=== PATIENT | male | born 1940 | race Caucasian/White ===

== ENCOUNTER 2020-03-09 16:29 | Outpatient (REF) | payer MEDICARE, SELFPAY ==
[2020-03-09 18:05] LABS: MANUAL DIFF FLAG NO
[2020-03-09 18:10] LABS: Glucose Urine UA NEG (NEG); Leukocyte Esterase Urine NEG (NEG); Nitrite Urine NEG (NEG); Specific Gravity - Urine >= 1.030 (1.005-1.025); Urine Blood NEG (NEG); Urine Ketones NEG (NEG); Urine Protein NEG (NEG-TRACE)
[2020-03-09 18:17] LABS: Appearance Urine CLEAR; Color Urine YELLOW
[2020-03-09 18:25] LABS: RBC Urine 0 /HPF (0); WBC Urine 0 /HPF (0-4)
[2020-03-09 18:26] LABS: Eosinophils Absolute Auto 0.2 X10*3/uL (0.0-0.4); Eosinophils Percent Auto 2.4 % (0-4); Hematocrit 43.6 % (42-52); Hemoglobin 14.5 g/dl (14.0-18.0); Imm Gran Abs Auto 0.08 X10*3/uL (0.00-0.03); Imm Gran Pct Auto 1.1 % (0.0-0.4); Lymphocytes Absolute Auto 1.2 X10*3/uL (1.2-4.9); Lymphocytes Percent Auto 16.2 % (20-40); Mean Corpuscular HGB Conc 33.3 g/dl (31.0-36.0); Mean Corpuscular Hemoglobin 30.3 pg (27.0-33.0); Mean Platelet Volume 11.3 fL (9.4-12.4); Monocytes Absolute Auto 0.7 X10*3/uL (0.1-1.2); Monocytes Percent Auto 9.1 % (2-11); Neutrophils Absolute Auto 5.2 X10*3/uL (2.0-8.3); Neutrophils Percent Auto 71.2 % (45-73); Platelet Count 244 X10*3/uL (160-400); Red Blood Count 4.79 X10*6/uL (4.60-5.80); Red Cell Distribution Width 12.7 % (11.0-16.0); White Blood Count 7.2 X10*3/uL (4.8-10.8)
[2020-03-09 18:39] LABS: Alanine Aminotransferase 13 U/L (0-40); Albumin Level 3.9 g/dL (3.5-5.0); Alkaline Phosphatase 90 U/L (39-117); Anion Gap 13 (12-20); Aspartate Amino Transferase 25 U/L (5-37); Bilirubin Total 0.8 mg/dL (0.0-1.0); Blood Urea Nitrogen 28 mg/dL (9-16); Calcium 8.3 mg/dL (8.4-10.2); Carbon Dioxide 27 mmol/L (22-29); Chloride 107 mmol/L (96-108); Estimated Glomerular Filt Rate 55; Glucose Random 88 mg/dL (60-115); Potassium 4.4 mmol/l (3.3-5.1); Sodium 143 mmol/L (135-145); Total Protein 6.3 g/dL (6.5-8.0)
[2020-03-09 19:00] LABS: Thyroid Stimulating Hormone 2.33 uIU/mL (0.32-4.0)
== END 2020-03-09 16:30 | disposition home or self-care (01) ==
LOC: HO.LAB 16:29
PROVIDERS: Visit Provider Internal Medicine
DX: T14.8XXA Other injury of unspecified body region, initial encounter (principal); I10 Essential (primary) hypertension
CPT/HCPCS: 36415; 80053; 81001; 84443; 85025

== ENCOUNTER 2020-05-31 | Outpatient (REF) | payer MEDICARE, SELFPAY | END 2020-05-31 00:01 | disposition home or self-care (01) | LOC: HO.VC | PROVIDERS: Visit Provider Internal Medicine | DX: Z23 Encounter for immunization (principal) | CPT/HCPCS: 0011A ==

== ENCOUNTER 2020-06-28 | Outpatient (REF) | payer MEDICARE, SELFPAY | END 2020-06-28 00:01 | disposition home or self-care (01) | LOC: HO.VC | PROVIDERS: Visit Provider Internal Medicine | DX: Z23 Encounter for immunization (principal) | CPT/HCPCS: 0012A ==

== ENCOUNTER 2020-08-21 08:58 | Outpatient (REF) | payer MEDICARE, SELFPAY ==
--- NOTE | ~2020-08-21 | XR_ITS ---
EXAMINATION: XR CHEST CLINICAL INFORMATION: Shortness of breath COMPARISON: Previous chest x-ray most recent December 2008 TECHNIQUE: 2 views of the chest were obtained. FINDINGS: The cardiac silhouette does not appear enlarged. The thoracic aorta may be tortuous and ectatic. Hilar and mediastinal contours are otherwise unremarkable. The lungs are clear. There is no pleural effusion or pneumothorax. There are degenerative changes of the spine. There are postsurgical changes to the right scapula. XR/XR chest 2V IMPRESSION: Question tortuosity and mild ectasia of the thoracic aorta otherwise unremarkable exam.
[2020-08-21 09:47] LABS: MANUAL DIFF FLAG NO
[2020-08-21 09:49] LABS: Basophils Percent Auto 0.2 % (0-2); Eosinophils Absolute Auto 0.2 X10*3/uL (0.0-0.4); Eosinophils Percent Auto 4.2 % (0-4); Hemoglobin 13.6 g/dl (14.0-18.0); Imm Gran Abs Auto 0.02 X10*3/uL (0.00-0.03); Imm Gran Pct Auto 0.4 % (0.0-0.4); Lymphocytes Absolute Auto 0.9 X10*3/uL (1.2-4.9); Lymphocytes Percent Auto 16.9 % (20-40); Mean Corpuscular HGB Conc 32.4 g/dl (31.0-36.0); Mean Corpuscular Hemoglobin 29.6 pg (27.0-33.0); Mean Corpuscular Volume 91.3 fL (80-98); Mean Platelet Volume 10.3 fL (9.4-12.4); Monocytes Absolute Auto 0.6 X10*3/uL (0.1-1.2); Monocytes Percent Auto 11.7 % (2-11); Neutrophils Absolute Auto 3.6 X10*3/uL (2.0-8.3); Neutrophils Percent Auto 66.6 % (45-73); Platelet Count 195 X10*3/uL (160-400); Red Cell Distribution Width 13.2 % (11.0-16.0); White Blood Count 5.5 X10*3/uL (4.8-10.8)
[2020-08-21 10:15] LABS: Alanine Aminotransferase 12 U/L (0-40); Albumin Level 3.6 g/dL (3.5-5.0); Alkaline Phosphatase 87 U/L (39-117); Aspartate Amino Transferase 20 U/L (5-37); Bilirubin Total 0.7 mg/dL (0.0-1.0); Blood Urea Nitrogen 25 mg/dL (9-16); Calcium 8.4 mg/dL (8.4-10.2); Cholesterol 145 mg/dL; Estimated Glomerular Filt Rate > 60; Glucose Random 97 mg/dL (60-115); HDL Cholesterol 34 mg/dL; LDL Cholesterol Calculated 94 mg/dl; Total Protein 5.7 g/dL (6.5-8.0); Triglycerides 86 mg/dL
[2020-08-21 10:29] LABS: Sodium 144 mmol/L (135-145)
[2020-08-21 10:32] LABS: Free T4 (Free Thyroxine) 1.01 ng/dL (0.71-1.85)
[2020-08-21 10:35] LABS: Anion Gap 12 (12-20); Carbon Dioxide 25 mmol/L (22-29); Chloride 111 mmol/L (96-108); Potassium 4.1 mmol/L (3.3-5.1)
[2020-08-21 12:03] LABS: Folate 15.7 ng/mL (> or = 4.0); Vitamin B12 390 pg/mL (200-900)
== END 2020-08-21 08:59 | disposition home or self-care (01) ==
LOC: HO.LAB 08:58
PROVIDERS: PCP Internal Medicine; Visit Provider Internal Medicine
DX: R06.02 Shortness of breath (principal); E78.00 Pure hypercholesterolemia, unspecified; I10 Essential (primary) hypertension; E03.9 Hypothyroidism, unspecified
CPT/HCPCS: 36415; 71046; 80053; 80061; 82607; 82746; 84439; 84443; 85025

== ENCOUNTER → 2020-09-01 14:35 | Outpatient (REF) | payer MEDICARE, SELFPAY ==
--- NOTE | 2020-09-01 14:52 | CA_ITS ---
Transthoracic Echocardiogram Amended Patient (Last, First, Middle): Edgar Roberts, Gender: Male Date of : 1940 Age: 80 Procedure Date: 09/01/2020 Procedure Type: Transthoracic Echocardiogram Location: OP Height: 172.72 cm Weight: 95.26 kg BSA: 2.09 m2 Heart Rate: bpm BP: 128 / 80 mmHg Cloth Shearing Supervisor: Referring MD: Ami Mazariegos MD Symptoms: R06.02 - Shortness of breath Study Quality: Fair ECG Rhythm: Sinus Conclusions: - The left ventricular systolic function is normal. The visually estimated ejection fraction is between 55-60%. - The basal inferior segment is hypokinetic. - There is moderate calcification of the aortic valve. No significant aortic stenosis. 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 Findings Left Ventricle Normal left ventricular cavity size. There is moderately increased left ventricular wall thickness. The left ventricular systolic function is normal. The visually estimated ejection fraction is between 55-60%. There is no evidence of regional wall motion abnormalities. E/E prime ratio is between 8 and 15 consistent with indeterminate filling pressures. Evidence suggests grade I (mild) diastolic dysfunction. Wall Motion Rest Echo Findings The basal inferior segment is hypokinetic. Atria The left atrium is normal in size. The right atrium is normal in size. Aortic Valve The aortic valve was not well visualized. There is moderate calcification of the aortic valve. The peak aortic velocity is 1.58 m/s with a calculated peak gradient of 10 mmHg. The mean gradient is 5 mmHg. The aortic valve area is 1.87 cm2. No significant aortic stenosis. Trace to mild aortic regurgitation. Mitral Valve The mitral valve appears normal. There is no mitral valve stenosis. Pulmonic Valve The pulmonic valve was not well visualized. Tricuspid Valve Normal tricuspid valve structure. There is mild tricuspid valve regurgitation. The pulmonary artery systolic pressure is normal. 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 Venous The inferior vena cava is normal in size and collapses greater than 50% with inspiration. Pericardium/Pleural There is no evidence of pericardial effusion. Prior Study Comparison Changes noted compared to prior study dated: 01/30/2009. Aortic aneurysm not previously described. Measurements 2D Linear Measurements IVSd: 1.35 0.6-0.9/0.6-1.0 cm LVIDd: 3.66 3.9-5.3/4.2-5.9 cm LVIDd Index: 1.75 2.4-3.2/2.2-3.1 cm/m2 LVIDs: 2.53 2.0-3.6 cm LVPWd: 1.36 0.7-1.1 cm Ao Root: 4.70 2.1-3.5 cm LA Diam: 3.70 2.7-3.8/3.0-4.0 cm LAIDs Index: 1.77 1.5-2.3 cm/m2 LV Mass: 217.82 67-162/88-224 g LV Mass Index: 104.22 43-95/49-115 g/m2 LVOT Diam: 2.00 3.0+(-)1.3 cm 2D Volumes LA Vol: 31.30 2D Systolic Function EF 4C: 58.10 >55% EF 2C: 57.00 >55% EF BiP: 59.20 >55% Mitral Valve MV Pk E: 0.75 MV PK A: 0.78 MV Decel Time: 194.00 E/A: 1.00 E'Lateral: 6.00 E'Medial: 6.09 E/E' Med: 12.30 E/E' Lat: 12.50 PHT: 57.00 MVA PHT: 3.86 Decel [place]: 3.86 Aortic Valve AoV Pk Chip: 1.58 AoV Mn Chip: 1.01 AoV VTI: 0.41 AoV Pk Grad: 10.00 Aov Mn Grad: 5.00 HANK Cont.VTI: 1.87 LVOT LVOT Pk Chip: 0.90 LVOT Mn Chip: 0.63 LVOT VTI: 0.25 LVOT Pk Grad: 3.00 LVOT Mn Grad: 2.00 LVOT Diam: 2.00 LVOT Area: 3.14 Diastolic Function MV Pk E: 0.75 MV Pk A: 0.78 E/A: 1.00 E'Medial: 6.09 E/E' Med: 12.30 E' Laterial: 6.00 E/E' Lat: 12.50 Tricuspid Valve TR Pk Chip: 2.46 TR Pk Grad: 24.00 RA Press: 3.00 RVSP: 27.00 Great Vessels Aorta Ao Root-2D: 4.70 2.0-3.7 cm Ao Annulus: 3.40 1.4-2.6 cm Ao Asc: 5.40 2.1-3.4 cm Pulmonary Valve PV Pk Chip: 0.68 Peak PV Grad: 2.00 Updated in Other Vendor System with Status of Final Osvaldo Gutiérrez MD electronically signed on 09/03/2020 1:53:07 PM with status of Final
== END ==
LOC: HO.CARD 14:35
PROVIDERS: Visit Provider Internal Medicine
DX: R06.02 Shortness of breath (principal)
CPT/HCPCS: 93306

== ENCOUNTER 2021-01-17 11:26 | Outpatient (REF) | payer MEDICARE, SELFPAY ==
[2021-01-17 13:03] LABS: Thyroid Stimulating Hormone 4.32 uIU/mL (0.32-4.0)
[2021-01-17 13:49] LABS: Estimated Average Glucose 108 mg/dL; Hemoglobin A1c % 5.4 %
[2021-01-19 05:02] LABS: Lyme Abs Screen <0.90 index
== END 2021-01-17 11:27 | disposition home or self-care (01) ==
LOC: HO.LAB 11:26
PROVIDERS: PCP Internal Medicine; Visit Provider Nurse Practitioner Family
DX: L03.116 Cellulitis of left lower limb (principal); E03.9 Hypothyroidism, unspecified; E11.65 Type 2 diabetes mellitus with hyperglycemia
CPT/HCPCS: 36415; 83036; 84443; 86617; 86618

== ENCOUNTER 2021-07-10 12:50 | Outpatient (REF) | payer MEDICARE, SELFPAY ==
--- NOTE | ~2021-07-10 | XR_ITS ---
EXAMINATION: XR FOOT, RIGHT CLINICAL INFORMATION: Right toe pain. COMPARISON: None. TECHNIQUE: AP, lateral, and oblique views of the right foot. FINDINGS: There is mild soft tissue swelling seen about the 1st interphalangeal joint. If this was a traumatic injury, there may be a faint nondisplaced fracture lateral base of the 1st distal phalanx. This is a questionable finding. No definite acute fracture or dislocation is appreciated. No destructive bony lesions. XR/XR foot RT 2V IMPRESSION: Soft tissue swelling with question of subtle nondisplaced fracture base of the 1st distal phalanx.
[2021-07-10 13:09] LABS: MANUAL DIFF FLAG NO
[2021-07-10 13:31] LABS: Basophils Percent Auto 0.1 % (0-2); Eosinophils Absolute Auto 0.2 X10*3/uL (0.0-0.4); Eosinophils Percent Auto 3.2 % (0-4); Hematocrit 44.6 % (42.0-52.0); Hemoglobin 14.7 g/dl (14.0-18.0); Imm Gran Abs Auto 0.03 X10*3/uL (0.00-0.03); Imm Gran Pct Auto 0.4 % (0.0-0.4); Lymphocytes Percent Auto 14.5 % (20-40); Mean Corpuscular Hemoglobin 30.1 pg (27.0-33.0); Mean Corpuscular Volume 91.2 fL (80.0-98.0); Mean Platelet Volume 10.4 fL (9.4-12.4); Monocytes Absolute Auto 0.9 X10*3/uL (0.1-1.2); Monocytes Percent Auto 12.3 % (2-11); Neutrophils Absolute Auto 4.9 x10*3/uL (2.0-8.3); Neutrophils Percent Auto 69.5 % (45-73); Platelet Count 227 X10*3/uL (160-400); Red Blood Count 4.89 X10*6/uL (4.60-5.80); Red Cell Distribution Width 13.2 % (11.0-16.0); White Blood Count 7.1 X10*3/uL (4.8-10.8)
[2021-07-10 13:50] LABS: Alanine Aminotransferase 10 U/L (0-40); Albumin Level 3.8 g/dL (3.5-5.0); Alkaline Phosphatase 92 U/L (39-117); Anion Gap 12 (12-20); Aspartate Amino Transferase 23 U/L (5-37); Bilirubin Total 0.8 mg/dL (0.0-1.0); Blood Urea Nitrogen 34 mg/dL (9-16); Calcium 8.8 mg/dL (8.4-10.2); Carbon Dioxide 30 mmol/L (22-29); Chloride 104 mmol/L (96-108); Cholesterol 174 mg/dL; Estimated Glomerular Filt Rate 48; Glucose Random 72 mg/dL (60-115); HDL Cholesterol 36 mg/dL; LDL Cholesterol Calculated 116 mg/dl; Potassium 4.4 mmol/L (3.3-5.1); Sodium 142 mmol/L (135-145); Total Protein 6.3 g/dL (6.5-8.0); Triglycerides 111 mg/dL; Uric Acid 7.7 mg/dL (3.4-7.0)
[2021-07-10 14:02] LABS: Estimated Average Glucose 114 mg/dL; Hemoglobin A1c % 5.6 %
[2021-07-10 14:13] LABS: Free T4 (Free Thyroxine) 1.27 ng/dL (0.71-1.85); Thyroid Stimulating Hormone 1.55 uIU/mL (0.32-4.0)
[2021-07-10 14:25] LABS: Creatinine Urine 72.35 mg/dL; Microalbum/Creatinine Ratio Ur 8.2 ug/mg cr
[2021-07-10 14:29] LABS: Folate 14.6 ng/mL (> or = 4.0); Vitamin B12 460 pg/mL (200-900)
== END 2021-07-10 12:51 | disposition home or self-care (01) ==
LOC: HO.LAB 12:50
PROVIDERS: PCP Internal Medicine; Visit Provider Internal Medicine
DX: M79.674 Pain in right toe(s) (principal); E11.65 Type 2 diabetes mellitus with hyperglycemia; E78.00 Pure hypercholesterolemia, unspecified; E03.9 Hypothyroidism, unspecified
CPT/HCPCS: 36415; 73620; 80053; 80061; 82043; 82607; 82746; 83036; 84439; 84443; 84550; 85025

== ENCOUNTER 2021-08-15 12:05 | Outpatient (REF) | payer MEDICARE, SELFPAY ==
[2021-08-15 13:45] LABS: Alanine Aminotransferase 17 U/L (0-40); Albumin Level 3.6 g/dL (3.5-5.0); Alkaline Phosphatase 82 U/L (39-117); Anion Gap 10 (12-20); Aspartate Amino Transferase 27 U/L (5-37); Bilirubin Total 0.6 mg/dL (0.0-1.0); Blood Urea Nitrogen 29 mg/dL (9-16); Calcium 8.8 mg/dL (8.4-10.2); Carbon Dioxide 28 mmol/L (22-29); Chloride 107 mmol/L (96-108); Estimated Glomerular Filt Rate 54; Glucose Random 63 mg/dL (60-115); Potassium 5.1 mmol/L (3.3-5.1); Sodium 140 mmol/L (135-145); Total Protein 5.8 g/dL (6.5-8.0)
[2021-08-15 13:53] LABS: Free T4 (Free Thyroxine) 1.22 ng/dL (0.71-1.85); Thyroid Stimulating Hormone 2.75 uIU/mL (0.32-4.0)
[2021-08-15 13:54] LABS: Uric Acid 6.5 mg/dL (3.4-7.0)
== END 2021-08-15 12:06 | disposition home or self-care (01) ==
LOC: HO.LAB 12:05
PROVIDERS: PCP Internal Medicine; Visit Provider Internal Medicine
DX: I10 Essential (primary) hypertension (principal)
CPT/HCPCS: 36415; 80053; 84439; 84443; 84550

== ENCOUNTER 2021-10-24 10:42 | Outpatient (REF) | payer MEDICARE, SELFPAY ==
[2021-10-24 14:01] LABS: MANUAL DIFF FLAG NO
[2021-10-24 14:05] LABS: Basophils Percent Auto 0.1 % (0-2); Eosinophils Absolute Auto 0.3 X10*3/uL (0.0-0.4); Eosinophils Percent Auto 3.7 % (0-4); Hematocrit 43.3 % (42.0-52.0); Hemoglobin 14.1 g/dl (14.0-18.0); Imm Gran Abs Auto 0.02 X10*3/uL (0.00-0.03); Imm Gran Pct Auto 0.3 % (0.0-0.4); Lymphocytes Absolute Auto 0.8 X10*3/uL (1.2-4.9); Lymphocytes Percent Auto 11.3 % (20-40); Mean Corpuscular HGB Conc 32.6 g/dl (31.0-36.0); Mean Corpuscular Hemoglobin 29.9 pg (27.0-33.0); Mean Corpuscular Volume 91.7 fL (80.0-98.0); Mean Platelet Volume 10.8 fL (9.4-12.4); Monocytes Absolute Auto 0.7 X10*3/uL (0.1-1.2); Monocytes Percent Auto 9.1 % (2-11); Neutrophils Absolute Auto 5.6 x10*3/uL (2.0-8.3); Neutrophils Percent Auto 75.5 % (45-73); Platelet Count 207 X10*3/uL (160-400); Red Blood Count 4.72 X10*6/uL (4.60-5.80); Red Cell Distribution Width 12.6 % (11.0-16.0); White Blood Count 7.4 X10*3/uL (4.8-10.8)
[2021-10-24 14:16] LABS: Estimated Average Glucose 111 mg/dL; Hemoglobin A1c % 5.5 %
[2021-10-24 14:21] LABS: Alanine Aminotransferase 11 U/L (0-40); Albumin Level 3.6 g/dL (3.5-5.0); Alkaline Phosphatase 92 U/L (39-117); Anion Gap 11 (12-20); Aspartate Amino Transferase 20 U/L (5-37); Bilirubin Total 0.7 mg/dL (0.0-1.0); Blood Urea Nitrogen 32 mg/dL (9-16); Calcium 8.5 mg/dL (8.4-10.2); Carbon Dioxide 29 mmol/L (22-29); Chloride 106 mmol/L (96-108); Cholesterol 162 mg/dL; Estimated Glomerular Filt Rate 51; Glucose Random 96 mg/dL (60-115); HDL Cholesterol 33 mg/dL; LDL Cholesterol Calculated 102 mg/dl; Potassium 4.2 mmol/L (3.3-5.1); Sodium 142 mmol/L (135-145); Total Protein 5.8 g/dL (6.5-8.0); Triglycerides 135 mg/dL
[2021-10-24 14:42] LABS: Free T4 (Free Thyroxine) 1.25 ng/dL (0.71-1.85); Thyroid Stimulating Hormone 1.84 uIU/mL (0.32-4.0); Vitamin D 25-OH Total 28.6 ng/mL (>30)
[2021-10-24 14:54] LABS: Folate 19.6 ng/mL (> or = 4.0); Vitamin B12 427 pg/mL (200-900)
== END 2021-10-24 10:43 | disposition home or self-care (01) ==
LOC: HO.HMGCLDS 10:42
PROVIDERS: PCP Internal Medicine; Visit Provider Internal Medicine
DX: N18.2 Chronic kidney disease, stage 2 (mild) (principal); E78.00 Pure hypercholesterolemia, unspecified; E11.65 Type 2 diabetes mellitus with hyperglycemia
CPT/HCPCS: 36415; 80053; 80061; 82306; 82607; 82746; 83036; 84439; 84443; 85025

== ENCOUNTER 2022-01-08 10:56 | Outpatient (REF) | payer MEDICARE, SELFPAY ==
--- NOTE | ~2022-01-08 | XR_ITS ---
EXAMINATION: XR HAND, RIGHT XR HAND, LEFT CLINICAL INFORMATION: Pain. COMPARISON: None TECHNIQUE: Three views of each hand. FINDINGS: RIGHT HAND: Interphalangeal Joints: IP Joint of Thumb: There is moderate osteoarthritis manifested by nonuniform joint space narrowing, marginal osteophytes and subchondral cystic change. The remaining joints are unremarkable. Metacarpophalangeal Joints: 1st Metacarpophalangeal Joint: There is nonuniform joint space narrowing with small marginal osteophytes indicative of mild osteoarthritis. The remaining bones, joints and soft tissues are unremarkable. LEFT HAND: Interphalangeal Joints: Normal. Metacarpophalangeal Joints: Normal. Remaining bones, joints and soft tissues are unremarkable. 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 Left Hand: Normal.
--- NOTE | ~2022-01-08 | XR_ITS ---
EXAMINATION: XR HAND, RIGHT XR HAND, LEFT CLINICAL INFORMATION: Pain. COMPARISON: None TECHNIQUE: Three views of each hand. FINDINGS: RIGHT HAND: Interphalangeal Joints: IP Joint of Thumb: There is moderate osteoarthritis manifested by nonuniform joint space narrowing, marginal osteophytes and subchondral cystic change. The remaining joints are unremarkable. Metacarpophalangeal Joints: 1st Metacarpophalangeal Joint: There is nonuniform joint space narrowing with small marginal osteophytes indicative of mild osteoarthritis. The remaining bones, joints and soft tissues are unremarkable. LEFT HAND: Interphalangeal Joints: Normal. Metacarpophalangeal Joints: Normal. Remaining bones, joints and soft tissues are unremarkable. 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 Left Hand: Normal.
== END 2022-01-08 10:57 | disposition home or self-care (01) ==
LOC: HO.XRAY 10:56
PROVIDERS: PCP Internal Medicine; Visit Provider Internal Medicine
DX: M25.531 Pain in right wrist (principal); M25.532 Pain in left wrist; M79.641 Pain in right hand; M79.642 Pain in left hand
CPT/HCPCS: 73110; 73130

== ENCOUNTER 2022-02-12 09:18 | Outpatient (REF) | payer MEDICARE, SELFPAY ==
[2022-02-12 11:56] LABS: Alanine Aminotransferase 6 U/L (0-40); Albumin Level 3.7 g/dL (3.5-5.0); Alkaline Phosphatase 90 U/L (39-117); Anion Gap 15 (12-20); Aspartate Amino Transferase 20 U/L (5-37); Bilirubin Total 0.8 mg/dL (0.0-1.0); Blood Urea Nitrogen 27 mg/dL (9-16); Calcium 8.7 mg/dL (8.4-10.2); Carbon Dioxide 27 mmol/L (22-29); Chloride 105 mmol/L (96-108); Cholesterol 152 mg/dL; Estimated Glomerular Filt Rate 60; Glucose Random 96 mg/dL (60-115); HDL Cholesterol 35 mg/dL; LDL Cholesterol Calculated 98 mg/dl; Potassium 4.3 mmol/L (3.3-5.1); Sodium 143 mmol/L (135-145); Total Protein 6.1 g/dL (6.5-8.0); Triglycerides 96 mg/dL
[2022-02-12 12:06] LABS: Estimated Average Glucose 108 mg/dL; Hemoglobin A1c % 5.4 %
== END 2022-02-12 09:19 | disposition home or self-care (01) ==
LOC: HO.HMGCLDS 09:18
PROVIDERS: PCP Internal Medicine; Visit Provider Internal Medicine
DX: E78.00 Pure hypercholesterolemia, unspecified (principal)
CPT/HCPCS: 36415; 80053; 80061; 83036

== ENCOUNTER → 2022-03-05 10:57 | Outpatient (BNVA) | payer MEDICARE, SELFPAY | PROVIDERS: PCP Internal Medicine; Visit Provider Orthopaedic Surgery | DX: G56.01 Carpal tunnel syndrome, right upper limb (principal); M25.531 Pain in right wrist | CPT/HCPCS: 99202 ==

== ENCOUNTER 2022-03-14 14:02 | Day surgery (SDC) | payer MEDICARE, SELFPAY ==
[2022-03-14 14:26] VITALS: BMI 29.9
--- NOTE | 2022-03-14 15:36 | MHC.SHP ---
Pre-Procedural Eval Section A Date of Service: 03/14/22 The patient is an INPATIENT: No Changes since office visit: No Cold of Flu in the past 2 weeks, No New Medical Problems, No Changes in Medication and No Patient answered all questions The History & Physical has been completed within 30 days and I have reviewed it.: Yes Section B Chief Complaint: Carpal tunnel syndrome, right upper limb Allergies: Allergies Allergy/AdvReac Type Severity Reaction Status Date / Time lisinopril Allergy Intermediate cough Verified 03/05/22 11:07 Plan I have reviewed the history and physical and performed a pertinent physical examination on my patient. No changes have occurred unless specified.
--- NOTE | 2022-03-14 15:36 | W.PM.OPN ---
Operative Note Operative Note Date of Service: 03/14/22 Narrative: Preop diagnosis: 1. right Carpal tunnel syndrome Postop diagnosis: same Procedure: 1. right Carpal tunnel release Surgeon: Sujey Calle MD Anesthesia: local block using 1% lidocaine with epinephrine Findings: Thickened transverse carpal ligament. EBL: Less than 5 mL Specimens: None Complications: None Disposition: Brought to recovery room in stable condition Plan: Follow-up for 10-14 days for wound check and suture removal Indications: The patient is 81 years old, with right carpal tunnel syndrome that has been unresponsive to nonoperative management. The risks and benefits of operative treatment including but not limited to risk of damage to blood vessels, nerves, tendons, infection, persistent pain, persistent symptoms, or possible need for additional surgery were discussed with the patient and the patient wishes to proceed with surgery. Procedure: Once consent was obtained a local block was performed using a combination of 1% lidocaine with epinephrine. The patient was then brought back to the operating suite and placed on the operative table in supine position. A tourniquet was applied to the proximal aspect of the right upper extremity and the limb was prepped and draped in a standard surgical fashion. Once assured that we had a good block, a 2.0 cm longitudinal incision was made centered over the carpal tunnel. The incision was made through the skin to the subcutaneous tissues using a #15 blade. Dissection was made down to the level of the transverse carpal ligament with care being taken to protect the palmar cutaneous nerve. Once the transverse carpal ligament was clearly visualized, a longitudinal incision was made in the transverse carpal ligament 1st using a #15 blade, then using tenotomy scissors under direct visualization. Care was taken to look for and protect the motor branch of the median nerve when seen in this area. Once satisfied with our carpal tunnel release the wound was copiously irrigated with normal saline and hemostasis was obtained with a brief period of local pressure. The skin edges were reapproximated with some 5.0 nylon suture material and a sterile dressing was applied. The patient appears to have tolerated the procedure well and with no complications. All digits were well vascularized at the conclusion of the case.
[2022-03-14 16:18] VITALS: BP 145/64; PULSE 58; RESP 20; TEMP 36.3; O2SAT 96
== END 2022-03-14 16:20 | disposition home or self-care (01) ==
PROVIDERS: PCP Internal Medicine; Visit Provider Orthopaedic Surgery
PROC: (CPT 64721; principal; 2022-03-14 14:40)
DX: G56.01 Carpal tunnel syndrome, right upper limb (principal); G56.23 Lesion of ulnar nerve, bilateral upper limbs; M25.431 Effusion, right wrist; I25.10 Atherosclerotic heart disease of native coronary artery without angina pectoris; Z95.1 Presence of aortocoronary bypass graft; I12.9 Hypertensive chronic kidney disease with stage 1 through stage 4 chronic kidney disease, or unspecified chronic kidney disease; N18.9 Chronic kidney disease, unspecified; I73.00 Raynaud's syndrome without gangrene; M10.9 Gout, unspecified; Z86.73 Personal history of transient ischemic attack (TIA), and cerebral infarction without residual deficits; Z88.8 Allergy status to other drugs, medicaments and biological substances
CPT/HCPCS: 64721; J0171

== ENCOUNTER 2022-06-06 09:28 | Outpatient (REF) | payer MEDICARE, SELFPAY ==
[2022-06-06 11:19] LABS: MANUAL DIFF FLAG NO
[2022-06-06 11:30] LABS: Basophils Percent Auto 0.3 % (0-2); Eosinophils Absolute Auto 0.4 X10*3/uL (0.0-0.4); Eosinophils Percent Auto 4.6 % (0-4); Hematocrit 42.6 % (42.0-52.0); Hemoglobin 13.9 g/dl (14.0-18.0); Imm Gran Abs Auto 0.03 X10*3/uL (0.00-0.03); Imm Gran Pct Auto 0.4 % (0.0-0.4); Lymphocytes Absolute Auto 1.1 X10*3/uL (1.2-4.9); Lymphocytes Percent Auto 13.7 % (20-40); Mean Corpuscular HGB Conc 32.6 g/dl (31.0-36.0); Mean Corpuscular Hemoglobin 29.1 pg (27.0-33.0); Mean Corpuscular Volume 89.3 fL (80.0-98.0); Mean Platelet Volume 10.7 fL (9.4-12.4); Monocytes Absolute Auto 0.9 X10*3/uL (0.1-1.2); Monocytes Percent Auto 10.8 % (2-11); Neutrophils Absolute Auto 5.5 x10*3/uL (2.0-8.3); Neutrophils Percent Auto 70.2 % (45-73); Platelet Count 232 X10*3/uL (160-400); Red Blood Count 4.77 X10*6/uL (4.60-5.80); Red Cell Distribution Width 13.4 % (11.0-16.0); White Blood Count 7.9 X10*3/uL (4.8-10.8)
[2022-06-06 11:48] LABS: Estimated Average Glucose 114 mg/dL; Hemoglobin A1c % 5.6 %
[2022-06-06 12:24] LABS: Alanine Aminotransferase 10 U/L (0-40); Albumin Level 3.7 g/dL (3.5-5.0); Alkaline Phosphatase 100 U/L (39-117); Anion Gap 14 (12-20); Aspartate Amino Transferase 21 U/L (5-37); Bilirubin Total 0.8 mg/dL (0.0-1.0); Blood Urea Nitrogen 27 mg/dL (9-16); Calcium 8.8 mg/dL (8.4-10.2); Carbon Dioxide 28 mmol/L (22-29); Chloride 107 mmol/L (96-108); Estimated Glomerular Filt Rate > 60; Glucose Random 93 mg/dL (60-115); Potassium 4.5 mmol/L (3.3-5.1); Sodium 144 mmol/L (135-145); Total Protein 6.1 g/dL (6.5-8.0)
[2022-06-06 12:28] LABS: Free T4 (Free Thyroxine) 1.18 ng/dL (0.71-1.85); Thyroid Stimulating Hormone 2.73 uIU/mL (0.32-4.0)
== END 2022-06-06 09:29 | disposition home or self-care (01) ==
LOC: HO.HMGCLDS 09:28
PROVIDERS: Absent Provider Thoracic Surgery (Cardiothoracic Vascular Surgery); PCP Internal Medicine; Visit Provider Internal Medicine
DX: E03.9 Hypothyroidism, unspecified (principal)
CPT/HCPCS: 36415; 80053; 83036; 84439; 84443; 84550; 85025

== ENCOUNTER 2022-10-24 09:09 | Outpatient (REF) | payer MEDICARE, SELFPAY ==
[2022-10-24 11:10] LABS: MANUAL DIFF FLAG NO
[2022-10-24 11:14] LABS: Basophils Percent Auto 0.3 % (0-2); Eosinophils Absolute Auto 0.4 X10*3/uL (0.0-0.4); Eosinophils Percent Auto 5.5 % (0-4); Hemoglobin 14.8 g/dl (14.0-18.0); Imm Gran Abs Auto 0.04 X10*3/uL (0.00-0.03); Imm Gran Pct Auto 0.6 % (0.0-0.4); Lymphocytes Absolute Auto 1.1 X10*3/uL (1.2-4.9); Lymphocytes Percent Auto 15.5 % (20-40); Mean Corpuscular HGB Conc 32.9 g/dl (31.0-36.0); Mean Corpuscular Hemoglobin 30.1 pg (27.0-33.0); Mean Corpuscular Volume 91.5 fL (80.0-98.0); Mean Platelet Volume 10.9 fL (9.4-12.4); Monocytes Absolute Auto 0.7 X10*3/uL (0.1-1.2); Monocytes Percent Auto 10.1 % (2-11); Neutrophils Absolute Auto 4.9 x10*3/uL (2.0-8.3); Platelet Count 228 X10*3/uL (160-400); Red Blood Count 4.92 X10*6/uL (4.60-5.80); Red Cell Distribution Width 12.8 % (11.0-16.0); White Blood Count 7.2 X10*3/uL (4.8-10.8)
[2022-10-24 11:32] LABS: Alanine Aminotransferase 11 U/L (0-40); Albumin Level 3.6 g/dL (3.5-5.0); Alkaline Phosphatase 102 U/L (39-117); Anion Gap 11 (12-20); Aspartate Amino Transferase 23 U/L (5-37); Bilirubin Total 0.5 mg/dL (0.0-1.0); Blood Urea Nitrogen 24 mg/dL (9-16); Calcium 9.1 mg/dL (8.4-10.2); Carbon Dioxide 28 mmol/L (22-29); Chloride 108 mmol/L (96-108); Cholesterol 176 mg/dL; Estimated Glomerular Filt Rate > 60; Glucose Random 98 mg/dL (60-115); HDL Cholesterol 36 mg/dL; LDL Cholesterol Calculated 126 mg/dl; Potassium 4.4 mmol/L (3.3-5.1); Sodium 143 mmol/L (135-145); Total Protein 6.4 g/dL (6.5-8.0); Triglycerides 71 mg/dL; Uric Acid 7.4 mg/dL (3.4-7.0)
[2022-10-24 11:46] LABS: Thyroid Stimulating Hormone 2.88 uIU/mL (0.32-4.0)
[2022-10-24 12:00] LABS: Folate 14.2 ng/mL (> or = 4.0); Vitamin B12 576 pg/mL (200-900)
== END 2022-10-24 09:10 | disposition home or self-care (01) ==
LOC: HO.HMGCLDS 09:09
PROVIDERS: PCP Internal Medicine; Visit Provider Internal Medicine
DX: E03.9 Hypothyroidism, unspecified (principal); E78.00 Pure hypercholesterolemia, unspecified
CPT/HCPCS: 36415; 80053; 80061; 82607; 82746; 84439; 84443; 84550; 85025

== ENCOUNTER 2022-11-15 10:44 | Outpatient (AMB) | payer MEDICARE, SELFPAY ==
[2022-11-15 10:45] VITALS: BP 116/70; PULSE 59; O2SAT 99; BMI 29.5
--- NOTE | 2022-11-15 10:45 | MHC.PC.OV ---
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: No Accompanied by: Self / Same As Patient Allergies lisinopril Allergy (Intermediate, Verified 11/15/22 10:45) cough rosuvastatin Adverse Reaction (Intermediate, Verified 11/15/22 10:45) myalgia simvastatin Adverse Reaction (Intermediate, Verified 11/15/22 10:45) myalgia Medication List - Last Reconciled 11/15/22 by He Blair MD aspirin (Adult Aspirin Regimen) 81 mg PO DAILY docusate sodium (Colace) 100 mg PO DAILY ezetimibe (Zetia) 10 mg PO DAILY fexofenadine (Joselin Allergy) 180 mg PO DAILY hydrochlorothiazide 12.5 mg PO DAILY 90 days levothyroxine 100 mcg PO DAILY 90 days losartan 50 mg PO BID metoprolol tartrate 50 mg PO BID 90 days sildenafil 100 mg PO DAILY PRN tamsulosin (Flomax) 0.4 mg PO DAILY 90 days Tobacco use date assessed: 11/15/22 Fall risk assessment: 1 Fall in past year Last assessed Fall Risk: 11/15/22 Dental Screening Dental Screen Date: 11/15/22 Did you have a dental visit in the last 12 months?: Yes Did you have a dental problem in the last 6 months where you did not have access to dental care?: No Was dental information given to patient?: Patient has dentist HPI cataract surgery HPI Details having bilat cataract repairs; HTN hypothyroid and hyperlipidemia; stable [facility] Medical History (Updated 11/15/22 @ 11:36 by He Blair MD) BPH (benign prostatic hyperplasia) History of CVA (cerebrovascular accident) Hypercholesterolemia Hypertension Hypothyroid Left acetabular fracture Lumbar spinal stenosis Peripheral arterial disease Surgical History History of prostate surgery History of thyroidectomy Hx of cholecystectomy S/P CABG x 1 Family History Father Medical history unknown Mother Medical history unknown Social History (Updated 08/16/22 @ 11:19 by Ami Mazariegos MD) Housing: House Alcohol intake: current Alcohol intake frequency: holidays/special occasions only Patient Tobacco Use Status: Never used Tobacco e-Cigarette/Vaping Use: Never Used Second Hand Smoke Exposure: No service: No Current occupational status: retired Current occupation: left hand Cognitive needs: No Hearing needs: No Vision needs: Yes Questionnaire PHQ-9 Over the last 2 weeks, how often have you been bothered by any of the following problems? 1. Little interest or pleasure in doing things: not at all 2. Feeling down, depressed, or hopeless: not at all 3. Trouble falling or staying asleep, or sleeping too much: several days 4. Feeling tired or having little energy: several days 5. Poor appetite or overeating: not at all 6. Feeling bad about yourself - or that you are a failure or have let yourself or your family down: not at all 7. Trouble concentrating on things, such as reading the newspaper or watching television: not at all 8. Moving or speaking so slowly that other people could have noticed. Or the opposite - being so fidgety or restless that you have been moving around a lot more than usual: not at all 9. Thoughts that you would be better off or of hurting yourself in some way: not at all Total score: 2 Depression Screening Interpretation: Negative Source: Developed by Drs. Bharathi Yi, Evelin Burns, Juan Hood and colleagues, with an educational colby from [employer]. Thrive Questionnaire Date Thrive assessed: 11/15/22 I am a: Patient What is your living situation today?: I have a steady place to live Within the past 12 months, did the food you bought not last and you didn't have the money to get more?: Never true Within the past 12 months, did you worry whether your food would run out before you got money to buy more?: Never true Do you have trouble paying for medicines?: No Do you have trouble getting transportation to medical appointments?: No Do you have trouble paying your heating and electricity bill?: No Do you have trouble taking care of your child, family member or friend?: No Do you have trouble with day-to-day activities such as bathing, preparing meals, shopping, managing finances, etc.?: No Are you currently unemployed and looking for a job?: No Are you interested in more education?: No Please select the resources that you would like help with: None Currently or been in a relationship where the following occur: no concerns reported AUDIT C Alcohol Use Questionnaire (AUDIT-C) 1. How often do you have a drink containing alcohol?: 2-3 times a week 2. How many drinks containing alcohol do you have on a typical day when you are drinking?: 1 or 2 3. How often do you have six or more drinks on one occasion?: Never Total Score: 3 Score Reviewed/Action Taken: No MIKE-7 AMB Questionnaire MIKE-7 Date MIKE - 7 assessed: 11/15/22 Feeling nervous, anxious, or on edge: 0 = Not at all Not being able to stop or control worryin = Not at all Worrying too much about different things: 0 = Not at all Trouble relaxin = Not at all Being so restless that it is hard to sit still: 0 = Not at all Becoming easily annoyed or irritable: 0 = Not at all Feeling afraid as if something awful might happen: 0 = Not at all Total MIKE-7 score (0-4 normal; 5-9 mild; 10-14 moderate; 15-21 severe): 0 Source: Developed by Drs. Bharathi Yi, Evelin Burns, Juan Hood and colleagues, with an educational colby from [employer]. Review of Systems Const Denies chills, Denies fatigue, Denies headache(s) and Denies weight loss Eyes Denies change in vision, Denies diplopia and Denies eye pain ENT Denies vertigo, Denies dizziness, Denies headache(s) and Denies nasal discharge Card Denies chest pain, Denies rapid heart rate and Denies dyspnea on exertion Resp Denies chest congestion, Denies cough, Denies pain with cough and Denies dyspnea on exertion GI Denies abdominal pain, Denies hematochezia and Denies change in bowel habits Musc Denies myalgias, Denies arthralgias and Denies joint swelling Skin/Breast Denies lesions and Denies unusual bruising Neuro Denies vertigo, Denies dizziness, Denies headache(s) and Denies focal weakness Endo Denies fatigue Physical exam (Primary Care) Vital Signs: Last Vital Signs Pulse 59 07/21/23 10:45 BP 116/70 11/15/22 10:45 Pulse Ox 99 11/15/22 10:45 Oxygen Delivery Method Room Air 11/15/22 10:45 BMI result Body Mass Index 29.5 Tobacco/Smoking Status: Tobacco use Status Tobacco use date assessed 11/15/22 11/15/22 10:51 Patient Tobacco Use Status Never used Tobacco 11/15/22 10:51 e-Cigarette/Vaping Use Never Used 11/15/22 10:51 PHQ-9: PHQ-9 Score PHQ-9: Total score 2 11/15/22 10:51 Depression Screening Interpretation: Negative Thrive Assessment: Date of Thrive Assessment Date Thrive assessed 11/15/22 11/15/22 10:51 Currently or been in a relationship where the following occur: no concerns reported Const General: cooperative, healthy appearing and no acute distress Orientation/consciousness: oriented to person, oriented to place and oriented to time HENMT Head: Yes normal to inspection, Yes normocephalic and Yes atraumatic Mouth: Normal oral and palatal mucosa present and tongue normal Throat: Yes posterior oropharynx normal and Yes uvula midline Eyes General: appearance normal, both eyes and all related structures Neck Neck: Yes normal visual inspection, Yes full ROM and Yes no lymphadenopathy Thyroid: Thyroid normal Carotids: normal carotid upstroke Chest Chest palpation & inspection: normal inspection of the chest Resp Effort & Inspection: normal respiratory effort and able to speak in complete sentences Auscultation: clear to auscultation bilaterally Cardio Jugular venous distension: no JVD Palpation: normal PMI Rate: regular rate Rhythm: regular rhythm Heart sounds: S1 normal heart sound present and S2 normal heart sound present GI Inspection: Yes normal to inspection Palpation (GI): Soft to palpation and No hepatosplenomegaly present Auscultation: normal bowel sounds General: Yes no CVA tenderness Back/Spine/Pelvis Back: no CVA tenderness Skin General skin exam: no rashes or lesions noted Neuro General: oriented to person, oriented to place and oriented to time Extrem General: Yes normal to inspection and Yes full ROM Assessment and Plan Assessment & Plan (1) Preop exam for internal medicine: Code(s): Z01.818 - Encounter for other preprocedural examination Plan: low risk for cardiovascular complications; cleared for surgery (2) Hypertension: Code(s): I10 - Essential (primary) hypertension Qualifiers: Hypertension type: essential hypertension Qualified Code(s): I10 - Essential (primary) hypertension Plan: stable; same rx Coding Level of Care Code Est Pt Level 4 (11321) Diagnoses Preop exam for internal medicine Z01.818 Hypertension I10 Hypertension type: essential hypertension
== END 2022-11-15 11:23 | disposition home or self-care (01) ==
PROVIDERS: PCP Internal Medicine; Visit Provider Internal Medicine
DX: Z01.818 Encounter for other preprocedural examination (principal); I10 Essential (primary) hypertension
CPT/HCPCS: 99214

== ENCOUNTER 2022-11-26 10:17 | Outpatient (AMB) | payer MEDICARE, SELFPAY ==
[2022-11-26 10:32] VITALS: BP 130/68; PULSE 70; O2SAT 100; BMI 29.3
--- NOTE | 2022-11-26 10:32 | A.OFFPC_ITS ---
Vital Signs 11/26/22 10:32 Height 5 ft 11 in Weight 210 lb BMI 29.3 BP 130/68 Blood Pressure Location Lt brachial Position Sitting Pulse 70 Pulse Source Pulse Oximeter Pulse Oximetry (%) 100 Oxygen Delivery Method Room Air Intake Visit Reasons: 3 month f/u Allergies lisinopril Allergy (Intermediate, Verified 11/26/22 10:33) cough rosuvastatin Adverse Reaction (Intermediate, Verified 11/26/22 10:33) myalgia simvastatin Adverse Reaction (Intermediate, Verified 11/26/22 10:33) myalgia Tobacco use date assessed: 11/15/22 Fall risk assessment: No Falls in past year Last assessed Fall Risk: 11/26/22 Dental Screening Dental Screen Date: 11/26/22 Did you have a dental visit in the last 12 months?: Yes Did you have a dental problem in the last 6 months where you did not have access to dental care?: No Was dental information given to patient?: Patient has dentist HPI 3 month f/u HPI Details 82-year-old overweight male with a history of hypertension h ypercholesterolemia hypothyroidism BPH coronary artery disease with chronic kidney disease peripheral vascular disease and a history of ascending aorta dilatation which was last tested in April 2022. Patient is here for follow-up patient was seen in July 2022 for annual well visit. Patient was seen last month for preoperative evaluation for cataract surgery- this is scheduled 12/10/2022. leg weakness stopped statins better- bilateral. R [facility] [place] Medical History (Updated 11/26/22 @ 11:17 by Ami Mazariegos MD) BPH (benign prostatic hyperplasia) Carpal tunnel syndrome of right wrist History of CVA (cerebrovascular accident) Hypercholesterolemia Hypertension Hypothyroid Left acetabular fracture Leg weakness Lumbar spinal stenosis Peripheral arterial disease Preop exam for internal medicine Right wrist pain Surgical History History of prostate surgery History of thyroidectomy Hx of cholecystectomy S/P CABG x 1 Family History Father Medical history unknown Mother Medical history unknown Social History (Updated 08/16/22 @ 11:19 by Ami Mazariegos MD) Housing: House Alcohol intake: current Alcohol intake frequency: holidays/special occasions only Patient Tobacco Use Status: Never used Tobacco e-Cigarette/Vaping Use: Never Used Second Hand Smoke Exposure: No service: No Current occupational status: retired Current occupation: left hand Cognitive needs: No Hearing needs: No Vision needs: Yes Questionnaire PHQ-9 Over the last 2 weeks, how often have you been bothered by any of the following problems? 1. Little interest or pleasure in doing things: not at all 2. Feeling down, depressed, or hopeless: not at all 3. Trouble falling or staying asleep, or sleeping too much: several days 4. Feeling tired or having little energy: several days 5. Poor appetite or overeating: not at all 6. Feeling bad about yourself - or that you are a failure or have let yourself or your family down: not at all 7. Trouble concentrating on things, such as reading the newspaper or watching television: not at all 8. Moving or speaking so slowly that other people could have noticed. Or the opposite - being so fidgety or restless that you have been moving around a lot m ore than usual: not at all 9. Thoughts that you would be better off or of hurting yourself in some way: not at all Total score: 2 Depression Screening Interpretation: Negative Source: Developed by Drs. Bharathi Yi, Juan Maria and colleagues, with an educational colby from [employer]. Thrive Questionnaire Date Thrive assessed: 11/15/22 AUDIT C Alcohol Use Questionnaire (AUDIT-C) 1. How often do you have a drink containing alcohol?: 2-3 times a week 2. How many drinks containing alcohol do you have on a typical day when you are drinking?: 1 or 2 3. How often do you have six or more drinks on one occasion?: Never Total Score: 3 Score Reviewed/Action Taken: No MIKE-7 AMB Questionnaire MIKE-7 Date MIKE - 7 assessed: 11/15/22 Source: Developed by Drs. Bharathi Yi, Juan Maria and colleagues, with an educational colby from [employer]. Physical exam (Primary Care) Vital Signs: Last Vital Signs Pulse 70 11/26/22 10:32 BP 130/68 11/26/22 10:32 Pulse Ox 100 11/26/22 10:32 Oxygen Delivery Method Room Air 11/26/22 10:32 BMI result Body Mass Index 29.3 Tobacco/Smoking Status: Tobacco use Status Tobacco use date assessed 11/15/22 11/26/22 10:34 Patient Tobacco Use Status Never used Tobacco 11/26/22 10:34 e-Cigarette/Vaping Use Never Used 11/26/22 10:34 PHQ-9: PHQ-9 Score PHQ-9: Total score 2 11/26/22 10:34 Depression Screening Interpretation: Negative Thrive Assessment: Date of Thrive Assessment Date Thrive assessed 11/15/22 11/26/22 10:34 Const General: alert; No acute distress [facility] Head images: 1. 1 cm keratotic rash noted with no bleeding no discharge Eyes Conjunctivae: conjunctivae normal Resp Auscultation: clear to auscultation bilaterally Cardio Rate: regular rate Rhythm: regular rhythm GI Inspection: Yes normal to inspection Extrem General: Yes normal to inspection and No edema Assessment and Plan Assessment & Plan (1) Hypertension: Code(s): I10 - Essential (primary) hypertension Qualifiers: Hypertension type: essential hypertension Qualified Code(s): I10 - Essential (primary) hypertension Plan: Continue with blood pressure medication. Decrease salt intake and exercise patient takes losartan 50 mg twice a day metoprolol 50 mg twice a day and hydrochlorothiazide 12.5 mg once a day (2) BPH (benign prostatic hyperplasia): Code(s): N40.0 - Benign prostatic hyperplasia without lower urinary tract symptoms Qualifiers: Lower urinary tract symptom presence: symptoms present Lower urinary tract symptom detail: urinary frequency Qualified Code(s): N40.1 - Benign prostatic hyperplasia with lower urinary tract symptoms; R35.0 - Frequency of micturition Plan: Continue with tamsulosin (3) Hypothyroid: Comment: Continue with present medication Code(s): E03.9 - Hypothyroidism, unspecified Qualifiers: Hypothyroidism type: acquired Qualified Code(s): E03.9 - Hypothyroidism, unspecified Plan: Continue with thyroid medication 100 mcg once a day (4) History of CVA (cerebrovascular accident): Comment: August 2005 Code(s): Z86.73 - Personal history of transient ischemic attack (TIA), and cerebral infarction without residual deficits Plan: Control the cholesterol, weight, blood pressure (5) Hypercholesterolemia: Comment: Avoid fried foods, chicken skin, eggs, butter margarine, pastries and meat. Be it pork or beef they have a lot of cholesterol LDL goal of less than 70 Code(s): E78.00 - Pure hypercholesterolemia, unspecified Plan: Avoid fried foods, chicken skin, eggs, butter margarine, pastries and meat. Be it pork or beef they have a lot of cholesterol LDL goal of less than 70 and triglyceride of less than 150 patient is taking Zetia and statin intolerant (6) Ascending aorta dilatation: Comment: August 2020 5.4 cm, September 2020 ascending aortic aneurysm replacement Dr. Koehler Code(s): I77.810 - Thoracic aortic ectasia Plan: Continuing to be monitored by cardiovascular (7) Coronary artery disease: Comment: 10/10/2020 coronary artery bypass graft x1 Code(s): I25.10 - Atherosclerotic heart disease of [place] coronary artery without angina pectoris Qualifiers: Coronary Disease-Associated Artery/Lesion type: [place] artery [place] vs. transplanted heart: [place] heart Associated angina: without angina Qualified Code(s): I25.10 - Atherosclerotic heart disease of [place] coronary artery without angina pectoris Plan: Control the cholesterol, weight, blood pressure (8) CKD (chronic kidney disease) stage 2, GFR 60-89 ml/min: Comment: Dr. Ferrari November 2020 Code(s): N18.2 - Chronic kidney disease, stage 2 (mild) Plan: Keep well hydrated avoid NSAIDs Coding Level of Care Code Est Pt Level 4 (70455) Diagnoses Hypertension I10 Hypertension type: essential hypertension BPH (benign prostatic hyperplasia) N40.1; R35.0 Lower urinary tract symptom presence: symptoms present Lower urinary tract symptom detail: urinary frequency Hypothyroid E03.9 Hypothyroidism type: acquired History of CVA (cerebrovascular accident) Z86.73 Hypercholesterolemia E78.00 Ascending aorta dilatation I77.810 Coronary artery disease I25.10 Coronary Disease-Associated Artery/Lesion type: [place] artery [place] vs. transplanted heart: [place] heart Associated angina: without angina CKD (chronic kidney disease) stage 2, GFR 60-89 ml/min N18.2
== END 2022-11-26 11:45 | disposition home or self-care (01) ==
PROVIDERS: Visit Provider Internal Medicine
DX: I12.9 Hypertensive chronic kidney disease with stage 1 through stage 4 chronic kidney disease, or unspecified chronic kidney disease (principal); N18.2 Chronic kidney disease, stage 2 (mild); E03.9 Hypothyroidism, unspecified; Z86.73 Personal history of transient ischemic attack (TIA), and cerebral infarction without residual deficits; I77.810 Thoracic aortic ectasia; N40.1 Benign prostatic hyperplasia with lower urinary tract symptoms; R35.0 Frequency of micturition; E78.00 Pure hypercholesterolemia, unspecified; I25.10 Atherosclerotic heart disease of native coronary artery without angina pectoris
CPT/HCPCS: 99214

== ENCOUNTER 2023-01-19 18:24 | Emergency (ER) | payer MEDICARE, SELFPAY ==
--- NOTE | ~2023-01-19 | XR_ITS ---
EXAMINATION: XR HIP, LEFT , AP pelvis CLINICAL INFORMATION: Fall COMPARISON: 2019 TECHNIQUE: Frontal and lateral views of the hip acquired. , AP pelvis FINDINGS: There is no evidence of acute fracture or dislocation. There are mild degenerative arthritic changes of the hip evident by sclerotic changes of the acetabular roof and narrowing of the joint space. Mild degenerative changes of the symphysis pubis. Mild degenerative changes of the SI joints. Adjacent pubic rami are intact. Surrounding soft tissues are unremarkable. XR/XR hip LT w PEL1V IMPRESSION: Mild degenerative arthritis. No evidence of acute fracture. Normal radiograph does not entirely exclude the possibility of hip fracture or bone contusions. If there is high clinical suspicion or if patient symptoms persist for longer period, then MRI might be utilized for further investigation.
--- NOTE | ~2023-01-19 | CT_ITS ---
EXAMINATION: CT PELVIS WITHOUT CONTRAST CLINICAL INFORMATION: Question left hip fracture. COMPARISON: None currently available. TECHNIQUE: Helical scanning was performed with submillimeter collimation through the pelvis. Sagittal and coronal multiplanar 2-D reconstructions were obtained. This CT examination was performed using dose optimization techniques as appropriate, variously including the following: *Automated exposure control *Adjustment of mA and/or kV according to patient size (this includes techniques or standardized protocols for targeted exams where dose is matched to indication/reason for exam; i.e. extremities or head) *Use of iterative reconstruction technique DLP: 604 mGy-cm FINDINGS: PELVIS: Diverticulosis involving the sigmoid and descending colon, without evidence of diverticulitis. Normal-appearing distal ileum and vermiform appendix. Unremarkable appearance of the prostate and urinary bladder. No evidence of adenopathy or free intraperitoneal fluid. OSSEOUS STRUCTURES: Minimally displaced avulsion fracture of the left greater trochanter. Old, healed fracture of the left inferior pubic ramus. Disc degenerative changes at L3-L5. CT/CT pelvis wo IV con IMPRESSION: Minimally displaced avulsion fracture of the left greater trochanter.
[2023-01-19 18:40] VITALS: BP 124/57; PULSE 69; RESP 18; TEMP 36.3; O2SAT 94; BMI 29.3
[2023-01-19] MEDS: Acetaminophen 325 MG TABLET 975 MG PO (20:30)
--- NOTE | 2023-01-19 21:04 | ED_ITS ---
HPI - General Adult General Chief complaint: Extremity Injury, Lower Stated complaint: L hip injury/fall (today) Time Seen by Provider: 01/19/23 20:15 Source: patient, family (), RN notes reviewed and old records reviewed Mode of arrival: wheelchair Limitations: no limitations History of Present Illness HPI narrative: 82-year-old male presents for evaluation of left hip pain. Which that he was bending down to hand picker some garbage when he accidentally ?went too far and fell over. ? He fell onto his left side injuring his left hip He reports that he is unable to stand independently but is able to do so with assistance He has significant pain while attempting to lift up his left leg. Patient reports that he tablet fracture in 2019 that was treated nonsurgically He is concern for hip fracture today He denies hitting his head or losing consciousness Denies any other injuries This pain is a 11/04 Related Data Home Medications Medication Instructions Recorded Confirmed aspirin 81 mg tablet,delayed 81 mg PO DAILY 08/06/21 01/19/23 release (Adult Aspirin Regimen) docusate sodium 100 mg capsule 100 mg PO DAILY 08/15/21 01/19/23 (Colace) losartan 50 mg tablet 50 mg PO BID 08/16/22 01/19/23 metoprolol succinate 50 mg 50 mg PO 1XD 01/19/23 01/19/23 tablet,extended release 24 hr (Toprol XL) Previous Rx's Medication Instructions Recorded levothyroxine 100 mcg tablet 100 mcg PO DAILY 90 days #90 tabs 06/21/22 ezetimibe 10 mg tablet (Zetia) 10 mg PO DAILY #90 tabs 08/26/22 tamsulosin 0.4 mg capsule (Flomax) 0.4 mg PO DAILY 90 days #90 caps 09/02/22 hydrochlorothiazide 12.5 mg tablet 12.5 mg PO DAILY 90 days #90 tabs 10/26/22 Allergies Allergy/AdvReac Type Severity Reaction Status Date / Time lisinopril Allergy Intermediate cough Verified 01/19/23 18:40 rosuvastatin AdvReac Intermediate myalgia Verified 01/19/23 18:40 simvastatin AdvReac Intermediate myalgia Verified 01/19/23 18:40 Review of Systems Constitutional: Constitutional: Denies frequent falls and Denies headache(s) ENT: Denies headache(s) Cardiovascular: Cardiovascular: Denies chest pain, Denies syncope and Denies dyspnea Respiratory: Respiratory: Denies cough and Denies dyspnea Gastrointestinal: Gastrointestinal: Denies abdominal pain, Denies nausea and Denies vomiting Musculoskeletal: Musculoskeletal: Reports arthralgias, Denies joint swelling and Reports limited range of motion Integumentary/Breasts: Skin/Breast: Denies rash Neurologic: Denies syncope, Denies frequent falls and Denies headache(s) PMFSH Past Medical History Medical History (Updated 01/19/23 @ 23:10 by Manjit Whittington) Preop exam for internal medicine Leg weakness Right wrist pain Carpal tunnel syndrome of right wrist Lumbar spinal stenosis Left acetabular fracture Peripheral arterial disease Hypercholesterolemia History of CVA (cerebrovascular accident) BPH (benign prostatic hyperplasia) Hypothyroid Hypertension Surgical History S/P CABG x 1 History of prostate surgery History of thyroidectomy Hx of cholecystectomy Family History Family History Father Medical history unknown Mother Medical history unknown Social History Social History (Updated 08/16/22 @ 11:19 by Ami Mazariegos MD) Housing: House Alcohol intake: current Alcohol intake frequency: a few times a month Alcohol type: wine Patient Tobacco Use Status: Never used Tobacco e-Cigarette/Vaping Use: Never Used Second Hand Smoke Exposure: No Advance Directives Date on File: 01/20/23 service: No Current occupational status: retired Current occupation: left hand Cognitive needs: No Hearing needs: No Vision needs: Yes Physical Exam ED Vital Signs: Vital Signs - 24 hr 01/19/23 18:40 01/19/23 21:28 01/19/23 23:51 Temperature 97.3 F 97.5 F 97.8 F Pulse Rate 69 63 60 Respiratory Rate 18 16 16 Blood Pressure 124/57 L 137/71 125/78 Pulse Oximetry 94 97 99 Oxygen Delivery Method Room Air Room Air Room Air 01/20/23 05:26 Temperature 97.5 F Pulse Rate 64 Respiratory Rate 16 Blood Pressure 129/71 Pulse Oximetry 97 Oxygen Delivery Method Room Air BMI result Body Mass Index 29.3 Const General: healthy appearing, comfortable, no acute distress, alert and awake Nutritional Appearance: well nourished Orientation/consciousness: patient oriented x3 HENMT Head: Yes normocephalic and Yes atraumatic Eyes Eyelids: Yes eyelids normal Conjunctivae: conjunctivae normal Sclerae: sclerae normal Corneas: corneas normal Pupils: Equal, round and reactive pupils present EOM: EOMs intact bilaterally Neck Neck: Yes full ROM Resp Effort & Inspection: normal respiratory effort, able to speak in complete sentences and not labored GI Inspection: No distended Palpation (GI): Soft to palpation, not firm, nontender, no guarding and not rigid Skin General skin exam: elasticity normal Neuro General: patient oriented x3 Cranial nerves: Yes Equal, round and reactive pupils present and Yes Bilaterally intact EOM present Cognition (Neuro): normal cognition Extrem Other: There is no shortening or external rotation of the left lower extremity Patient has minimal pain with palpation of the left hip. He has no pain with passive range of motion. He has significant pain in the left hip with active range of motion of the left lower extremity No left knee tenderness. Course Course Course Narrative: 01/20/23--739-- physician observation continued. Vital signs stable. Labs reviewed. Patient with avulsion fracture of left greater trochanter, nonsurgical management recommended by Orthopedics. Pending physical therapy and Case Management evaluation as patient unable to ambulate independently/not safe discharge at this time. -[id number]-- patient will be discharged home with [facility] for physical therapy. will be transporting from the ED Reevaluation(s) Reevaluation #1: Discussed patient's workup with him. He has a nondisplaced avulsion fracture of the left greater trochanter. I discussed with orthopedics who recommended nonsurgical management and follow up in the office. Given the patient is unable to ambulate independently, we will keep him in the ER overnight for a physical therapy and child welfare social worker consult in the morning. His goal is to be discharged home with home physical therapy. Time: 23:07 Medications Administered Generic Name Dose Route Start Last Admin Trade Name Freq PRN Reason Stop Dose Admin Levothyroxine Sodium 100 mcg 01/20/23 06:30 01/20/23 06:10 Levothyroxine Sodium 100 Mcg Tablet PO 100 mcg DAILY@0630 SAMANTHA Administration Losartan Potassium 50 mg 01/19/23 23:30 01/19/23 23:43 Losartan Potassium 50 Mg Tablet PO 50 mg BID SAMANTHA Administration Protocol Discontinued Medications Generic Name Dose Route Start Last Admin Trade Name Freq PRN Reason Stop Dose Admin Acetaminophen 975 mg 01/19/23 20:25 01/19/23 20:30 Acetaminophen 325 Mg Tablet PO 01/19/23 20:26 975 mg ONCE ONE Administration Medical Decision Making Medical Decision Making [facility] Narrative: 82-year-old male presents for evaluation of a nonsyncopal fall injuring his left hip. X-ray shows degenerative changes with no obvious fracture. Given the patient is nonambulatory get a CT scan of the pelvis to evaluate for Occult fracture. Patient was offered analgesia any requests Tylenol only. He denies any prodrome of chest pain, shortness of breath, dizziness leading to his fall and reports it was strictly mechanical. Differential Diagnosis Differential Diagnoses: The differential diagnosis associated with the presentation includes Contusion Hip fracture Pelvic fracture Hip dislocation Consult Healthcare Provider Management of the patient was discussed with: Equipment Monitor Phototypesetting (Orthopedic Alda CERDA recommends nonsurgical management. Avoiding abduction and adduction.) Radiology Impression Discussion of test interpretation with radiology: I have reviewed the radiologist's reading. (Minimally displaced avulsion fracture of the left greater trochanter) Discharge Plan Discharge Clinical Impression: Fracture of greater trochanter of left femur Patient Disposition: Still a Patient Instructions: Hip Fracture (ED) Additional Instructions: You have an avulsion fracture of the greater trochanter left femur. Orthopedics recommends outpatient follow-up Prescriptions: No Action levothyroxine 100 mcg tablet 100 mcg PO DAILY 90 Days Qty: 90 3RF ezetimibe [Zetia] 10 mg tablet 10 mg PO DAILY Qty: 90 2RF tamsulosin [Flomax] 0.4 mg capsule 0.4 mg PO DAILY 90 Days Qty: 90 3RF hydrochlorothiazide 12.5 mg tablet 12.5 mg PO DAILY 90 Days Qty: 90 3RF metoprolol succinate [Toprol XL] 50 mg tablet extended release 24 hr 50 mg PO 1XD docusate sodium [Colace] 100 mg capsule 100 mg PO DAILY aspirin [Adult Aspirin Regimen] 81 mg tablet,delayed release (DR/EC) 81 mg PO DAILY losartan 50 mg tablet 50 mg PO BID Referrals: [facility] [Outside] Lico Lo MD [Physician] - (left greater trochanter fracture)
[2023-01-19 21:28] VITALS: BP 137/71; PULSE 63; RESP 16; TEMP 36.4; O2SAT 97
[2023-01-19] MEDS: Losartan Potassium 50 MG TABLET PO (23:43)
[2023-01-19 23:51] VITALS: BP 125/78; PULSE 60; RESP 16; TEMP 36.6; O2SAT 99
[2023-01-20 05:26] VITALS: BP 129/71; PULSE 64; RESP 16; TEMP 36.4; O2SAT 97
[2023-01-20] MEDS: Levothyroxine Sodium 100 MCG TABLET PO (06:10)
--- NOTE | 2023-01-20 07:27 | PC.NURSE ---
pt resting with eyes closed, breathing even and unlabored. breakfast at bedside.
--- NOTE | 2023-01-20 08:42 | PC.NURSE ---
pt sitting up on the side of the bed eating breakfast. pt reports 1/10 L hip pain when sitting, 7/10 pain when moving.
--- NOTE | 2023-01-20 09:13 | PC.NURSE ---
PT at bedside
[2023-01-20] MEDS: Aspirin Enteric Coated 81 MG TABLET.DR PO (10:42)
[2023-01-20] MEDS: Ezetimibe 10 MG TABLET PO (10:43)
--- NOTE | 2023-01-20 10:43 | MHC.CM.ED ---
Received case management consult overnight. Patient came to the ER after a fall. Found to have a greater trochanter avulsion fracture. Per ortho, medically managed. Physical therapy eval completed. Home therapy is recommended. Met with patient in regards to discharge planning. Patient lives with his , ambulates with a cane for long distances and had no services prior to coming to the ER. PCP verified as Dr Mazariegos. HCP verified to be on file. Patient received 3 Moderna vaccines. Referral made to [facility] for home physical therapy at patient's request. Patient's will transport patient home. Patient, Ciara DIAS and Janice CERDA aware. Continue to monitor for d/c needs.
[2023-01-20] MEDS: Docusate Sodium 100 MG CAPSULE PO (10:44)
[2023-01-20 10:51] VITALS: BP 98/46; PULSE 68; RESP 18; O2SAT 95
--- NOTE | 2023-01-20 10:52 | PC.NURSE ---
BP is soft. taken 3 times. Bp medications (3) held. PRASHANT Camacho aware
[2023-01-20 11:15] VITALS: BP 116/57
--- NOTE | 2023-01-20 11:32 | PC.NURSE ---
BP has improved 116/57, pt waiting on for p/u
== END 2023-01-20 14:29 | disposition home or self-care (01) ==
PROVIDERS: Emergency Provider Emergency Medicine Emergency Medical Services; PCP Internal Medicine
DX: S72.112A Displaced fracture of greater trochanter of left femur, initial encounter for closed fracture (principal); R26.2 Difficulty in walking, not elsewhere classified; R10.2 Pelvic and perineal pain; W01.0XXA Fall on same level from slipping, tripping and stumbling without subsequent striking against object, initial encounter; Y93.9 Activity, unspecified; Y92.9 Unspecified place or not applicable; Y99.9 Unspecified external cause status; Z79.899 Other long term (current) drug therapy
CPT/HCPCS: 72192; 73502; 97162; 99284

== ENCOUNTER 2023-01-31 07:56 | Outpatient (REF) | payer MEDICARE, SELFPAY ==
--- NOTE | ~2023-01-31 | XR_ITS ---
EXAMINATION: XR HIP, LEFT CLINICAL INFORMATION: Pain COMPARISON: Hip radiographs 01/19/2023 TECHNIQUE: Two views of the left hip. One view of the pelvis. FINDINGS: No acute fracture or dislocation. Mild osteoarthritis of the hips with subchondral cystic change similar to prior. Soft tissues are unremarkable. Calcified phleboliths in the pelvis. Degenerative disc disease in the visualized lower lumbosacral spine. XR/XR hip LT w PEL1V IMPRESSION: 1. Mild osteoarthritis of the hips similar to prior. 2. Degenerative disc disease in the visualized lower lumbosacral spine.
== END 2023-01-31 07:57 | disposition home or self-care (01) ==
LOC: HO.HOSX 07:56
PROVIDERS: Visit Provider Physician Assistant
DX: S72.115A Nondisplaced fracture of greater trochanter of left femur, initial encounter for closed fracture (principal)
CPT/HCPCS: 73502

== ENCOUNTER 2023-01-31 10:35 | Outpatient (AMB) | payer MEDICARE, SELFPAY ==
--- NOTE | 2023-01-31 10:44 | MHC.OFFVIS ---
Intake Intake Visit Reasons: fc- Ed Follow up - L hip injury/fall Intake Note: Edgar is a 82 year old male who presents today for a evaluation for his left hip fx, DOI 01/19/23. 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 He states falling onto his left side injuring his left hip. He states that his pain is a little better today than before but still having mild pain. Allergies lisinopril Allergy (Intermediate, Verified 01/31/23 10:44) cough rosuvastatin Adverse Reaction (Intermediate, Verified 01/31/23 10:44) myalgia simvastatin Adverse Reaction (Intermediate, Verified 01/31/23 10:44) myalgia HPI fc- Ed Follow up - L hip injury/fall HPI Details 82-year-old male who presents in the office today for an evaluation of left hip pain. The patient presented to the ED on 01/19/2023 status post bending down to cone picker garbage when he fell over. X-rays of the left hip were obtained. While in the office today the patient states his pain is a little better today then before, but still describes it as mild. He reports having a history of left hip fracture about 5 years ago, in 2018. He uses a walker to ambulate. He confirms physical therapy is coming to his house to work on exercises with him. He reports lateral knee pain that began after the fall. 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 He is accompanied in the office today by his . [facility] Medical History (Updated 01/31/23 @ 10:54 by Shae Acosta) Preop exam for internal medicine Leg weakness Right wrist pain Carpal tunnel syndrome of right wrist Lumbar spinal stenosis Left acetabular fracture Peripheral arterial disease Hypercholesterolemia History of CVA (cerebrovascular accident) BPH (benign prostatic hyperplasia) Hypothyroid Hypertension Surgical History S/P CABG x 1 History of prostate surgery History of thyroidectomy Hx of cholecystectomy Family History Father Medical history unknown Mother Medical history unknown Social History Housing: House Alcohol intake: current Alcohol intake frequency: a few times a month Alcohol type: wine Patient Tobacco Use Status: Never used Tobacco e-Cigarette/Vaping Use: Never Used Second Hand Smoke Exposure: No Advance Directives Date on File: 01/20/23 service: No Current occupational status: retired Current occupation: left hand Cognitive needs: No Hearing needs: No Vision needs: Yes Review of Systems Const All systems reviewed & are unremarkable except as noted in HPI and below Physical Exam Const General: cooperative, healthy appearing and no acute distress Resp Effort & Inspection: normal respiratory effort and able to speak in complete sentences Cardio Rate: regular rate Peripheral pulses: Peripheral pulses 2+ throughout GI Palpation (GI): Soft to palpation Skin Lesions: no lesions Rashes: no rashes Extrem Other: Left hip: Normal to inspection. No ecchymosis, erythema, or edema. Full hip ROM in all planes. Tenderness to palpation over the greater trochanteric bursa. 5/5 strength with resisted hip flexion, knee extension, abduction, and abduction. Able to perform straight leg raise. NVI. Assessment & Plan Assessment & Plan (1) Fracture of greater trochanter of left femur: Code(s): S72.112A - Displaced fracture of greater trochanter of left femur, initial encounter for closed fracture Qualifiers: Encounter type: initial encounter Fracture alignment: nondisplaced Fracture type: closed Qualified Code(s): S72.115A - Nondisplaced fracture of greater trochanter of left femur, initial encounter for closed fracture Plan Mr. Roberts is an 82-year-old male who presents in the office today for an evaluation of left hip pain. The patient presented to the ED on 01/19/2023 status post bending down to cone picker garbage when he fell over. X-rays of the left hip were obtained. While in the office today the patient states his pain is a little better today then before, but still describes it as mild. He reports having a history of left hip fracture about 5 years ago, in 2018. He uses a walker to ambulate. He confirms physical therapy is coming to his house to work on exercises with him. He reports lateral knee pain that began after the fall. 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 He is accompanied in the office today by his . The patient will continue to work with physical therapy. He may weight bear as tolerated. Follow up will be 6 weeks, or sooner if needed. X-rays of the left hip obtained while in the office today and reviewed by me, Alda Rivas PA-C, revealed left greater trochanter fracture. CT of the pelvis, obtained on 01/19/2023, revealed: Minimally displaced avulsion fracture of the left greater trochanter. Orders: Orders XR hip LT w PEL1V Today M25.559 - Pain in unspecified hip Patient Instructions: Scribed for Alda Rivas PA-C by Shae Acosta medical office administrator, on 01/31/2023 at 10:37 am, EST. Coding Level of Care Code New Pt Level 3 (02442) Diagnoses Closed nondisplaced fracture of greater trochanter of left femur, initial encounter S72.115A Encounter type: initial encounter Fracture alignment: nondisplaced Fracture type: closed
== END 2023-01-31 11:12 | disposition home or self-care (01) ==
PROVIDERS: PCP Internal Medicine; Visit Provider Physician Assistant
DX: S72.115A Nondisplaced fracture of greater trochanter of left femur, initial encounter for closed fracture (principal)
CPT/HCPCS: 99203

== ENCOUNTER 2023-02-28 12:49 | Outpatient (REF) | payer MEDICARE, SELFPAY | END 2023-02-28 12:50 | disposition home or self-care (01) | LOC: HO.HOSX 12:49 | PROVIDERS: Visit Provider Physician Assistant | DX: Z13.89 Encounter for screening for other disorder (principal) ==

== ENCOUNTER 2023-03-14 10:46 | Outpatient (AMB) | payer MEDICARE, SELFPAY ==
--- NOTE | 2023-03-14 10:47 | MHC.OFFVIS ---
Intake Intake Visit Reasons: OV-Left hip, DOI 01/19/23 Intake Note: Edgar is a 82 year old male who presents today for a evaluation for his left hip fx, DOI 01/19/23. Patient reports he is doing well. He states weaning off the can, however only uses it for balance. PT went well and he finished his sessions per patient. 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 The patient reports he is doing well. He states he is weaning off the cane, but does still use it for balance. He states physical therapy went well and he has finished all his sessions. [facility] Medical History (Updated 01/31/23 @ 10:54 by Shae Acosta) Preop exam for internal medicine Leg weakness Right wrist pain Carpal tunnel syndrome of right wrist Lumbar spinal stenosis Left acetabular fracture Peripheral arterial disease Hypercholesterolemia History of CVA (cerebrovascular accident) BPH (benign prostatic hyperplasia) Hypothyroid Hypertension Surgical History S/P CABG x 1 History of prostate surgery History of thyroidectomy Hx of cholecystectomy Family History Father Medical history unknown Mother Medical history unknown Social History Housing: House Alcohol intake: current Alcohol intake frequency: a few times a month Alcohol type: wine Patient Tobacco Use Status: Never used Tobacco e-Cigarette/Vaping Use: Never Used Second Hand Smoke Exposure: No Advance Directives Date on File: 01/20/23 service: No Current occupational status: retired Current occupation: left hand Cognitive needs: No Hearing needs: No Vision needs: Yes Review of Systems Const All systems reviewed & are unremarkable except as noted in HPI and below Physical Exam Const General: cooperative, healthy appearing and no acute distress Resp Effort & Inspection: normal respiratory effort and able to speak in complete sentences Cardio Rate: regular rate Peripheral pulses: Peripheral pulses 2+ throughout GI Palpation (GI): Soft to palpation Skin Lesions: no lesions Rashes: no rashes Extrem Other: Left hip: Full ROM in all planes. NVI. Assessment & Plan Assessment & Plan (1) Fracture of greater trochanter of left femur: Code(s): S72.112A - Displaced fracture of greater trochanter of left femur, initial encounter for closed fracture Qualifiers: Encounter type: initial encounter Fracture alignment: nondisplaced Fracture type: closed Qualified Code(s): S72.115A - Nondisplaced fracture of greater trochanter of left femur, initial encounter for closed fracture Plan Mr. 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 The patient reports he is doing well. He states he is weaning off the cane, but does still use it for balance. He states physical therapy went well and he has finished all his sessions. The patient may return to normal activities as tolerated. Follow up will be PRN, or sooner if needed. X-rays of the left hip which were obtained while in the office today and were reviewed by me, Alda Rivas PA-C, revealed routine healing. Patient Instructions: Scribed for Alda Rivas PA-C by Shae Acosta biomedical engineering aide, on 03/14/2023 at 10:50 am, EST. Coding Level of Care Code Est Pt Level 3 (43764) Diagnoses Closed nondisplaced fracture of greater trochanter of left femur, initial encounter S72.115A Encounter type: initial encounter Fracture alignment: nondisplaced Fracture type: closed
== END 2023-03-14 11:28 | disposition home or self-care (01) ==
PROVIDERS: PCP Internal Medicine; Visit Provider Physician Assistant
DX: S72.115D Nondisplaced fracture of greater trochanter of left femur, subsequent encounter for closed fracture with routine healing (principal)
CPT/HCPCS: 99213

== ENCOUNTER → 2023-03-14 10:46 | Outpatient (BNVA) | payer MEDICARE, SELFPAY | PROVIDERS: PCP Internal Medicine; Visit Provider Physician Assistant | DX: S72.115D Nondisplaced fracture of greater trochanter of left femur, subsequent encounter for closed fracture with routine healing (principal) | CPT/HCPCS: 99212 ==

== ENCOUNTER 2023-05-01 10:46 | Outpatient (AMB) | payer MEDICARE, SELFPAY ==
[2023-05-01 11:09] VITALS: BP 110/62; PULSE 62; O2SAT 97; BMI 29.7
--- NOTE | 2023-05-01 11:09 | MHC.PC.OV ---
Vital Signs 05/01/23 11:09 Height 5 ft 11 in Weight 213 lb 0.2 oz BMI 29.7 BP 110/62 Blood Pressure Location Lt brachial Position Sitting Pulse 62 Pulse Source Pulse Oximeter Temp Source Skin Pulse Oximetry (%) 97 Oxygen Delivery Method Room Air Intake Visit Reasons: HTN, CAD, Hx of CVA Sample Clerk Required: No Allergies lisinopril Allergy (Intermediate, Verified 05/01/23 11:09) cough rosuvastatin Adverse Reaction (Intermediate, Verified 05/01/23 11:09) myalgia simvastatin Adverse Reaction (Intermediate, Verified 05/01/23 11:09) myalgia Medication List - Last Reconciled 05/01/23 by Ami Mazariegos MD aspirin (Adult Aspirin Regimen) 81 mg PO DAILY docusate sodium (Colace) 100 mg PO DAILY ezetimibe (Zetia) 10 mg PO DAILY hydrochlorothiazide 12.5 mg PO DAILY 90 days levothyroxine 100 mcg PO DAILY 90 days losartan 50 mg PO BID metoprolol succinate ER (Toprol XL) 50 mg PO 1XD tamsulosin (Flomax) 0.4 mg PO DAILY 90 days Tobacco use date assessed: 05/01/23 Fall risk assessment: No Falls in past year Last assessed Fall Risk: 05/01/23 HPI HTN, CAD, Hx of CVA HPI Details 82-year-old overweight male with a history of hypertension hypothyroidism hypercholesterolemia coronary artery disease chronic kidney disease history of CVA BPH coming in for follow-up. Last seen in November 2022. Review of the notes has followed up with urology for the BPH [facility] with nocturia placed on tamsulosin. Patient has also seen Orthopedics for the left hip fracture December 2022 routine healing. patient has been sob on exertion but not concerning. laser surgery B/L thismonth due to clouding on the posterior lens area after the cataract surgery. [facility] Medical History (Updated 05/01/23 @ 12:05 by Ami Mazariegos MD) Preop exam for internal medicine Leg weakness Right wrist pain Carpal tunnel syndrome of right wrist Lumbar spinal stenosis Left acetabular fracture Peripheral arterial disease Hypercholesterolemia History of CVA (cerebrovascular accident) BPH (benign prostatic hyperplasia) Hypothyroid Hypertension Surgical History (Updated 05/01/23 @ 11:58 by Ami Mazariegos MD) History of cataract surgery S/P CABG x 1 History of prostate surgery History of thyroidectomy Hx of cholecystectomy Family History Father Medical history unknown Mother Medical history unknown Social History Housing: House Alcohol intake: current Alcohol intake frequency: a few times a month Alcohol type: wine Patient Tobacco Use Status: Never used Tobacco e-Cigarette/Vaping Use: Never Used Second Hand Smoke Exposure: No Advance Directives Date on File: 01/20/23 service: No Current occupational status: retired Current occupation: left hand Cognitive needs: No Hearing needs: No Vision needs: Yes Questionnaire PHQ-9 Over the last 2 weeks, how often have you been bothered by any of the following problems? 1. Little interest or pleasure in doing things: not at all 2. Feeling down, depressed, or hopeless: not at all 3. Trouble falling or staying asleep, or sleeping too much: not at all 4. Feeling tired or having little energy: not at all 5. Poor appetite or overeating: not at all 6. Feeling bad about yourself - or that you are a failure or have let yourself or your family down: not at all 7. Trouble concentrating on things, such as reading the newspaper or watching television: not at all 8. Moving or speaking so slowly that other people could have noticed. Or the opposite - being so fidgety or restless that you have been moving around a lot more than usual: not at all 9. Thoughts that you would be better off or of hurting yourself in some way: not at all Total score: 0 Depression Screening Interpretation: Negative Depression Screening Done: Yes Source: Developed by Drs. Bharathi Yi, Evelin Burns, Juan Hood and colleagues, with an educational colby from [employer]. Thrive Questionnaire Date Thrive assessed: 11/15/22 AUDIT C Alcohol Use Questionnaire (AUDIT-C) 1. How often do you have a drink containing alcohol?: 2-3 times a week 2. How many drinks containing alcohol do you have on a typical day when you are drinking?: 1 or 2 3. How often do you have six or more drinks on one occasion?: Never Total Score: 3 Score Reviewed/Action Taken: No MIKE-7 AMB Questionnaire MIKE-7 Date MIKE - 7 assessed: 05/01/23 Feeling nervous, anxious, or on edge: 0 = Not at all Not being able to stop or control worryin = Not at all Worrying too much about different things: 0 = Not at all Trouble relaxin = Not at all Being so restless that it is hard to sit still: 0 = Not at all Becoming easily annoyed or irritable: 0 = Not at all Feeling afraid as if something awful might happen: 0 = Not at all Total MIKE-7 score (0-4 normal; 5-9 mild; 10-14 moderate; 15-21 severe): 0 Source: Developed by Drs. Bharathi Yi, Evelin Burns, Juan Hood and colleagues, with an educational colby from [employer]. Physical exam (Primary Care) Vital Signs: Last Vital Signs Pulse 62 05/01/23 11:09 BP 110/62 05/01/23 11:09 Pulse Ox 97 05/01/23 11:09 Oxygen Delivery Method Room Air 05/01/23 11:09 BMI result Body Mass Index 29.7 Tobacco/Smoking Status: Tobacco use Status Tobacco use date assessed 05/01/23 05/01/23 11:10 Patient Tobacco Use Status Never used Tobacco 05/01/23 11:10 e-Cigarette/Vaping Use Never Used 05/01/23 11:10 PHQ-9: PHQ-9 Score PHQ-9: Total score 0 05/01/23 11:23 Depression Screening Interpretation: Negative Thrive Assessment: Date of Thrive Assessment Date Thrive assessed 11/15/22 05/01/23 11:10 Const General: alert; No acute distress Eyes Conjunctivae: conjunctivae normal Resp Auscultation: clear to auscultation bilaterally Cardio Rate: regular rate Rhythm: regular rhythm GI Inspection: Yes normal to inspection Extrem General: Yes normal to inspection and No edema Office Procedures Cerumen Removal From which ear canal was the cerumen removed: right Removal: otoscope w/curette and cerumen loop/spoon Notes: patient tolerated procedure well, no complications and ear canal clear [id number] Wax Removal by Spoon/Curette Assessment and Plan Assessment & Plan (1) Hypertension: Code(s): I10 - Essential (primary) hypertension Qualifiers: Hypertension type: essential hypertension Qualified Code(s): I10 - Essential (primary) hypertension Plan: Continue with blood pressure medication. Decrease salt intake and exercise patient takes hydrochlorothiazide 12.5 mg once a day losartan 50 mg twice a day metoprolol 50 mg once a day (2) Hypothyroid: Comment: Continue with present medication Code(s): E03.9 - Hypothyroidism, unspecified Qualifiers: Hypothyroidism type: acquired Qualified Code(s): E03.9 - Hypothyroidism, unspecified Plan: Continue with thyroid medication 100 mcg once a day (3) BPH (benign prostatic hyperplasia): Code(s): N40.0 - Benign prostatic hyperplasia without lower urinary tract symptoms Qualifiers: Lower urinary tract symptom presence: symptoms present Lower urinary tract symptom detail: urinary frequency Qualified Code(s): N40.1 - Benign prostatic hyperplasia with lower urinary tract symptoms; R35.0 - Frequency of micturition Plan: Patient follows up with urology on tamsulosin (4) Hypercholesterolemia: Comment: Avoid fried foods, chicken skin, eggs, butter margarine, pastries and meat. Be it pork or beef they have a lot of cholesterol LDL goal of less than 70 Code(s): E78.00 - Pure hypercholesterolemia, unspecified Plan: Avoid fried foods, chicken skin, eggs, butter margarine, pastries and meat. Be it pork or beef they have a lot of cholesterol LDL goal of less than 70 patient on Zetia and declined any other medication. reminded about the blood work (5) History of CVA (cerebrovascular accident): Comment: August 2005 Code(s): Z86.73 - Personal history of transient ischemic attack (TIA), and cerebral infarction without residual deficits Plan: Control the cholesterol, weight, blood pressure, on aspirin (6) Coronary artery disease: Comment: 10/10/2020 coronary artery bypass graft x1 Code(s): I25.10 - Atherosclerotic heart disease of [place] coronary artery without angina pectoris Qualifiers: Coronary Disease-Associated Artery/Lesion type: [place] artery [place] vs. transplanted heart: [place] heart Associated angina: without angina Qualified Code(s): I25.10 - Atherosclerotic heart disease of [place] coronary artery without angina pectoris Plan: Control the cholesterol, weight, blood pressure (7) CKD (chronic kidney disease) stage 2, GFR 60-89 ml/min: Comment: Dr. Ferrari November 2020 Code(s): N18.2 - Chronic kidney disease, stage 2 (mild) Plan: Keep well hydrated avoid NSAIDs (8) Closed left hip fracture: Comment: December 2022 Code(s): S72.002A - Fracture of unspecified part of neck of left femur, initial encounter for closed fracture Plan: Patient follows up with orthopedics (9) Impacted cerumen of right ear: Code(s): H61.21 - Impacted cerumen, right ear Plan: scoop used no irrigation TM intact Coding Level of Care Code Est Pt Level 4 (84936) Diagnoses Essential hypertension I10 Hypertension type: essential hypertension Acquired hypothyroidism E03.9 Hypothyroidism type: acquired Benign prostatic hyperplasia with urinary frequency N40.1; R35.0 Lower urinary tract symptom presence: symptoms present Lower urinary tract symptom detail: urinary frequency Hypercholesterolemia E78.00 History of CVA (cerebrovascular accident) Z86.73 Coronary artery disease involving [place] coronary artery of [place] heart without angina pectoris I25.10 Coronary Disease-Associated Artery/Lesion type: [place] artery [place] vs. transplanted heart: [place] heart Associated angina: without angina CKD (chronic kidney disease) stage 2, GFR 60-89 ml/min N18.2 Closed left hip fracture S72.002A Impacted cerumen of right ear H61.21 CPT Codes Office Procedure - CPT: 42615-[id number] Wax Removal by Spoon/Curette ([id number])
== END 2023-05-01 12:11 | disposition home or self-care (01) ==
PROVIDERS: PCP Internal Medicine; Visit Provider Internal Medicine
DX: I12.9 Hypertensive chronic kidney disease with stage 1 through stage 4 chronic kidney disease, or unspecified chronic kidney disease (principal); N18.2 Chronic kidney disease, stage 2 (mild); E03.9 Hypothyroidism, unspecified; H61.21 Impacted cerumen, right ear; N40.1 Benign prostatic hyperplasia with lower urinary tract symptoms; R35.0 Frequency of micturition; E78.00 Pure hypercholesterolemia, unspecified; Z86.73 Personal history of transient ischemic attack (TIA), and cerebral infarction without residual deficits; I25.10 Atherosclerotic heart disease of native coronary artery without angina pectoris
CPT/HCPCS: 69210; 99214

== ENCOUNTER 2023-07-18 05:43 | Inpatient (IN) | payer MEDICARE, SELFPAY ==
--- NOTE | ~2023-07-18 | CT_ITS ---
EXAMINATION: CT ABDOMEN AND PELVIS WITHOUT CONTRAST CLINICAL INFORMATION: Left upper quadrant pain COMPARISON: None available. CT pelvis 01/19/2023. TECHNIQUE: Multidetector volumetric imaging was performed from the superior aspect of the liver through the pubic symphysis. Sagittal and coronal reformatted images were obtained on the technologist's workstation. This CT examination was performed using dose optimization techniques as appropriate, variously including the following: *Automated exposure control *Adjustment of mA and/or kV according to patient size (this includes techniques or standardized protocols for targeted exams where dose is matched to indication/reason for exam; i.e. extremities or head) *Use of iterative reconstruction technique DLP: 820 mGy-cm FINDINGS: LUNG BASES: There is bibasilar dependent atelectasis. Heart size is normal. There are median sternotomy sutures from previous intervention. LIVER, GALLBLADDER, AND BILIARY TREE: The liver is normal in size, shape, and attenuation. There is a small hypodense 1.8 cm cyst left hepatic lobe image The gallbladder is unremarkable with no evidence of radiopaque gallstones, gallbladder wall thickening, or obvious pericholecystic inflammatory changes. PANCREAS: Unremarkable. SPLEEN: Unremarkable. ADRENAL GLANDS: Unremarkable. KIDNEYS AND URETERS: The kidneys are normal in size, shape, and attenuation. There is a 5 mm radiopaque calculi lower pole calyx left kidney. There is no caliectasis. There is a small radiopaque gravel or small tiny stone in the right distal ureter on axial CT slice 35/3 with minimal prominence of left distal ureter and mild prominence of left kidney pelvis. There is bilateral perinephric stranding. BLADDER: Unremarkable. GASTROINTESTINAL TRACT: There is scattered diverticuli, stool and gas seen throughout the colon without distention. The small bowel loops are normal caliber. Appendix is normal caliber. No inflammatory process, free air or free fluid seen. ABDOMINAL WALL: No significant hernia is appreciated. LYMPH NODES: Normal. VASCULAR: There is atherosclerotic calcification abdominal aorta without aneurysmal dilatation. PELVIC VISCERA: Unremarkable. OSSEOUS STRUCTURES: No aggressive lytic or sclerotic process seen. There is degenerative disc changes L3-L4 and L4-L5 disc levels. There is old fracture left greater trochanter and old healed left inferior pubic rami fracture. CT/CT abdomen pelvis wo IV con IMPRESSION: Nonobstructive 5 mm radiopaque calculi lower pole left kidney. There is radiopaque gravel or tiny stone in left distal ureter with mild hydroureter and mild dilatation of the pelvis. Moderate constipation with normal appendix. No obstruction seen. There is old fracture left greater trochanter and healed left inferior pubic ramus fracture trochanter Fleischner guidelines were followed.
--- NOTE | ~2023-07-18 | XR_ITS ---
EXAMINATION: XR ABDOMEN KUB CLINICAL INDICATION: Question small bowel obstruction, abdominal pain COMPARISON: None available. TECHNIQUE: AP view of the abdomen. FINDINGS: There is a nonspecific bowel gas pattern. Multiple air-filled loops of small bowel are evident in the midabdomen and fecal material is present throughout nondilated colon. No grossly dilated loops are detected. There are no radiopaque calculi. Degenerative changes are present in the lumbar spine. Right upper quadrant surgical clips are presumably post cholecystectomy. XR/XR KUB IMPRESSION: Nonspecific bowel gas pattern with prominent small bowel loops. If symptoms persist, suggest abdominal and pelvic CT with contrast.
[2023-07-18 05:55] VITALS: BP 159/66; PULSE 64; RESP 19; TEMP 36.6; O2SAT 93; BMI 29.7
--- NOTE | 2023-07-18 06:11 | MHC.EDTECH ---
Patient came in from triage,changed into hospital attire,placed on the desk monitor,call cramer in reach
--- NOTE | 2023-07-18 06:24 | ED.ABDPAIN ---
HPI - Abdominal Pain General Chief Complaint: Abdominal Pain Stated Complaint: ? Bowel Obstruction Time Seen by Provider: 07/18/23 05:53 Source: patient and family Mode of arrival: ambulatory History of Present Illness HPI narrative: 83-year-old male who presents with abdominal pain, specifically left upper quadrants since approximately 11:00 yesterday morning with some nausea and vomiting no longer having bowel movements but intermittently passing flatus. His only significant surgical history is cholecystectomy and last colonoscopy was approximately 10 years ago. Patient denies any fevers or chills and states that he is chronically short of breath Related Data Home Medications Medication Instructions Recorded Confirmed aspirin 81 mg tablet,delayed 81 mg PO DAILY 08/06/21 05/01/23 release (Adult Aspirin Regimen) docusate sodium 100 mg capsule 100 mg PO DAILY 08/15/21 05/01/23 (Colace) metoprolol succinate 50 mg 50 mg PO 1XD 01/19/23 05/01/23 tablet,extended release 24 hr (Toprol XL) Previous Rx's Medication Instructions Recorded tamsulosin 0.4 mg capsule (Flomax) 0.4 mg PO DAILY 90 days #90 caps 09/02/22 hydrochlorothiazide 12.5 mg tablet 12.5 mg PO DAILY 90 days #90 tabs 10/26/22 ezetimibe 10 mg tablet (Zetia) 10 mg PO DAILY #90 tabs 06/04/23 levothyroxine 100 mcg tablet 100 mcg PO DAILY 90 days #90 tabs 06/21/23 losartan 50 mg tablet 50 mg PO BID #180 tabs 07/08/23 Allergies Allergy/AdvReac Type Severity Reaction Status Date / Time lisinopril Allergy Intermediate cough Verified 07/18/23 05:54 rosuvastatin AdvReac Intermediate myalgia Verified 07/18/23 05:54 simvastatin AdvReac Intermediate myalgia Verified 07/18/23 05:54 Review of Systems Review of Systems Pertinent positives and negatives as stated in HPI PMFSH Past Medical History Source: nursing notes reviewed Medical History Preop exam for internal medicine Leg weakness Right wrist pain Carpal tunnel syndrome of right wrist Lumbar spinal stenosis Left acetabular fracture Peripheral arterial disease Hypercholesterolemia History of CVA (cerebrovascular accident) BPH (benign prostatic hyperplasia) Hypothyroid Hypertension Surgical History History of cataract surgery S/P CABG x 1 History of prostate surgery History of thyroidectomy Hx of cholecystectomy Family History Family History Father Medical history unknown Mother Medical history unknown Social History Social History Housing: House Alcohol intake: current Alcohol intake frequency: a few times a month Alcohol type: wine Patient Tobacco Use Status: Never used Tobacco e-Cigarette/Vaping Use: Never Used Second Hand Smoke Exposure: No Advance Directives: Yes Advance Directives on File: Yes Advance Directives Date on File: 01/20/23 service: No Current occupational status: retired Current occupation: left hand Cognitive needs: No Hearing needs: No Vision needs: Yes Physical Exam ED Vital Signs: Vital Signs - 24 hr 07/18/23 05:55 Temperature 97.8 F Pulse Rate 64 Respiratory Rate 19 Blood Pressure 159/66 H Pulse Oximetry 93 Oxygen Delivery Method Room Air BMI result Body Mass Index 29.7 VITAL SIGNS: Reviewed. GENERAL: Well developed, well nourished, in no acute distress. HEAD: Normocephalic/atraumatic EYES: PERRLA, EOMI EARS: Ext canals without abnormality NOSE: Nares patent bilateral OROPHARYNX: no oral lesions noted, posterior pharynx clear NECK: Supple, no adenopathy LUNGS: Normal breath sounds. No adventitious sounds or accessory muscle use. SpO2<93> CARDIOVASCULAR: Regular rate and rhythm without noted murmurs ABDOMEN: Soft, left upper quadrant pain but no review, non-distended with bowel sounds. MUSCULOSKELETAL: No tenderness, deformities, or effusions noted on gross inspection. EXTREMITIES: No cyanosis, clubbing or edema. SKIN: Inspection of the skin reveals no rashes NEUROLOGIC: Alert and oriented x 4. Strength and sensation to light touch were grossly intact x 4. Medical Decision Making Medical Decision Making MDM Narrative: 83-year-old male with history and clinical presentation, DDX: Viral illness, diverticulitis, mass/constipation/obstruction Reviewed all investigations and hematologic indices are negative leukocytosis/anemia/thrombocytopenia. Coagulation studies demonstrated an INR within normal limits. Signed out to Dr Black - f/u chemistries, UA - KUB - Viral testing Differential Diagnosis Differential Diagnoses: The differential diagnosis associated with the presentation includes Please see the discussion above Admission/Observation Consideration of admission/observation: Escalation of care including admission/observation considered Please see the discussion above Lab Data 07/18/23 06:18 07/18/23 06:18 Labs: Lab Results 07/18/23 07/18/23 Range/Units 06:18 06:23 WBC 8.2 (4.8-10.8) X10*3/uL RBC 4.81 (4.60-5.80) X10*6/uL Hgb 14.3 (14.0-18.0) g/dl Hct 43.1 (42.0-52.0) % MCV 89.6 (80.0-98.0) fL MCH 29.7 (27.0-33.0) pg MCHC 33.2 (31.0-36.0) g/dl RDW 12.9 (11.0-16.0) % Plt Count 183 (160-400) X10*3/uL MPV 10.3 (9.4-12.4) fL Immature Gran % (Auto) 0.5 H (0.0-0.4) % Neut % (Auto) 80.8 H (45-73) % Lymph % (Auto) 5.7 L (20-40) % [place] % (Auto) 11.9 H (2-11) % Eos % (Auto) 1.0 (0-4) % Baso % (Auto) 0.1 (0-2) % Lymph # (Auto) 0.5 L (1.2-4.9) X10*3/uL [place] # (Auto) 1.0 (0.1-1.2) X10*3/uL Eos # (Auto) 0.1 (0.0-0.4) X10*3/uL Baso # (Auto) 0.0 (0.0-0.2) X10*3/uL Abs Immat Gran (auto) 0.04 H (0.00-0.03) X10*3/uL Absolute Neuts (auto) 6.6 (2.0-8.3) x10*3/uL Absolute Nucleated RBC 0.000 (0.0-0.012) X10*3/uL Nucleated RBC % (auto) 0.0 (0.0-0.2) /100WBC PT 13.4 H (11.1-13.3) SEC INR 1.1 (0.9-1.1) Lactic Acid 0.9 (0.5-2.0) mmol/L Discharge Plan Discharge Clinical Impression: Left upper quadrant pain Patient Disposition: Still a Patient Prescriptions: No Action tamsulosin [Flomax] 0.4 mg capsule 0.4 mg PO DAILY 90 Days Qty: 90 3RF hydrochlorothiazide 12.5 mg tablet 12.5 mg PO DAILY 90 Days Qty: 90 3RF ezetimibe [Zetia] 10 mg tablet 10 mg PO DAILY Qty: 90 2RF levothyroxine 100 mcg tablet 100 mcg PO DAILY 90 Days Qty: 90 3RF losartan 50 mg tablet 50 mg PO BID Qty: 180 0RF metoprolol succinate [Toprol XL] 50 mg tablet extended release 24 hr 50 mg PO 1XD docusate sodium [Colace] 100 mg capsule 100 mg PO DAILY aspirin [Adult Aspirin Regimen] 81 mg tablet,delayed release (DR/EC) 81 mg PO DAILY
[2023-07-18 06:28] LABS: Basophils Percent Auto 0.1 % (0-2); Eosinophils Absolute Auto 0.1 X10*3/uL (0.0-0.4); Hematocrit 43.1 % (42.0-52.0); Hemoglobin 14.3 g/dl (14.0-18.0); Imm Gran Abs Auto 0.04 X10*3/uL (0.00-0.03); Imm Gran Pct Auto 0.5 % (0.0-0.4); Lymphocytes Absolute Auto 0.5 X10*3/uL (1.2-4.9); Lymphocytes Percent Auto 5.7 % (20-40); MANUAL DIFF FLAG NO; Mean Corpuscular HGB Conc 33.2 g/dl (31.0-36.0); Mean Corpuscular Hemoglobin 29.7 pg (27.0-33.0); Mean Corpuscular Volume 89.6 fL (80.0-98.0); Mean Platelet Volume 10.3 fL (9.4-12.4); Monocytes Percent Auto 11.9 % (2-11); Neutrophils Absolute Auto 6.6 x10*3/uL (2.0-8.3); Neutrophils Percent Auto 80.8 % (45-73); Platelet Count 183 X10*3/uL (160-400); Red Blood Count 4.81 X10*6/uL (4.60-5.80); Red Cell Distribution Width 12.9 % (11.0-16.0); White Blood Count 8.2 X10*3/uL (4.8-10.8)
[2023-07-18 06:35] LABS: INTERNATIONAL NORM RATIO 1.1 (0.9-1.1); Prothrombin Time 13.4 SEC (11.1-13.3)
[2023-07-18 06:39] LABS: Lactic Acid 0.9 mmol/L (0.5-2.0)
[2023-07-18 07:07] LABS: Influenza A PCR POSITIVE (Negative); Influenza B PCR NEGATIVE (Negative); Resp Syncy Virus RNA Qual PCR NEGATIVE (Negative); SARS COV2 PCR INHOUSE NEGATIVE (Negative)
[2023-07-18 07:08] LABS: Alanine Aminotransferase 9 U/L (0-40); Albumin Level 3.6 g/dL (3.5-5.0); Alkaline Phosphatase 98 U/L (39-117); Anion Gap 13 (12-20); Aspartate Amino Transferase 20 U/L (5-37); Blood Urea Nitrogen 41 mg/dL (9-16); Calcium 9.1 mg/dL (8.4-10.2); Carbon Dioxide 25 mmol/L (22-29); Chloride 106 mmol/L (96-108); Creatinine Clr Calc Pharmacy 29.9; Estimated Glomerular Filt Rate 30; Glucose Random 145 mg/dL (60-115); Potassium 4.5 mmol/L (3.3-5.1); Sodium 139 mmol/L (135-145); Total Protein 6.5 g/dL (6.5-8.0)
[2023-07-18 07:11] LABS: Bilirubin Total 0.5 mg/dL (0.0-1.0)
[2023-07-18] MEDS: 0.9 % Sodium Chloride 500 ML 999 ML IV (07:45)
[2023-07-18] MEDS: ondansetron HCL 4 MG/2 ML VIAL IVPUSH (07:47)
[2023-07-18] MEDS: 0.9 % Sodium Chloride 1,000 ML 999 ML IV (07:48)
[2023-07-18 08:02] LABS: Appearance Urine Clear; Color Urine Yellow; Glucose Urine UA Negative (Negative); Leukocyte Esterase Urine Negative (Negative); Nitrite Urine Negative (Negative); Urine Blood Negative (Negative); Urine Ketones Negative (Negative); Urine Protein Negative (Neg-Trace)
[2023-07-18 08:18] VITALS: BP 154/57; PULSE 66; RESP 26; TEMP 36.9; O2SAT 95
[2023-07-18 08:45] VITALS: BP 140/55; PULSE 67; RESP 24; TEMP 36.9; O2SAT 96
--- NOTE | 2023-07-18 09:34 | PC.NURSE ---
ASSUMED CARE OF THIS PT AT 0700. ENDORSES NAUSEA LUQ PAIN 5/10, VERBALIZED TOLERATING THIS PAIN. MEDICATED FOR NAUSEA, NO RELIEF THUS FAR. PT STATED UNABLE TO DRINK PO TAMIFLU ORAL CONTRAST, NOTIFIED, CT SWITCHED TO DRY IMAGE. PT STATES HE DOES NOT WANT ANY ADDITIONAL ANTIEMETIC OR PAIN RX AT THIS TIME. HYPOACTIVE BS IN LOWER ABD, HYPERACTIVE IN UPPER QUADS. STATES PASSING OCCASIONAL FLATUS. AWAITING CT RESULTS AT THIS TIME, IVF INFUSED. PT AWARE OF PLAN FOR CARE.
--- NOTE | 2023-07-18 10:35 | PHA.MEDREC ---
Pharmacy Consult ? Medication Reconciliation Pharmacy has completed the medication reconciliation. Patient was good historian, knew his medications without guidance. He did state that he attempted to take his medications this morning but vomited shortly after.
[2023-07-18] MEDS: 0.9 % Sodium Chloride 1,000 ML 100 ML IVCONT ×2 (11:41→20:07)
[2023-07-18] MEDS: Heparin Sodium,Porcine 5,000 UNIT/ML VIAL 5000 UNIT SUBCUT ×2 (12:43→23:05)
[2023-07-18 13:51] VITALS: BP 107/53; PULSE 62; RESP 17; TEMP 36.7; O2SAT 95
[2023-07-18 16:00] VITALS: BP 145/62; PULSE 66; RESP 22; TEMP 36.2; O2SAT 97
--- NOTE | 2023-07-18 17:06 | P.HPHOSP_ITS ---
History of Present Illness Date of Service: 07/18/23 Attending physician on admission: Da Martinez Chief Complaint: MOIZ,influenza 83 y/o M with hx of htn, hlp ,hx ascending aortic aneurysm surgery, history of cholecystectomy who presents with abdominal pain, specifically left upper quadrants , nausea and vomiting , had last bowel movement yesterday, still passing flatus. Patient says that he has flu-like symptoms, appetite decreased from 2-3 days. Also having nausea vomiting. Patient says pain in the left upper quadrant to flank area, intermittent, sharp. His only significant surgical history is cholecystectomy and last colonoscopy was approximately 10 years ago. Denies any new complaint of chest pain or shortness of breath or fever or chills or cough or weakness or numbness ,denies any urinary complaints. Lab imaging reviewed: CBC seems fine, BMP seems fine except BUN is 41 and creatinine is 2.14. Lactic acid normal Blood cultures sent CT abdomen:Nonobstructive 5 mm radiopaque calculi lower pole left kidney. There is radiopaque gravel or tiny stone in left distal ureter with mild hydroureter and mild dilatation of the pelvis UA negative Review of Systems 2 Review of Systems: Yes all other systems are reviewed and are negative [facility] Medical History Preop exam for internal medicine Leg weakness Right wrist pain Carpal tunnel syndrome of right wrist Lumbar spinal stenosis Left acetabular fracture Peripheral arterial disease Hypercholesterolemia History of CVA (cerebrovascular accident) BPH (benign prostatic hyperplasia) Hypothyroid Hypertension Family History Father Medical history unknown Mother Medical history unknown Surgical History History of cataract surgery S/P CABG x 1 History of prostate surgery History of thyroidectomy Hx of cholecystectomy Social History Housing: House Alcohol intake: current Alcohol intake frequency: a few times a month Alcohol type: wine Patient Tobacco Use Status: Never used Tobacco Smoked in Last 30 Days: No e-Cigarette/Vaping Use: Never Used Second Hand Smoke Exposure: No Use of substances other than those prescribed or required for medical reasons: No Advance Directives: Yes Advance Directives on File: Yes Advance Directives Date on File: 01/20/23 Nutrition Risks: No Nutritional Risk service: No Current occupational status: retired Current occupation: left hand Cognitive needs: No Hearing needs: No Vision needs: Yes Meds Allergies Allergy/AdvReac Type Severity Reaction Status Date / Time lisinopril Allergy Intermediate cough Verified 07/18/23 05:54 rosuvastatin AdvReac Intermediate myalgia Verified 07/18/23 05:54 simvastatin AdvReac Intermediate myalgia Verified 07/18/23 05:54 Active Medications: Current Medications Acetaminophen (Acetaminophen 325 Mg Tablet) 650 mg PO Q6H PRN PRN Reason: Pain, Mild (Pain Scale 1-3) Aspirin (Aspirin Enteric Coated 81 Mg Tablet.Dr) 81 mg PO DAILY [facility] Heparin Sodium (Porcine) (Heparin Sodium,Porcine 5,000 Unit/Ml Vial) 5,000 unit SUBCUT Q12H [facility] Last Admin: 07/18/23 12:43 Dose: 5,000 unit Sodium Chloride (Ns) 1,000 mls @ 100 mls/hr IVCONT .Q10H [facility] Last Admin: 07/18/23 11:41 Dose: 100 mls/hr Levothyroxine Sodium (Levothyroxine Sodium 100 Mcg Tablet) 100 mcg PO DAILY@0600 [facility] Metoprolol Succinate (Metoprolol Succinate Er 50 Mg Tab.Er.24h) 50 mg PO DAILY [facility]; Protocol Ondansetron HCl (Ondansetron Hcl 4 Mg/2 Ml Vial) 4 mg IVPUSH Q8H [facility] Last Admin: 07/18/23 16:14 Dose: Not Given Sodium Chloride (0.9 % Sodium Chloride Flush 3 Ml Syringe) 3 ml IVFLUSH QSHIFT [facility] Last Admin: 07/18/23 16:13 Dose: Not Given Tamsulosin HCl (Tamsulosin Hcl 0.4 Mg Capsule) 0.4 mg PO DAILY [facility] Vitamin D (Cholecalciferol (Vitamin D3) 25 Mcg Tablet) 50 mcg PO DAILY [facility] Home Medications Medication Instructions Recorded Confirmed Last Taken Type aspirin 81 mg tablet,delayed 81 mg PO DAILY 08/06/21 07/18/23 01/18/23 History release (Adult Aspirin Regimen) docusate sodium 100 mg capsule 100 mg PO DAILY 08/15/21 07/18/23 01/18/23 History (Colace) metoprolol succinate 50 mg 50 mg PO DAILY 01/19/23 07/18/23 01/18/23 History tablet,extended release 24 hr (Toprol XL) cholecalciferol (vitamin D3) 50 50 mcg PO DAILY 07/18/23 07/18/23 Unknown History mcg (2,000 unit) tablet omega-3 fatty acids-fish oil 360 1 cap PO BID 07/18/23 07/18/23 Unknown History mg-1,200 mg capsule (Fish Oil) Physical Exam 2 Vital Signs and Narrative: Vital Signs: Last Vital Signs Temp 98.1 F 07/18/23 13:51 Pulse 62 07/18/23 13:51 Resp 17 07/18/23 13:51 BP 107/53 L 07/18/23 13:51 Pulse Ox 95 07/18/23 13:51 O2 Del Method Room Air 07/18/23 13:51 BMI result Body Mass Index 29.7 Appearance: Alert.? Oriented X3.? cvs: rrr, [id number] , no murmur res: clear to auscultation ,no rhonchii or wheezing abd: no rebound or guarding ,left upper quadrent/flank pain, bs present. ext pulses present , no cyanosis . neuro: axo3 , nonfocal. Results Labs 07/18/23 06:18 07/18/23 06:18 Labs: Laboratory Results - last 24 hr 07/18/23 07/18/23 07/18/23 06:18 06:23 06:25 MCV 89.6 MCH 29.7 MCHC 33.2 RDW 12.9 Plt Count 183 MPV 10.3 Immature Gran % (Auto) 0.5 H Neut % (Auto) 80.8 H Lymph % (Auto) 5.7 L [place] % (Auto) 11.9 H Eos % (Auto) 1.0 Baso % (Auto) 0.1 Lymph # (Auto) 0.5 L [place] # (Auto) 1.0 Eos # (Auto) 0.1 Baso # (Auto) 0.0 Abs Immat Gran (auto) 0.04 H Absolute Neuts (auto) 6.6 Absolute Nucleated RBC 0.000 Nucleated RBC % (auto) 0.0 PT 13.4 H INR 1.1 Anion Gap 13 Estim Creat Clear Calc 29.9 Estimated GFR 30 Random Glucose 145 H Lactic Acid 0.9 Calcium 9.1 Total Bilirubin 0.5 AST 20 ALT 9 Alkaline Phosphatase 98 Total Protein 6.5 Albumin 3.6 Urine Color Urine Appearance Urine pH Ur Specific [place] Urine Protein Urine Glucose (UA) Urine Ketones Urine Blood Urine Nitrite Ur Leukocyte Esterase Influenza Type A (PCR) POSITIVE A Influenza Type B (PCR) NEGATIVE RSV RNA Qual (PCR) NEGATIVE SARS-CoV-2 RNA (RT-PCR) NEGATIVE 07/18/23 07:53 MCV MCH MCHC RDW Plt Count MPV Immature Gran % (Auto) Neut % (Auto) Lymph % (Auto) [place] % (Auto) Eos % (Auto) Baso % (Auto) Lymph # (Auto) [place] # (Auto) Eos # (Auto) Baso # (Auto) Abs Immat Gran (auto) Absolute Neuts (auto) Absolute Nucleated RBC Nucleated RBC % (auto) PT INR Anion Gap Estim Creat Clear Calc Estimated GFR Random Glucose Lactic Acid Calcium Total Bilirubin AST ALT Alkaline Phosphatase Total Protein Albumin Urine Color Yellow Urine Appearance Clear Urine pH 5.0 Ur Specific [place] 1.020 Urine Protein Negative Urine Glucose (UA) Negative Urine Ketones Negative Urine Blood Negative Urine Nitrite Negative Ur Leukocyte Esterase Negative Influenza Type A (PCR) Influenza Type B (PCR) RSV RNA Qual (PCR) SARS-CoV-2 RNA (RT-PCR) Imaging Radiologist's Impressions: Impressions KUB X-Ray 07/18/23 06:52 IMPRESSION: Nonspecific bowel gas pattern with prominent small bowel loops. If symptoms persist, suggest abdominal and pelvic CT with contrast. Abdomen/Pelvis CT 07/18/23 09:29 IMPRESSION: Nonobstructive 5 mm radiopaque calculi lower pole left kidney. There is radiopaque gravel or tiny stone in left distal ureter with mild hydroureter and mild dilatation of the pelvis. Moderate constipation with normal appendix. No obstruction seen. There is old fracture left greater trochanter and healed left inferior pubic ramus fracture trochanter Fleischner guidelines were followed. Assessment and Plan (1) MOIZ (acute kidney injury): Status: Acute (2) Influenza A: Status: Acute (3) Left upper quadrant pain: Status: Acute Plan 83 y/o M with hx of htn, hlp ,hx ascending aortic aneurysm surgery, history of cholecystectomy who presents with abdominal pain, specifically left upper quadrants , has flu-like symptoms Influenza a with GI symptoms: IV hydration, Tamiflu, Zofran p.r.n. MOIZ: Possibly related to dehydration in setting influenza, also had ureteral stone small Hydration, Flomax, monitor renal function electrolytes. Urology evaluation. htn : Blood pressure acceptable Hold blood pressure medication HLP: Patient is having nausea vomiting hold statin. Hypothyroid continue levothyroxine DVT prophylaxis : SubQ heparin Patient will benefit from inpatient hospitalization for 48-72 hours: Due to dehydration, MOIZ in the setting of influenza infection and unable to take p.o.- need IV hydration, monitor renal function electrolytes, urology evaluation. Above management discussed with the patient detail length he understand in agreement with the above plan, patient full code, time spent 70 minute. Quality Stroke Does the patient have a stroke diagnosis?: No VTE Prior VTE?: No VTE Risk Level:: Medical - moderate - high VTE Device Contraindication: N/A - Device Ordered VTE Drug Contraindication: N/A - Med Ordered
[2023-07-18 19:38] VITALS: BP 133/63; PULSE 61; RESP 20; TEMP 36.7; O2SAT 96
[2023-07-18] MEDS: 0.9 % Sodium Chloride Flush 3 ML SYRINGE IVFLUSH (20:08)
[2023-07-19 04:00] VITALS: BP 124/68; PULSE 69; RESP 18; TEMP 37.2; O2SAT 95
[2023-07-19] MEDS: 0.9 % Sodium Chloride 1,000 ML 100 ML IVCONT (06:25)
[2023-07-19] MEDS: Levothyroxine Sodium 100 MCG TABLET PO (06:26)
[2023-07-19 07:47] VITALS: BP 143/63; PULSE 61; RESP 16; TEMP 36.4; O2SAT 94
[2023-07-19 08:22] LABS: Anion Gap 12 (12-20); Blood Urea Nitrogen 36 mg/dL (9-16); Calcium 8.2 mg/dL (8.4-10.2); Carbon Dioxide 24 mmol/L (22-29); Chloride 112 mmol/L (96-108); Creatinine Clr Calc Pharmacy 33.3; Estimated Glomerular Filt Rate 33; Glucose Random 96 mg/dL (60-115); Potassium 4.5 mmol/L (3.3-5.1); Sodium 143 mmol/L (135-145)
[2023-07-19] MEDS: Aspirin Enteric Coated 81 MG TABLET.DR PO (08:25)
[2023-07-19] MEDS: Cholecalciferol (Vitamin D3) 25 MCG TABLET 50 MCG PO (08:25)
[2023-07-19] MEDS: 0.9 % Sodium Chloride Flush 3 ML SYRINGE IVFLUSH (08:28)
--- NOTE | 2023-07-19 10:31 | PM.DS ---
DS: Providers Provider Date of Service: 07/19/23 Date of admission: 07/18/23 10:40 Date of discharge: 07/19/23 Primary care physician: Ami Mazariegos MD Consults: 07/18/23 10:54 Consult to Urology Routine Consulting Provider: [facility] Reason for consultation: Uretral stone ,bph,moiz Has provider been notified: No Attending physician on discharge: Da Martinez Discharging clinician: Da Martinez DS: Diagnosis Discharge Diagnosis (1) MOIZ (acute kidney injury): Status: Acute (2) Influenza A: Status: Acute (3) Left upper quadrant pain: Status: Acute DS: Summary Hospital Course Hospital Course: 83 y/o M with hx of htn, hlp ,hx ascending aortic aneurysm surgery, history of cholecystectomy who presents with abdominal pain, specifically left upper quadrants , nausea and vomiting , had last bowel movement yesterday, still passing flatus. Patient says that he has flu-like symptoms, appetite decreased from 2-3 days. Also having nausea vomiting. Patient says pain in the left upper quadrant to flank area, intermittent, sharp. His only significant surgical history is cholecystectomy and last colonoscopy was approximately 10 years ago. Denies any new complaint of chest pain or shortness of breath or fever or chills or cough or weakness or numbness ,denies any urinary complaints. Lab imaging reviewed: CBC seems fine, BMP seems fine except BUN is 41 and creatinine is 2.14. Lactic acid normal Blood cultures sent CT abdomen:Nonobstructive 5 mm radiopaque calculi lower pole left kidney. There is radiopaque gravel or tiny stone in left distal ureter with mild hydroureter and mild dilatation of the pelvis UA negative Hospital course: Patient admitted with nausea,vomiting abd pain ,decresed po intake,flulike symptoms : workup showed influeza A,moiz , Nonobstructive 5 mm radiopaque calculi lower pole left kidney: patient was started on hydration ,flomax ,tylenol, tamiflu ,losaratan/hctz placed on hold due to moiz,and urology consulted -with above supportive care patient nausea/vomiting,abd pain seems to be imporved ,but moiz creatinine seems only little improvement-patient decided to leave against medical advise ( risks of levaing against medical advise d/w him in detail ,he understood ,he is axo3,able to repeat back to me). strongly advised for po hydration. hold hctz and lisnipril and check bmp not interested in adding another blood pressure medication until sees his pcp. consider going to nearest Ed for further management of moiz. Time Attestation Total time managing care of this patient today: 40 mintues. Discharge Coordination Time (in mins): 40 min Quality: Safe Use of Opioids Does Pt have an Active Cancer Diagnosis on the Problem List?: No Quality: Stroke Does the patient have a stroke diagnosis?: No Physical Exam Vital Signs: Vital Signs: Last Vital Signs Temp 97.5 F 07/19/23 07:47 Pulse 61 07/19/23 07:47 Resp 16 07/19/23 07:47 BP 143/63 H 07/19/23 07:47 Pulse Ox 94 07/19/23 07:47 O2 Del Method Room Air 07/19/23 07:47 BMI result Body Mass Index 30.0 Appearance: Alert.? Oriented X3.? cvs: rrr, [id number] , no murmur res: clear to auscultation ,no rhonchii or wheezing abd: no rebound or guarding ,nt, bs present. ext pulses present , no cyanosis . neuro: axo3 , nonfocal. DS: Data Data Completed and Pending Labs on day of discharge: Laboratory Results - last 24 hr 07/19/23 07:42 Hold Purple Top SEE NOTE Sodium 143 Potassium 4.5 Chloride 112 H Carbon Dioxide 24 Anion Gap 12 BUN 36 H Creatinine 1.93 H Estim Creat Clear Calc 33.3 Estimated GFR 33 Random Glucose 96 Calcium 8.2 L D Preliminary micro results at discharge 07/18/23 06:25 Blood Culture - Preliminary Blood - Venous No growth after 24 hours. 07/18/23 06:25 Blood Culture - Preliminary Blood - Venous No growth after 24 hours. Imaging Chest x-ray: Radiologist's impression: ITS Impressions KUB X-Ray 07/18/23 06:52 IMPRESSION: Nonspecific bowel gas pattern with prominent small bowel loops. If symptoms persist, suggest abdominal and pelvic CT with contrast. Abdomen/Pelvis CT 07/18/23 09:29 IMPRESSION: Nonobstructive 5 mm radiopaque calculi lower pole left kidney. There is radiopaque gravel or tiny stone in left distal ureter with mild hydroureter and mild dilatation of the pelvis. Moderate constipation with normal appendix. No obstruction seen. There is old fracture left greater trochanter and healed left inferior pubic ramus fracture trochanter Fleischner guidelines were followed. Discharge Plan Discharge Anticipated Discharge Date/Time: 07/19/23 10:21 Patient Disposition: Left Against Medical Advice Discharge Diagnosis: moiz,influenza ,uretral stone Referrals: Po,Ami Alcantara MD [Primary Care Provider] - 1 Week Discharge Medications: New oseltamivir 30 mg Capsule 30 mg PO Q12H Qty: 8 0RF Continued tamsulosin [Flomax] 0.4 mg capsule 0.4 mg PO DAILY 90 Days Qty: 90 3RF ezetimibe [Zetia] 10 mg tablet 10 mg PO DAILY Qty: 90 2RF levothyroxine 100 mcg tablet 100 mcg PO DAILY 90 Days Qty: 90 3RF metoprolol succinate [Toprol XL] 50 mg tablet extended release 24 hr 50 mg PO DAILY omega-3 fatty acids-fish oil [Fish Oil] 360-1,200 mg Capsule 1 cap PO BID cholecalciferol (vitamin D3) 50 mcg (2,000 unit) Tablet 50 mcg PO DAILY docusate sodium [Colace] 100 mg capsule 100 mg PO DAILY aspirin [Adult Aspirin Regimen] 81 mg tablet,delayed release (DR/EC) 81 mg PO DAILY Held hydrochlorothiazide 12.5 mg tablet 12.5 mg PO DAILY 90 Days Qty: 90 3RF Hold Instructions: Resume on 08/06/23. losartan 50 mg tablet 50 mg PO BID Qty: 180 0RF Hold Instructions: Resume on 08/05/23. Discharge Orders: Discharge Order (Routine); Ordered 07/19/23 Ordered By: Da Martinez Diet: Advance to usual diet Activity on Discharge: As tolerated Stand Alone Forms: Patient Portal Discharge page Care Plan Goals: Patient admitted with nausea,vomiting abd pain ,decresed po intake,flulike symptoms : workup showed influeza A,moiz , Nonobstructive 5 mm radiopaque calculi lower pole left kidney: patient was started on hydration ,flomax ,tylenol, tamiflu ,losaratan/hctz placed on hold due to moiz,and urology consulted -with above supportive care patient nausea/vomiting,abd pain seems to be imporved ,but moiz creatinine seems only little improvement-patient decided to leave against medical advise ( risks of levaing against medical advise d/w him in detail ,he understood ,he is axo3). strongly advised for po hydration. hold hctz and lisnipril and check bmp not interested in adding another blood pressure medication until sees his pcp. consider going to nearest Ed for further management of moiz. Health Concerns: as above. Plan of Treatment: as above. Assessment: as above.
--- NOTE | 2023-07-19 11:35 | MHC.CM.PN ---
Patient left AMA prior to being seen by Case management for assessment.
== END 2023-07-19 11:41 | disposition left against medical advice (07) | DRG 866 ==
LOC: HO.ED 10:09 → HO.EDOVER 10:46 → HO.S3 15:38
PROVIDERS: Student in an Organized Health Care Education/Training Program; Admitting Provider Internal Medicine; Emergency Provider Emergency Medicine; PCP Internal Medicine; Visit Provider Internal Medicine
DX: J10.2 Influenza due to other identified influenza virus with gastrointestinal manifestations (principal); N17.9 Acute kidney failure, unspecified; N20.1 Calculus of ureter; E78.5 Hyperlipidemia, unspecified; E86.0 Dehydration; I25.10 Atherosclerotic heart disease of native coronary artery without angina pectoris; Z95.1 Presence of aortocoronary bypass graft; E89.0 Postprocedural hypothyroidism; Z20.822 Contact with and (suspected) exposure to COVID-19; Z79.82 Long term (current) use of aspirin; Z79.890 Hormone replacement therapy; Z79.899 Other long term (current) drug therapy
CPT/HCPCS: 0241U; 36415; 74018; 74176; 80048; 80053; 81003; 83605; 85025; 85610; 87040; 99285; J1644; J2405

== ENCOUNTER → 2023-07-18 10:40 | Outpatient (BNV) | payer MEDICARE, SELFPAY | PROVIDERS: Admitting Provider Internal Medicine; Emergency Provider Emergency Medicine; PCP Internal Medicine; Visit Provider Internal Medicine | DX: N17.9 Acute kidney failure, unspecified (principal); J10.1 Influenza due to other identified influenza virus with other respiratory manifestations; R10.12 Left upper quadrant pain | CPT/HCPCS: 99222; 99239 ==

== ENCOUNTER 2023-07-22 09:15 | Outpatient (REF) | payer MEDICARE, SELFPAY ==
[2023-07-22 11:39] LABS: MANUAL DIFF FLAG NO
[2023-07-22 11:48] LABS: Basophils Percent Auto 0.2 % (0-2); Eosinophils Absolute Auto 0.3 X10*3/uL (0.0-0.4); Eosinophils Percent Auto 5.7 % (0-4); Hematocrit 41.1 % (42.0-52.0); Hemoglobin 13.6 g/dl (14.0-18.0); Imm Gran Abs Auto 0.02 X10*3/uL (0.00-0.03); Imm Gran Pct Auto 0.4 % (0.0-0.4); Lymphocytes Absolute Auto 1.1 X10*3/uL (1.2-4.9); Lymphocytes Percent Auto 21.9 % (20-40); Mean Corpuscular HGB Conc 33.1 g/dl (31.0-36.0); Mean Corpuscular Volume 90.7 fL (80.0-98.0); Mean Platelet Volume 9.9 fL (9.4-12.4); Monocytes Percent Auto 19.1 % (2-11); Neutrophils Absolute Auto 2.7 x10*3/uL (2.0-8.3); Neutrophils Percent Auto 52.7 % (45-73); Platelet Count 232 X10*3/uL (160-400); Red Blood Count 4.53 X10*6/uL (4.60-5.80); Red Cell Distribution Width 12.8 % (11.0-16.0); White Blood Count 5.1 X10*3/uL (4.8-10.8)
[2023-07-22 11:55] LABS: Estimated Average Glucose 105 mg/dL; Hemoglobin A1c % 5.3 % (<6.0)
[2023-07-22 13:00] LABS: Alanine Aminotransferase 17 U/L (0-40); Albumin Level 3.4 g/dL (3.5-5.0); Alkaline Phosphatase 81 U/L (39-117); Anion Gap 13 (12-20); Aspartate Amino Transferase 42 U/L (5-37); Bilirubin Total 0.5 mg/dL (0.0-1.0); Blood Urea Nitrogen 21 mg/dL (9-16); Calcium 8.6 mg/dL (8.4-10.2); Carbon Dioxide 28 mmol/L (22-29); Chloride 104 mmol/L (96-108); Cholesterol 165 mg/dL (<200); Estimated Glomerular Filt Rate > 60; Glucose Random 93 mg/dL (60-115); HDL Cholesterol 33 mg/dL (>40); LDL Cholesterol Calculated 112 mg/dL (<100); Potassium 4.3 mmol/L (3.3-5.1); Sodium 141 mmol/L (135-145); Total Protein 6.5 g/dL (6.5-8.0); Triglycerides 102 mg/dL (<150)
[2023-07-22 13:11] LABS: Folate 10.3 ng/mL (> or = 4.0); Vitamin B12 616 pg/mL (200-900)
[2023-07-22 13:25] LABS: Free T4 (Free Thyroxine) 1.17 ng/dL (0.71-1.85); Thyroid Stimulating Hormone 2.94 uIU/mL (0.32-4.0)
== END 2023-07-22 09:16 | disposition home or self-care (01) ==
LOC: HO.HMGCLDS 09:15
PROVIDERS: PCP Internal Medicine; Visit Provider Internal Medicine
DX: E78.00 Pure hypercholesterolemia, unspecified (principal); I25.10 Atherosclerotic heart disease of native coronary artery without angina pectoris
CPT/HCPCS: 36415; 80053; 80061; 82607; 82746; 83036; 84439; 84443; 85025

== ENCOUNTER 2023-07-24 08:31 | Outpatient (AMB) | payer MEDICARE, SELFPAY ==
[2023-07-24 08:48] VITALS: BP 108/52; PULSE 63; O2SAT 95; BMI 30.4
--- NOTE | 2023-07-24 08:48 | MHC.PC.OV ---
Vital Signs 07/24/23 08:48 Height 5 ft 11 in Weight 218 lb 0.2 oz BMI 30.4 BP 108/52 L Blood Pressure Location Lt brachial Position Sitting Pulse 63 Pulse Source Pulse Oximeter Pulse Oximetry (%) 95 Oxygen Delivery Method Room Air Intake Visit Reasons: follow up on flu and labs Intake Note: Patient is here for hospital discharge follow up. Patient was discharged from [facility] on 07/19/23 [employer] Required: No Allergies lisinopril Allergy (Intermediate, Verified 07/24/23 08:49) cough rosuvastatin Adverse Reaction (Intermediate, Verified 07/24/23 08:49) myalgia simvastatin Adverse Reaction (Intermediate, Verified 07/24/23 08:49) myalgia Tobacco use date assessed: 07/24/23 Fall risk assessment: No Falls in past year Last assessed Fall Risk: 07/24/23 HPI follow up on flu and labs HPI Details 83-year-old obese male with hypertension, ascending aorta aneurysm surgery hypothyroidism BPH hypercholesterolemia history of CVA coronary artery disease chronic kidney disease history of left hip fracture coming in for follow-up was in the hospital recently ER. Admitted diagnosis of acute kidney injury influenza a had nausea and vomiting with left upper quadrant pain had decreased oral intake noted BUN [address] abdomen showing left renal calculi nonobstructing hydration Flomax prescribed and Tamiflu blood pressure medication was held. PAtient self medcated with metoprolol and losartan BP right now is 100/80 advised to hold losartan [facility] Medical History Preop exam for internal medicine Leg weakness Right wrist pain Carpal tunnel syndrome of right wrist Lumbar spinal stenosis Left acetabular fracture Peripheral arterial disease Hypercholesterolemia History of CVA (cerebrovascular accident) BPH (benign prostatic hyperplasia) Hypothyroid Hypertension Surgical History History of cataract surgery S/P CABG x 1 History of prostate surgery History of thyroidectomy Hx of cholecystectomy Family History Father Medical history unknown Mother Medical history unknown Social History Household Members: Spouse Housing: House Do you presently have visiting nurse or other home services: No Alcohol intake: current Alcohol intake frequency: a few times a month Alcohol type: wine Patient Tobacco Use Status: Never used Tobacco e-Cigarette/Vaping Use: Never Used Second Hand Smoke Exposure: No Advance Directives Date on File: 01/20/23 service: No Current occupational status: retired Current occupation: left hand Cognitive needs: No Hearing needs: No Vision needs: Yes Questionnaire Thrive Questionnaire Date Thrive assessed: 07/24/23 I am a: Patient What is your living situation today?: I have a steady place to live Within the past 12 months, did the food you bought not last and you didn't have the money to get more?: Never true Within the past 12 months, did you worry whether your food would run out before you got money to buy more?: Never true Do you have trouble paying for medicines?: No Do you have trouble getting transportation to medical appointments?: No Do you have trouble paying your heating and electricity bill?: No Do you have trouble taking care of your child, family member or friend?: No Do you have trouble with day-to-day activities such as bathing, preparing meals, shopping, managing finances, etc.?: No Are you currently unemployed and looking for a job?: No Are you interested in more education?: No Please select the resources that you would like help with: None Currently or been in a relationship where the following occur: no concerns reported THRIVE Score: 0 AUDIT C Alcohol Use Questionnaire (AUDIT-C) 1. How often do you have a drink containing alcohol?: 2-3 times a week 2. How many drinks containing alcohol do you have on a typical day when you are drinking?: 1 or 2 3. How often do you have six or more drinks on one occasion?: Never Total Score: 3 Score Reviewed/Action Taken: No MIKE-7 AMB Questionnaire MIKE-7 Date MIKE - 7 assessed: 05/01/23 Source: Developed by Drs. Bharathi Yi, Evelin Burns, Juan Hood and colleagues, with an educational colby from [employer]. Physical exam (Primary Care) Vital Signs: Last Vital Signs Pulse 63 07/24/23 08:48 BP 108/52 L 07/24/23 08:48 Pulse Ox 95 07/24/23 08:48 Oxygen Delivery Method Room Air 07/24/23 08:48 BMI result Body Mass Index 30.4 Tobacco/Smoking Status: Tobacco use Status Tobacco use date assessed 07/24/23 07/24/23 08:49 Patient Tobacco Use Status Never used Tobacco 07/24/23 08:49 e-Cigarette/Vaping Use Never Used 07/24/23 08:49 Thrive Assessment: Date of Thrive Assessment Date Thrive assessed 07/24/23 07/24/23 09:01 Currently or been in a relationship where the following occur: no concerns reported Const General: alert; No acute distress Eyes Conjunctivae: conjunctivae normal Resp Auscultation: clear to auscultation bilaterally Cardio Rate: regular rate Rhythm: regular rhythm GI Inspection: Yes normal to inspection Extrem General: Yes normal to inspection and No edema Assessment and Plan Assessment & Plan (1) Left renal stone: Comment: June 2023 Code(s): N20.0 - Calculus of kidney Plan: Increase oral fluids (2) MOIZ (acute kidney injury): Code(s): N17.9 - Acute kidney failure, unspecified Plan: Resolved (3) Influenza A: Code(s): J10.1 - Influenza due to other identified influenza virus with other respiratory manifestations Plan: Has been treated with tamiflu (4) Coronary artery disease: Comment: 10/10/2020 coronary artery bypass graft x1 Code(s): I25.10 - Atherosclerotic heart disease of [place] coronary artery without angina pectoris Qualifiers: Coronary Disease-Associated Artery/Lesion type: [place] artery [place] vs. transplanted heart: [place] heart Associated angina: without angina Qualified Code(s): I25.10 - Atherosclerotic heart disease of [place] coronary artery without angina pectoris Plan: Control the cholesterol, weight, blood pressure, (5) Hypercholesterolemia: Comment: Avoid fried foods, chicken skin, eggs, butter margarine, pastries and meat. Be it pork or beef they have a lot of cholesterol LDL goal of less than 70 Code(s): E78.00 - Pure hypercholesterolemia, unspecified Plan: Avoid fried foods, chicken skin, eggs, butter margarine, pastries and meat. Be it pork or beef they have a lot of cholesterol on Zetia (6) History of CVA (cerebrovascular accident): Comment: August 2005 Code(s): Z86.73 - Personal history of transient ischemic attack (TIA), and cerebral infarction without residual deficits Plan: Continue with aspirin 81 mg once a day (7) BPH (benign prostatic hyperplasia): Code(s): N40.0 - Benign prostatic hyperplasia without lower urinary tract symptoms Qualifiers: Lower urinary tract symptom presence: symptoms present Lower urinary tract symptom detail: urinary frequency Qualified Code(s): N40.1 - Benign prostatic hyperplasia with lower urinary tract symptoms; R35.0 - Frequency of micturition Plan: On tamsulosin (8) Hypothyroid: Comment: Continue with present medication Code(s): E03.9 - Hypothyroidism, unspecified Qualifiers: Hypothyroidism type: acquired Qualified Code(s): E03.9 - Hypothyroidism, unspecified Plan: Continue with thyroid medication (9) Hypertension: Code(s): I10 - Essential (primary) hypertension Qualifiers: Hypertension type: essential hypertension Qualified Code(s): I10 - Essential (primary) hypertension Plan: Continue with blood pressure medication. Decrease salt intake and exercise presently on metoprolol 50 mg once a day. because of hypotension hold losartan Orders: Orders Comprehensive Met. Panel 2 Months N17.9 - Acute kidney failure, unspecified Complete Blood Count Auto Diff 2 Months N17.9 - Acute kidney failure, unspecified Coding Level of Care Code Est Pt Level 4 (63979) Diagnoses Left renal stone N20.0 MOIZ (acute kidney injury) N17.9 Influenza A J10.1 Coronary artery disease involving [place] coronary artery of [place] heart without angina pectoris I25.10 Coronary Disease-Associated Artery/Lesion type: [place] artery [place] vs. transplanted heart: [place] heart Associated angina: without angina Hypercholesterolemia E78.00 History of CVA (cerebrovascular accident) Z86.73 Benign prostatic hyperplasia with urinary frequency N40.1; R35.0 Lower urinary tract symptom presence: symptoms present Lower urinary tract symptom detail: urinary frequency Acquired hypothyroidism E03.9 Hypothyroidism type: acquired Essential hypertension I10 Hypertension type: essential hypertension
== END 2023-07-24 09:56 | disposition home or self-care (01) ==
PROVIDERS: PCP Internal Medicine; Visit Provider Internal Medicine
DX: N20.0 Calculus of kidney (principal); N17.9 Acute kidney failure, unspecified; J10.1 Influenza due to other identified influenza virus with other respiratory manifestations; I25.10 Atherosclerotic heart disease of native coronary artery without angina pectoris; E78.00 Pure hypercholesterolemia, unspecified; Z86.73 Personal history of transient ischemic attack (TIA), and cerebral infarction without residual deficits; N40.1 Benign prostatic hyperplasia with lower urinary tract symptoms; R35.0 Frequency of micturition; E03.9 Hypothyroidism, unspecified; I10 Essential (primary) hypertension
CPT/HCPCS: 99214

== ENCOUNTER 2023-09-02 16:51 | Inpatient (IN) | payer MEDICARE, SELFPAY ==
--- NOTE | ~2023-09-02 | XR_ITS ---
EXAMINATION: XR ABDOMEN KUB CLINICAL INDICATION: Nausea and vomiting. COMPARISON: CT abdomen and pelvis and KUB dated 07/16/2023. TECHNIQUE: 2 AP views of the abdomen and pelvis are submitted. FINDINGS: The bowel gas pattern is normal, with no evidence of ileus or obstruction. There is gas identified to the level of the rectum. No free intraperitoneal air is seen. No unusual soft tissue calcifications are noted. There are multiple pelvic phleboliths. There are right upper quadrant surgical clips. No acute osseous abnormality is seen. There are incompletely characterized degenerative changes of the lumbar spine. Sternotomy wires are noted. XR/XR KUB IMPRESSION: There is a nonspecific bowel gas pattern, without obstruction, ileus or free intraperitoneal air noted.
--- NOTE | ~2023-09-02 | FL_ITS ---
EXAMINATION: XR FLUOROSCOPY WITH IMAGES CLINICAL INFORMATION: Left kidney stone COMPARISON: CT scan abdomen and pelvis 09/03/2023 TECHNIQUE: Fluoroscopy Supervised By: Dr. Cabrera. Fluoroscopy Time: 3.3 seconds. Cumulative Dose: 1.34 mGy. DAP: Not recorded Images: 2. FINDINGS: 2 images of the left side of the abdomen were obtained with images of a left ureteral stent with pigtail catheter in the region of the left kidney. Please see Dr. Cabrera's procedure note for full details. FL/FL guidance in OR IMPRESSION: Fluoroscopic guidance was provided for Dr. Sterling in the OR. Please see Dr. Cabrera's procedure note for full details.
--- NOTE | ~2023-09-02 | CT_ITS ---
EXAMINATION: CT ABDOMEN AND PELVIS WITHOUT CONTRAST CLINICAL INFORMATION: Left upper quadrant pain, diverticulitis versus renal stone. COMPARISON: CT abdomen/pelvis 07/18/2023. TECHNIQUE: Multidetector volumetric imaging was performed from the superior aspect of the liver through the pubic symphysis. Sagittal and coronal reformatted images were obtained on the technologist's workstation. This CT examination was performed using dose optimization techniques as appropriate, variously including the following: *Automated exposure control *Adjustment of mA and/or kV according to patient size (this includes techniques or standardized protocols for targeted exams where dose is matched to indication/reason for exam; i.e. extremities or head) *Use of iterative reconstruction technique DLP: 735 mGy-cm FINDINGS: The lack of intravenous contrast limits evaluation of the solid visceral organs including the liver, spleen, pancreas, and kidneys. LUNG BASES: Mild cylindrical bronchiectasis with trace peripheral reticulation. No focal consolidation or pleural effusion. Multivessel coronary artery calcifications. LIVER, GALLBLADDER, AND BILIARY TREE: Equivocal nodular contour of the liver which could indicate cirrhosis. Otherwise, liver is normal in size and density. Stable simple appearing cyst in the left hepatic lobe (3:20). Unchanged too small to characterize hypodensity in the left hepatic lobe (7:18), statistically favoring to represent an additional cyst. Cholecystectomy. No biliary ductal dilatation. PANCREAS: Mild diffuse fatty infiltration redemonstrated. No main duct dilatation. No peripancreatic inflammatory changes. SPLEEN: Unremarkable. ADRENAL GLANDS: Unremarkable. KIDNEYS AND URETERS: Mild left-sided hydroureteronephrosis with asymmetric perinephric fat stranding/free fluid. Two very subtle punctate calculi in the distal left ureter at approximately 0.5 cm from the ureterovesical junction image 679 series 4. There is a 6 mm calculus in the lower pole of the left kidney. Normal right kidney. BLADDER: Unremarkable. GASTROINTESTINAL TRACT: The stomach and the small bowel are nondilated. Normal appendix. Severe colonic diverticulosis with wall thickening in the sigmoid colon but no significant pericolonic inflammatory changes. ABDOMINAL WALL: Small fat-containing left inguinal hernia. LYMPH NODES: No lymphadenopathy. VASCULAR: Severe atherosclerotic disease. Normal caliber of the abdominal aorta. PELVIC VISCERA: Unremarkable. OSSEOUS STRUCTURES: No acute or aggressive appearing osseous findings. Degenerative changes of the spine. Chronic fracture of the greater trochanter of the left femur and left inferior pubic rami. CT/CT abdomen pelvis wo IV con IMPRESSION: 1. Mild left-sided hydroureteronephrosis with asymmetric perinephric fat stranding/free fluid and two very subtle punctate calculi in the distal left ureter at approximately 0.5 cm from the ureterovesical junction. Overall, appearance is similar compared to 07/18/2023. In view of persistent findings, consider further evaluation with CT urogram to ensure the absence of other obstructive abnormalities including stricture and ureteric lesions. 2. Additional nonobstructing 6 mm calculus in the lower pole of the left kidney. 3. Severe colonic diverticulosis with wall thickening in the sigmoid colon but no significant pericolonic inflammatory changes; findings could be related with chronic muscular hypertrophy. If the patient is due, further evaluation with outpatient colonoscopy is recommended. 4. Equivocal nodular contour of the liver which could indicate cirrhosis. Recommend correlation with liver function tests. 5. Mild bronchiectasis with subtle peripheral reticulation that could indicate some degree of interstitial lung disease and fibrosis. Recommend follow-up with outpatient CT chest in 3-6 months.
--- NOTE | ~2023-09-02 | US_ITS ---
EXAMINATION: US RETROPERITONEAL LIMITED (RENAL ONLY) CLINICAL INFORMATION: Worsening MOIZ. COMPARISON: Fluoroscopy 09/03/2023, CT scan abdomen and pelvis 09/03/2023, ultrasound 04/25/2016 TECHNIQUE: Grayscale and Doppler ultrasound of the kidneys FINDINGS: RIGHT KIDNEY: 10.1 x 5.3 x 4.9 cm (SAG x AP x TRV). The kidney is normal in size, contour, and echogenicity. Renal cortical thickness is normal. No calculi or focal parenchymal lesions. No hydronephrosis. LEFT KIDNEY: 11.1 x 5.3 x 5.1 cm (SAG x AP x TRV). The kidney is normal in size, contour, and echogenicity. Renal cortical thickness is normal. No hydronephrosis. 0.6 x 0.6 x 1.0 cm cyst with calcification which likely represents layering milk of calcium is seen in the mid kidney. No follow-up imaging is recommended. 2.4 x 0.7 x 0.6 cm nonobstructing calculus is seen in the lower pole US/US renal BI IMPRESSION: 1. Normal appearance of the right kidney. 2. 2.4 cm nonobstructing calculus in the lower pole of the left kidney.
[2023-09-02 18:12] VITALS: BP 131/70; PULSE 60; RESP 18; TEMP 36.4; O2SAT 98; BMI 29.5
--- NOTE | 2023-09-02 18:14 | ED_ITS ---
HPI - Nausea/Vomiting/Diarrhea General Chief complaint: Abdominal Pain Stated complaint: Vomiting, nausea, abd pain Time Seen by Provider: 09/02/23 23:19 Source: patient Mode of arrival: ambulatory History of Present Illness HPI Narrative: 83-year-old male who presents with abdominal discomfort, multiple episodes of nausea and vomiting, this started at 03:00 o'clock this morning. He also reports subjective chills but no fevers and has had 4 episodes of soft stools and reports passing flatus. Related Data Home Medications ?Medication ?Instructions ?Recorded ?Confirmed aspirin 81 mg tablet,delayed 81 mg PO DAILY 08/06/21 07/18/23 release (Adult Aspirin Regimen) docusate sodium 100 mg capsule 100 mg PO DAILY 08/15/21 07/18/23 (Colace) metoprolol succinate 50 mg 50 mg PO DAILY 01/19/23 07/18/23 tablet,extended release 24 hr (Toprol XL) cholecalciferol (vitamin D3) 50 50 mcg PO DAILY 07/18/23 07/18/23 mcg (2,000 unit) tablet omega-3 fatty acids-fish oil 360 1 cap PO BID 07/18/23 07/18/23 mg-1,200 mg capsule (Fish Oil) Previous Rx's ?Medication ?Instructions ?Recorded tamsulosin 0.4 mg capsule (Flomax) 0.4 mg PO DAILY 90 days #90 caps 09/02/22 hydrochlorothiazide 12.5 mg tablet 12.5 mg PO DAILY 90 days #90 tabs 10/26/22 ezetimibe 10 mg tablet (Zetia) 10 mg PO DAILY #90 tabs 06/04/23 levothyroxine 100 mcg tablet 100 mcg PO DAILY 90 days #90 tabs 06/21/23 losartan 50 mg tablet 50 mg PO BID #180 tabs 07/08/23 Allergies Allergy/AdvReac Type Severity Reaction Status Date / Time lisinopril Allergy Intermediate cough Verified 09/02/23 18:16 rosuvastatin AdvReac Intermediate myalgia Verified 09/02/23 18:16 simvastatin AdvReac Intermediate myalgia Verified 09/02/23 18:16 Review of Systems 2 Review of Systems: Pertinent positives and negatives as stated in HPI PMFSH Past Medical History Source: nursing notes reviewed Medical History Preop exam for internal medicine Leg weakness Right wrist pain Carpal tunnel syndrome of right wrist Lumbar spinal stenosis Left acetabular fracture Peripheral arterial disease Hypercholesterolemia History of CVA (cerebrovascular accident) BPH (benign prostatic hyperplasia) Hypothyroid Hypertension Surgical History History of cataract surgery S/P CABG x 1 History of prostate surgery History of thyroidectomy Hx of cholecystectomy Family History Family History Father Medical history unknown Mother Medical history unknown Social History Social History Household Members: Spouse Housing: House Do you presently have visiting nurse or other home services: No Alcohol intake: current Alcohol intake frequency: a few times a month Alcohol type: wine Patient Tobacco Use Status: Never used Tobacco Smoked in Last 30 Days: No e-Cigarette/Vaping Use: Never Used Second Hand Smoke Exposure: No Use of substances other than those prescribed or required for medical reasons: No Advance Directives: Yes Advance Directives on File: Yes Advance Directives Date on File: 01/20/23 Do you have a plan to hurt others: No Plan service: No Current occupational status: retired Current occupation: left hand Cognitive needs: No Hearing needs: No Vision needs: Yes Physical Exam 2 Vital Signs: Vital Signs: Last Vital Signs Temp 98.3 F 09/02/23 22:35 Pulse 79 09/02/23 23:08 Resp 18 09/02/23 23:08 BP 179/85 H 09/02/23 23:08 Pulse Ox 96 09/02/23 23:08 O2 Del Method Room Air 09/02/23 22:35 BMI result Body Mass Index 29.5 VITAL SIGNS: Reviewed. GENERAL: Well developed, well nourished, in no acute distress. HEAD: Normocephalic/atraumatic EYES: PERRLA, EOMI EARS: Ext canals without abnormality NOSE: Nares patent bilateral OROPHARYNX: no oral lesions noted, posterior pharynx clear NECK: Supple, no adenopathy LUNGS: Normal breath sounds. No adventitious sounds or accessory muscle use. SpO2<96> CARDIOVASCULAR: Regular rate and rhythm without noted murmurs ABDOMEN: Soft, left upper quadrant/flank discomfort, non-distended with bowel sounds. MUSCULOSKELETAL: No tenderness, deformities, or effusions noted on gross inspection. EXTREMITIES: No cyanosis, clubbing or edema. SKIN: Inspection of the skin reveals no rashes NEUROLOGIC: Alert and oriented x 4. Strength and sensation to light touch were grossly intact x 4. Course Course Course Narrative: This is a Rapid Medical Examination (RME) performed by Samra Milton PA-C in triage. Full HPI, ROS, assessment and treatment plan per primary provider in the Main ED. 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 he did have 2 small firm bowel movements today but has been constipated the last couple of days. vomiting started in the middle of the night, unable to keep anything down today. recently here with MOIZ and the Influenza A. Pain currently 09/04. on arrival to the ER patient is AAO x3, ambulates w/ slow but steady gait w/ a cane. abd is sioft and nontender. +bowel sounds. Plan: labs, KUB to start Medications Administered Discontinued Medications Generic Name Dose Route Start Last Admin Trade Name Freq PRN Reason Stop Dose Admin Sodium Chloride 1,000 mls @ 999 mls/hr 09/02/23 23:30 09/03/23 00:53 Ns IV 09/03/23 00:30 Infused .Q1H1M SAMANTHA Infusion Piperacillin Sod/Tazobactam 50 mls @ 100 mls/hr 09/02/23 23:54 09/03/23 01:02 Sod 3.375 gm/ Sodium Chloride IV 09/03/23 00:23 Infused ONCE ONE Infusion Ondansetron HCl 4 mg 09/02/23 23:20 09/02/23 23:30 Ondansetron Hcl 4 Mg/2 Ml Vial IVPUSH 09/02/23 23:21 4 mg ONCE ONE Administration Medical Decision Making Medical Decision Making [facility] Narrative: 2345: 83-year-old male with history and clinical presentation, DDX: Renal colic, diverticulitis, do not suspect obstruction, possible UTI but felt to be less likely. INTERVENTION: IV fluids, antibiotics, lactic acid/blood cultures I reviewed all investigations and hematologic indices demonstrate a leukocytosis with a left shift but no anemia or thrombocytopenia. Chemistry indices significant for MOIZ but otherwise no electrolyte or liver enzyme derangements. Urinalysis negative for UTI. CT scan demonstrates mild left-sided hydro ureteral nephrosis with perinephric stranding and in conjunction with patient's MOIZ as well as findings of calculi in the distal ureter consistent with ureterolithiasis, patient is still remains intolerant of oral intake. 0125: I discussed case with Dr. Harmon who agrees with admission and will see the patient. 0125: I discussed the case with inpatient hospitalist who accepts admission. Differential Diagnosis Differential Diagnoses: The differential diagnosis associated with the presentation includes Please see the discussion above Admission/Observation Consideration of admission/observation: Escalation of care including admission/observation considered Please see the discussion above Consult Healthcare Provider Management of the patient was discussed with: Hospitalist and Fence Installer Helper Please see the discussion above Lab Data MDM Lab Attestation statement: I reviewed the patient's lab results. Please see the discussion above 09/02/23 21:09 09/02/23 21:09 Labs: Lab Results 09/02/23 09/03/23 09/03/23 Range/Units 21:09 00:22 00:50 WBC 13.9 H (4.8-10.8) X10*3/uL RBC 5.14 (4.60-5.80) X10*6/uL Hgb 15.6 (14.0-18.0) g/dl Hct 46.2 (42.0-52.0) % MCV 89.9 (80.0-98.0) fL MCH 30.4 (27.0-33.0) pg MCHC 33.8 (31.0-36.0) g/dl RDW 13.1 (11.0-16.0) % Plt Count 233 (160-400) X10*3/uL MPV 10.3 (9.4-12.4) fL Immature Gran % (Auto) 0.3 (0.0-0.4) % Neut % (Auto) 89.9 H (45-73) % Lymph % (Auto) 4.9 L (20-40) % [place] % (Auto) 4.6 (2-11) % Eos % (Auto) 0.2 (0-4) % Baso % (Auto) 0.1 (0-2) % Lymph # (Auto) 0.7 L (1.2-4.9) X10*3/uL [place] # (Auto) 0.6 (0.1-1.2) X10*3/uL Eos # (Auto) 0.0 (0.0-0.4) X10*3/uL Baso # (Auto) 0.0 (0.0-0.2) X10*3/uL Abs Immat Gran (auto) 0.04 H (0.00-0.03) X10*3/uL Absolute Neuts (auto) 12.5 H (2.0-8.3) x10*3/uL Absolute Nucleated RBC 0.000 (0.0-0.012) X10*3/uL Nucleated RBC % (auto) 0.0 (0.0-0.2) /100WBC Sodium 143 (135-145) mmol/L Potassium 4.9 (3.3-5.1) mmol/L Chloride 108 (96-108) mmol/L Carbon Dioxide 24 (22-29) mmol/L Anion Gap 16 (12-20) BUN 30 H (9-16) mg/dL Creatinine 1.56 H (0.5-1.4) mg/dL Estim Creat Clear Calc 40.9 Estimated GFR 43 Random Glucose 129 H (60-115) mg/dL Lactic Acid 1.5 (0.5-2.0) mmol/L Calcium 9.3 D (8.4-10.2) mg/dL Magnesium 2.1 (1.6-2.6) mg/dL Total Bilirubin 0.7 (0.0-1.0) mg/dL Direct Bilirubin 0.2 (0.0-0.5) mg/dL AST 24 (5-37) U/L ALT 9 (0-40) U/L Alkaline Phosphatase 100 (39-117) U/L Total Protein 7.1 (6.5-8.0) g/dL Albumin 3.9 (3.5-5.0) g/dL Lipase 23 (8-78) U/L Urine Color Yellow Urine Appearance Clear Urine pH 5.0 (5.0-9.0) Ur Specific [place] 1.025 (1.005-1.025) Urine Protein Trace (Neg-Trace) mg/dL Urine Glucose (UA) Negative (Negative) mg/dL Urine Ketones 15 (Negative) mg/dL Urine Blood Negative (Negative) Urine Nitrite Negative (Negative) Ur Leukocyte Esterase Negative (Negative) Radiology Impression Discussion of test interpretation with radiology: I have reviewed the radiologist's reading. Radiologist Impression: Please see the discussion above External Record Review External record reviewed: Outpatient record, Prior outpatient labs and Prior outpatient radiology Chronic Conditions Patient?s care impacted by: Hypertension Critical Care Time Critical Care Time Critical Care Time: Yes Total Critical Care Time: 60 Attestation: I personally attest to this time spent taking care of the patient. Discharge Plan Discharge Clinical Impression: Ureterolithiasis, MOIZ (acute kidney injury), Hydronephrosis Patient Disposition: Admitted As Inpatient Prescriptions: No Action tamsulosin [Flomax] 0.4 mg capsule 0.4 mg PO DAILY 90 Days Qty: 90 3RF hydrochlorothiazide 12.5 mg tablet 12.5 mg PO DAILY 90 Days Qty: 90 3RF Hold Instructions: Resume on 08/06/23. ezetimibe [Zetia] 10 mg tablet 10 mg PO DAILY Qty: 90 2RF levothyroxine 100 mcg tablet 100 mcg PO DAILY 90 Days Qty: 90 3RF losartan 50 mg tablet 50 mg PO BID Qty: 180 0RF Hold Instructions: Resume on 08/05/23. metoprolol succinate [Toprol XL] 50 mg tablet extended release 24 hr 50 mg PO DAILY omega-3 fatty acids-fish oil [Fish Oil] 360-1,200 mg Capsule 1 cap PO BID cholecalciferol (vitamin D3) 50 mcg (2,000 unit) Tablet 50 mcg PO DAILY docusate sodium [Colace] 100 mg capsule 100 mg PO DAILY aspirin [Adult Aspirin Regimen] 81 mg tablet,delayed release (DR/EC) 81 mg PO DAILY Print Language: Yoruba
[2023-09-02 21:16] LABS: MANUAL DIFF FLAG NO
[2023-09-02 21:17] LABS: Basophils Percent Auto 0.1 % (0-2); Eosinophils Percent Auto 0.2 % (0-4); Hematocrit 46.2 % (42.0-52.0); Hemoglobin 15.6 g/dl (14.0-18.0); Imm Gran Abs Auto 0.04 X10*3/uL (0.00-0.03); Imm Gran Pct Auto 0.3 % (0.0-0.4); Lymphocytes Absolute Auto 0.7 X10*3/uL (1.2-4.9); Lymphocytes Percent Auto 4.9 % (20-40); Mean Corpuscular HGB Conc 33.8 g/dl (31.0-36.0); Mean Corpuscular Hemoglobin 30.4 pg (27.0-33.0); Mean Corpuscular Volume 89.9 fL (80.0-98.0); Mean Platelet Volume 10.3 fL (9.4-12.4); Monocytes Absolute Auto 0.6 X10*3/uL (0.1-1.2); Monocytes Percent Auto 4.6 % (2-11); Neutrophils Absolute Auto 12.5 x10*3/uL (2.0-8.3); Neutrophils Percent Auto 89.9 % (45-73); Platelet Count 233 X10*3/uL (160-400); Red Blood Count 5.14 X10*6/uL (4.60-5.80); Red Cell Distribution Width 13.1 % (11.0-16.0); White Blood Count 13.9 X10*3/uL (4.8-10.8)
[2023-09-02 21:35] LABS: Alanine Aminotransferase 9 U/L (0-40); Albumin Level 3.9 g/dL (3.5-5.0); Alkaline Phosphatase 100 U/L (39-117); Anion Gap 16 (12-20); Aspartate Amino Transferase 24 U/L (5-37); Bilirubin Direct 0.2 mg/dL (0.0-0.5); Bilirubin Total 0.7 mg/dL (0.0-1.0); Blood Urea Nitrogen 30 mg/dL (9-16); Calcium 9.3 mg/dL (8.4-10.2); Carbon Dioxide 24 mmol/L (22-29); Chloride 108 mmol/L (96-108); Creatinine Clr Calc Pharmacy 40.9; Estimated Glomerular Filt Rate 43; Glucose Random 129 mg/dL (60-115); Lipase 23 U/L (8-78); Magnesium 2.1 mg/dL (1.6-2.6); Potassium 4.9 mmol/L (3.3-5.1); Sodium 143 mmol/L (135-145); Total Protein 7.1 g/dL (6.5-8.0)
[2023-09-02 22:35] VITALS: BP 165/81; PULSE 65; RESP 18; TEMP 36.8; O2SAT 91
[2023-09-02 23:08] VITALS: BP 179/85; PULSE 79; RESP 18; O2SAT 96
[2023-09-02] MEDS: 0.9 % Sodium Chloride 1,000 ML 999 ML IV (23:30)
[2023-09-02] MEDS: ondansetron HCL 4 MG/2 ML VIAL IVPUSH (23:30)
[2023-09-03] VITALS (15 sets, daily range): BP systolic 104–167; BP diastolic 49–79; PULSE 57–68; RESP 14–18; TEMP 36.1–36.9; O2SAT 96–100
[2023-09-03] MEDS: Piperacillin Sodium/Tazobactam 3.375 GM in 0.9 % Sodium Chloride 50 ML IV (00:34)
[2023-09-03 00:38] LABS: Lactic Acid 1.5 mmol/L (0.5-2.0)
[2023-09-03 00:59] LABS: Appearance Urine Clear; Color Urine Yellow; Glucose Urine UA Negative (Negative); Leukocyte Esterase Urine Negative (Negative); Nitrite Urine Negative (Negative); Specific Gravity - Urine 1.025 (1.005-1.025); Urine Blood Negative (Negative); Urine Ketones 15 mg/dL (Negative); Urine Protein Trace mg/dL (Neg-Trace)
--- NOTE | 2023-09-03 01:34 | PM.IMHP ---
History of Present Illness Date of Service: 09/03/23 Chief Complaint: Abdominal pain, nausea/vomiting This is a 83-year-old male with pertinent history of CVA, BPH, hypertension, hypothyroidism who presents to the emergency department for evaluation of abdominal pain, nausea/vomiting. Patient states the symptoms started on the day of presentation. He has been having left-sided abdominal discomfort, which is constant, progressive, nonradiating and without any relieving factors. Patient also has been having associated nausea and multiple episodes of nonbloody emesis. Unable to tolerate p.o. intake due to nausea and vomiting. Also has subjective chills, no documented temperature. No chest discomfort, palpitations, shortness of breath, changes in urinary habits. In the emergency department, imaging with left-sided hydroureteronephrosis with ureterolithiasis. Urology was consulted who requested admission and will evaluate the patient in a.m. Review of Systems Constitutional: Constitutional: Reports chills Cardiovascular: Cardiovascular: Reports no additional cardiovascular complaints Respiratory: Respiratory: Reports no additional respiratory complaints Gastrointestinal: Gastrointestinal: Reports abdominal pain, Reports nausea and Reports vomiting [facility] Medical History Preop exam for internal medicine Leg weakness Right wrist pain Carpal tunnel syndrome of right wrist Lumbar spinal stenosis Left acetabular fracture Peripheral arterial disease Hypercholesterolemia History of CVA (cerebrovascular accident) BPH (benign prostatic hyperplasia) Hypothyroid Hypertension Family History Father Medical history unknown Mother Medical history unknown Surgical History History of cataract surgery S/P CABG x 1 History of prostate surgery History of thyroidectomy Hx of cholecystectomy Social History Household Members: Spouse Housing: House Do you presently have visiting nurse or other home services: No Alcohol intake: current Alcohol intake frequency: a few times a month Alcohol type: wine Patient Tobacco Use Status: Never used Tobacco Smoked in Last 30 Days: No e-Cigarette/Vaping Use: Never Used Second Hand Smoke Exposure: No Use of substances other than those prescribed or required for medical reasons: No Advance Directives: Yes Advance Directives on File: Yes Advance Directives Date on File: 01/20/23 Do you have a plan to hurt others: No Plan service: No Current occupational status: retired 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 occupation: 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 Cognitive needs: No Hearing needs: No Vision needs: Yes Meds Allergies Allergy/AdvReac Type Severity Reaction Status Date / Time lisinopril Allergy Intermediate cough Verified 09/02/23 18:16 rosuvastatin AdvReac Intermediate myalgia Verified 09/02/23 18:16 simvastatin AdvReac Intermediate myalgia Verified 09/02/23 18:16 Active Medications: Current Medications Acetaminophen (Acetaminophen 325 Mg Tablet) 650 mg PO Q6H PRN PRN Reason: Pain, Mild (Pain Scale 1-3) Melatonin (Melatonin 3 Mg Tablet) 6 mg PO BEDTIME PRN PRN Reason: Insomnia Ondansetron HCl (Ondansetron Hcl 4 Mg/2 Ml Vial) 4 mg IVPUSH Q8H PRN PRN Reason: Nausea and Vomiting Sodium Chloride (0.9 % Sodium Chloride Flush 3 Ml Syringe) 3 ml IVFLUSH [facility] Medications ?Medication ?Instructions ?Recorded ?Confirmed ?Last Taken ?Type aspirin 81 mg tablet,delayed 81 mg PO DAILY 08/06/21 07/18/23 01/18/23 History release (Adult Aspirin Regimen) docusate sodium 100 mg capsule 100 mg PO DAILY 08/15/21 07/18/23 01/18/23 History (Colace) metoprolol succinate 50 mg 50 mg PO DAILY 01/19/23 07/18/23 01/18/23 History tablet,extended release 24 hr (Toprol XL) cholecalciferol (vitamin D3) 50 50 mcg PO DAILY 07/18/23 07/18/23 Unknown History mcg (2,000 unit) tablet omega-3 fatty acids-fish oil 360 1 cap PO BID 07/18/23 07/18/23 Unknown History mg-1,200 mg capsule (Fish Oil) Physical Exam Vital Signs and Narrative: Vital Signs: Last Vital Signs Temp 98.3 F 09/02/23 22:35 Pulse 79 09/02/23 23:08 Resp 18 09/02/23 23:08 BP 179/85 H 09/02/23 23:08 Pulse Ox 96 09/02/23 23:08 O2 Del Method Room Air 09/02/23 22:35 BMI result Body Mass Index 29.5 Elderly male lying in bed in no distress Neck supple, no JVD Regular rate and rhythm, S1-S2 heard Regular breath sounds bilaterally, no wheezing or crackles appreciated Abdomen with left-sided abdominal tenderness, no guarding, no rigidity, no rebound tenderness Patient is awake, alert and oriented to self, place, time and person ; no focal motor deficit Psych: Normal mood No pedal edema Results Labs 09/02/23 21:09 09/02/23 21:09 Labs: Laboratory Results - last 24 hr 09/02/23 09/03/23 09/03/23 21:09 00:22 00:50 MCV 89.9 MCH 30.4 MCHC 33.8 RDW 13.1 Plt Count 233 MPV 10.3 Immature Gran % (Auto) 0.3 Neut % (Auto) 89.9 H Lymph % (Auto) 4.9 L [place] % (Auto) 4.6 Eos % (Auto) 0.2 Baso % (Auto) 0.1 Lymph # (Auto) 0.7 L [place] # (Auto) 0.6 Eos # (Auto) 0.0 Baso # (Auto) 0.0 Abs Immat Gran (auto) 0.04 H Absolute Neuts (auto) 12.5 H Absolute Nucleated RBC 0.000 Nucleated RBC % (auto) 0.0 Anion Gap 16 Estim Creat Clear Calc 40.9 Estimated GFR 43 Random Glucose 129 H Lactic Acid 1.5 Calcium 9.3 D Magnesium 2.1 Total Bilirubin 0.7 Direct Bilirubin 0.2 AST 24 ALT 9 Alkaline Phosphatase 100 Total Protein 7.1 Albumin 3.9 Lipase 23 Urine Color Yellow Urine Appearance Clear Urine pH 5.0 Ur Specific [place] 1.025 Urine Protein Trace Urine Glucose (UA) Negative Urine Ketones 15 Urine Blood Negative Urine Nitrite Negative Ur Leukocyte Esterase Negative Imaging Radiologist's Impressions: Impressions KUB X-Ray 09/02/23 19:04 IMPRESSION: There is a nonspecific bowel gas pattern, without obstruction, ileus or free intraperitoneal air noted. Abdomen/Pelvis CT 09/03/23 00:13 IMPRESSION: 1. Mild left-sided hydroureteronephrosis with asymmetric perinephric fat stranding/free fluid and two very subtle punctate calculi in the distal left ureter at approximately 0.5 cm from the ureterovesical junction. Overall, appearance is similar compared to 07/18/2023. In view of persistent findings, consider further evaluation with CT urogram to ensure the absence of other obstructive abnormalities including stricture and ureteric lesions. 2. Additional nonobstructing 6 mm calculus in the lower pole of the left kidney. 3. Severe colonic diverticulosis with wall thickening in the sigmoid colon but no significant pericolonic inflammatory changes; findings could be related with chronic muscular hypertrophy. If the patient is due, further evaluation with outpatient colonoscopy is recommended. 4. Equivocal nodular contour of the liver which could indicate cirrhosis. Recommend correlation with liver function tests. 5. Mild bronchiectasis with subtle peripheral reticulation that could indicate some degree of interstitial lung disease and fibrosis. Recommend follow-up with outpatient CT chest in 3-6 months. Assessment and Plan (1) MOIZ (acute kidney injury): Status: Acute (2) Hydronephrosis: Status: Acute (3) Ureterolithiasis: Status: Acute Plan This is a 83-year-old male with pertinent history of CVA, BPH, hypertension, hypothyroidism who presents to the emergency department for evaluation of abdominal pain, nausea/vomiting. #. Acute kidney injury on CKD, prerenal: Resuscitated with IV crystalloids. Monitor urine output and creatinine. Avoid nephrotoxins #. Left-sided hydroureteronephrosis with ureterolithiasis: Symptomatic treatment. Urology consulted, appreciate assistance #. Hypertension: Hold hydrochlorothiazide and losartan in the setting of MOIZ #. History of CVA: On aspirin #. Hypothyroidism: On Synthroid Med rec pending DVT prophylaxis: Mechanical. Defer Lovenox until urology evaluation Full code Admit as inpatient and will require two night minimum hospital stay for close monitoring of kidney function, evaluation of hydroureteronephrosis (as above), which is not possible in a lesser acute setting. Specialist consult pending Quality Stroke Does the patient have a stroke diagnosis?: No VTE Prior VTE?: No VTE Risk Level:: Medical - moderate - high VTE Device Contraindication: N/A - Device Ordered VTE Drug Contraindication: Treatment Not Indicated
[2023-09-03 05:47] LABS: MANUAL DIFF FLAG NO
[2023-09-03 05:48] LABS: Basophils Percent Auto 0.1 % (0-2); Eosinophils Percent Auto 0.1 % (0-4); Hematocrit 42.7 % (42.0-52.0); Hemoglobin 13.9 g/dl (14.0-18.0); Imm Gran Abs Auto 0.08 X10*3/uL (0.00-0.03); Imm Gran Pct Auto 0.6 % (0.0-0.4); Lymphocytes Absolute Auto 0.7 X10*3/uL (1.2-4.9); Lymphocytes Percent Auto 5.3 % (20-40); Mean Corpuscular HGB Conc 32.6 g/dl (31.0-36.0); Mean Corpuscular Hemoglobin 29.8 pg (27.0-33.0); Mean Corpuscular Volume 91.4 fL (80.0-98.0); Mean Platelet Volume 10.7 fL (9.4-12.4); Monocytes Percent Auto 7.3 % (2-11); Neutrophils Percent Auto 86.6 % (45-73); Platelet Count 218 X10*3/uL (160-400); Red Blood Count 4.67 X10*6/uL (4.60-5.80); Red Cell Distribution Width 13.2 % (11.0-16.0); White Blood Count 13.9 X10*3/uL (4.8-10.8)
[2023-09-03 06:06] LABS: Anion Gap 17 (12-20); Blood Urea Nitrogen 30 mg/dL (9-16); Calcium 8.4 mg/dL (8.4-10.2); Carbon Dioxide 21 mmol/L (22-29); Chloride 110 mmol/L (96-108); Creatinine Clr Calc Pharmacy 40.1; Estimated Glomerular Filt Rate 42; Glucose Random 128 mg/dL (60-115); Potassium 4.5 mmol/L (3.3-5.1); Sodium 143 mmol/L (135-145)
[2023-09-03] MEDS: cefTRIAXone sodium 1 GM in 0.9 % Sodium Chloride 50 ML IV (06:54)
--- NOTE | 2023-09-03 07:36 | P.PNIM_ITS ---
Subjective Subjective Date of Service: 09/03/23 Interval History: Seen in follow up for ureterolithiasis with hydronephrosis and moiz interval history: No complaints at this time. No ongoing n/v. No urinary retention. VSS Review of Systems Review of Systems: Yes all other systems are reviewed and are negative Physical Exam 2 Vital Signs: Vital Signs: Last Vital Signs Temp 98.4 F 09/03/23 05:46 Pulse 68 09/03/23 05:46 Resp 16 09/03/23 05:46 BP 142/63 H 09/03/23 05:46 Pulse Ox 98 09/03/23 05:46 O2 Del Method Room Air 09/03/23 05:46 BMI result Body Mass Index 29.5 Objective Data Active Medications Acetaminophen (Acetaminophen 325 Mg Tablet) 650 mg PO Q6H PRN PRN Reason: Pain, Mild (Pain Scale 1-3) Ceftriaxone Sodium 1 gm/ (Sodium Chloride) 50 mls @ 100 mls/hr IV Q24H [facility] Last Admin: 09/03/23 06:54 Dose: 100 mls/hr Documented By: JESSICA Melatonin (Melatonin 3 Mg Tablet) 6 mg PO BEDTIME PRN PRN Reason: Insomnia Ondansetron HCl (Ondansetron Hcl 4 Mg/2 Ml Vial) 4 mg IVPUSH Q8H PRN PRN Reason: Nausea and Vomiting Sodium Chloride (0.9 % Sodium Chloride Flush 3 Ml Syringe) 3 ml IVFLUSH QSHIFT [facility] Labs 09/03/23 05:02 09/03/23 05:02 Labs: Laboratory Results - last 24 hr 09/02/23 09/03/23 09/03/23 21:09 00:22 00:50 MCV 89.9 MCH 30.4 MCHC 33.8 RDW 13.1 Plt Count 233 MPV 10.3 Immature Gran % (Auto) 0.3 Neut % (Auto) 89.9 H Lymph % (Auto) 4.9 L [place] % (Auto) 4.6 Eos % (Auto) 0.2 Baso % (Auto) 0.1 Lymph # (Auto) 0.7 L [place] # (Auto) 0.6 Eos # (Auto) 0.0 Baso # (Auto) 0.0 Abs Immat Gran (auto) 0.04 H Absolute Neuts (auto) 12.5 H Absolute Nucleated RBC 0.000 Nucleated RBC % (auto) 0.0 Anion Gap 16 Estim Creat Clear Calc 40.9 Estimated GFR 43 Random Glucose 129 H Lactic Acid 1.5 Calcium 9.3 D Magnesium 2.1 Total Bilirubin 0.7 Direct Bilirubin 0.2 AST 24 ALT 9 Alkaline Phosphatase 100 Total Protein 7.1 Albumin 3.9 Lipase 23 Urine Color Yellow Urine Appearance Clear Urine pH 5.0 Ur Specific [place] 1.025 Urine Protein Trace Urine Glucose (UA) Negative Urine Ketones 15 Urine Blood Negative Urine Nitrite Negative Ur Leukocyte Esterase Negative 09/03/23 05:02 MCV 91.4 MCH 29.8 MCHC 32.6 RDW 13.2 Plt Count 218 MPV 10.7 Immature Gran % (Auto) 0.6 H Neut % (Auto) 86.6 H Lymph % (Auto) 5.3 L [place] % (Auto) 7.3 Eos % (Auto) 0.1 Baso % (Auto) 0.1 Lymph # (Auto) 0.7 L [place] # (Auto) 1.0 Eos # (Auto) 0.0 Baso # (Auto) 0.0 Abs Immat Gran (auto) 0.08 H Absolute Neuts (auto) 12.0 H Absolute Nucleated RBC 0.000 Nucleated RBC % (auto) 0.0 Anion Gap 17 Estim Creat Clear Calc 40.1 Estimated GFR 42 Random Glucose 128 H Lactic Acid Calcium 8.4 D Magnesium Total Bilirubin Direct Bilirubin AST ALT Alkaline Phosphatase Total Protein Albumin Lipase Urine Color Urine Appearance Urine pH Ur Specific [place] Urine Protein Urine Glucose (UA) Urine Ketones Urine Blood Urine Nitrite Ur Leukocyte Esterase Assessment and Plan (1) Hydronephrosis: Status: Acute (2) MOIZ (acute kidney injury): Status: Acute (3) Ureterolithiasis: Status: Acute Plan 83-year-old male with pertinent history of CVA, BPH, hypertension, hypothyroidism admitted for ureterolithasis with hydronephrosis and MOIZ #Acute kidney injury- likely r/t ureterolithiasis -creat 1.59--> 1.56 -continue ivf -avoid nephrotoxins -motnior I&O -follow renal function/lytes #Urterolithiasis with hydronephrosis -no urinary retention, however, renal function not improving as above -cotninue ivf as above -urology consult- plan for procedure later afternoon -continue flomax -antiemetics and pain management prn #HTN -hold losartan in setting of moiz, continue metoprolol #Hypothyroidism -continue levothyroxine #History CVA -continue asa tomorrow #BPH -flomax dvt prophyalxis- scps. ambulation full code pt requires ongoing inpt stay for management of acute kidney injruy related to ureterolithiasis with hydronephrosis requiring ivf, expert consulation, and surgical procedure to remove obstruction with close monitoring of renal function.lytes Quality Stroke Does the patient have a stroke diagnosis?: No VTE Prior VTE?: No VTE Risk Level:: Medical - moderate - high VTE Device Contraindication: N/A - Device Ordered VTE Drug Contraindication: Treatment Not Indicated
--- NOTE | 2023-09-03 08:37 | PHA.MEDREC ---
Pharmacy Consult ? Medication Reconciliation Pharmacy has completed the medication reconciliation, pt reported all medications, stated he used to take losartan BID but his doctor told him to cut down and take it daily. Also said he is no longer take hydrochlorothiazide and takes docusate BID.
--- NOTE | 2023-09-03 09:05 | PC.NURSE ---
patient sitting up on the edge of the bed, completed his ADLS this morning. patient is awake and alert x4. respirations equal and unlabored, skin dry and intact. ambulates with steady gait to the bathroom.
[2023-09-03] MEDS: 0.9 % Sodium Chloride 1,000 ML 100 ML IVCONT ×2 (09:26→18:54)
--- NOTE | 2023-09-03 11:46 | MHC.CM.PN ---
Attempted to meet with patient in regards to discharge planning. Patient not in room. Spoke with patient's , Radha, via telephone at [phone]. Patient lives with Radha, uses a cane for mobility assistance when ambulating long distances, and had no services prior to coming to the hospital. Patient ambulates about 1/2 a mile a day. Services not anticipated to be neded at d/c because patient is not homebound. PCP verified. Copy of HCP verified to be on file. IMM explained and left at bedside. Radha will transport patient when medically stable. Continue to monitor for d/c needs.
[2023-09-03] MEDS: Metoprolol Tartrate 50 MG TABLET PO (12:21)
--- NOTE | 2023-09-03 14:18 | P.CNUR_ITS ---
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 Two very subtle punctate calculi in the distal left ureter at approximately 0.5 cm from the ureterovesical junction image 679 series 4. There is a 6 mm calculus in the lower pole of the left kidney. Normal right kidney. Recommend cystoscopy with left rigid ureteroscopy, stone removal, stent placement Review of Systems 2 Constitutional: Constitutional: Reports as per HPI and Reports no additional constitutional complaints Cardiovascular: Cardiovascular: Reports as per HPI and Reports no additional cardiovascular complaints Respiratory: Respiratory: Reports as per HPI and Reports no additional respiratory complaints Gastrointestinal: Gastrointestinal: Reports as per HPI and Reports no additional gastrointestinal complaints Genitourinary: Genitourinary: Reports as per HPI Musculoskeletal: Musculoskeletal: Reports no additional musculoskeletal complaints and Reports as per HPI Neurologic: Reports system reviewed and no additional complaints, except as documented and Reports as per HPI [facility] Past Medical History Medical History Preop exam for internal medicine Leg weakness Right wrist pain Carpal tunnel syndrome of right wrist Lumbar spinal stenosis Left acetabular fracture Peripheral arterial disease Hypercholesterolemia History of CVA (cerebrovascular accident) BPH (benign prostatic hyperplasia) Hypothyroid Hypertension Family History Family History Father Medical history unknown Mother Medical history unknown Surgical History Surgical History History of cataract surgery S/P CABG x 1 History of prostate surgery History of thyroidectomy Hx of cholecystectomy Social History Social History Household Members: Spouse Housing: House Do you presently have visiting nurse or other home services: No Alcohol intake: current Alcohol intake frequency: a few times a month Alcohol type: wine Patient Tobacco Use Status: Never used Tobacco Smoked in Last 30 Days: No e-Cigarette/Vaping Use: Never Used Second Hand Smoke Exposure: No Use of substances other than those prescribed or required for medical reasons: No Advance Directives: Yes Advance Directives on File: Yes Advance Directives Date on File: 01/20/23 Do you have a plan to hurt others: No Plan service: No Current occupational status: retired Current occupation: left hand Cognitive needs: No Hearing needs: No Vision needs: Yes Meds Allergies Allergy/AdvReac Type Severity Reaction Status Date / Time lisinopril Allergy Intermediate cough Verified 09/02/23 18:16 rosuvastatin AdvReac Intermediate myalgia Verified 09/02/23 18:16 simvastatin AdvReac Intermediate myalgia Verified 09/02/23 18:16 Active Medications: Current Medications Acetaminophen (Acetaminophen 325 Mg Tablet) 650 mg PO Q6H PRN PRN Reason: Pain, Mild (Pain Scale 1-3) Aspirin (Aspirin Enteric Coated 81 Mg Tablet.Dr) 81 mg PO DAILY [facility] Docusate Sodium (Docusate Sodium 100 Mg Capsule) 100 mg PO BID [facility] Ezetimibe (Ezetimibe 10 Mg Tablet) 10 mg PO BEDTIME [facility] Ceftriaxone Sodium 1 gm/ (Sodium Chloride) 50 mls @ 100 mls/hr IV Q24H [facility] Last Infusion: 09/03/23 07:30 Dose: Infused Sodium Chloride (Ns) 1,000 mls @ 100 mls/hr IVCONT .Q10H [facility] Last Admin: 09/03/23 09:26 Dose: 100 mls/hr Levothyroxine Sodium (Levothyroxine Sodium 100 Mcg Tablet) 100 mcg PO DAILY@0600 [facility] Melatonin (Melatonin 3 Mg Tablet) 6 mg PO BEDTIME PRN PRN Reason: Insomnia Metoprolol Succinate (Metoprolol Succinate Er 100 Mg Tab.Er.24h) 100 mg PO BEDTIME [facility]; Protocol Ondansetron HCl (Ondansetron Hcl 4 Mg/2 Ml Vial) 4 mg IVPUSH Q8H PRN PRN Reason: Nausea and Vomiting Sodium Chloride (0.9 % Sodium Chloride Flush 3 Ml Syringe) 3 ml IVFLUSH QSHIFT [facility] Last Admin: 09/03/23 14:16 Dose: Not Given Tamsulosin HCl (Tamsulosin Hcl 0.4 Mg Capsule) 0.4 mg PO BEDTIME [facility] Vitamin D (Cholecalciferol (Vitamin D3) 25 Mcg Tablet) [facility] Home Medications ?Medication ?Instructions ?Recorded ?Confirmed ?Last Taken ?Type aspirin 81 mg tablet,delayed 81 mg PO DAILY 04/11/22 05/08/24 09/23/23 History release (Adult Aspirin Regimen) docusate sodium 100 mg capsule 100 mg PO BID 08/15/21 09/03/23 01/18/23 History (Colace) cholecalciferol (vitamin D3) 50 50 mcg PO SUSA 07/18/23 09/03/23 Unknown History mcg (2,000 unit) tablet omega-3 fatty acids-fish oil 360 1 cap PO BID 07/18/23 09/03/23 Unknown History mg-1,200 mg capsule (Fish Oil) ezetimibe 10 mg tablet (Zetia) 10 mg PO BEDTIME 09/03/23 09/03/23 Unknown History levothyroxine 100 mcg tablet 100 mcg PO DAILY@0600 09/03/23 09/03/23 Unknown History losartan 50 mg tablet 50 mg PO DAILY 09/03/23 09/03/23 Unknown History metoprolol succinate 100 mg 100 mg PO BEDTIME 09/03/23 09/03/23 Unknown History tablet,extended release 24 hr tamsulosin 0.4 mg capsule (Flomax) 0.4 mg PO BEDTIME 09/03/23 09/03/23 Unknown History Physical Exam 2 Vital Signs: Vital Signs: Last Vital Signs Temp 97.9 F 09/03/23 08:10 Pulse 64 09/03/23 10:13 Resp 16 09/03/23 08:10 BP 151/74 H 09/03/23 10:13 Pulse Ox 97 09/03/23 08:10 O2 Del Method Room Air 09/03/23 08:10 BMI result Body Mass Index 29.5 Const: General: cooperative, healthy appearing, comfortable and no acute distress Orientation/consciousness: patient oriented x3 HEENT: Face and sinus: Yes normal facial exam Mouth: moist mucous membranes Neck: Neck: Yes normal visual inspection, Yes full ROM and Yes trachea midline Chest: Chest palpation & inspection: normal inspection of the chest Resp: Effort & Inspection: normal respiratory effort, able to speak in complete sentences and no respiratory distress GI: Inspection: Yes normal to inspection Back/Spine/Pelvis: Cervical Spine: normal cervical lordosis Thoracic/Lumbar Spine: thoracic and lumbar spine normal to inspection Skin: General skin exam: no rashes or lesions noted Neuro: General: patient oriented x3, tone normal and moves all extremities Extrem: General: Yes normal to inspection and Yes capillary refill normal Results Labs 09/03/23 05:02 09/03/23 05:02 Labs: Abnormal lab results 09/02/23 09/03/23 Range/Units 21:09 05:02 WBC 13.9 H 13.9 H (4.8-10.8) X10*3/uL Hgb 13.9 L (14.0-18.0) g/dl Immature Gran % (Auto) 0.6 H (0.0-0.4) % Neut % (Auto) 89.9 H 86.6 H (45-73) % Lymph % (Auto) 4.9 L 5.3 L (20-40) % Lymph # (Auto) 0.7 L 0.7 L (1.2-4.9) X10*3/uL Abs Immat Gran (auto) 0.04 H 0.08 H (0.00-0.03) X10*3/uL Absolute Neuts (auto) 12.5 H 12.0 H (2.0-8.3) x10*3/uL Chloride 110 H (96-108) mmol/L Carbon Dioxide 21 L (22-29) mmol/L BUN 30 H 30 H (9-16) mg/dL Creatinine 1.56 H 1.59 H (0.5-1.4) mg/dL Random Glucose 129 H 128 H (60-115) mg/dL Short CBC 09/02/23 09/03/23 Range/Units 21:09 05:02 WBC 13.9 H 13.9 H (4.8-10.8) X10*3/uL Hgb 15.6 13.9 L (14.0-18.0) g/dl Hct 46.2 42.7 (42.0-52.0) % Plt Count 233 218 (160-400) X10*3/uL BMP 09/02/23 09/03/23 21:09 05:02 Sodium 143 143 Potassium 4.9 4.5 Chloride 108 110 H Carbon Dioxide 24 21 L BUN 30 H 30 H Creatinine 1.56 H 1.59 H Calcium 9.3 D 8.4 D Liver Function 09/02/23 Range/Units 21:09 Total Bilirubin 0.7 (0.0-1.0) mg/dL Direct Bilirubin 0.2 (0.0-0.5) mg/dL AST 24 (5-37) U/L ALT 9 (0-40) U/L Alkaline Phosphatase 100 (39-117) U/L Albumin 3.9 (3.5-5.0) g/dL Urine 09/03/23 Range/Units 00:50 Urine Color Yellow Urine Appearance Clear Urine pH 5.0 (5.0-9.0) Ur Specific [place] 1.025 (1.005-1.025) Urine Protein Trace (Neg-Trace) mg/dL Urine Glucose (UA) Negative (Negative) mg/dL All other labs normal. Assessment and Plan (1) Hydronephrosis: Status: Acute (2) MOIZ (acute kidney injury): Status: Acute (3) Ureterolithiasis: Status: Acute Plan Ureteroscopy We discussed the nature of the decision and reasonable alternatives for performing ureteroscopy. Options such as medical therapy were discussed. Interventions include chemical dissolution, ESWL, ureteroscopy with laser lithotripsy and stent placement, PCNL. The relative uncertainties and benefits related to each alternate procedure were adequately discussed. General surgical risks including, but not limited to - pain, bleeding, infection, myocardial infarction, pulmonary embolus, deep vein thrombosis and cerebrovascular accident which may result in further hospitalization were discussed. Full disclosure of the procedure as well as all major risks, benefits and complications were discussed including but not limited to damage to the urethra, bladder and kidney infection, damage to the ureter, stent migration or malposition, scarring to the renal pelvis, remnant stone fragments, subsequent stone passage with need for secondary procedures. The overall secondary procedure rate is approximately 10-15%. The overall clearance rate is approximately 90-95%. Success of the procedure in the short-term does not necessarily guarantee that long-term success will be maintained. Suitable follow up will need to be maintained. The patient showed understanding of discussion and wishes to proceed with - cystoscopy, retrograde, ureteroscopy, possible lithotripsy/stone basketing and stent on the left side Procedures Date of Service Date of Service: 09/03/23
--- NOTE | 2023-09-03 15:17 | P.CONAN_ITS ---
COUNT INCLUDES THE [facility] Active Problems Active Problems: All Active Problems Hydronephrosis (Acute) MOIZ (acute kidney injury) (Acute) Ureterolithiasis (Acute) Left renal stone (Acute) MOIZ (acute kidney injury) (Acute) Influenza A (Acute) Left upper quadrant pain (Acute) Impacted cerumen of right ear (Acute) Closed left hip fracture (Acute) Peripheral vascular disease (Acute) Wrist pain (Acute) Tinea pedis (Acute) COVID-19 virus infection (Acute) Fungus infection (Acute) Cellulitis (Acute) Impacted cerumen of both ears (Acute) Macular degeneration (Acute) Encounter for subsequent annual wellness visit (AWV) in Medicare patient (Acute) Toe pain, right (Acute) Cellulitis of left thigh (Acute) CKD (chronic kidney disease) stage 2, GFR 60-89 ml/min (Acute) Coronary artery disease (Acute) Ascending aorta dilatation (Acute) Erectile dysfunction (Acute) Hematoma (Acute) Allergic dermatitis (Acute) Peripheral arterial disease (Acute) Hypercholesterolemia (Acute) History of CVA (cerebrovascular accident) (Acute) BPH (benign prostatic hyperplasia) (Acute) Hypothyroid (Acute) Hypertension (Acute) Past Medical History Medical History Preop exam for internal medicine Leg weakness Right wrist pain Carpal tunnel syndrome of right wrist Lumbar spinal stenosis Left acetabular fracture Peripheral arterial disease Hypercholesterolemia History of CVA (cerebrovascular accident) BPH (benign prostatic hyperplasia) Hypothyroid Hypertension Family History Family History Father Medical history unknown Mother Medical history unknown Family history of problems with anesthesia: No Surgical History Surgical History History of cataract surgery S/P CABG x 1 History of prostate surgery History of thyroidectomy Hx of cholecystectomy History of Problems with Anesthesia: No Social History Social History Household Members: Spouse Housing: House Do you presently have visiting nurse or other home services: No Alcohol intake: current Alcohol intake frequency: a few times a month Alcohol type: wine Patient Tobacco Use Status: Never used Tobacco Smoked in Last 30 Days: No e-Cigarette/Vaping Use: Never Used Second Hand Smoke Exposure: No Use of substances other than those prescribed or required for medical reasons: No Advance Directives: Yes Advance Directives on File: Yes Advance Directives Date on File: 01/20/23 Do you have a plan to hurt others: No Plan service: No Current occupational status: retired Current occupation: left hand Cognitive needs: No Hearing needs: No Vision needs: Yes Meds Allergies Allergy/AdvReac Type Severity Reaction Status Date / Time lisinopril Allergy Intermediate cough Verified 09/02/23 18:16 rosuvastatin AdvReac Intermediate myalgia Verified 09/02/23 18:16 simvastatin AdvReac Intermediate myalgia Verified 09/02/23 18:16 Active Medications: Current Medications Acetaminophen (Acetaminophen 325 Mg Tablet) 650 mg PO Q6H PRN PRN Reason: Pain, Mild (Pain Scale 1-3) Aspirin (Aspirin Enteric Coated 81 Mg Tablet.Dr) 81 mg PO DAILY [facility] Docusate Sodium (Docusate Sodium 100 Mg Capsule) 100 mg PO BID [facility] Ezetimibe (Ezetimibe 10 Mg Tablet) 10 mg PO BEDTIME [facility] Ceftriaxone Sodium 1 gm/ (Sodium Chloride) 50 mls @ 100 mls/hr IV Q24H [facility] Last Infusion: 09/03/23 07:30 Dose: Infused Sodium Chloride (Ns) 1,000 mls @ 100 mls/hr IVCONT .Q10H [facility] Last Admin: 09/03/23 09:26 Dose: 100 mls/hr Levofloxacin (Levaquin) 500 mg in 100 mls @ 100 mls/hr IV PREOP ONE Stop: 09/03/23 15:21 Levothyroxine Sodium (Levothyroxine Sodium 100 Mcg Tablet) 100 mcg PO DAILY@0600 [facility] Melatonin (Melatonin 3 Mg Tablet) 6 mg PO BEDTIME PRN PRN Reason: Insomnia Metoprolol Succinate (Metoprolol Succinate Er 100 Mg Tab.Er.24h) 100 mg PO BEDTIME SAMANTHA; Protocol Ondansetron HCl (Ondansetron Hcl 4 Mg/2 Ml Vial) 4 mg IVPUSH Q8H PRN PRN Reason: Nausea and Vomiting Sodium Chloride (0.9 % Sodium Chloride Flush 3 Ml Syringe) 3 ml IVFLUSH QSHIFT [facility] Last Admin: 09/03/23 14:16 Dose: Not Given Tamsulosin HCl (Tamsulosin Hcl 0.4 Mg Capsule) 0.4 mg PO BEDTIME [facility] Vitamin D (Cholecalciferol (Vitamin D3) 25 Mcg Tablet) 50 mcg PO SUSA [facility] Home Medications ?Medication ?Instructions ?Recorded ?Confirmed ?Last Taken ?Type aspirin 81 mg tablet,delayed 81 mg PO DAILY 08/06/21 09/03/23 01/18/23 History release (Adult Aspirin Regimen) docusate sodium 100 mg capsule 100 mg PO BID 08/15/21 09/03/23 01/18/23 History (Colace) cholecalciferol (vitamin D3) 50 50 mcg PO SUSA 07/18/23 09/03/23 Unknown History mcg (2,000 unit) tablet omega-3 fatty acids-fish oil 360 1 cap PO BID 07/18/23 09/03/23 Unknown History mg-1,200 mg capsule (Fish Oil) ezetimibe 10 mg tablet (Zetia) 10 mg PO BEDTIME 09/03/23 09/03/23 Unknown History levothyroxine 100 mcg tablet 100 mcg PO DAILY@0600 09/03/23 09/03/23 Unknown History losartan 50 mg tablet 50 mg PO DAILY 09/03/23 09/03/23 Unknown History metoprolol succinate 100 mg 100 mg PO BEDTIME 09/03/23 09/03/23 Unknown History tablet,extended release 24 hr tamsulosin 0.4 mg capsule (Flomax) 0.4 mg PO BEDTIME 09/03/23 09/03/23 Unknown History Exam Height,Weight and Vital Signs: Height 5 ft 11 in Weight 96 kg Last Vital Signs Temp 97.9 F 09/03/23 08:10 Pulse 64 09/03/23 10:13 Resp 16 09/03/23 08:10 BP 151/74 H 09/03/23 10:13 Pulse Ox 97 09/03/23 08:10 O2 Del Method Room Air 09/03/23 08:10 Pertinent Lab Results Pertinent Lab Results: Laboratory Tests 09/02/23 09/03/23 09/03/23 21:09 00:22 00:50 WBC 13.9 H RBC 5.14 Hgb 15.6 Hct 46.2 MCV 89.9 MCH 30.4 MCHC 33.8 RDW 13.1 Plt Count 233 MPV 10.3 Immature Gran % (Auto) 0.3 Neut % (Auto) 89.9 H Lymph % (Auto) 4.9 L [place] % (Auto) 4.6 Eos % (Auto) 0.2 Baso % (Auto) 0.1 Lymph # (Auto) 0.7 L [place] # (Auto) 0.6 Eos # (Auto) 0.0 Baso # (Auto) 0.0 Abs Immat Gran (auto) 0.04 H Absolute Neuts (auto) 12.5 H Absolute Nucleated RBC 0.000 Nucleated RBC % (auto) 0.0 Sodium 143 Potassium 4.9 Chloride 108 Carbon Dioxide 24 Anion Gap 16 BUN 30 H Creatinine 1.56 H Estim Creat Clear Calc 40.9 Estimated GFR 43 Random Glucose 129 H Lactic Acid 1.5 Calcium 9.3 D Magnesium 2.1 Total Bilirubin 0.7 Direct Bilirubin 0.2 AST 24 ALT 9 Alkaline Phosphatase 100 Total Protein 7.1 Albumin 3.9 Lipase 23 Urine Color Yellow Urine Appearance Clear Urine pH 5.0 Ur Specific [place] 1.025 Urine Protein Trace Urine Glucose (UA) Negative Urine Ketones 15 Urine Blood Negative Urine Nitrite Negative Ur Leukocyte Esterase Negative 09/03/23 05:02 WBC 13.9 H RBC 4.67 Hgb 13.9 L Hct 42.7 MCV 91.4 MCH 29.8 MCHC 32.6 RDW 13.2 Plt Count 218 MPV 10.7 Immature Gran % (Auto) 0.6 H Neut % (Auto) 86.6 H Lymph % (Auto) 5.3 L [place] % (Auto) 7.3 Eos % (Auto) 0.1 Baso % (Auto) 0.1 Lymph # (Auto) 0.7 L [place] # (Auto) 1.0 Eos # (Auto) 0.0 Baso # (Auto) 0.0 Abs Immat Gran (auto) 0.08 H Absolute Neuts (auto) 12.0 H Absolute Nucleated RBC 0.000 Nucleated RBC % (auto) 0.0 Sodium 143 Potassium 4.5 Chloride 110 H Carbon Dioxide 21 L Anion Gap 17 BUN 30 H Creatinine 1.59 H Estim Creat Clear Calc 40.1 Estimated GFR 42 Random Glucose 128 H Lactic Acid Calcium 8.4 D Magnesium Total Bilirubin Direct Bilirubin AST ALT Alkaline Phosphatase Total Protein Albumin Lipase Urine Color Urine Appearance Urine pH Ur Specific [place] Urine Protein Urine Glucose (UA) Urine Ketones Urine Blood Urine Nitrite Ur Leukocyte Esterase Airway Mallampati Class: II TM Dist: >3cm Neck ROM: Full Loose/Missing/Broken Teeth: No Heart: rrr Lungs: cta Assessment and Plan Assessment Anesthesia Assessment: Anesthesia Plan Discussed and Chart Reviewed Final Anesthetic Review Family History of Problems with Anesthesia: No History of Problems with Anesthesia: No NPO: Yes ASA Class: III Final Preanesthetic Review: No Changes in Pt Med Stat, Meds/Allgs Chart Reviewed, Consent Obtained/Reviewed and Anes Risks/Benef Reviewed Patient Risk: Intermediate Procedure Risk: Intermediate Anesthetic Plan Anesthetic Plan: GA Disposition: Standard PACU
[2023-09-03] MEDS: ondansetron HCL 4 MG/2 ML VIAL IVPUSH (15:44)
--- NOTE | 2023-09-03 16:10 | MHC.SHP ---
Pre-Procedural Eval Section A - 24 Hr Update-Section A only Date of Service: 09/03/23 The patient is an INPATIENT: Yes Changes since office visit: No Cold of Flu in the past 2 weeks, No New Medical Problems, No Changes in Medication and No Patient answered all questions The patient has been examined within 24 hours of the surgical procedure. The History & Physical has been completed within 30 days and I have reviewed it.: Yes Section B - Complete if H&P > 30 days Chief Complaint: abd pain, nausea/vomiting Allergies: Allergies Allergy/AdvReac Type Severity Reaction Status Date / Time lisinopril Allergy Intermediate cough Verified 09/02/23 18:16 rosuvastatin AdvReac Intermediate myalgia Verified 09/02/23 18:16 simvastatin AdvReac Intermediate myalgia Verified 09/02/23 18:16 Plan Diagnosis/Plan: Unchanged (Cystoscopy, left retrograde, left ureteroscopy laser lithotripsy stent placement) I have reviewed the history and physical and performed a pertinent physical examination on my patient. No changes have occurred unless specified. Time Spent With Patient Time: Total time managing care of this patient today ____ minutes.
--- NOTE | 2023-09-03 16:29 | P.OP_ITS ---
Operative Note Operative Note Date of Service: 09/03/23 Narrative: PreOperative Diagnosis: Distal left ureteric stone Post Operative Diagnosis: Distal left ureteric stone with hydroureteronephrosis Procedure: - cystoscopy, left retrograde - left dilatation of ureteric orifice under fluoroscopy - left ureteroscopy - left stent placement Surgeon: Dr Riley Cabrera Anesthesia: General Indications for procedure: Distal left ureteric stone with hydroureteronephrosis. Pain and elevated creatinine. Procedure: After informed consent was verified the patient was brought to the operating room and placed in a supine position. Anesthesia was administered per protocol. The patient was placed in a modified dorsal lithotomy position and prepped and draped in a sterile fashion. Safety pause time-out and side of surgery were confirmed. Images were available for review. Antibiotic administration confirmed. A 22 [place] cystoscope was inserted per urethra. The urethra was without abnormality. The bladder was normal in its entirety. Both ureteric orifices were seen in normal position small stones emerging from left ureteric orifice. The left ureteric orifice was cannulated and a retrograde examination was performed. Mild hydroureteronephrosis to the bladder was noted . A Sensor guidewire was placed up to the level of the renal pelvis under fluoroscopy. Small stones emerged from around the wire after was placed in the ureter. The rigid cystoscope was removed. A [place] dilator was placed over the Sensor guidewire and used to dilate the ureteric orifice under fluoroscopy. The dilator was removed. The semi rigid ureteral scope was placed alongside the Sensor guidewire. No stones seen within the ureter. Area of inflammation seen in distal portion. Small stone fragments seen in that area. A decision was made to place a ureteric stent. Based on the height of the patient a 6 Fr x 28 stent was used. The string was removed from the stent prior to placement The rigid cystoscope was backloaded over the wire and advanced into the bladder. A 6 [place] by 28 cm double-J stent was placed into the renal pelvis and bladder under a combination of fluoroscopy and direct visualization. The bladder was emptied. The patient tolerated the procedure well and was extubated in the operating room. They were transferred in stable condition to the recovery area. Pathology: Drains: Double J stent as described above
[2023-09-03] MEDS: Phenazopyridine HCL 100 MG TABLET PO (17:21)
--- NOTE | 2023-09-03 18:26 | P.CDIM_ITS ---
PROVIDER RESPONSE TEXT: To clarify, the appropriate diagnosis supported by the clinical indicators: MOIZ on CKD: MOIZ on CKD stage 3b QUERY TEXT: PHYSICIAN'S DOCUMENTATION REQUEST Date of Query: 09/03/2023 12:17 PM EDT Patient Name: Edgar Roberts Admit Date: 09/03/2023 Dear Fatou CERDA, A review of the medical record indicates additional documentation may be needed. Please review below and update the documentation accordingly. Clinical Indicators: H&P: Plan - Acute kidney injury on CKD, prerenal. Resuscitated with IV crystalloids. Monitor urine output and creatinine. Avoid nephrotoxins Cr 1.56 1.59 Gfr 43 42 Please clarify which of the following accurately represents the patient's stage of the noted CKD: MOIZ on CKD Stage 1, 2, 3a, 3b, 4 etc. Other (explain) Clinically unable to determine (explain) Thank you, Jessie Murillo, CCS, CDIS Use of terms such as suspected, likely, concern for, or probable (associated with a specific diagnosi s that is being evaluated, monitored, or treated as if it exists) are acceptable and can be coded in the inpatient se tting, when documented at the time of discharge. Please use your independent medical judgment in providing your response. THIS QUERY IS PART OF THE PERMANENT MEDICAL RECORD
[2023-09-03] MEDS: Tamsulosin HCL 0.4 MG CAPSULE PO (21:15)
[2023-09-03] MEDS: Docusate Sodium 100 MG CAPSULE PO (21:15)
[2023-09-03] MEDS: Ezetimibe 10 MG TABLET PO (21:15)
[2023-09-03] MEDS: Metoprolol Succinate ER 100 MG TAB.ER.24H PO (21:15)
[2023-09-04 02:51] VITALS: BP 155/71; PULSE 52; RESP 16; TEMP 36.2; O2SAT 96
[2023-09-04] MEDS: 0.9 % Sodium Chloride 1,000 ML 100 ML IVCONT (02:51)
[2023-09-04 06:00] LABS: MANUAL DIFF FLAG NO
[2023-09-04 06:05] LABS: Basophils Percent Auto 0.1 % (0-2); Eosinophils Percent Auto 0.1 % (0-4); Hematocrit 38.9 % (42.0-52.0); Hemoglobin 12.8 g/dl (14.0-18.0); Imm Gran Abs Auto 0.05 X10*3/uL (0.00-0.03); Imm Gran Pct Auto 0.5 % (0.0-0.4); Lymphocytes Absolute Auto 0.8 X10*3/uL (1.2-4.9); Mean Corpuscular HGB Conc 32.9 g/dl (31.0-36.0); Mean Corpuscular Volume 91.1 fL (80.0-98.0); Mean Platelet Volume 11.1 fL (9.4-12.4); Monocytes Percent Auto 8.9 % (2-11); Neutrophils Absolute Auto 9.2 x10*3/uL (2.0-8.3); Neutrophils Percent Auto 83.4 % (45-73); Platelet Count 200 X10*3/uL (160-400); Red Blood Count 4.27 X10*6/uL (4.60-5.80); Red Cell Distribution Width 13.3 % (11.0-16.0)
[2023-09-04] MEDS: Levothyroxine Sodium 100 MCG TABLET PO (06:09)
[2023-09-04] MEDS: cefTRIAXone sodium 1 GM in 0.9 % Sodium Chloride 50 ML IV (06:09)
[2023-09-04 06:16] LABS: Anion Gap 15 (12-20); Blood Urea Nitrogen 34 mg/dL (9-16); Calcium 8.4 mg/dL (8.4-10.2); Carbon Dioxide 24 mmol/L (22-29); Chloride 108 mmol/L (96-108); Creatinine Clr Calc Pharmacy 38.2; Estimated Glomerular Filt Rate 39; Glucose Random 119 mg/dL (60-115); Potassium 4.8 mmol/L (3.3-5.1); Sodium 142 mmol/L (135-145)
[2023-09-04 07:49] VITALS: BP 164/73; PULSE 50; RESP 18; TEMP 36; O2SAT 94
[2023-09-04] MEDS: Docusate Sodium 100 MG CAPSULE PO (08:30)
[2023-09-04] MEDS: Aspirin Enteric Coated 81 MG TABLET.DR PO (08:30)
--- NOTE | 2023-09-04 08:46 | HO.PM.IMPN ---
Subjective Subjective Date of Service: 09/04/23 Interval History: Seen in follow up for ureterolithiasis with hydronephrosis and moiz interval history: S/p cystoscopy, left dilatation of ureteric orifice and stent placement 09/03. Reports dysuria. Had some postoperative hematuria which has resolved No n/v. No urinary retention. VSS Review of Systems Review of Systems: Yes all other systems are reviewed and are negative Physical Exam Vital Signs: Vital Signs: Last Vital Signs Temp 96.8 F 09/04/23 07:49 Pulse 50 09/04/23 07:49 Resp 18 09/04/23 07:49 BP 164/73 H 09/04/23 07:49 Pulse Ox 94 09/04/23 07:49 O2 Del Method Room Air 09/04/23 07:49 O2 Flow Rate 2 09/03/23 17:40 BMI result Body Mass Index 29.5 Constitutional - Awake and Alert, No apparent distress Eyes - PERRLA, EOMI Cardiovascular - S1S2, RRR, No edema Respiratory - Normal lung expansion, Normal respiratory effort, No respiratory distress, CTA bilaterally Gastrointestinal - NT / ND; +BS; No rebound or guarding Extremities - no calf tenderness bilaterally, no swelling Skin - Warm/Dry Neurological - Alert & oriented x3 Psychological - Appropriate affect Objective Data Active Medications Acetaminophen (Acetaminophen 325 Mg Tablet) 650 mg PO Q6H PRN PRN Reason: Pain, Mild (Pain Scale 1-3) Aspirin (Aspirin Enteric Coated 81 Mg Tablet.) 81 mg PO DAILY [facility] Last Admin: 09/04/23 08:30 Dose: 81 mg Documented By: TIFFANY Docusate Sodium (Docusate Sodium 100 Mg Capsule) 100 mg PO BID [facility] Last Admin: 09/04/23 08:30 Dose: 100 mg Documented By: TIFFANY Ezetimibe (Ezetimibe 10 Mg Tablet) 10 mg PO BEDTIME [facility] Last Admin: 09/03/23 21:15 Dose: 10 mg Documented By: WYATT Ceftriaxone Sodium 1 gm/ (Sodium Chloride) 50 mls @ 100 mls/hr IV Q24H [facility] Last Infusion: 09/04/23 06:40 Dose: Infused Documented By: WYATT Sodium Chloride (Ns) 1,000 mls @ 100 mls/hr IVCONT .Q10H [facility] Last Admin: 09/04/23 02:51 Dose: 100 mls/hr Documented By: WYATT Levothyroxine Sodium (Levothyroxine Sodium 100 Mcg Tablet) 100 mcg PO DAILY@0600 [facility] Last Admin: 09/04/23 06:09 Dose: 100 mcg Documented By: WYATT Melatonin (Melatonin 3 Mg Tablet) 6 mg PO BEDTIME PRN PRN Reason: Insomnia Metoprolol Succinate (Metoprolol Succinate Er 100 Mg Tab.Er.24h) 100 mg PO BEDTIME [facility]; Protocol Last Admin: 09/03/23 21:15 Dose: 100 mg Documented By: WYATT Ondansetron HCl (Ondansetron Hcl 4 Mg/2 Ml Vial) 4 mg IVPUSH Q8H PRN PRN Reason: Nausea and Vomiting Last Admin: 09/03/23 15:44 Dose: 4 mg Documented By: TATA Oxycodone HCl (Oxycodone Hcl Immed Release 5 Mg Tablet) 5 mg PO Q4H PRN PRN Reason: Breakthrough Pain Sodium Chloride (0.9 % Sodium Chloride Flush 3 Ml Syringe) 3 ml IVFLUSH QSHIFT [facility] Last Admin: 09/04/23 08:31 Dose: Not Given Documented By: TIFFANY Non-Admin Reason: IV Running Tamsulosin HCl (Tamsulosin Hcl 0.4 Mg Capsule) 0.4 mg PO BEDTIME [facility] Last Admin: 09/03/23 21:15 Dose: 0.4 mg Documented By: WYATT Vitamin D (Cholecalciferol (Vitamin D3) 25 Mcg Tablet) 50 mcg PO SUSA [facility] Labs 09/04/23 05:19 09/04/23 05:19 Labs: Laboratory Results - last 24 hr 09/04/23 05:19 MCV 91.1 MCH 30.0 MCHC 32.9 RDW 13.3 Plt Count 200 MPV 11.1 Immature Gran % (Auto) 0.5 H Neut % (Auto) 83.4 H Lymph % (Auto) 7.0 L [place] % (Auto) 8.9 Eos % (Auto) 0.1 Baso % (Auto) 0.1 Lymph # (Auto) 0.8 L [place] # (Auto) 1.0 Eos # (Auto) 0.0 Baso # (Auto) 0.0 Abs Immat Gran (auto) 0.05 H Absolute Neuts (auto) 9.2 H Absolute Nucleated RBC 0.000 Nucleated RBC % (auto) 0.0 Anion Gap 15 Estim Creat Clear Calc 38.2 Estimated GFR 39 Random Glucose 119 H Calcium 8.4 Microbiology Microbiology Results: Microbiology 09/03/23 00:22 Blood Culture - Preliminary Blood - Venous No growth after 24 hours. Assessment and Plan (1) Hydronephrosis: Status: Acute (2) MOIZ (acute kidney injury): Status: Acute (3) Ureterolithiasis: Status: Acute Plan 83-year-old male with pertinent history of CVA, BPH, hypertension, hypothyroidism admitted for ureterolithasis with hydronephrosis and MOIZ #Acute kidney injury- likely r/t ureterolithiasis -creat 1.59--> 1.56 --> 1.67. Baseline around 1.14 -recheck ua/uc. check urine creat/sodium -continue ivf -avoid nephrotoxins -monitor I&O -nephro consult -follow renal function/lytes #Urterolithiasis with hydronephrosis -no urinary retention, however, renal function not improving as above -s/p cystoscopy with left dilatation of ureteric orifice under fluoroscopy and stent placement 09/02 POD1 -continue ivf as above -continue flomax -antiemetics and pain management prn -urology consult #HTN -hold losartan in setting of moiz, continue metoprolol #Hypothyroidism -continue levothyroxine #History CVA -continue asa tomorrow #BPH -flomax dvt prophyalxis- scps. ambulation full code pt requires ongoing inpt stay for management of worsening acute kidney injury despite ureteral stent placement requiring ongoing ivf and expert consultation. Will require close monitoring of renal function/lytes Quality Stroke Does the patient have a stroke diagnosis?: No VTE Prior VTE?: No VTE Risk Level:: Medical - moderate - high VTE Device Contraindication: N/A - Device Ordered VTE Drug Contraindication: Treatment Not Indicated
[2023-09-04 09:28] LABS: Appearance Urine Turbid; Color Urine Dark Yellow; Glucose Urine UA Negative (Negative); Leukocyte Esterase Urine Moderate (2+) (Negative); Nitrite Urine Positive (Negative); UMIC TRIGGER UACC YES; Urine Blood Large (3+) (Negative); Urine Ketones Negative (Negative); Urine Protein 300 (3+) mg/dL (Neg-Trace)
[2023-09-04 09:43] LABS: Bacteria Urine None Seen (None Seen); Hyaline Casts Urine 0-2 /LPF (0-2); RBC Urine >20 /HPF (0-2); UACC Culture Trigger YES; WBC Urine >50 /HPF (0-5)
[2023-09-04 09:46] LABS: Creatinine Urine 109.99 mg/dL
--- NOTE | 2023-09-04 14:07 | HO.POSTANES ---
Post Anesthesia Evaluation Post Anesthesia Evaluation Date of Service: 09/03/23 Vital Signs: Vital Signs Temp Pulse Resp BP Pulse Ox O2 Del Method 09/04/23 07:49 96.8 F 50 18 164/73 H 94 Room Air 09/04/23 02:51 97.2 F 52 16 155/71 H 96 Room Air Anesthesia: General Mental Status: Awake Pain Control: Satisfactory Nausea/Vomiting: None Hydration: Adequate Anesthesia-Related Issues: No Anes. Related Issues
--- NOTE | 2023-09-04 15:06 | P.DS_ITS ---
DS: Providers Provider Date of Service: 09/04/23 Date of admission: 09/03/23 01:31 Date of discharge: 09/04/23 Primary care physician: Ami Mazariegos MD Attending physician on admission: Courtney Christy Consults: 09/03/23 01:33 Consult to Urology Routine Consulting Provider: Shirin Harmon Reason for consultation: hydroureteronephrosis with ureterolithiasis 09/04/23 07:01 Consult to Nephrology Routine Consulting Provider: [facility] Reason for consultation: worsening moiz Attending physician on discharge: Everett Banks Discharging clinician: Fatou Ayers DS: Diagnosis Discharge Diagnosis (1) Hydronephrosis: Status: Acute (2) MOIZ (acute kidney injury): Status: Acute (3) Ureterolithiasis: Status: Acute DS: Summary Hospital Course Hospital Course: Chief Complaint: Abdominal pain, nausea/vomiting This is a 83-year-old male with pertinent history of CVA, BPH, hypertension, hypothyroidism who presents to the emergency department for evaluation of abdominal pain, nausea/vomiting. Patient states the symptoms started on the day of presentation. He has been having left-sided abdominal discomfort, which is constant, progressive, nonradiating and without any relieving factors. Patient also has been having associated nausea and multiple episodes of nonbloody emesis. Unable to tolerate p.o. intake due to nausea and vomiting. Also has subjective chills, no documented temperature. No chest discomfort, palpitations, shortness of breath, changes in urinary habits. In the emergency department, imaging with left-sided hydroureteronephrosis with ureterolithiasis. Urology was consulted who requested admission and will evaluate the patient in a.m. Hospital course: Pt admitted to hospitalist service for management of hydroureteronephrosis with uretolithiasis. Urology was consulted and patient underwent left cystoscopy with left dilatation of ureteric orifice under fluoroscopy with left stent placement. Nausea and vomiting did resolve. Losartan was held due to MOIZ on admission. He was treated empirically with IV ceftriaxone given initial leukocytosis of 13.9 though initial urinalysis was unremarkable and did resolve on day is discharge. On day of discharge, he did report some dysuria and urinalysis was repeated which did appear indicative of infection. Urine culture pending on discharge. He will be discharged with cefuroxime 500 mg twice daily times 10 additional doses. Despite removal of obstruction, creatinine remained elevated from baseline at 1.67. Nephrology was consulted recommending losartan continue to be held on discharge for 3 days before resuming. He should recheck BMP on Friday and follow-up with PCP. He should follow-up with Urology in 2-3 weeks. He was continued on metoprolol during admission for management of hypertension. Also continued on levothyroxine for hypothyroidism. Continued on Flomax for BPH and fish oil and zetia for hld. Status at Discharge Functional status at discharge: independent ambulation Overall status at discharge: patient is progressing back to baseline Time Attestation Discharge Coordination Time (in mins): 42 Quality: Safe Use of Opioids Does Pt have an Active Cancer Diagnosis on the Problem List?: No Quality: Stroke Does the patient have a stroke diagnosis?: No Physical Exam Vital Signs: Vital Signs: Last Vital Signs Temp 96.8 F 09/04/23 07:49 Pulse 50 09/04/23 07:49 Resp 18 09/04/23 07:49 BP 164/73 H 09/04/23 07:49 Pulse Ox 94 09/04/23 07:49 O2 Del Method Room Air 09/04/23 07:49 O2 Flow Rate 2 09/03/23 17:40 BMI result Body Mass Index 29.5 DS: Data Data Completed and Pending Labs on day of discharge: Laboratory Results - last 24 hr 09/04/23 09/04/23 05:19 Unknown WBC 11.0 H RBC 4.27 L Hgb 12.8 L Hct 38.9 L MCV 91.1 MCH 30.0 MCHC 32.9 RDW 13.3 Plt Count 200 MPV 11.1 Immature Gran % (Auto) 0.5 H Neut % (Auto) 83.4 H Lymph % (Auto) 7.0 L [place] % (Auto) 8.9 Eos % (Auto) 0.1 Baso % (Auto) 0.1 Lymph # (Auto) 0.8 L [place] # (Auto) 1.0 Eos # (Auto) 0.0 Baso # (Auto) 0.0 Abs Immat Gran (auto) 0.05 H Absolute Neuts (auto) 9.2 H Absolute Nucleated RBC 0.000 Nucleated RBC % (auto) 0.0 Sodium 142 Potassium 4.8 Chloride 108 Carbon Dioxide 24 Anion Gap 15 BUN 34 H Creatinine 1.67 H Estim Creat Clear Calc 38.2 Estimated GFR 39 Random Glucose 119 H Calcium 8.4 Urine Color Dark Yellow Urine Appearance Turbid Urine pH 5.0 Ur Specific [place] 1.020 Urine Protein 300 (3+) H Urine Glucose (UA) Negative Urine Ketones Negative Urine Blood Large (3+) H Urine Nitrite Positive H Ur Leukocyte Esterase Moderate (2+) H Urine RBC >20 H Urine WBC >50 H Ur Squamous Epith Cells 3-5 Urine Bacteria None Seen Hyaline Casts 0-2 Ur Random Sodium 60.0 Urine Creatinine 109.99 Preliminary micro results at discharge 09/03/23 00:30 Blood Culture - Preliminary Blood - Venous No growth after 24 hours. 09/03/23 00:22 Blood Culture - Preliminary Blood - Venous No growth after 24 hours. Discharge Plan Discharge Anticipated Discharge Date/Time: 09/04/23 15:45 Patient Disposition: Home, Self-Care Discharge Diagnosis: Ureterolithiasis, Nephrolithiasis, MOIZ Referrals: Shirin Harmon MD [Physician] - 1 Week Po,Ami Alcantara MD [Primary Care Provider] - 1 Week Discharge Medications: New cefuroxime axetil 500 mg tablet 500 mg PO BID Qty: 10 0RF Continued omega-3 fatty acids-fish oil [Fish Oil] 360-1,200 mg Capsule 1 cap PO BID cholecalciferol (vitamin D3) 50 mcg (2,000 unit) Tablet 50 mcg PO SUSA metoprolol succinate 100 mg tablet extended release 24 hr 100 mg PO BEDTIME levothyroxine 100 mcg tablet 100 mcg PO DAILY@0600 ezetimibe [Zetia] 10 mg tablet 10 mg PO BEDTIME docusate sodium [Colace] 100 mg capsule 100 mg PO BID aspirin [Adult Aspirin Regimen] 81 mg tablet,delayed release (DR/EC) 81 mg PO DAILY Held losartan 50 mg tablet 50 mg PO DAILY Hold Instructions: Resume on 09/07/23. No Action tamsulosin [Flomax] 0.4 mg capsule 0.4 mg PO BEDTIME Qty: 90 3RF Discharge Orders: Discharge Order (Routine); Ordered 09/04/23 Ordered By: Fatou Ayers Diet: Advance to usual diet Activity on Discharge: As tolerated Stand Alone Forms: Patient Portal Discharge page Print Language: [place] Care Plan Goals: Resolve MOIZ Prevent recurrent kidney stones Treat UTI Health Concerns: MOIZ Ureterolithiasis with hydronephrosis UTI Plan of Treatment: Ureterolithiasis with hydronephrosis -resolved with left-sided cystoscopy with ureteral stent placed -follow-up with urology Acute kidney injury -renal function improved but not at baseline. -continue holding losartan 3 days -Repeat BMP friday (ordered) and follow up with Dr. Mazariegos Suspected UTI -Urinalysis indicative of infection. Urine culture remains pending -Empirically treated with ceftriaxone 1g. Continue cefuroxime 500mg twice daily x 10 additional doses Assessment: See above See discharge summary Discharge Date/Time: 09/04/23 16:00
[2023-09-04 15:11] VITALS: BP 162/67; PULSE 56; RESP 18; TEMP 36; O2SAT 94
--- NOTE | 2023-09-04 15:51 | P.CONNP_ITS ---
History of Present Illness Reason for Consult Consult date: 09/04/23 Reason for consult: Yesenia Chief Complaint Chief complaint: abd pain, nausea/vomiting History of Present Illness Narrative: is a 83-year-old male with a history of CVA, BPH, hypertension, hypothyroidism who presented to the emergency department for evaluation of abdominal pain, nausea/vomiting. The symptoms started on the day of presentation. He has been having left-sided abdominal discomfort, which is constant, progressive, nonradiating and without any relieving factors. He has been having associated nausea and multiple episodes of nonbloody emesis. Unable to tolerate p.o. intake due to nausea and vomiting. Also has subjective chills, no documented temperature. No chest discomfort, palpitations, shortness of breath, changes in urinary habits. In the emergency department, imaging with left-sided hydroureteronephrosis with ureterolithiasis. He underwent cystoscopy, left retrograde - left dilatation of ureteric orifice under fluoroscopy - left ureteroscopy - left stent placement ARB was placed on hold due to YESENIA Received IVF Currently non oliguric and he is feeling much better Nausea has resolved. Urine output is increasing Review of Systems Review of Systems As above [facility] Past Medical History Medical History Preop exam for internal medicine Leg weakness Right wrist pain Carpal tunnel syndrome of right wrist Lumbar spinal stenosis Left acetabular fracture Peripheral arterial disease Hypercholesterolemia History of CVA (cerebrovascular accident) BPH (benign prostatic hyperplasia) Hypothyroid Hypertension Family History Family History Father Medical history unknown Mother Medical history unknown Surgical History Surgical History History of cataract surgery S/P CABG x 1 History of prostate surgery History of thyroidectomy Hx of cholecystectomy Social History Social History Household Members: Spouse Housing: House Do you presently have visiting nurse or other home services: No Alcohol intake: current Alcohol intake frequency: a few times a month Alcohol type: wine Patient Tobacco Use Status: Never used Tobacco e-Cigarette/Vaping Use: Never Used Second Hand Smoke Exposure: No Advance Directives Date on File: 01/20/23 service: No Current occupational status: retired Current occupation: left hand Cognitive needs: No Hearing needs: No Vision needs: Yes Meds Allergies Allergy/AdvReac Type Severity Reaction Status Date / Time lisinopril Allergy Intermediate cough Verified 09/02/23 18:16 rosuvastatin AdvReac Intermediate myalgia Verified 09/02/23 18:16 simvastatin AdvReac Intermediate myalgia Verified 09/02/23 18:16 Active Medications: Current Medications Acetaminophen (Acetaminophen 325 Mg Tablet) 650 mg PO Q6H PRN PRN Reason: Pain, Mild (Pain Scale 1-3) Aspirin (Aspirin Enteric Coated 81 Mg Tablet.Dr) 81 mg PO DAILY [facility] Last Admin: 09/04/23 08:30 Dose: 81 mg Docusate Sodium (Docusate Sodium 100 Mg Capsule) 100 mg PO BID [facility] Last Admin: 09/04/23 08:30 Dose: 100 mg Ezetimibe (Ezetimibe 10 Mg Tablet) 10 mg PO BEDTIME [facility] Last Admin: 09/03/23 21:15 Dose: 10 mg Ceftriaxone Sodium 1 gm/ (Sodium Chloride) 50 mls @ 100 mls/hr IV Q24H [facility] Last Infusion: 09/04/23 06:40 Dose: Infused Levothyroxine Sodium (Levothyroxine Sodium 100 Mcg Tablet) 100 mcg PO DAILY@0600 [facility] Last Admin: 09/04/23 06:09 Dose: 100 mcg Melatonin (Melatonin 3 Mg Tablet) 6 mg PO BEDTIME PRN PRN Reason: Insomnia Metoprolol Succinate (Metoprolol Succinate Er 100 Mg Tab.Er.24h) 100 mg PO BEDTIME [facility]; Protocol Last Admin: 09/03/23 21:15 Dose: 100 mg Ondansetron HCl (Ondansetron Hcl 4 Mg/2 Ml Vial) 4 mg IVPUSH Q8H PRN PRN Reason: Nausea and Vomiting Last Admin: 09/03/23 15:44 Dose: 4 mg Oxycodone HCl (Oxycodone Hcl Immed Release 5 Mg Tablet) 5 mg PO Q4H PRN PRN Reason: Breakthrough Pain Sodium Chloride (0.9 % Sodium Chloride Flush 3 Ml Syringe) 3 ml IVFLUSH QSHIFT [facility] Last Admin: 09/04/23 15:21 Dose: Not Given Tamsulosin HCl (Tamsulosin Hcl 0.4 Mg Capsule) 0.4 mg PO BEDTIME [facility] Last Admin: 09/03/23 21:15 Dose: 0.4 mg Vitamin D (Cholecalciferol (Vitamin D3) 25 Mcg Tablet) 50 mcg PO SUSA [facility] Home Medications ?Medication ?Instructions ?Recorded ?Confirmed ?Last Taken ?Type aspirin 81 mg tablet,delayed 81 mg PO DAILY 08/06/21 09/03/23 01/18/23 History release (Adult Aspirin Regimen) docusate sodium 100 mg capsule 100 mg PO BID 08/15/21 09/03/23 01/18/23 History (Colace) cholecalciferol (vitamin D3) 50 50 mcg PO SUSA 07/18/23 09/03/23 Unknown History mcg (2,000 unit) tablet omega-3 fatty acids-fish oil 360 1 cap PO BID 07/18/23 09/03/23 Unknown History mg-1,200 mg capsule (Fish Oil) ezetimibe 10 mg tablet (Zetia) 10 mg PO BEDTIME 09/03/23 09/03/23 Unknown History levothyroxine 100 mcg tablet 100 mcg PO DAILY@0600 09/03/23 09/03/23 Unknown History losartan 50 mg tablet 50 mg PO DAILY 09/03/23 09/03/23 Unknown History metoprolol succinate 100 mg 100 mg PO BEDTIME 09/03/23 09/03/23 Unknown History tablet,extended release 24 hr tamsulosin 0.4 mg capsule (Flomax) 0.4 mg PO BEDTIME 09/03/23 09/03/23 Unknown History Physical Exam Vital Signs: Last Vital Signs Temp 96.8 F 09/04/23 15:11 Pulse 56 09/04/23 15:11 Resp 18 09/04/23 15:11 BP 162/67 H 09/04/23 15:11 Pulse Ox 94 09/04/23 15:11 O2 Del Method Room Air 09/04/23 15:11 O2 Flow Rate 2 09/03/23 17:40 BMI result Body Mass Index 29.5 Const General: comfortable Nutritional Appearance: well nourished Orientation/consciousness: patient oriented x3 HEENT Head: No normal to inspection Mouth: moist mucous membranes Neck Neck: Yes supple and Yes no JVD Resp Auscultation: clear to auscultation bilaterally, no rales and rub present Cardio Jugular venous distension: no JVD Palpation: no palpable S3 and no palpable S4 Heart sounds: no rubs GI Palpation (GI): Soft to palpation and nontender Percussion: No Fluid wave present General: Yes no CVA tenderness Back/Spine/Pelvis Back: no CVA tenderness Skin General skin exam: no rashes or lesions noted Neuro General: patient oriented x3 Extrem General: Yes no pedal edema and No clubbing Results Lab Results 09/04/23 05:19 09/04/23 05:19 Lab results: Chemistry 09/02/23 09/03/23 09/04/23 21:09 05:02 05:19 Sodium 143 143 142 Potassium 4.9 4.5 4.8 Carbon Dioxide 24 21 L 24 BUN 30 H 30 H 34 H Creatinine 1.56 H 1.59 H 1.67 H Calcium 9.3 D 8.4 D 8.4 Hematology 09/02/23 09/03/23 09/04/23 21:09 05:02 05:19 WBC 13.9 H 13.9 H 11.0 H Hgb 15.6 13.9 L 12.8 L Plt Count 233 218 200 Urinalysis 09/03/23 09/04/23 00:50 Unknown Urine Color Yellow Dark Yellow Urine Appearance Clear Turbid Urine pH 5.0 5.0 Ur Specific [place] 1.025 1.020 Urine Protein Trace 300 (3+) H Urine Glucose (UA) Negative Negative Urine Ketones 15 Negative Urine Blood Negative Large (3+) H Urine Nitrite Negative Positive H Ur Leukocyte Esterase Negative Moderate (2+) H Urine RBC >20 H Urine WBC >50 H Ur Squamous Epith Cells 3-5 Hyaline Casts 0-2 Urine Studies 09/04/23 Unknown Urine Creatinine 109.99 Assessment and Plan (1) Hydronephrosis: Status: Acute (2) YESENIA (acute kidney injury): Status: Acute (3) Ureterolithiasis: Status: Acute Plan YESENIA due to the combination of hypoperfusion and left urethera stone/hydro Hypoperfusion from poor po intake due to nausea while on ARB Suggest Hydration Hold ARB for few more days and restart Recheck renal panel in 3 days Expect renal recovery especially since the urinary obstruction has been resolved Shall follow as needed Thanks Procedures Date of Service Date of Service: 09/04/23
--- NOTE | 2023-09-04 16:04 | MHC.CM.PN ---
PT DCD HOME SELF CARE
== END 2023-09-04 16:00 | disposition home or self-care (01) | DRG 661 ==
LOC: HO.ED 09-03 01:29 → HO.EDOVER 09-03 01:37 → HO.S3 09-03 17:04
PROVIDERS: Physician Assistant; Urology; Admitting Provider Student in an Organized Health Care Education/Training Program; Emergency Provider Student in an Organized Health Care Education/Training Program; PCP Internal Medicine; Visit Provider Physician Assistant
PROC: 0T778DZ Dilation of Left Ureter with Intraluminal Device, Via Natural or Artificial Opening Endoscopic (ICD-10-PCS; principal; 2023-09-03 16:00)
DX: N13.6 Pyonephrosis (principal); N17.9 Acute kidney failure, unspecified; I12.9 Hypertensive chronic kidney disease with stage 1 through stage 4 chronic kidney disease, or unspecified chronic kidney disease; R31.9 Hematuria, unspecified; N40.0 Benign prostatic hyperplasia without lower urinary tract symptoms; N18.32 Chronic kidney disease, stage 3b; E89.0 Postprocedural hypothyroidism; Z86.73 Personal history of transient ischemic attack (TIA), and cerebral infarction without residual deficits; Z79.82 Long term (current) use of aspirin; Z79.890 Hormone replacement therapy; Z79.899 Other long term (current) drug therapy
CPT/HCPCS: 36415; 74018; 74176; 76775; 80048; 80076; 81001; 81003; 82570; 83605; 83690; 83735; 84300; 85025; 87040; 87086; 99285; C1758; C1769; C2617; J0696; J1100; J1956; J2250; J2405; J2543; J2704; J3010; Q9967

== ENCOUNTER → 2023-09-03 01:31 | Outpatient (BNV) | payer MEDICARE, SELFPAY | PROVIDERS: Admitting Provider Student in an Organized Health Care Education/Training Program; Emergency Provider Student in an Organized Health Care Education/Training Program; PCP Internal Medicine; Visit Provider Urology | DX: N20.1 Calculus of ureter (principal); N13.30 Unspecified hydronephrosis; N17.9 Acute kidney failure, unspecified | CPT/HCPCS: 52332; 74420; 99222 ==

== ENCOUNTER → 2023-09-03 01:31 | Outpatient (BNV) | payer MEDICARE, SELFPAY | PROVIDERS: Admitting Provider Student in an Organized Health Care Education/Training Program; Emergency Provider Student in an Organized Health Care Education/Training Program; PCP Internal Medicine; Visit Provider Internal Medicine Hypertension Specialist | DX: N13.30 Unspecified hydronephrosis (principal); N17.9 Acute kidney failure, unspecified; N20.1 Calculus of ureter | CPT/HCPCS: 99222 ==

== ENCOUNTER → 2023-09-03 01:31 | Outpatient (BNV) | payer MEDICARE, SELFPAY | PROVIDERS: Admitting Provider Student in an Organized Health Care Education/Training Program; Emergency Provider Student in an Organized Health Care Education/Training Program; PCP Internal Medicine; Visit Provider Student in an Organized Health Care Education/Training Program | DX: N13.30 Unspecified hydronephrosis (principal); N17.9 Acute kidney failure, unspecified; N20.1 Calculus of ureter | CPT/HCPCS: 99222; 99232; 99239; 99429 ==

== ENCOUNTER 2023-09-05 08:07 | Emergency (ER) | payer MEDICARE, SELFPAY ==
--- NOTE | 2023-09-05 08:13 | ED_ITS ---
HPI - Dizziness General Chief Complaint: Nausea/Vomiting/Diarrhea Stated Complaint: DIZZY, UNSTEADY GAIT Time Seen by Provider: 09/05/23 08:10 Source: patient Mode of arrival: ambulatory Limitations: no limitations History of Present Illness HPI Narrative: 83 year old male PMH: CVA, BPH, hypertension, hypothyroidism recently admitted for MOIZ, left sided kidney stone with hydroureteronephrosis with utertolithiasis. Was sent home yesterday around 2 pm. He was started on antibiotics he did have a lithotripsy he was here he states that since he went home last night he had for voluminous bowel movements. He is gone 1 dose of IV antibiotics into oral since the procedure. Denies any fevers or chills he states that he felt slightly lightheaded when he was trying to get up overnight but at this time she has no symptoms no abdominal pain no nausea no vomiting he states he is worried he has C diff. He has never had C diff in the past MD elicited complaint: dizziness, lightheadedness and near syncope Related Data Home Medications ?Medication ?Instructions ?Recorded ?Confirmed aspirin 81 mg tablet,delayed 81 mg PO DAILY 08/06/21 09/03/23 release (Adult Aspirin Regimen) docusate sodium 100 mg capsule 100 mg PO BID 08/15/21 09/03/23 (Colace) cholecalciferol (vitamin D3) 50 50 mcg PO SUSA 07/18/23 09/03/23 mcg (2,000 unit) tablet omega-3 fatty acids-fish oil 360 1 cap PO BID 07/18/23 09/03/23 mg-1,200 mg capsule (Fish Oil) ezetimibe 10 mg tablet (Zetia) 10 mg PO BEDTIME 09/03/23 09/03/23 levothyroxine 100 mcg tablet 100 mcg PO DAILY@0600 09/03/23 09/03/23 losartan 50 mg tablet 50 mg PO DAILY 09/03/23 09/03/23 metoprolol succinate 100 mg 100 mg PO BEDTIME 09/03/23 09/03/23 tablet,extended release 24 hr tamsulosin 0.4 mg capsule (Flomax) 0.4 mg PO BEDTIME 09/03/23 09/03/23 Previous Rx's ?Medication ?Instructions ?Recorded cefuroxime axetil 500 mg tablet 500 mg PO BID #10 tabs 09/04/23 Allergies Allergy/AdvReac Type Severity Reaction Status Date / Time lisinopril Allergy Intermediate cough Verified 09/05/23 08:18 rosuvastatin AdvReac Intermediate myalgia Verified 09/05/23 08:18 simvastatin AdvReac Intermediate myalgia Verified 09/05/23 08:18 Review of Systems 2 Review of Systems: Review of systems: General: Patient denies any fever chills recent illness or falls Musculoskeletal: Denies back pain or body aches or other injuries HEENT: denies headache, runny nose, ear pain Respiratory: denies shortness of breath, cough Cardiovascular: no chest pain or palpitations : denies dysuria, frequency Abdomen: Diarrhea no nausea vomiting denies abdominal pain Extremities: no swelling, no pain Skin: no diaphoresis Yes all other systems are reviewed and are negative [facility] Past Medical History Medical History Preop exam for internal medicine Leg weakness Right wrist pain Carpal tunnel syndrome of right wrist Lumbar spinal stenosis Left acetabular fracture Peripheral arterial disease Hypercholesterolemia History of CVA (cerebrovascular accident) BPH (benign prostatic hyperplasia) Hypothyroid Hypertension Surgical History History of cataract surgery S/P CABG x 1 History of prostate surgery History of thyroidectomy Hx of cholecystectomy Family History Family History Father Medical history unknown Mother Medical history unknown Social History Social History Household Members: Spouse Housing: House Do you presently have visiting nurse or other home services: No Alcohol intake: current Alcohol intake frequency: a few times a month Alcohol type: wine Patient Tobacco Use Status: Never used Tobacco e-Cigarette/Vaping Use: Never Used Second Hand Smoke Exposure: No Advance Directives: Yes Advance Directives on File: Yes Advance Directives Date on File: 01/20/23 Do you have a plan to hurt others: No Plan service: No Current occupational status: retired Current occupation: left hand Cognitive needs: No Hearing needs: No Vision needs: Yes Physical Exam 2 Vital Signs: Vital Signs: Last Vital Signs Temp 97.9 F 09/05/23 08:16 Pulse 60 09/05/23 08:16 Resp 16 09/05/23 08:16 BP 160/65 H 09/05/23 08:16 Pulse Ox 96 09/05/23 08:16 O2 Del Method Room Air 09/05/23 08:16 BMI result Body Mass Index 32.7 General: Well-appearing well-nourished in no signs of distress HEENT: Normocephalic atraumatic Neck: No signs of JVD, no masses no tenderness or lymphadenopathy Cardiovascular: Regular rate and rhythm Respiratory: Clear to auscultation bilaterally Abdomen: Soft nontender no masses no CVA tenderness Extremities: Normal pedal pulses no signs of edema Skin: Dry warm no rashes Back: No tenderness full ROM Course Reevaluation(s) Reevaluation #1: Patient did not have any more bowel movements while patient was here he is feeling much better his belly exam is benign I did explain his labs including the elevated lipase I did order a CT scan the patient's adamant he does not want another 1 wants to go home I will discharge the patient home at this time Medications Administered Generic Name Dose Route Start Last Admin Trade Name Freq PRN Reason Stop Dose Admin Sodium Chloride 1,000 mls @ 999 mls/hr 09/05/23 08:30 09/05/23 08:52 Ns IV 09/05/23 09:30 999 mls/hr .Q1H1M [facility] Administration Medical Decision Making Medical Decision Making [facility] Narrative: I will recheck labs send patient for a CT scan patient has not to this extent do not think the patient looks terribly dehydrated his blood pressure and vitals are stable I will give him some fluid he has in no pain Differential Diagnosis Differential Diagnoses: The differential diagnosis associated with the presentation includes Antibiotics so she did diarrhea C diff electrolyte abnormality dehydration weakness kidney stone Lab Data [facility] Lab Attestation statement: I reviewed the patient's lab results. 09/05/23 08:40 09/05/23 08:40 Labs: Lab Results 09/05/23 Range/Units 08:40 WBC 8.9 (4.8-10.8) X10*3/uL RBC 4.33 L (4.60-5.80) X10*6/uL Hgb 12.9 L (14.0-18.0) g/dl Hct 39.8 L (42.0-52.0) % MCV 91.9 (80.0-98.0) fL MCH 29.8 (27.0-33.0) pg MCHC 32.4 (31.0-36.0) g/dl RDW 13.4 (11.0-16.0) % Plt Count 207 (160-400) X10*3/uL MPV 10.4 (9.4-12.4) fL Immature Gran % (Auto) 0.6 H (0.0-0.4) % Neut % (Auto) 72.6 (45-73) % Lymph % (Auto) 12.5 L (20-40) % [place] % (Auto) 10.6 (2-11) % Eos % (Auto) 3.6 (0-4) % Baso % (Auto) 0.1 (0-2) % Lymph # (Auto) 1.1 L (1.2-4.9) X10*3/uL [place] # (Auto) 0.9 (0.1-1.2) X10*3/uL Eos # (Auto) 0.3 (0.0-0.4) X10*3/uL Baso # (Auto) 0.0 (0.0-0.2) X10*3/uL Abs Immat Gran (auto) 0.05 H (0.00-0.03) X10*3/uL Absolute Neuts (auto) 6.5 (2.0-8.3) x10*3/uL Absolute Nucleated RBC 0.000 (0.0-0.012) X10*3/uL Nucleated RBC % (auto) 0.0 (0.0-0.2) /100WBC Sodium 143 (135-145) mmol/L Potassium 4.2 (3.3-5.1) mmol/L Chloride 110 H (96-108) mmol/L Carbon Dioxide 25 (22-29) mmol/L Anion Gap 12 (12-20) BUN 34 H (9-16) mg/dL Creatinine 1.40 (0.5-1.4) mg/dL Estim Creat Clear Calc 43.7 Estimated GFR 48 Random Glucose 91 (60-115) mg/dL Calcium 8.5 (8.4-10.2) mg/dL Total Bilirubin 0.4 (0.0-1.0) mg/dL Direct Bilirubin 0.1 (0.0-0.5) mg/dL AST 22 (5-37) U/L ALT 9 (0-40) U/L Alkaline Phosphatase 73 (39-117) U/L Total Protein 5.9 L (6.5-8.0) g/dL Albumin 3.3 L (3.5-5.0) g/dL Lipase 118 H (8-78) U/L Independent Interpretation I performed an independent interpretation of an: CT Scan Radiology Impression Discussion of test interpretation with radiology: I have reviewed the radiologist's reading. Independent Historian Clinical information obtained from an independent historian. History obtained from or confirmed by: Spouse and EMS External Record Review External record reviewed: Inpatient record, Office record, Outpatient record and Prior outpatient labs Prescription Management I considered prescription management with: Pain Medication Chronic Conditions Patient?s care impacted by: Hypertension CVA, BPH, hypertension, hypothyroidism recently admitted for MOIZ, left sided kidney stone with hydroureteronephrosis with utertolithiasis Discharge Plan Discharge Clinical Impression: Diarrhea, Acute dehydration Patient Disposition: Home, Self-Care Instructions: Dehydration (ED), Acute Diarrhea (ED) Additional Instructions: You were seen today in the emergency department for diarrhea and he You had labs drawn that showed a minimally elevated lipase and we had ordered a CT scan agreed we would hold off on at this time You have worsening pain dehydration or any other concerns please return to the emergency department for Prescriptions: No Action omega-3 fatty acids-fish oil [Fish Oil] 360-1,200 mg Capsule 1 cap PO BID cholecalciferol (vitamin D3) 50 mcg (2,000 unit) Tablet 50 mcg PO SUSA metoprolol succinate 100 mg tablet extended release 24 hr 100 mg PO BEDTIME losartan 50 mg tablet 50 mg PO DAILY Hold Instructions: Resume on 09/07/23. levothyroxine 100 mcg tablet 100 mcg PO DAILY@0600 tamsulosin [Flomax] 0.4 mg capsule 0.4 mg PO BEDTIME ezetimibe [Zetia] 10 mg tablet 10 mg PO BEDTIME cefuroxime axetil 500 mg tablet 500 mg PO BID Qty: 10 0RF docusate sodium [Colace] 100 mg capsule 100 mg PO BID aspirin [Adult Aspirin Regimen] 81 mg tablet,delayed release (DR/EC) 81 mg PO DAILY Print Language: [place]
[2023-09-05 08:16] VITALS: BP 144/94; BP 160/65; PULSE 60; PULSE 68; RESP 16; TEMP 36.6; O2SAT 96; BMI 32.7
--- NOTE | 2023-09-05 08:20 | ECG_ITS ---
Test Reason : Lightheaded Blood Pressure : / mmHG Vent. Rate : 050 BPM Atrial Rate : 050 BPM P-R Int : 184 ms QRS Dur : 090 ms QT Int : 464 ms P-R-T Axes : 002 002 009 degrees QTc Int : 423 ms Sinus bradycardia Otherwise normal ECG When compared with ECG of 30-APR-2011 13:11, No significant change was found Referred By: Angel Ortega Electronically Signed By:Louis Gordon
[2023-09-05 08:44] LABS: MANUAL DIFF FLAG NO
[2023-09-05 08:50] LABS: Basophils Percent Auto 0.1 % (0-2); Eosinophils Absolute Auto 0.3 X10*3/uL (0.0-0.4); Eosinophils Percent Auto 3.6 % (0-4); Hematocrit 39.8 % (42.0-52.0); Hemoglobin 12.9 g/dl (14.0-18.0); Imm Gran Abs Auto 0.05 X10*3/uL (0.00-0.03); Imm Gran Pct Auto 0.6 % (0.0-0.4); Lymphocytes Absolute Auto 1.1 X10*3/uL (1.2-4.9); Lymphocytes Percent Auto 12.5 % (20-40); Mean Corpuscular HGB Conc 32.4 g/dl (31.0-36.0); Mean Corpuscular Hemoglobin 29.8 pg (27.0-33.0); Mean Corpuscular Volume 91.9 fL (80.0-98.0); Mean Platelet Volume 10.4 fL (9.4-12.4); Monocytes Absolute Auto 0.9 X10*3/uL (0.1-1.2); Monocytes Percent Auto 10.6 % (2-11); Neutrophils Absolute Auto 6.5 x10*3/uL (2.0-8.3); Neutrophils Percent Auto 72.6 % (45-73); Platelet Count 207 X10*3/uL (160-400); Red Blood Count 4.33 X10*6/uL (4.60-5.80); Red Cell Distribution Width 13.4 % (11.0-16.0); White Blood Count 8.9 X10*3/uL (4.8-10.8)
[2023-09-05] MEDS: 0.9 % Sodium Chloride 1,000 ML 999 ML IV (08:52)
[2023-09-05 09:04] LABS: Alanine Aminotransferase 9 U/L (0-40); Albumin Level 3.3 g/dL (3.5-5.0); Alkaline Phosphatase 73 U/L (39-117); Anion Gap 12 (12-20); Aspartate Amino Transferase 22 U/L (5-37); Bilirubin Direct 0.1 mg/dL (0.0-0.5); Bilirubin Total 0.4 mg/dL (0.0-1.0); Blood Urea Nitrogen 34 mg/dL (9-16); Calcium 8.5 mg/dL (8.4-10.2); Carbon Dioxide 25 mmol/L (22-29); Chloride 110 mmol/L (96-108); Creatinine Clr Calc Pharmacy 43.7; Estimated Glomerular Filt Rate 48; Glucose Random 91 mg/dL (60-115); Lipase 118 U/L (8-78); Potassium 4.2 mmol/L (3.3-5.1); Sodium 143 mmol/L (135-145); Total Protein 5.9 g/dL (6.5-8.0)
--- NOTE | 2023-09-05 10:20 | PC.NURSE ---
Pt refusing CT scan, MD aware, Ct ordered, pt d/c from ED with follow up with PCP.
[2023-09-05 10:32] VITALS: BP 160/65; PULSE 60; RESP 16; TEMP 36.6; O2SAT 96
== END 2023-09-05 10:34 | disposition home or self-care (01) ==
PROVIDERS: Emergency Provider Student in an Organized Health Care Education/Training Program; PCP Internal Medicine
DX: E86.0 Dehydration (principal); R42 Dizziness and giddiness; R19.7 Diarrhea, unspecified; R26.81 Unsteadiness on feet; R11.2 Nausea with vomiting, unspecified; Z79.899 Other long term (current) drug therapy
CPT/HCPCS: 36415; 80048; 80076; 83690; 85025; 93005; 96360; 99284

== ENCOUNTER → 2023-09-05 08:20 | Outpatient (BNV) | payer MEDICARE, SELFPAY | PROVIDERS: Emergency Provider Student in an Organized Health Care Education/Training Program; PCP Internal Medicine; Visit Provider Internal Medicine Cardiovascular Disease | DX: R00.1 Bradycardia, unspecified (principal) | CPT/HCPCS: 93010 ==

== ENCOUNTER 2023-09-08 14:09 | Outpatient (REF) | payer MEDICARE, SELFPAY ==
[2023-09-08 16:44] LABS: Anion Gap 14 (12-20); Blood Urea Nitrogen 24 mg/dL (9-16); Calcium 8.6 mg/dL (8.4-10.2); Carbon Dioxide 26 mmol/L (22-29); Chloride 108 mmol/L (96-108); Estimated Glomerular Filt Rate 60; Glucose Random 117 mg/dL (60-115); Potassium 4.3 mmol/L (3.3-5.1); Sodium 144 mmol/L (135-145)
== END 2023-09-08 14:10 | disposition home or self-care (01) ==
LOC: HO.HMGCLDS 14:09
PROVIDERS: PCP Internal Medicine; Visit Provider Physician Assistant
DX: N17.9 Acute kidney failure, unspecified (principal)
CPT/HCPCS: 36415; 80048

== ENCOUNTER 2023-09-09 13:43 | Outpatient (AMB) | payer MEDICARE, SELFPAY ==
--- NOTE | 2023-09-09 14:03 | A.OFFVIS_ITS ---
Intake Visit Reasons: cysto/stent removal Intake Note: Patient is Present for Cystoscopy and stent removal Urology Med: Tamsulosin Antibiotic Allergy: None Blood Thinner: Aspirin URO- G Disposable Cystoscope lot: [id number] exp:05/29/2026 Allergies lisinopril Allergy (Intermediate, Verified 09/09/23 14:04) cough rosuvastatin Adverse Reaction (Intermediate, Verified 09/09/23 14:04) myalgia simvastatin Adverse Reaction (Intermediate, Verified 09/09/23 14:04) myalgia Medication List - Last Reconciled 09/09/23 by Riley Cabrera MD aspirin (Adult Aspirin Regimen) 81 mg PO DAILY cefuroxime axetil 500 mg PO BID cholecalciferol (vitamin D3) 50 mcg PO SUSA docusate sodium (Colace) 100 mg PO BID ezetimibe (Zetia) 10 mg PO BEDTIME levothyroxine 100 mcg PO DAILY@0600 losartan 50 mg PO DAILY metoprolol succinate ER 100 mg PO BEDTIME omega-3 fatty acids-fish oil 360-1,200 mg (Fish Oil) 1 cap PO BID tamsulosin (Flomax) 0.4 mg PO BEDTIME HPI Comments Details: Edgar is a pleasant male. He is a patient of Dr. Mazariegos. He is seen for the following urologic conditions. - nephrolithiasis Here for cystoscopy, stent removal Three-month follow-up renal ultrasound Nephrolithiasis Presentation through emergency room - acute kidney insult - presenting creatinine 1.6 down to 1.2 after stent placement Imaging - 08/19 Mild left-sided hydroureteronephrosis with asymmetric perinephric fat stranding/free fluid and two very subtle punctate calculi in the distal left ureter at approximately 0.5 cm from the ureterovesical junction Intervention - 09/18 left ureteroscopy - debris [facility] Medical History Preop exam for internal medicine Leg weakness Right wrist pain Carpal tunnel syndrome of right wrist Lumbar spinal stenosis Left acetabular fracture Peripheral arterial disease Hypercholesterolemia History of CVA (cerebrovascular accident) BPH (benign prostatic hyperplasia) Hypothyroid Hypertension Surgical History History of cataract surgery S/P CABG x 1 History of prostate surgery History of thyroidectomy Hx of cholecystectomy Family History Father Medical history unknown Mother Medical history unknown Social History Household Members: Spouse Housing: House Do you presently have visiting nurse or other home services: No Alcohol intake: current Alcohol intake frequency: a few times a month Alcohol type: wine Patient Tobacco Use Status: Never used Tobacco e-Cigarette/Vaping Use: Never Used Second Hand Smoke Exposure: No Advance Directives Date on File: 01/20/23 service: No Current occupational status: retired Current occupation: left hand Cognitive needs: No Hearing needs: No Vision needs: Yes Review of Systems Const Denies chills and Denies fever(s) Card Reports no additional complaints and Denies syncope Resp Denies cough GI Denies abdominal pain and Denies heartburn Reports as per HPI and Denies change in libido Neuro Denies syncope Psych Denies change in libido Endo Denies change in libido Physical Exam Const General: cooperative, healthy appearing, comfortable and no acute distress Orientation/consciousness: patient oriented x3 HEENT Face and sinus: Yes normal facial exam Mouth: moist mucous membranes Neck Neck: Yes normal visual inspection, Yes full ROM and Yes trachea midline Chest Chest palpation & inspection: normal inspection of the chest Resp Effort & Inspection: normal respiratory effort, able to speak in complete sentences and no respiratory distress GI Inspection: Yes normal to inspection Back/Spine/Pelvis Cervical Spine: normal cervical lordosis Thoracic/Lumbar Spine: thoracic and lumbar spine normal to inspection Skin General skin exam: no rashes or lesions noted Neuro General: patient oriented x3, gait normal, tone normal and moves all extremities Extrem General: Yes normal to inspection and Yes capillary refill normal Office Procedures Cystoscopy Consent Discussed risk and benefit or proposed procedure with the patient. Information consent for procedure given to the patient. Discussed technical aspects, risks, benefits and alternatives in full. Addressed all of the patient's questions and concerns regarding the procedure. The patient demonstrated knowledge and understanding. They wish to proceed with this procedure. Preparation The patient was prepped in the usual manner. A toll testboard worker was present and in the room. Genitalia was prepped with betadine solution in a sterile manner. Lidocaine Jelly 2% was placed into the urethra and 16Fr flexible Olympus cystoscope was inserted into the meatus after adequate lubrication. Procedure A well lubricated 16 [place]ian cystoscope was placed No abnormality noted of urethra during placement Indwelling stent seen within bladder emerging from left ureteric orifices The stent was grasped with a 3 prong grasper and removed without difficulty The patient tolerated the procedure well [id number] with stent removal DISPOSABLE SCOPE URO-G FLEXIBLE SCOPE Procedure code (CPT) selection complete Office Meds lidocaine HCl 2 % mucosal jelly in applicator Performing Provider: Riley Cabrera MD Performing Location: [facility] Administered by: Yvette Mason RN on 09/09/23 14:17 Dose Route Admin Location Dispensed Lot Number Expiration Date ND 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 10 mL intra-urethral 10 mL nitrofurantoin monohydrate/macrocrystals 100 mg capsule Performing Provider: Riley Cabrera MD Performing Location: [facility] Administered by: Yvette Mason RN on 09/09/23 14:17 Dose Route Admin Location Dispensed Lot Number Expiration Date ND 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 [employer] 100 mg PO 1 cap naproxen 500 mg tablet Performing Provider: Riley Cabrera MD Performing Location: [facility] Administered by: Yvette Mason RN on 09/09/23 14:17 Dose Route Admin Location Dispensed Lot Number Expiration Date [place] 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 500 mg PO 1 tab Results AMB Urinalysis, Automated UA Leukoctes 70 Harvinder/uL Last Edit by PHAN Donnelly on 09/09/23 14:18 UA Nitrite Negative Last Edit by PHAN Donnelly on 09/09/23 14:18 UA Urobilinogen 0.2 mg/dL Last Edit by PHAN Donnelly on 09/09/23 14:1 8 UA Protein 30 mg/dL Last Edit by PHAN Donnelly on 09/09/23 14:18 UA pH 5.5 Last Edit by PHAN Donnelly on 09/09/23 14:18 UA Blood 200 Elias/uL Last Edit by PHAN Donnelly on 09/09/23 14:18 UA Specific [place] 1.025 Last Edit by PHAN Donnelly on 09/09/23 14: 18 UA Ketone Negative Last Edit by PHAN Donnelly on 09/09/23 14:18 UA Bilirubin 0 mg/dL Last Edit by PHAN Donnelly on 09/09/23 14:18 UA Glucose 0 mg/dL Last Edit by PHAN Donnelly on 09/09/23 14:18 Results Reviewed Results Reviewed: Laboratory Last Values Urine pH (Auto) 5.5 09/09/23 14:05 Specific [place] (Auto) 1.025 09/09/23 14:05 Urine Protein (Auto) 30 mg/dL 09/09/23 14:05 Glucose (UA)(Auto) 0 mg/dL 09/09/23 14:05 Urine Ketones (Auto) Negative 09/09/23 14:05 Urine Blood (Auto) 200 Elias/uL 09/09/23 14:05 Urine Nitrite (Auto) Negative 09/09/23 14:05 Urine Bilirubin (Auto) 0 mg/dL 09/09/23 14:05 Urine Urobilinogen (Auto) 0.2 mg/dL 09/09/23 14:05 Leukocyte Esterase (Auto) 70 Harvinder/uL 09/09/23 14:05 Assessment & Plan Assessment & Plan (1) Hydronephrosis: Comment: August 2023 left cystoscopy with left dilatation of ureteric orifice under fluoroscopy with left stent placement Code(s): N13.30 - Unspecified hydronephrosis Category: Medical (2) Ureterolithiasis: Code(s): N20.1 - Calculus of ureter Category: Medical Plan Ultrasound nephrolithiasis three-month Orders: Orders AMB Cystoscopy Today N20.1 - Calculus of ureter US renal BI 3 Months N20.1 - Calculus of ureter AMB Urinalysis Automated Today Z13.9 - Encounter for screening, unspecified Patient Instructions: Imaging studies, laboratory and physical exam results were discussed and reviewed in detail. No major barriers to patient understanding were identified. An opportunity to ask questions regarding the treatment plan was provided. All questions were answered. The patient expressed understanding and agreement with the above treatment plan. The patient is aware they should contact our office by phone for worsening of their current condition or the appearance of new urologic symptoms. Compliance is encouraged with any medications and followup testing that is ordered. It is a privilege to participate in the urologic care of your patient. If you have any questions or concerns regarding treatment for the above conditions, or other urologic issues, please do not hesitate to contact me. The office telephone contact is [phone]. This note is constructed using voice recognition software. While every effort has been made to ensure accuracy car wiper errors may have been included. Yours sincerely, Dr Riley Cabrera MD, [place] [facility]rology Providers of Expert, Compassionate Care for the Genitourinary System Coding Level of Care Code Est Pt Level 3 (75001) Diagnoses Hydronephrosis N13.30 Ureterolithiasis N20.1 CPT Codes Cystoscopy - CPT: [id number] with stent removal ([id number])
== END 2023-09-09 14:48 | disposition home or self-care (01) ==
PROVIDERS: PCP Internal Medicine; Visit Provider Urology
DX: N13.30 Unspecified hydronephrosis (principal); N20.1 Calculus of ureter; Z96.0 Presence of urogenital implants; Z13.9 Encounter for screening, unspecified
CPT/HCPCS: 52310; 99213

== ENCOUNTER → 2023-09-09 13:43 | Outpatient (BNVA) | payer MEDICARE, SELFPAY | PROVIDERS: PCP Internal Medicine; Visit Provider Urology | DX: Z48.816 Encounter for surgical aftercare following surgery on the genitourinary system (principal) | CPT/HCPCS: 52310; 81003; 99212 ==

== ENCOUNTER 2023-09-15 09:28 | Outpatient (AMB) | payer MEDICARE, SELFPAY ==
[2023-09-15 09:29] VITALS: BP 98/60; PULSE 61; O2SAT 96; BMI 33.3
--- NOTE | 2023-09-15 09:29 | A.OFFPC_ITS ---
Vital Signs 09/15/23 09:29 09/15/23 10:04 Height 5 ft 8 in Weight 219 lb 0.2 oz BMI 33.3 BP 98/60 130/64 Blood Pressure Location Lt brachial Lt brachial Position Sitting Sitting Pulse 61 Pulse Source Pulse Oximeter Pulse Oximetry (%) 96 Oxygen Delivery Method Room Air Intake Visit Reasons: [facility] 09/01 Kidney Stones Intake Note: Patient is here to follow-up after a visit the emergency department at [facility] on 09/02/2023 Learning Support Services Director Required: No Allergies lisinopril Allergy (Intermediate, Verified 09/15/23 09:30) cough rosuvastatin Adverse Reaction (Intermediate, Verified 09/15/23 09:30) myalgia simvastatin Adverse Reaction (Intermediate, Verified 09/15/23 09:30) myalgia Tobacco use date assessed: 09/15/23 Fall risk assessment: No Falls in past year Last assessed Fall Risk: 09/15/23 Dental Screening Dental Screen Date: 09/15/[address] [facility] 09/01 Kidney Stones HPI Details 83-year-old obese male with a history of nephrolithiasis coronary artery disease hypercholesterolemia history of CVA BPH hypothyroid and hypertension last seen in June 2023.. Review of the notes, September 02 had the eye ureterolithiasis with acute kidney injury urology consultation underwent left cystoscopy with left dilatation of the ureteric orifice under fluoroscopy with left stent placement. ER visit for ureterolithiasis has had lithotripsy done had diarrhea and dehydration. had stent removal under urology later on August 2023 having left-sided hydroureteronephrosis in July 2023 distal left ureteral stone PFSH Medical History Preop exam for internal medicine Leg weakness Right wrist pain Carpal tunnel syndrome of right wrist Lumbar spinal stenosis Left acetabular fracture Peripheral arterial disease Hypercholesterolemia History of CVA (cerebrovascular accident) BPH (benign prostatic hyperplasia) Hypothyroid Hypertension Surgical History History of cataract surgery S/P CABG x 1 History of prostate surgery History of thyroidectomy Hx of cholecystectomy Family History Father Medical history unknown Mother Medical history unknown Social History Household Members: Spouse Housing: House Do you presently have visiting nurse or other home services: No Alcohol intake: current Alcohol intake frequency: a few times a month Alcohol type: wine Patient Tobacco Use Status: Never used Tobacco e-Cigarette/Vaping Use: Never Used Second Hand Smoke Exposure: No Advance Directives Date on File: 01/20/23 service: No Current occupational status: retired Current occupation: left hand Cognitive needs: No Hearing needs: No Vision needs: Yes Questionnaire PHQ-9 Over the last 2 weeks, how often have you been bothered by any of the following problems? 1. Little interest or pleasure in doing things: not at all 2. Feeling down, depressed, or hopeless: not at all 3. Trouble falling or staying asleep, or sleeping too much: not at all 4. Feeling tired or having little energy: not at all 5. Poor appetite or overeating: not at all 6. Feeling bad about yourself - or that you are a failure or have let yourself or your family down: not at all 7. Trouble concentrating on things, such as reading the newspaper or watching television: not at all 8. Moving or speaking so slowly that other people could have noticed. Or the opposite - being so fidgety or restless that you have been moving around a lot more than usual: not at all 9. Thoughts that you would be better off or of hurting yourself in some way: not at all Total score: 0 Depression Screening Interpretation: Negative Depression Screening Done: Yes Source: Developed by Drs. Bharathi Yi, Evelin Burns, Juan Hood and colleagues, with an educational colby from [employer]. Thrive Questionnaire Date Thrive assessed: 09/03/23 I am a: Patient What is your living situation today?: I have a steady place to live Within the past 12 months, did the food you bought not last and you didn't have the money to get more?: Never true Within the past 12 months, did you worry whether your food would run out before you got money to buy more?: Never true Do you have trouble paying for medicines?: No Do you have trouble getting transportation to medical appointments?: No Do you have trouble paying your heating and electricity bill?: No Do you have trouble taking care of your child, family member or friend?: No Do you have trouble with day-to-day activities such as bathing, preparing meals, shopping, managing finances, etc.?: No Are you currently unemployed and looking for a job?: No Are you interested in more education?: No Please select the resources that you would like help with: None Currently or been in a relationship where the following occur: no concerns reported THRIVE Score: 0 AUDIT C Alcohol Use Questionnaire (AUDIT-C) 1. How often do you have a drink containing alcohol?: 2-3 times a week 2. How many drinks containing alcohol do you have on a typical day when you are drinking?: 1 or 2 3. How often do you have six or more drinks on one occasion?: Never Total Score: 3 Score Reviewed/Action Taken: No MIKE-7 AMB Questionnaire MIKE-7 Date MIKE - 7 assessed: 05/01/23 Source: Developed by Drs. Bharathi Yi, Evelin Burns, Juan Hood and colleagues, with an educational colby from [employer]. Physical exam (Primary Care) Vital Signs: Last Vital Signs Pulse 61 09/15/23 09:29 BP 98/60 09/15/23 09:29 Pulse Ox 96 09/15/23 09:29 Oxygen Delivery Method Room Air 09/15/23 09:29 BMI result Body Mass Index 33.3 Tobacco/Smoking Status: Tobacco use Status Tobacco use date assessed 09/15/23 09/15/23 09:31 Patient Tobacco Use Status Never used Tobacco 09/15/23 09:31 e-Cigarette/Vaping Use Never Used 09/15/23 09:31 PHQ-9: PHQ-9 Score PHQ-9: Total score 0 09/15/23 09:52 Depression Screening Interpretation: Negative Thrive Assessment: Date of Thrive Assessment Date Thrive assessed 09/03/23 09/15/23 09:31 Currently or been in a relationship where the following occur: no concerns reported Const General: alert; No acute distress Eyes Conjunctivae: conjunctivae normal Resp Auscultation: clear to auscultation bilaterally Cardio Rate: regular rate Rhythm: regular rhythm GI Inspection: Yes normal to inspection Extrem General: Yes normal to inspection and No edema Assessment and Plan Assessment & Plan (1) Hypertension: Code(s): I10 - Essential (primary) hypertension Qualifiers: Hypertension type: essential hypertension Qualified Code(s): I10 - Essential (primary) hypertension Plan: Noted blood pressure to be low patient's medication is metoprolol 100 mg once a day losartan 50 mg once a day- repeat testing - good BP (2) Hypothyroid: Comment: Continue with present medication Code(s): E03.9 - Hypothyroidism, unspecified Qualifiers: Hypothyroidism type: acquired Qualified Code(s): E03.9 - Hypothyroidism, unspecified Plan: Continue with thyroid medication June 2023 last blood work (3) BPH (benign prostatic hyperplasia): Code(s): N40.0 - Benign prostatic hyperplasia without lower urinary tract symptoms Qualifiers: Lower urinary tract symptom presence: symptoms present Lower urinary tract symptom detail: urinary frequency Qualified Code(s): N40.1 - Benign prostatic hyperplasia with lower urinary tract symptoms; R35.0 - Frequency of micturition Plan: Patient follows up with urology placed on tamsulosin (4) Hypercholesterolemia: Comment: Avoid fried foods, chicken skin, eggs, butter margarine, pastries and meat. Be it pork or beef they have a lot of cholesterol LDL goal of less than 70 Code(s): E78.00 - Pure hypercholesterolemia, unspecified Plan: Avoid fried foods, chicken skin, eggs, butter margarine, pastries and meat. Be it pork or beef they have a lot of cholesterol LDL goal of less than 130 and triglyceride of less than 150 on Zetia patient had intolerance to statins (5) Left renal stone: Comment: June 2023 Code(s): N20.0 - Calculus of kidney Plan: Status post cystoscopy with dilatation with left stent placement as well as removal. Coding Level of Care Code Est Pt Level 4 (32298) Diagnoses Essential hypertension I10 Hypertension type: essential hypertension Acquired hypothyroidism E03.9 Hypothyroidism type: acquired Benign prostatic hyperplasia with urinary frequency N40.1; R35.0 Lower urinary tract symptom presence: symptoms present Lower urinary tract symptom detail: urinary frequency Hypercholesterolemia E78.00 Left renal stone N20.0
[2023-09-15 10:04] VITALS: BP 130/64
== END 2023-09-15 10:13 | disposition home or self-care (01) ==
PROVIDERS: PCP Internal Medicine; Visit Provider Internal Medicine
DX: I10 Essential (primary) hypertension (principal); E03.9 Hypothyroidism, unspecified; N40.1 Benign prostatic hyperplasia with lower urinary tract symptoms; R35.0 Frequency of micturition; E78.00 Pure hypercholesterolemia, unspecified; N20.0 Calculus of kidney
CPT/HCPCS: 99214

== ENCOUNTER 2023-09-26 12:36 | Outpatient (AMB) | payer MEDICARE, SELFPAY ==
[2023-09-26 12:43] VITALS: BP 102/56; PULSE 71; O2SAT 100; BMI 32.5
--- NOTE | 2023-09-26 12:43 | A.OFFPC_ITS ---
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 [facility] Medical History Preop exam for internal medicine Leg weakness Right wrist pain Carpal tunnel syndrome of right wrist Lumbar spinal stenosis Left acetabular fracture Peripheral arterial disease Hypercholesterolemia History of CVA (cerebrovascular accident) BPH (benign prostatic hyperplasia) Hypothyroid Hypertension Surgical History History of cataract surgery S/P CABG x 1 History of prostate surgery History of thyroidectomy Hx of cholecystectomy Family History Father Medical history unknown Mother Medical history unknown Social History Household Members: Spouse Housing: House Do you presently have visiting nurse or other home services: No Alcohol intake: current Alcohol intake frequency: a few times a month Alcohol type: wine Patient Tobacco Use Status: Never used Tobacco e-Cigarette/Vaping Use: Never Used Second Hand Smoke Exposure: No Advance Directives Date on File: 01/20/23 service: No Current occupational status: retired Current occupation: left hand Cognitive needs: No Hearing needs: No Vision needs: Yes Questionnaire Thrive Questionnaire Date Thrive assessed: 09/03/23 I am a: Patient What is your living situation today?: I have a steady place to live Within the past 12 months, did the food you bought not last and you didn't have the money to get more?: Never true Within the past 12 months, did you worry whether your food would run out before you got money to buy more?: Never true Do you have trouble paying for medicines?: No Do you have trouble getting transportation to medical appointments?: No Do you have trouble paying your heating and electricity bill?: No Do you have trouble taking care of your child, family member or friend?: No Do you have trouble with day-to-day activities such as bathing, preparing meals, shopping, managing finances, etc.?: No Are you currently unemployed and looking for a job?: No Are you interested in more education?: No Please select the resources that you would like help with: None Currently or been in a relationship where the following occur: no concerns reported THRIVE Score: 0 AUDIT C Alcohol Use Questionnaire (AUDIT-C) 1. How often do you have a drink containing alcohol?: 2-3 times a week 2. How many drinks containing alcohol do you have on a typical day when you are drinking?: 1 or 2 3. How often do you have six or more drinks on one occasion?: Never Total Score: 3 Score Reviewed/Action Taken: No MIKE-7 AMB Questionnaire MIKE-7 Date MIKE - 7 assessed: 05/01/23 Source: Developed by Drs. Bharathi Yi, Evelin Burns, Juan Hood and colleagues, with an educational colby from [employer]. Physical exam (Primary Care) Vital Signs: Last Vital Signs Pulse 71 09/26/23 12:43 BP 124/70 09/26/23 13:10 Pulse Ox 100 09/26/23 12:43 Oxygen Delivery Method Room Air 09/26/23 12:43 BMI result Body Mass Index 32.5 Tobacco/Smoking Status: Tobacco use Status Tobacco use date assessed 09/26/23 09/26/23 12:52 Patient Tobacco Use Status Never used Tobacco 09/26/23 12:52 e-Cigarette/Vaping Use Never Used 09/26/23 12:52 Thrive Assessment: Date of Thrive Assessment Date Thrive assessed 09/03/23 09/26/23 12:52 Currently or been in a relationship where the following occur: no concerns reported Const General: alert; No acute distress Eyes Conjunctivae: conjunctivae normal Resp Auscultation: clear to auscultation bilaterally Cardio Rate: regular rate Rhythm: regular rhythm GI Inspection: Yes normal to inspection Extrem General: Yes normal to inspection and No edema Office Procedures Cerumen Removal From which ear canal was the cerumen removed: bilateral Removal: otoscope w/curette and cerumen loop/spoon Notes: patient tolerated procedure well, no complications and ear canal clear [id number] Wax Removal by Spoon/Curette Assessment and Plan Assessment & Plan (1) Left renal stone: Comment: June 2023 Code(s): N20.0 - Calculus of kidney Plan: increase oral fluids, has a an ultrasound follow-up (2) Coronary artery disease: Comment: 10/10/2020 coronary artery bypass graft x1 Code(s): I25.10 - Atherosclerotic heart disease of [place] coronary artery without angina pectoris Qualifiers: Associated angina: without angina Coronary Disease-Associated Artery/Lesion type: [place] artery [place] vs. transplanted heart: [place] heart Qualified Code(s): I25.10 - Atherosclerotic heart disease of [place] coronary artery without angina pectoris Plan: continue with med, control BP , Lower cholesterol , (3) Hypertension: Code(s): I10 - Essential (primary) hypertension Qualifiers: Hypertension type: essential hypertension Qualified Code(s): I10 - Essential (primary) hypertension Plan: Continue with blood pressure medication. Decrease salt intake and exercise on metoprolol 100 mg once a day and losartan 50 mg (4) Ascending aorta dilatation: Comment: August 2020 5.4 cm, September 2020 ascending aortic aneurysm replacement Dr. Koehler CT scan 06/2023 Code(s): I77.810 - Thoracic aortic ectasia Plan: follow up CT scan Q year under Dr. oKehler (5) Impacted cerumen of both ears: Code(s): H61.23 - Impacted cerumen, bilateral Plan: scoop used TM intact, no irrigation Coding Level of Care Code Est Pt Level 4 (74167) Diagnoses Left renal stone N20.0 Coronary artery disease involving [place] coronary artery of [place] heart without angina pectoris I25.10 Associated angina: without angina Coronary Disease-Associated Artery/Lesion type: [place] artery [place] vs. transplanted heart: [place] heart Essential hypertension I10 Hypertension type: essential hypertension Ascending aorta dilatation I77.810 Impacted cerumen of both ears H61.23 CPT Codes Office Procedure - CPT: [id number] Wax Removal by Spoon/Curette ([id number])
[2023-09-26 13:10] VITALS: BP 124/70
== END 2023-09-26 15:03 | disposition home or self-care (01) ==
PROVIDERS: PCP Internal Medicine; Visit Provider Internal Medicine
DX: N20.0 Calculus of kidney (principal); I77.810 Thoracic aortic ectasia; I25.10 Atherosclerotic heart disease of native coronary artery without angina pectoris; H61.23 Impacted cerumen, bilateral; I10 Essential (primary) hypertension
CPT/HCPCS: 69210; 99214

== ENCOUNTER 2023-11-04 11:06 | Outpatient (AMB) | payer MEDICARE, SELFPAY ==
[2023-11-04 11:20] VITALS: BP 128/68; PULSE 54; O2SAT 98; BMI 32.8
--- NOTE | 2023-11-04 11:20 | A.OFFPC_ITS ---
Vital Signs 11/04/23 11:20 Height 5 ft 8 in Weight 216 lb BMI 32.8 BP 128/68 Blood Pressure Location Lt brachial Position Sitting Pulse 54 Pulse Source Pulse Oximeter Pulse Oximetry (%) 98 Oxygen Delivery Method Room Air Intake Visit Reasons: HTN hypercholesterol Allergies lisinopril Allergy (Intermediate, Verified 11/04/23 11:21) cough rosuvastatin Adverse Reaction (Intermediate, Verified 11/04/23 11:21) myalgia simvastatin Adverse Reaction (Intermediate, Verified 11/04/23 11:21) myalgia Medication List - Last Reconciled 11/04/23 by Ami Mazariegos MD aspirin (Adult Aspirin Regimen) 81 mg PO DAILY cholecalciferol (vitamin D3) 50 mcg PO SUSA docusate sodium (Colace) 100 mg PO BID ezetimibe (Zetia) 10 mg PO BEDTIME levothyroxine 100 mcg PO DAILY@0600 losartan 50 mg PO DAILY metoprolol succinate ER 100 mg PO BEDTIME omega-3 fatty acids-fish oil 360-1,200 mg (Fish Oil) 1 cap PO BID tamsulosin (Flomax) 0.4 mg PO BEDTIME Tobacco use date assessed: 09/26/23 Fall risk assessment: No Falls in past year Last assessed Fall Risk: 11/04/23 Dental Screening Dental Screen Date: 09/15/23 HPI HTN hypercholesterol HPI Details 83-year-old obese male with coronary art sushila disease hypertension ascending aorta dilatation and recently left nephrolithiasis Sep 26 2023 last seen review of the notes received notes 09/24/2023 from Cardiology ascending aorta aneurysm repair advised to get a CT scan without contrast of the chest August 2025. complains of leg weakness- MRI done 2010 spinal stenosis but deny pain on the lower back [facility] Medical History Preop exam for internal medicine Leg weakness Right wrist pain Carpal tunnel syndrome of right wrist Lumbar spinal stenosis Left acetabular fracture Peripheral arterial disease Hypercholesterolemia History of CVA (cerebrovascular accident) BPH (benign prostatic hyperplasia) Hypothyroid Hypertension Surgical History History of cataract surgery S/P CABG x 1 History of prostate surgery History of thyroidectomy Hx of cholecystectomy Family History Father Medical history unknown Mother Medical history unknown Social History Household Members: Spouse Housing: House Do you presently have visiting nurse or other home services: No Alcohol intake: current Alcohol intake frequency: a few times a month Alcohol type: wine Patient Tobacco Use Status: Never used Tobacco e-Cigarette/Vaping Use: Never Used Second Hand Smoke Exposure: No Advance Directives Date on File: 01/20/23 service: No Current occupational status: retired Current occupation: left hand Cognitive needs: No Hearing needs: Yes Vision needs: Yes Questionnaire PHQ-9 Over the last 2 weeks, how often have you been bothered by any of the following problems? 1. Little interest or pleasure in doing things: not at all 2. Feeling down, depressed, or hopeless: not at all 3. Trouble falling or staying asleep, or sleeping too much: not at all 4. Feeling tired or having little energy: not at all 5. Poor appetite or overeating: not at all 6. Feeling bad about yourself - or that you are a failure or have let yourself or your family down: not at all 7. Trouble concentrating on things, such as reading the newspaper or watching television: not at all 8. Moving or speaking so slowly that other people could have noticed. Or the opposite - being so fidgety or restless that you have been moving around a lot more than usual: not at all 9. Thoughts that you would be better off or of hurting yourself in some way: not at all Total score: 0 Depression Screening Interpretation: Negative Depression Screening Done: Yes Source: Developed by Drs. Bharathi Yi, Evelin Burns, Juan Hood and colleagues, with an educational colby from [employer]. Thrive Questionnaire Date Thrive assessed: 09/03/23 AUDIT C Alcohol Use Questionnaire (AUDIT-C) 1. How often do you have a drink containing alcohol?: 2-3 times a week 2. How many drinks containing alcohol do you have on a typical day when you are drinking?: 1 or 2 3. How often do you have six or more drinks on one occasion?: Never Total Score: 3 Score Reviewed/Action Taken: No MIKE-7 AMB Questionnaire MIKE-7 Date MIKE - 7 assessed: 05/01/23 Source: Developed by Drs. Bharathi Yi, Evelin Burns, Juan Hood and colleagues, with an educational colby from [employer]. Physical exam (Primary Care) Vital Signs: Last Vital Signs Pulse 54 11/04/23 11:20 BP 128/68 11/04/23 11:20 Pulse Ox 98 11/04/23 11:20 Oxygen Delivery Method Room Air 11/04/23 11:20 BMI result Body Mass Index 32.8 Tobacco/Smoking Status: Tobacco use Status Tobacco use date assessed 09/26/23 11/04/23 11:26 Patient Tobacco Use Status Never used Tobacco 11/04/23 11:26 e-Cigarette/Vaping Use Never Used 11/04/23 11:26 PHQ-9: PHQ-9 Score PHQ-9: Total score 0 11/04/23 11:26 Depression Screening Interpretation: Negative Thrive Assessment: Date of Thrive Assessment Date Thrive assessed 09/03/23 11/04/23 11:26 Const General: alert; No acute distress Eyes Conjunctivae: conjunctivae normal Resp Auscultation: clear to auscultation bilaterally Cardio Rate: regular rate Rhythm: regular rhythm GI Inspection: Yes normal to inspection Extrem General: Yes normal to inspection and No edema Assessment and Plan Assessment & Plan (1) Coronary artery disease: Comment: 10/10/2020 coronary artery bypass graft x1 Code(s): I25.10 - Atherosclerotic heart disease of [place] coronary artery without angina pectoris Qualifiers: Coronary Disease-Associated Artery/Lesion type: [place] artery [place] vs. transplanted heart: [place] heart Associated angina: without angina Qualified Code(s): I25.10 - Atherosclerotic heart disease of [place] coronary artery without angina pectoris Plan: Control the cholesterol, weight, blood pressure, continue with aspirin 81 mg once a day. will be seeing cardiology (2) Ascending aorta dilatation: Comment: August 2020 5.4 cm, September 2020 ascending aortic aneurysm replacement Dr. Koehler CT scan 06/2023 Code(s): I77.810 - Thoracic aortic ectasia Plan: Patient follows up with the cardiovascular surgeon and advise CT scan in 2025 (3) Hypercholesterolemia: Comment: Avoid fried foods, chicken skin, eggs, butter margarine, pastries and meat. Be it pork or beef they have a lot of cholesterol LDL goal of less than 70 Code(s): E78.00 - Pure hypercholesterolemia, unspecified Plan: Avoid fried foods, chicken skin, eggs, butter margarine, pastries and meat. Be it pork or beef they have a lot of cholesterol on Zetia 10 mg once a day last blood work for LDL was in 08/16/2023 (4) Hypothyroid: Comment: Continue with present medication Code(s): E03.9 - Hypothyroidism, unspecified Qualifiers: Hypothyroidism type: acquired Qualified Code(s): E03.9 - Hypot hyroidism, unspecified Plan: Continue with thyroid medication (5) Hypertension: Code(s): I10 - Essential (primary) hypertension Qualifiers: Hypertension type: essential hypertension Qualified Code(s): I10 - Essential (primary) hypertension Plan: Continue with blood pressure medication. Decrease salt intake and exercise on losartan 50 mg once a day metoprolol 100 mg once a day (6) Left renal stone: Comment: June 2023 Code(s): N20.0 - Calculus of kidney Plan: Continue to follow up with Urology last ultrasound in 08/2023Normal appearance of the right kidney. 2. 2.4 cm nonobstructing calculus in the lower pole of the left kidney. (7) Leg weakness, bilateral: Code(s): R29.898 - Other symptoms and signs involving the musculoskeletal system (8) Sebaceous cyst: Comment: R groin Code(s): L72.3 - Sebaceous cyst (9) Lipoma: Comment: posterior neck area Code(s): D17.9 - Benign lipomatous neoplasm, unspecified Orders: Orders MR lumbar spine wo con Today R29.898 - Other symptoms and signs involving the musculoskeletal system Referrals General Surgery Referral D17.9 - Benign lipomatous neoplasm, unspecified, L72.3 - Sebaceous cyst Coding Level of Care Code Est Pt Level 4 (30161) Diagnoses Coronary artery disease involving [place] coronary artery of [place] heart without angina pectoris I25.10 Coronary Disease-Associated Artery/Lesion type: [place] artery [place] vs. transplanted heart: [place] heart Associated angina: without angina Ascending aorta dilatation I77.810 Hypercholesterolemia E78.00 Acquired hypothyroidism E03.9 Hypothyroidism type: acquired Essential hypertension I10 Hypertension type: essential hypertension Left renal stone N20.0 Leg weakness, bilateral R29.898 Sebaceous cyst L72.3 Lipoma D17.9
== END 2023-11-04 12:16 | disposition home or self-care (01) ==
PROVIDERS: PCP Internal Medicine; Visit Provider Internal Medicine
DX: I25.10 Atherosclerotic heart disease of native coronary artery without angina pectoris (principal); I77.810 Thoracic aortic ectasia; E78.00 Pure hypercholesterolemia, unspecified; E03.9 Hypothyroidism, unspecified; I10 Essential (primary) hypertension; N20.0 Calculus of kidney; R29.898 Other symptoms and signs involving the musculoskeletal system; L72.3 Sebaceous cyst; D17.9 Benign lipomatous neoplasm, unspecified
CPT/HCPCS: 99214

== ENCOUNTER 2023-11-25 11:08 | Outpatient (AMB) | payer MEDICARE, SELFPAY ==
--- NOTE | 2023-11-25 11:17 | A.OFFVIS_ITS ---
Vital Signs 11/25/23 11:18 Height 5 ft 8 in Intake Visit Reasons: Lipoma~ post neck Intake Note: Patient referred by pcp Dr. Mazariegos for lipoma on ? mid post neck. Present for ? Patient c/o: reports no complaints. Doubler Helper Required: No Accompanied by: Self / Same As Patient Allergies lisinopril Allergy (Intermediate, Verified 11/25/23 11:17) cough rosuvastatin Adverse Reaction (Intermediate, Verified 11/25/23 11:17) myalgia simvastatin Adverse Reaction (Intermediate, Verified 11/25/23 11:17) myalgia HPI Comments Details: Patient presents for evaluation of 1. A recurrent left posterior neck mass 2. A right groin cyst. The former had been excised and the patient's youth and then a few years ago and has recurred twice. The right groin cyst is increasing in size and become more symptomatic in the patient would like to have removed. Chart was reviewed and patient evaluated. 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 [facility] Medical History Preop exam for internal medicine Leg weakness Right wrist pain Carpal tunnel syndrome of right wrist Lumbar spinal stenosis Left acetabular fracture Peripheral arterial disease Hypercholesterolemia History of CVA (cerebrovascular accident) BPH (benign prostatic hyperplasia) Hypothyroid Hypertension Surgical History History of cataract surgery S/P CABG x 1 History of prostate surgery History of thyroidectomy Hx of cholecystectomy Family History Father Medical history unknown Mother Medical history unknown Social History Household Members: Spouse Housing: House Do you presently have visiting nurse or other home services: No Alcohol intake: current Alcohol intake frequency: a few times a month Alcohol type: wine Patient Tobacco Use Status: Never used Tobacco e-Cigarette/Vaping Use: Never Used Second Hand Smoke Exposure: No Advance Directives Date on File: 01/20/23 service: No Current occupational status: retired Current occupation: left hand Cognitive needs: No Hearing needs: Yes Vision needs: Yes Physical Exam Neck Other: Patient has approximately 5 x 3 cm recurrent, recurrent left posterior neck lipoma. Old scar healed. Chest Other: Chest breath sounds bilaterally, HS 1 in 2 GI Other: Abdomen is soft, benign Skin Other: Proximally 3 x 2 cm right upper inner thigh/groin sebaceous cyst Assessment & Plan Assessment & Plan (1) Lipoma: Comment: posterior neck area Code(s): D17.9 - Benign lipomatous neoplasm, unspecified Category: Surgical (2) Sebaceous cyst: Comment: R groin Code(s): L72.3 - Sebaceous cyst Category: Surgical Plan Risks, benefits, alternatives of 1. Excision of recurrent lipoma 2. Excision of right groin cyst were reviewed with the patient included but not limited to bleeding, infection, recurrence, numbness, pain, scarring the patient wished to proceed. All questions answered. Arrangements were made for this on a day which was convenient for him. Coding Level of Care Code New Pt Level 5 (16838) Diagnoses Lipoma D17.9 Sebaceous cyst L72.3
== END 2023-11-25 11:41 | disposition home or self-care (01) ==
PROVIDERS: PCP Internal Medicine; Referring Provider Internal Medicine; Visit Provider Surgery
DX: D17.9 Benign lipomatous neoplasm, unspecified (principal); L72.3 Sebaceous cyst
CPT/HCPCS: 99204

== ENCOUNTER → 2023-11-25 11:08 | Outpatient (BNVA) | payer MEDICARE, SELFPAY | PROVIDERS: PCP Internal Medicine; Referring Provider Internal Medicine; Visit Provider Surgery | DX: D17.9 Benign lipomatous neoplasm, unspecified (principal); L72.3 Sebaceous cyst | CPT/HCPCS: 99202 ==

== ENCOUNTER 2023-12-11 10:53 | Outpatient (REF) | payer MEDICARE, SELFPAY ==
--- NOTE | ~2023-12-11 | US_ITS ---
EXAMINATION: US RETROPERITONEAL COMPLETE (RENAL) CLINICAL INFORMATION: Calculus of ureter. COMPARISON: Renal ultrasound 09/04/2023, CT abdomen and pelvis 09/03/2023. TECHNIQUE: Real-time imaging of the kidneys and bladder. Limited visualization due to bowel gas. FINDINGS: RIGHT KIDNEY: 10.9 x 4.7 x 4.6 cm (SAG x AP x TRV). No hydronephrosis. No renal calculi. Renal cortical thickness is normal. Limited visualization. LEFT KIDNEY: 10.0 x 5.0 x 4.5 cm (SAG x AP x TRV). 0.6 cm lower pole calculus. No hydronephrosis. Limited visualization. 1.0 cm lower pole cyst with benign features. There is no indication for follow-up imaging. 0.8 cm mid pole cyst. There is no indication for additional imaging. US/US renal BI IMPRESSION: 0.6 cm left lower pole calculus. No hydronephrosis. Electronically signed by: Sarah Whitaker MD 12/30/2023 02:43 PM EDT
== END 2023-12-11 10:54 | disposition home or self-care (01) ==
LOC: HO.US 10:53
PROVIDERS: PCP Internal Medicine; Visit Provider Urology
DX: N20.1 Calculus of ureter (principal)
CPT/HCPCS: 76775

== ENCOUNTER 2023-12-24 09:41 | Outpatient (AMB) | payer MEDICARE, SELFPAY ==
--- NOTE | 2023-12-24 09:53 | MHC.OFFVIS ---
Intake Visit Reasons: 3M Follow Up-Ultrasound(set) Intake Note: Patient is Present for Follow Up Ultrasound Urology Medication: Tamsulosin Antibiotic Allergies: None Blood Thinners:Aspirin Solar Installation Supervisor Required: No Accompanied by: Self / Same As Patient Allergies lisinopril Allergy (Intermediate, Verified 12/24/23 09:54) cough rosuvastatin Adverse Reaction (Intermediate, Verified 12/24/23 09:54) myalgia simvastatin Adverse Reaction (Intermediate, Verified 12/24/23 09:54) myalgia Medication List - Last Reconciled 12/24/23 by Riley Cabrera MD aspirin (Adult Aspirin Regimen) 81 mg PO DAILY cholecalciferol (vitamin D3) 50 mcg PO SUSA docusate sodium (Colace) 100 mg PO BID ezetimibe (Zetia) 10 mg PO BEDTIME levothyroxine 100 mcg PO DAILY@0600 losartan 50 mg PO DAILY losartan 50 mg PO DAILY metoprolol succinate ER 100 mg PO BEDTIME omega-3 fatty acids-fish oil 360-1,200 mg (Fish Oil) 1 cap PO BID tamsulosin (Flomax) 0.4 mg PO BEDTIME HPI Comments Details: Edgar is a pleasant male. He is a patient of Dr. Mazariegos. He is seen for the following urologic conditions. - nephrolithiasis Three-month follow-up from stone intervention Minimal stone Encourage fluids 12 month follow-up Nephrolithiasis Presentation through emergency room - acute kidney insult - presenting creatinine 1.6 down to 1.2 after stent placement Imaging - 08/19 Mild left-sided hydroureteronephrosis with asymmetric perinephric fat stranding/free fluid and two very subtle punctate calculi in the distal left ureter at approximately 0.5 cm from the ureterovesical junction - 12/19 renal ultrasound - left small stone 6 mm Intervention - 09/18 left ureteroscopy - debris [facility] Medical History Preop exam for internal medicine Leg weakness Right wrist pain Carpal tunnel syndrome of right wrist Lumbar spinal stenosis Left acetabular fracture Peripheral arterial disease Hypercholesterolemia History of CVA (cerebrovascular accident) BPH (benign prostatic hyperplasia) Hypothyroid Hypertension Surgical History History of cataract surgery S/P CABG x 1 History of prostate surgery History of thyroidectomy Hx of cholecystectomy Family History Father Medical history unknown Mother Medical history unknown Social History Household Members: Spouse Housing: House Do you presently have visiting nurse or other home services: No Alcohol intake: current Alcohol intake frequency: a few times a month Alcohol type: wine Patient Tobacco Use Status: Never used Tobacco e-Cigarette/Vaping Use: Never Used Second Hand Smoke Exposure: No Advance Directives Date on File: 01/20/23 service: No Current occupational status: retired Current occupation: left hand Cognitive needs: No Hearing needs: Yes Vision needs: Yes Review of Systems Const Denies chills and Denies fever(s) Card Reports no additional complaints and Denies syncope Resp Denies cough GI Denies abdominal pain and Denies heartburn Reports as per HPI and Denies change in libido Neuro Denies syncope Psych Denies change in libido Endo Denies change in libido Physical Exam Const General: cooperative, healthy appearing, comfortable and no acute distress Orientation/consciousness: patient oriented x3 HEENT Face and sinus: Yes normal facial exam Mouth: moist mucous membranes Neck Neck: Yes normal visual inspection, Yes full ROM and Yes trachea midline Chest Chest palpation & inspection: normal inspection of the chest Resp Effort & Inspection: normal respiratory effort, able to speak in complete sentences and no respiratory distress GI Inspection: Yes normal to inspection Back/Spine/Pelvis Cervical Spine: normal cervical lordosis Thoracic/Lumbar Spine: thoracic and lumbar spine normal to inspection Skin General skin exam: no rashes or lesions noted Neuro General: patient oriented x3, gait normal, tone normal and moves all extremities Extrem General: Yes normal to inspection and Yes capillary refill normal Assessment & Plan Assessment & Plan (1) Hydronephrosis: Comment: August 2023 left cystoscopy with left dilatation of ureteric orifice under fluoroscopy with left stent placement Code(s): N13.30 - Unspecified hydronephrosis Category: Medical Plan Twelve month follow-up Orders: Orders US renal BI 12 Months N13.30 - Unspecified hydronephrosis Patient Instructions: Imaging studies, laboratory and physical exam results were discussed and reviewed in detail. No major barriers to patient understanding were identified. An opportunity to ask questions regarding the treatment plan was provided. All questions were answered. The patient expressed understanding and agreement with the above treatment plan. The patient is aware they should contact our office by phone for worsening of their current condition or the appearance of new urologic symptoms. Compliance is encouraged with any medications and followup testing that is ordered. It is a privilege to participate in the urologic care of your patient. If you have any questions or concerns regarding treatment for the above conditions, or other urologic issues, please do not hesitate to contact me. The office telephone contact is [phone]. This note is constructed using voice recognition software. While every effort has been made to ensure accuracy drafter civil (cad) errors may have been included. Yours sincerely, Dr Riley Cabrera MD, [place] [facility] - Urology Providers of Expert, Compassionate Care for the Genitourinary System Coding Level of Care Code Est Pt Level 3 (20230) Diagnoses Hydronephrosis N13.30
== END 2023-12-24 10:32 | disposition home or self-care (01) ==
PROVIDERS: PCP Internal Medicine; Visit Provider Urology
DX: N13.30 Unspecified hydronephrosis (principal)
CPT/HCPCS: 99213

== ENCOUNTER → 2023-12-24 09:41 | Outpatient (BNVA) | payer MEDICARE, SELFPAY | PROVIDERS: PCP Internal Medicine; Visit Provider Urology | DX: N13.30 Unspecified hydronephrosis (principal); N20.0 Calculus of kidney | CPT/HCPCS: 99212 ==

== ENCOUNTER 2024-01-22 10:11 | Day surgery (SDC) | payer MEDICARE, SELFPAY ==
[2024-01-12 13:16] VITALS: BMI 30.5
[2024-01-12 13:24] VITALS: BP 156/70; PULSE 59; RESP 18; O2SAT 96
--- NOTE | 2024-01-21 09:27 | P.HPSUR_ITS ---
Pre-Procedural Eval Section A - 24 Hr Update-Section A only Date of Service: 01/21/24 The patient is an INPATIENT: No Changes since office visit: No Cold of Flu in the past 2 weeks, No New Medical Problems, No Changes in Medication and No Patient answered all questions Section B - Complete if H&P > 30 days Chief Complaint: Benign lipomatous neoplasm, unspecified Allergies: Allergies Allergy/AdvReac Type Severity Reaction Status Date / Time lisinopril Allergy Intermediate cough Verified 12/24/23 09:54 rosuvastatin AdvReac Intermediate myalgia Verified 12/24/23 09:54 simvastatin AdvReac Intermediate myalgia Verified 12/24/23 09:54 Review of Systems Sugical H&P ROS: Negative: Constitution, Cardiovascular, Respiratory, Neur ological, Psychiatric, Hem-Onc, Allergic/Immunologic, Gastrointestinal, Genitourinary, Musculoskeletal, Integumentary, Endocrine and Eyes/Ears/Nose/Throat Exam Surgical H&P Exam: Normal: HEENT, Normal: Heart, Normal: Lungs, Normal: Extremities, Normal: Abdomen, Normal: Skin and Normal: Neurological Plan I have reviewed the history and physical and performed a pertinent physical examination on my patient. No changes have occurred unless specified. Time Spent With Patient Time: Total time managing care of this patient today ____ minutes.
[2024-01-22 11:38] VITALS: BMI 30.5
[2024-01-22 11:40] VITALS: BP 145/57; PULSE 51; RESP 16; TEMP 36.3; O2SAT 98
--- NOTE | 2024-01-22 11:45 | P.CONAN_ITS ---
Documented by User: Jimena Mock NP 01/21/24 12:08 HPI - Anesthesia Eval Consult details Narrative: 83yo M for Left Wide Local Excision Recurrent Posterior Neck Mass, 01/22/24 No recent illness No CP. COLES ~ 15 years. Able to walk 0.75 -1 mile s/p cysto etc 08/2023 with GA-LMA 5 , no issues s/p AAA repair and CABG x 2020 CVA 2005, some dysphagia, no hx pna PMFSH Active Problems Active Problems: All Active Problems Lipoma (Acute) Sebaceous cyst (Acute) Leg weakness, bilateral (Acute) Hydronephrosis (Acute) MOIZ (acute kidney injury) (Acute) Ureterolithiasis (Acute) Left renal stone (Acute) MOIZ (acute kidney injury) (Acute) Influenza A (Acute) Left upper quadrant pain (Acute) Impacted cerumen of right ear (Acute) Closed left hip fracture (Acute) Peripheral vascular disease (Acute) Wrist pain (Acute) Tinea pedis (Acute) COVID-19 virus infection (Acute) Fungus infection (Acute) Cellulitis (Acute) Impacted cerumen of both ears (Acute) Macular degeneration (Acute) Encounter for subsequent annual wellness visit (AWV) in Medicare patient (Acute) Toe pain, right (Acute) Cellulitis of left thigh (Acute) CKD (chronic kidney disease) stage 2, 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-89 ml/min (Acute) Coronary artery disease (Acute) Ascending aorta dilatation (Acute) Erectile dysfunction (Acute) Hematoma (Acute) Allergic dermatitis (Acute) Peripheral arterial disease (Acute) Hypercholesterolemia (Acute) History of CVA (cerebrovascular accident) (Acute) BPH (benign prostatic hyperplasia) (Acute) Hypothyroid (Acute) Hypertension (Acute) Past Medical History Medical History (Updated 01/22/24 @ 11:32 by Chelita Mehta RN) Hard of hearing Arthritis Anemia History of kidney stones Hx of orthostatic hypotension Hx of fracture Weakness Difficulty swallowing Cough Habitual snoring SOB (shortness of breath) Preop exam for internal medicine Leg weakness Right wrist pain Carpal tunnel syndrome of right wrist Lumbar spinal stenosis Left acetabular fracture Peripheral arterial disease Hypercholesterolemia History of CVA (cerebrovascular accident) BPH (benign prostatic hyperplasia) Hypothyroid Hypertension Family History Family History Father Medical history unknown Mother Medical history unknown Family history of problems with anesthesia: No Surgical History Surgical History (Updated 01/12/24 @ 13:46 by Sandra Cam RN) Hx of carpal tunnel repair Hx of shoulder surgery H/O colonoscopy Hx of aortic aneurysm repair History of cataract surgery S/P CABG x 1 History of prostate surgery History of thyroidectomy Hx of cholecystectomy History of Problems with Anesthesia: No Social History Social History Household Members: Spouse Housing: House Are you a primary primary care nurse practitioner to a significant other at home: No Do you presently have visiting nurse or other home services: No Alcohol intake: current Alcohol intake frequency: a few times a month Alcohol type: wine Patient Tobacco Use Status: Never used Tobacco e-Cigarette/Vaping Use: Never Used Second Hand Smoke Exposure: No Use of substances other than those prescribed or required for medical reasons: No Have you been hit, kicked, punched, or otherwise hurt by someone within the past year? If so, by whom?: No Are you DNR?: Yes Advance Directives: Yes Advance Directives Information Provided: No Advance Directives on File: Yes Advance Directives Date on File: 01/20/23 Recently lost weight without trying: No Eating poorly because of decreased appetite: No Nutrition Risks: No Nutritional Risk Poor oral hygiene: Yes (one chipped tooth in front) service: No Current occupational status: retired Current occupation: left hand Cognitive needs: No Hearing needs: Yes Vision needs: Yes Meds Allergies Allergy/AdvReac Type Severity Reaction Status Date / Time lisinopril AdvReac Intermediate cough Verified 01/22/24 11:34 rosuvastatin AdvReac Intermediate myalgia Verified 12/24/23 09:54 simvastatin AdvReac Intermediate myalgia Verified 12/24/23 09:54 Home Medications ?Medication ?Instructions ?Recorded ?Confirmed ?Last Taken ?Type aspirin 81 mg tablet,delayed 81 mg PO DAILY 08/06/21 01/12/24 01/18/23 History release (Adult Aspirin Regimen) docusate sodium 100 mg capsule 100 mg PO BID 08/15/21 01/12/24 01/18/23 History (Colace) cholecalciferol (vitamin D3) 50 50 mcg PO SUSA 07/18/23 01/12/24 Unknown History mcg (2,000 unit) tablet omega-3 fatty acids-fish oil 360 1 cap PO BID 07/18/23 01/12/24 Unknown History mg-1,200 mg capsule (Fish Oil) levothyroxine 100 mcg tablet 100 mcg PO DAILY@0600 09/03/23 01/12/24 Unknown History losartan 50 mg tablet 50 mg PO BID 09/03/23 01/12/24 Unknown History Exam Height,Weight and Vital Signs: Height 5 ft 11 in Weight 99.337 kg Last Vital Signs Pulse 59 01/12/24 13:24 Resp 18 01/12/24 13:24 BP 156/70 H 01/12/24 13:24 Pulse Ox 96 01/12/24 13:24 O2 Del Method Room Air 01/12/24 13:24 Pertinent Lab Results Pertinent Lab Results: Laboratory Tests 09/05/23 09/08/23 08:40 14:33 WBC 8.9 Hgb 12.9 L Hct 39.8 L Plt Count 207 Sodium 144 Potassium 4.3 Chloride 108 Carbon Dioxide 26 BUN 24 H Creatinine 1.16 Narrative Narrative: EKG 08/2023 Vent. Rate : 050 BPM Atrial Rate : 050 BPM P-R Int : 184 ms QRS Dur : 090 ms QT Int : 464 ms P-R-T Axes : 002 002 009 degrees QTc Int : 423 ms Sinus bradycardia Otherwise normal ECG When compared with ECG of 30-APR-2011 13:11, No significant change was found Airway Mallampati Class: III TM Dist: >3cm Neck ROM: Full Loose/Missing/Broken Teeth: Yes (front lower capped, molars crowned) Heart: RRR Lungs: fine crackles lower left lobe, otherwise CTA Assessment and Plan Assessment Anesthesia Assessment: Anesthesia Plan Discussed and PAT Visit Final Anesthetic Review Family History of Problems with Anesthesia: No History of Problems with Anesthesia: No Documented by User: Jaqueline Velasco DO 01/22/24 12:10 HPI - Anesthesia Eval Consult details Narrative: 83yo M for Left Wide Local Excision Recurrent Posterior Neck Mass, 01/22/24 No recent illness No CP. COLES ~ 15 years. Able to walk 0.75 -1 mile s/p cysto etc 08/2023 with GA-LMA 5 , no issues s/p AAA repair and CABG x 1 2020 CVA 2005 - some residual dysphagia PMFSH Past Medical History Medical History (Updated 01/22/24 @ 11:32 by Chelita Mehta RN) Hard of hearing Arthritis Anemia History of kidney stones Hx of orthostatic hypotension Hx of fracture Weakness Difficulty swallowing Cough Habitual snoring SOB (shortness of breath) Preop exam for internal medicine Leg weakness Right wrist pain Carpal tunnel syndrome of right wrist Lumbar spinal stenosis Left acetabular fracture Peripheral arterial disease Hypercholesterolemia History of CVA (cerebrovascular accident) BPH (benign prostatic hyperplasia) Hypothyroid Hypertension Family History Family History Father Medical history unknown Mother Medical history unknown Family history of problems with anesthesia: No Surgical History Surgical History (Updated 01/12/24 @ 13:46 by Sandra Cam RN) Hx of carpal tunnel repair Hx of shoulder surgery H/O colonoscopy Hx of aortic aneurysm repair History of cataract surgery S/P CABG x 1 History of prostate surgery History of thyroidectomy Hx of cholecystectomy History of Problems with Anesthesia: No Social History Social History Household Members: Spouse Housing: House Are you a primary primary care nurse practitioner to a significant other at home: No Do you presently have visiting nurse or other home services: No Alcohol intake: current Alcohol intake frequency: a few times a month Alcohol type: wine Patient Tobacco Use Status: Never used Tobacco e-Cigarette/Vaping Use: Never Used Second Hand Smoke Exposure: No Use of substances other than those prescribed or required for medical reasons: No Have you been hit, kicked, punched, or otherwise hurt by someone within the past year? If so, by whom?: No Are you DNR?: Yes Advance Directives: Yes Advance Directives Information Provided: No Advance Directives on File: Yes Advance Directives Date on File: 01/20/23 Recently lost weight without trying: No Eating poorly because of decreased appetite: No Nutrition Risks: No Nutritional Risk Poor oral hygiene: Yes (one chipped tooth in front) service: No Current occupational status: retired Current occupation: left hand Cognitive needs: No Hearing needs: Yes Vision needs: Yes Meds Allergies Allergy/AdvReac Type Severity Reaction Status Date / Time lisinopril AdvReac Intermediate cough Verified 01/22/24 11:34 rosuvastatin AdvReac Intermediate myalgia Verified 12/24/23 09:54 simvastatin AdvReac Intermediate myalgia Verified 12/24/23 09:54 Home Medications ?Medication ?Instructions ?Recorded ?Confirmed ?Last Taken ?Type aspirin 81 mg tablet,delayed 81 mg PO DAILY 08/06/21 01/12/24 01/18/23 History release (Adult Aspirin Regimen) docusate sodium 100 mg capsule 100 mg PO BID 08/15/21 01/12/24 01/18/23 History (Colace) cholecalciferol (vitamin D3) 50 50 mcg PO SUSA 07/18/23 01/12/24 Unknown History mcg (2,000 unit) tablet omega-3 fatty acids-fish oil 360 1 cap PO BID 07/18/23 01/12/24 Unknown History mg-1,200 mg capsule (Fish Oil) levothyroxine 100 mcg tablet 100 mcg PO DAILY@0600 09/03/23 01/12/24 Unknown History losartan 50 mg tablet 50 mg PO BID 09/03/23 01/12/24 Unknown History Exam Exam Date and Time: 01/22/24 1145 Height,Weight and Vital Signs: Height 5 ft 11 in Weight 99.337 kg Last Vital Signs Pulse 59 01/12/24 13:24 Resp 18 01/12/24 13:24 BP 156/70 H 01/12/24 13:24 Pulse Ox 96 01/12/24 13:24 O2 Del Method Room Air 01/12/24 13:24 Vital Signs Pulse Rate 59 01/12/24 13:24 Respiratory Rate 18 01/12/24 13:24 Blood Pressure 156/70 H 01/12/24 13:24 Pulse Oximetry 96 01/12/24 13:24 Oxygen Delivery Method Room Air 01/12/24 13:24 Temperature 97.3 F 01/22/24 11:40 Pulse Rate 51 01/22/24 11:40 Respiratory Rate 16 01/22/24 11:40 Blood Pressure 145/57 H 01/22/24 11:40 Pulse Oximetry 98 01/22/24 11:40 Oxygen Delivery Method Room Air 01/22/24 11:40 Airway Mallampati Class: I TM Dist: >3cm Neck ROM: Full Loose/Missing/Broken Teeth: Yes (front lower capped, molars crowned) Heart: S1S2 Lungs: CTAB Assessment and Plan Assessment Anesthesia Assessment: Anesthesia Plan Discussed and Chart Reviewed Final Anesthetic Review Family History of Problems with Anesthesia: No History of Problems with Anesthesia: No NPO: Yes ASA Class: III Final Preanesthetic Review: No Changes in Pt Med Stat, Meds/Allgs Chart Reviewed, Consent Obtained/Reviewed and Anes Risks/Benef Reviewed Patient Risk: Intermediate Procedure Risk: Low Anesthetic Plan Anesthetic Plan: MAC: and Agree w/ Assess. and Plan Disposition: Standard PACU
--- NOTE | 2024-01-22 14:18 | W.PM.OPN ---
Operative Note Operative Note Date of Service: 01/22/24 Narrative: Preoperative diagnosis: [] 1. Recurrent left posterior neck lipoma 2. Symptomatic Right groin sebaceous cyst Postop diagnosis: [] The same Procedure [] 1. Wide local excision recurrent left posterior neck lipoma. Final specimen measured roughly 5 x 5 cm. 2. Right groin cyst measured 4 x 2 cm consistent with an epidermal inclusion cyst. Surgeon: [] Tacho Summer Sessions Director: [] Wesley Type of Anesthesia: [] MAC Indication for surgery: [] Masses/lesions as described above with sizes. Findings: [] Patient was brought to the operating room, placed on operative table supine position, after an adequate level of MAC anesthesia was induced, initially patient was placed in the right lateral decubitus position. Left posterior neck was prepped and draped in usual sterile fashion. A transverse incision made over the mass in question from the previous scar from prior excision in the past and this carried down through skin, subcutaneous tissue, were circumferentially dissection down to posterior neck muscle of a large multilobulated lipoma was uneventfully performed using Bovie. Specimen sent to pathology. Wound was irrigated, secured hemostasis, and closed using interrupted inverted dermal 3-0 Vicryl sutures followed by Steri-Strips and sterile dressings. Wound was infiltrated at the beginning at the end with 0.5% Marcaine/1% lidocaine. Next patient was placed supine in the right groin was prepped and draped in usual sterile fashion over the right sebaceous cyst area. A transverse by elliptical incision was made and carried down through skin, subcutaneous tissue, and undermined using Bovie and specimen sent to pathology. Wound was irrigated, secured hemostasis, and closed using interrupted inverted dermal 3-0 Vicryl sutures followed by Steri-Strips and sterile dressings. This wound was also infiltrated at the beginning at the end with 0.5% Marcaine/1% lidocaine. Sponge, needle, and instrument counts were reported correct. Patient tolerated the procedure well and emerged from anesthesia stable condition. EBL minimal
[2024-01-22 14:25] VITALS: BP 133/60; PULSE 50; RESP 12; TEMP 36.1; O2SAT 97
[2024-01-22 14:40] VITALS: BP 156/73; PULSE 50; RESP 16; O2SAT 96
== END 2024-01-22 15:17 | disposition home or self-care (01) ==
PROVIDERS: PCP Internal Medicine; Visit Provider Surgery
PROC: (CPT 21552; principal; 2024-01-22 13:50)
PROC: (CPT 21552; 2024-01-22 13:50)
DX: D17.0 Benign lipomatous neoplasm of skin and subcutaneous tissue of head, face and neck (principal); L72.0 Epidermal cyst; I10 Essential (primary) hypertension; E78.00 Pure hypercholesterolemia, unspecified; E03.9 Hypothyroidism, unspecified; I73.9 Peripheral vascular disease, unspecified; Z95.1 Presence of aortocoronary bypass graft; Z86.73 Personal history of transient ischemic attack (TIA), and cerebral infarction without residual deficits; Z88.8 Allergy status to other drugs, medicaments and biological substances; Z98.890 Other specified postprocedural states
CPT/HCPCS: 21552; 11404; 88304; J0690; J2704; J2795; J3010

== ENCOUNTER → 2024-01-22 10:11 | Outpatient (BNV) | payer MEDICARE, SELFPAY | PROVIDERS: PCP Internal Medicine; Visit Provider Surgery | DX: D17.0 Benign lipomatous neoplasm of skin and subcutaneous tissue of head, face and neck (principal); L72.0 Epidermal cyst | CPT/HCPCS: 11406; 21554 ==

== ENCOUNTER 2024-02-02 12:53 | Outpatient (AMB) | payer MEDICARE, SELFPAY ==
--- NOTE | 2024-02-02 13:11 | MHC.OFFVIS ---
Intake Visit Reasons: S/P WLE recurrent Lt posterior neck mass Intake Note: Patient here s/p WLE lipoma on Lt post neck and cyst on Rt groin. Reports incisions healing well. Patient c/o: has not changed dressing on Rt groin. Denies pain, tenderness. Psychological Operations Officer Required: No Accompanied by: Self / Same As Patient Allergies lisinopril Adverse Reaction (Intermediate, Verified 02/02/24 13:14) cough rosuvastatin Adverse Reaction (Intermediate, Verified 02/02/24 13:14) myalgia simvastatin Adverse Reaction (Intermediate, Verified 02/02/24 13:14) myalgia HPI Comments Details: Patient presents for follow-up. He has no wound issues or complaints. Both pathologies are benign. [facility] Medical History (Updated 01/22/24 @ 11:32 by Chelita Mehta RN) Hard of hearing Arthritis Anemia History of kidney stones Hx of orthostatic hypotension Hx of fracture Weakness Difficulty swallowing Cough Habitual snoring SOB (shortness of breath) Preop exam for internal medicine Leg weakness Right wrist pain Carpal tunnel syndrome of right wrist Lumbar spinal stenosis Left acetabular fracture Peripheral arterial disease Hypercholesterolemia History of CVA (cerebrovascular accident) BPH (benign prostatic hyperplasia) Hypothyroid Hypertension Surgical History (Updated 02/02/24 @ 13:39 by Ricky Titus MD) Hx of carpal tunnel repair Hx of shoulder surgery H/O colonoscopy Hx of aortic aneurysm repair History of cataract surgery S/P CABG x 1 History of prostate surgery History of thyroidectomy Hx of cholecystectomy Family History Father Medical history unknown Mother Medical history unknown Social History Household Members: Spouse Housing: House Are you a primary manager urgent care to a significant other at home: No Do you presently have visiting nurse or other home services: No Alcohol intake: current Alcohol intake frequency: a few times a month Alcohol type: wine Patient Tobacco Use Status: Never used Tobacco e-Cigarette/Vaping Use: Never Used Second Hand Smoke Exposure: No Advance Directives Date on File: 01/20/23 service: No Current occupational status: retired Current occupation: left hand Cognitive needs: No Hearing needs: Yes Vision needs: Yes Physical Exam Neck Other: Posterior neck incision clean dry and intact healing very well Other: Groin incision clean dry and intact healing very well Assessment & Plan Assessment & Plan (1) Postop check: Code(s): Z09 - Encounter for follow-up examination after completed treatment for conditions other than malignant neoplasm Category: Surgical (2) Lipoma: Comment: posterior neck area Code(s): D17.9 - Benign lipomatous neoplasm, unspecified Category: Surgical (3) Sebaceous cyst: Comment: R groin Code(s): L72.3 - Sebaceous cyst Category: Surgical Plan Patient was been given local instructions, and otherwise follow-up p.r.n.. All questions answered. Coding Level of Care Code Global (93170) Diagnoses Postop check Z09 Lipoma D17.9 Sebaceous cyst L72.3
== END 2024-02-02 13:30 | disposition home or self-care (01) ==
PROVIDERS: PCP Internal Medicine; Visit Provider Surgery
DX: Z09 Encounter for follow-up examination after completed treatment for conditions other than malignant neoplasm (principal); D17.9 Benign lipomatous neoplasm, unspecified; L72.3 Sebaceous cyst
CPT/HCPCS: 99024

== ENCOUNTER → 2024-02-02 12:53 | Outpatient (BNVA) | payer MEDICARE, SELFPAY | PROVIDERS: PCP Internal Medicine; Visit Provider Surgery | DX: Z09 Encounter for follow-up examination after completed treatment for conditions other than malignant neoplasm (principal); D17.0 Benign lipomatous neoplasm of skin and subcutaneous tissue of head, face and neck; L72.3 Sebaceous cyst | CPT/HCPCS: 99212 ==

== ENCOUNTER 2024-03-17 10:56 | Outpatient (AMB) | payer MEDICARE, SELFPAY ==
[2024-03-17 11:12] VITALS: BP 130/68; PULSE 58; O2SAT 98; BMI 30.4
--- NOTE | 2024-03-17 11:12 | A.OFFPC_ITS ---
Vital Signs 03/17/24 11:12 Height 5 ft 11 in Weight 218 lb BMI 30.4 BP 130/68 Blood Pressure Location Lt brachial Position Sitting Pulse 58 Pulse Source Pulse Oximeter Pulse Oximetry (%) 98 Oxygen Delivery Method Room Air Intake Visit Reasons: renal calculi, HTN Allergies lisinopril Adverse Reaction (Intermediate, Verified 03/17/24 11:13) cough rosuvastatin Adverse Reaction (Intermediate, Verified 03/17/24 11:13) myalgia simvastatin Adverse Reaction (Intermediate, Verified 03/17/24 11:13) myalgia Tobacco use date assessed: 09/26/23 Fall risk assessment: No Falls in past year Last assessed Fall Risk: 03/17/24 Dental Screening Dental Screen Date: 09/15/23 HPI renal calculi, HTN HPI Details 83 year old obese male with CAD, Aortid dilatation, hypercholesterolemia, thyroid, hypertension nephrolithiasis coming in for follow-up. The patient was last seen in 11/15/2023. Review of the notes had left posterior neck mass status post excision lipoma and noted cyst on the right groin incision done change dressing sebaceous cyst local wound care. Patient has also seen urology December 23 stone intervention left renal stone 6 mm advised to have an ultrasound done. With ultrasound in November showing 6 mm left lower pole calculus no hydronephrosis. R knee pain, R hearing getting worse PFSH Medical History (Updated 01/22/24 @ 11:32 by Chelita Mehta RN) Hard of hearing Arthritis Anemia History of kidney stones Hx of orthostatic hypotension Hx of fracture Weakness Difficulty swallowing Cough Habitual snoring SOB (shortness of breath) Preop exam for internal medicine Leg weakness Right wrist pain Carpal tunnel syndrome of right wrist Lumbar spinal stenosis Left acetabular fracture Peripheral arterial disease Hypercholesterolemia History of CVA (cerebrovascular accident) BPH (benign prostatic hyperplasia) Hypothyroid Hypertension Surgical History (Updated 02/02/24 @ 13:39 by Ricky Titus MD) Hx of carpal tunnel repair Hx of shoulder surgery H/O colonoscopy Hx of aortic aneurysm repair History of cataract surgery S/P CABG x 1 History of prostate surgery History of thyroidectomy Hx of cholecystectomy Family History Father Medical history unknown Mother Medical history unknown Social History (Reviewed 11/25/23 @ 11:20 JANEEN Bazan Household Members: Spouse Housing: House Are you a primary school child care attendant to a significant other at home: No Do you presently have visiting nurse or other home services: No Alcohol intake: current Alcohol intake frequency: a few times a month Alcohol type: wine Patient Tobacco Use Status: Never used Tobacco Tobacco use type: Cigarette e-Cigarette/Vaping Use: Never Used Second Hand Smoke Exposure: No Advance Directives Date on File: 01/20/23 service: No Current occupational status: retired Current occupation: left hand Cognitive needs: No Hearing needs: Yes Vision needs: Yes Questionnaire PHQ-9 Over the last 2 weeks, how often have you been bothered by any of the following problems? 1. Little interest or pleasure in doing things: not at all 2. Feeling down, depressed, or hopeless: not at all 3. Trouble falling or staying asleep, or sleeping too much: not at all 4. Feeling tired or having little energy: not at all 5. Poor appetite or overeating: not at all 6. Feeling bad about yourself - or that you are a failure or have let yourself or your family down: not at all 7. Trouble concentrating on things, such as reading the newspaper or watching television: not at all 8. Moving or speaking so slowly that other people could have noticed. Or the opposite - being so fidgety or restless that you have been moving around a lot more than usual: not at all 9. Thoughts that you would be better off or of hurting yourself in some way: not at all Total score: 0 Depression Screening Interpretation: Negative Depression Screening Done: Yes Source: Developed by Drs. Bharathi Yi, Evelin Burns, Juan Hood and colleagues, with an educational colby from [employer]. Thrive Questionnaire Date Thrive assessed: 09/03/23 AUDIT C Alcohol Use Questionnaire (AUDIT-C) 1. How often do you have a drink containing alcohol?: 2-3 times a week 2. How many drinks containing alcohol do you have on a typical day when you are drinking?: 1 or 2 3. How often do you have six or more drinks on one occasion?: Never Total Score: 3 Score Reviewed/Action Taken: No MIKE-7 AMB Questionnaire MIKE-7 Date MIKE - 7 assessed: 05/01/23 Source: Developed by Drs. Bharathi Yi, Evelin Burns, Juan Hood and colleagues, with an educational colby from [employer]. Physical exam (Primary Care) Vital Signs: Last Vital Signs Pulse 58 03/17/24 11:12 BP 130/68 03/17/24 11:12 Pulse Ox 98 03/17/24 11:12 Oxygen Delivery Method Room Air 03/17/24 11:12 BMI result Body Mass Index 30.4 Tobacco/Smoking Status: Tobacco use Status Tobacco use date assessed 09/26/23 03/17/24 11:14 Patient Tobacco Use Status Never used Tobacco 03/17/24 11:14 Tobacco use type Cigarette 03/17/24 11:14 e-Cigarette/Vaping Use Never Used 03/17/24 11:14 PHQ-9: PHQ-9 Score PHQ-9: Total score 0 03/17/24 11:31 Depression Screening Interpretation: Negative Thrive Assessment: Date of Thrive Assessment Date Thrive assessed 09/03/23 03/17/24 11:14 Const General: alert; No acute distress HENMT Other: impacted cerumen Eyes Conjunctivae: conjunctivae normal Resp Auscultation: clear to auscultation bilaterally Cardio Rate: regular rate Rhythm: regular rhythm GI Inspection: Yes normal to inspection Extrem General: Yes normal to inspection and No edema Office Procedures Cerumen Removal From which ear canal was the cerumen removed: bilateral Removal: otoscope w/curette and cerumen loop/spoon Notes: patient tolerated procedure well, no complications and ear canal clear [id number] Wax Removal by Spoon/Curette Coding Level of Care Code Est Pt Level 4 (58146) Diagnoses Left renal stone N20.0 Coronary artery disease involving king salmon coronary artery of king salmon heart without angina pectoris I25.10 Coronary Disease-Associated Artery/Lesion type: king salmon artery [place] vs. transplanted heart: king salmon heart Associated angina: without angina Hypercholesterolemia E78.00 History of CVA (cerebrovascular accident) Z86.73 Acquired hypothyroidism E03.9 Hypothyroidism type: acquired Essential hypertension I10 Hypertension type: essential hypertension Impacted cerumen of both ears H61.23 CPT Codes Office Procedure - CPT: 77766-Xey Wax Removal by Spoon/Curette ([id number]) Assessment & Plan Assessment & Plan (1) Left renal stone: Comment: June 2023 Code(s): N20.0 - Calculus of kidney Category: Medical Plan: Keep well hydrated. Patient is being followed up by Urology. December (2) Coronary artery disease: Comment: 10/10/2020 coronary artery bypass graft x1 Code(s): I25.10 - Atherosclerotic heart disease of king salmon coronary artery without angina pectoris Category: Medical Qualifiers: Coronary Disease-Associated Artery/Lesion type: king salmon artery [place] vs. transplanted heart: king salmon heart Associated angina: without angina Qualified Code(s): I25.10 - Atherosclerotic heart disease of king salmon coronary artery without angina pectoris Plan: Control the cholesterol, weight, blood pressure, on aspirin 81 mg once a day (3) Hypercholesterolemia: Comment: Avoid fried foods, chicken skin, eggs, butter margarine, pastries and meat. Be it pork or beef they have a lot of cholesterol LDL goal of less than 70 Code(s): E78.00 - Pure hypercholesterolemia, unspecified Category: Medical Plan: Avoid fried foods, chicken skin, eggs, butter margarine, pastries and meat. Be it pork or beef they have a lot of cholesterol on Zetia and declined statins due to myalgia (4) History of CVA (cerebrovascular accident): Comment: August 2005 difficulty swallowing Code(s): Z86.73 - Personal history of transient ischemic attack (TIA), and cerebral infarction without residual deficits Category: Medical Plan: Control the cholesterol, weight, blood pressure, continue with aspirin (5) Hypothyroid: Comment: Continue with present medication Code(s): E03.9 - Hypothyroidism, unspecified Category: Medical Qualifiers: Hypothyroidism type: acquired Qualified Code(s): E03.9 - Hypothyroidism, unspecified Plan: Continue with thyroid medication (6) Hypertension: Code(s): I10 - Essential (primary) hypertension Category: Medical Qualifiers: Hypertension type: essential hypertension Qualified Code(s): I10 - Essential (primary) hypertension Plan: Continue with blood pressure medication. Decrease salt intake and exercise on losartan 50 mg twice a day metoprolol 100 mg once a day. (7) Impacted cerumen of both ears: Code(s): H61.23 - Impacted cerumen, bilateral Category: Medical Plan: scoop used and no irrigation TM intact Orders: Orders Complete Blood Count Auto Diff Today E78.00 - Pure hypercholesterolemia, unspecified Comprehensive Met. Panel Today E78.00 - Pure hypercholesterolemia, unspecified Free T4 (Free Thyroxine) Today E78.00 - Pure hypercholesterolemia, unspecified Thyroid Stimulating Hormone Today E78.00 - Pure hypercholesterolemia, unspe cified Lipid Panel Today E78.00 - Pure hypercholesterolemia, unspecified Vitamin B12 and Folate Today E78.00 - Pure hypercholesterolemia, unspecified
== END 2024-03-17 12:03 | disposition home or self-care (01) ==
PROVIDERS: PCP Internal Medicine; Visit Provider Internal Medicine
DX: N20.0 Calculus of kidney (principal); I25.10 Atherosclerotic heart disease of native coronary artery without angina pectoris; E78.00 Pure hypercholesterolemia, unspecified; Z86.73 Personal history of transient ischemic attack (TIA), and cerebral infarction without residual deficits; E03.9 Hypothyroidism, unspecified; I10 Essential (primary) hypertension; H61.23 Impacted cerumen, bilateral

== ENCOUNTER → 2024-03-17 10:56 | Outpatient (BNVA) | payer MEDICARE, SELFPAY | PROVIDERS: PCP Internal Medicine; Visit Provider Internal Medicine | DX: N20.0 Calculus of kidney (principal); H61.23 Impacted cerumen, bilateral; I25.10 Atherosclerotic heart disease of native coronary artery without angina pectoris; I10 Essential (primary) hypertension; E78.00 Pure hypercholesterolemia, unspecified; E03.9 Hypothyroidism, unspecified; Z86.73 Personal history of transient ischemic attack (TIA), and cerebral infarction without residual deficits | CPT/HCPCS: 69210; 96127; 99212 ==

== ENCOUNTER 2024-03-30 10:23 | Outpatient (REF) | payer MEDICARE, SELFPAY | END 2024-03-30 10:24 | disposition home or self-care (01) | LOC: HO.MRI 10:23 | PROVIDERS: PCP Internal Medicine; Visit Provider Internal Medicine | DX: R29.898 Other symptoms and signs involving the musculoskeletal system (principal) | CPT/HCPCS: 72148 ==

== ENCOUNTER 2024-04-13 10:22 | Inpatient (IN) | payer MEDICARE, SELFPAY ==
--- NOTE | ~2024-04-13 | CT_ITS ---
EXAMINATION: CT head for STROKE CLINICAL INFORMATION: Right-sided numbness COMPARISON: None. TECHNIQUE: Contiguous axial imaging was performed from the skull base to vertex without intravenous contrast. This CT examination was performed using dose optimization techniques as appropriate, variously including the following: * Automated exposure control * Adjustment of mA and/or kV according to patient size (this includes techniques or standardized protocols for targeted exams where dose is matched to indication/reason for exam; i.e. extremities or head) * Use of iterative reconstruction technique DLP: 660 mGy-cm. FINDINGS: There is no evidence of acute intracranial hemorrhage or territorial infarction. Hernandez to white matter differentiation is well preserved. No abnormal mass effect or midline shift is seen. No extra-axial fluid collections are identified. No hydrocephalus. Proportional prominence of the ventricles and sulcal spaces is consistent with mild volume loss. Patchy periventricular and deep white matter hypoattenuation is consistent with moderate to severe small vessel ischemic changes. The cerebellar tonsils are well positioned. No acute osseous or soft tissue abnormality. Bilateral lens extraction. The mastoid air cells and visualized portions of the paranasal sinuses are well aerated. CT/CT head for STROKE IMPRESSION: No acute intracranial hemorrhage or edematous territorial infarction. These results were discussed with Ángel Johnson MD MD by telephone on 04/13/2024 at 10:55 AM and it was ascertained that the content of the report was understood at the time of direct communication. Electronically signed by: Treva Franklin DO 04/13/2024 10:59 AM [place]
--- NOTE | ~2024-04-13 | MR_ITS ---
EXAMINATION: MR BRAIN WITHOUT CONTRAST CLINICAL INFORMATION: Right face, tongue, arm numbness, rule out stroke COMPARISON: None available. TECHNIQUE: MRI of the brain was obtained using routine sequences without contrast. FINDINGS: Subtle focus of acute infarct involving the left thalamus. No acute intracranial hemorrhage. Scattered and confluent periventricular and deep white matter T2/FLAIR hyperintensities, nonspecific however commonly seen with small vessel ischemic disease. Diffuse prominence of the sulci with associated ex vacuo dilation of the ventricles compatible with global cerebral atrophy. No midline shift or hydrocephalus. No acute extra-axial fluid collections. The osseous structures are unremarkable. The pituitary gland, pineal gland and remaining midline structures are unremarkable. Sequelae of bilateral lens replacement. Otherwise, no acute orbital pathology. Mucous retention cysts in the bilateral maxillary sinuses. Small left greater than right mastoid effusions. MR/MR head/brain wo con IMPRESSION: 1. Small acute left thalamic infarct. 2. Global cerebral atrophy and chronic microangiopathy. Electronically signed by: Molly Frye MD 04/13/2024 04:37 PM [facility]
--- NOTE | ~2024-04-13 | CT_ITS ---
EXAMINATION: CT angio head neck STROKE CLINICAL INFORMATION: Right-sided numbness COMPARISON: CT head same day TECHNIQUE: Test bolus sequences followed by intravenous administration of 70 mL of Omnipaque 350. Helical imaging was performed in the axial plane from the mediastinum to the skull vertex. Delayed postcontrast imaging of the head was also performed. The data was processed at the lab animal technologist's workstation for generation of MIP sequences. Three-dimensional volume rendered reformatted images were also generated at an offline 3-D workstation. Arterial stenoses are measured in accordance with NASCET criteria or similar method if applicable. This CT examination was performed using dose optimization techniques as appropriate, variously including the following: * Automated exposure control * Adjustment of mA and/or kV according to patient size (this includes techniques or standardized protocols for targeted exams where dose is matched to indication/reason for exam; i.e. extremities or head) Use of iterative reconstruction technique DLP: 1570 mGy-cm. FINDINGS: CT head: There is no evidence of acute intracranial hemorrhage or territorial infarction. There is no loss of hoang to white matter differentiation. No abnormal mass effect or midline shift is seen. No extra-axial fluid collections are identified. There is no abnormal enhancement. No hydrocephalus. Proportional prominence of the ventricles and sulcal spaces is consistent with mild volume loss. Confluent periventricular and deep white matter hypoattenuation is consistent with severe small vessel ischemic changes. The cerebellar tonsils are well positioned. No acute osseous or soft tissue abnormality. The mastoid air cells and visualized portions of the paranasal sinuses are well aerated. CTA neck: Two-vessel arch with shared origin of the brachiocephalic and left common carotid artery. The origins of the great vessels are normal. Stable right common carotid artery is extremely tortuous in course. Bilateral common carotid arteries are opacified normally. Mild peripheral calcifications of the bilateral carotid bifurcations are nonhemodynamically significant. Bilateral internal carotid arteries are tortuous in course with retropharyngeal courses, though both opacify normally. Mild stenosis of the origin of the right subclavian artery, which is also extremely tortuous in course. The vertebral arteries opacify normally and are of normal caliber. Nonvascular: Status post left thyroidectomy. The soft tissues of the neck are unremarkable. The imaged portions of the lungs are clear. There is reversal of the normal cervical lordosis at C3-C4 with mild anterolisthesis of C2 on C3 and mild retrolisthesis of C4 on C5. Moderate to severe multilevel cervical spondylosis. Intact sternotomy wires partially visualized. CTA head: Cavernous ICAs: Scattered atherosclerotic calcifications without significant stenosis on either side. A1 segments, anterior communicating artery, and A2 segments: Right A1 segment is hypoplastic. Otherwise patent without significant stenosis. M1 segments and major MCA branches: Bilateral M1 segments are patent without significant stenosis. P1, P2 and proximal P3 segments of the manager of internal: Patent without significant stenosis. Intracranial vertebral arteries, cerebellar arteries and basilar artery: Patent without significant stenosis. CT/CT angio head neck STROKE IMPRESSION: Head CT: 1. No acute intracranial hemorrhage or edematous infarction. 2. Severe ischemic microangiopathy and mild generalized volume loss. CTA Head/Neck: No high-grade stenosis or proximal occlusion of the vasculature of the head and neck. Electronically signed by: Treva Franklin DO 04/13/2024 11:50 AM [facility]
[2024-04-13 10:23] VITALS: BP 166/74; PULSE 63; RESP 16; TEMP 2.2; TEMP 36; O2SAT 95; BMI 23.9
--- NOTE | 2024-04-13 10:33 | ECG_ITS ---
Test Reason : stroke protocol Blood Pressure : / mmHG Vent. Rate : 048 BPM Atrial Rate : 048 BPM P-R Int : 202 ms QRS Dur : 090 ms QT Int : 470 ms P-R-T Axes : 040 -01 011 degrees QTc Int : 419 ms Sinus bradycardia Minimal voltage criteria for LVH, may be normal variant ( R in aVL ) Nonspecific ST abnormality Abnormal ECG When compared with ECG of 05-SEP-2023 08:31, No significant change was found Referred By: Ángel Johnson Electronically Signed By:SHEILA WOOD
--- NOTE | 2024-04-13 10:33 | ED.NEUROSD ---
HPI - Neuro Symptoms/Deficit General Chief Complaint: Stroke Stated Complaint: sts having a stroke Time Seen by Provider: 04/13/24 10:32 Source: patient Mode of arrival: ambulatory Limitations: no limitations History of Present Illness ED Provider: Dr. Ángel Johnson HPI Narrative: 83-year-old male with pertinent history of CVA, BPH, hypertension, hypothyroidism, chronic kidney disease, coronary artery disease status post LAD stent, thoracic aortic aneurysm status post repair, high cholesterol, spinal stenosis with bilateral lower extremity weakness who presents to the emergency department for evaluation of right-sided numbness. Patient states that he woke up this morning at 05:00 hours and had numbness in his right hand. He thought that he was just slept on his arm wrong . His symptoms persisted and progress and he developed right arm, right face and tongue numbness. These symptoms got worse at around 08:00 hours. Patient was concerned that he may be having a stroke so he came to the emergency department for evaluation. His is here in the emergency department and she states that he had no difficulty finding words and that his speech pattern is unchanged from his baseline. Patient was evaluated immediately after triage and made a stroke alert. 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 Related Data Home Medications ?Medication ?Instructions ?Recorded ?Confirmed aspirin 81 mg tablet,delayed 81 mg PO DAILY 08/06/21 04/13/24 release (Adult Aspirin Regimen) docusate sodium 100 mg capsule 100 mg PO BID 08/15/21 04/13/24 (Colace) cholecalciferol (vitamin D3) 50 50 mcg PO SUSA 07/18/23 04/13/24 mcg (2,000 unit) tablet omega-3 fatty acids-fish oil 360 1 cap PO BID 07/18/23 04/13/24 mg-1,200 mg capsule (Fish Oil) losartan 50 mg tablet 50 mg PO BID 09/03/23 04/13/24 vitamin A-vitamin C-vit E-min 2 tab PO DAILY 04/13/24 04/13/24 tablet Previous Rx's ?Medication ?Instructions ?Recorded tamsulosin 0.4 mg capsule (Flomax) 0.4 mg PO BEDTIME #90 caps 09/05/23 metoprolol succinate 100 mg 100 mg PO BEDTIME #90 tabs 10/20/23 tablet,extended release 24 hr ezetimibe 10 mg tablet (Zetia) 10 mg PO BEDTIME #90 tabs 01/10/24 ibuprofen 800 mg tablet 800 mg PO Q8H PRN pain #20 tabs 01/22/24 finasteride 5 mg tablet 5 mg PO DAILY 90 days #90 tabs 03/24/24 levothyroxine 100 mcg tablet 100 mcg PO DAILY@0600 #90 tabs 04/12/24 Allergies Allergy/AdvReac Type Severity Reaction Status Date / Time lisinopril AdvReac Intermediate cough Verified 04/13/24 10:33 rosuvastatin AdvReac Intermediate myalgia Verified 04/13/24 10:33 simvastatin AdvReac Intermediate myalgia Verified 04/13/24 10:33 Review of Systems Review of Systems: Yes all other systems are reviewed and are negative [facility] Past Medical History Attestation statement: The following information was validated with the patient. Medical History (Updated 04/13/24 @ 12:50 by Ángel Johnson MD) Hard of hearing Arthritis Anemia History of kidney stones Hx of orthostatic hypotension Hx of fracture Weakness Difficulty swallowing Cough Habitual snoring SOB (shortness of breath) Preop exam for internal medicine Leg weakness Right wrist pain Carpal tunnel syndrome of right wrist Lumbar spinal stenosis Left acetabular fracture Peripheral arterial disease Hypercholesterolemia History of CVA (cerebrovascular accident) BPH (benign prostatic hyperplasia) Hypothyroid Hypertension Surgical History (Updated 02/02/24 @ 13:39 by Ricky Titus MD) Hx of carpal tunnel repair Hx of shoulder surgery H/O colonoscopy Hx of aortic aneurysm repair History of cataract surgery S/P CABG x 1 History of prostate surgery History of thyroidectomy Hx of cholecystectomy Family History Family History Father Medical history unknown Mother Medical history unknown Social History Social History Household Members: Spouse Housing: House Are you a primary memory care program director to a significant other at home: No Do you presently have visiting nurse or other home services: No Alcohol intake: current Alcohol intake frequency: holidays/special occasions only Alcohol type: beer and wine Patient Tobacco Use Status: Never used Tobacco Tobacco use type: Cigarette Smoked in Last 30 Days: No e-Cigarette/Vaping Use: Never Used Second Hand Smoke Exposure: No Use of substances other than those prescribed or required for medical reasons: No Advance Directives: Yes Advance Directives on File: Yes Advance Directives Date on File: 01/20/23 Do you have a plan to hurt others: No Plan service: No Current occupational status: retired Current occupation: left hand Cognitive needs: No Hearing needs: Yes Vision needs: Yes Physical Exam Vital Signs: Vital Signs: Last Vital Signs Temp 97.9 F 04/13/24 11:09 Pulse 54 04/13/24 11:09 Resp 18 04/13/24 11:09 BP 169/65 H 04/13/24 11:09 Pulse Ox 94 04/13/24 11:09 O2 Del Method Room Air 04/13/24 11:09 BMI result Body Mass Index 23.9 Vital signs revealed low heart rate of 54, elevated blood pressure of 169/65 Exam: General: Awake, alert in no distress. Head: Normocephalic, atraumatic EENT: PERRL, Lids normal, sclera normal, conjunctiva normal, nose normal , ears normal, throat without erythema or exudates Neck: Supple, no adenopathy Lung: breath sounds symmetric, no wheezing, rales or rhonchi Chest: symmetric movement, nontender Heart: regular rate and rhythm, normal S1, S2 no murmurs or rubs Abdomen: soft, non-tender, nondistended, normal bowel sounds Back: no vertebral tenderness, no CVAT Extremities: no deformities, moves all extremities symmetrically Neuro: Awake, alert, oriented, speech is slow but comprehensible- states that this is baseline speech pattern, cranial nerves intact, moves all extremities symmetrically, good [id number]-to-finger, normal rapid finger movement, normal heel to chopra Psych: Pleasant, cooperative Medications Administered Discontinued Medications Generic Name Dose Route Start Last Admin Trade Name Freq PRN Reason Stop Dose Admin Aspirin 81 mg 04/13/24 11:38 04/13/24 11:49 Aspirin 81 Mg Tab.Chew PO 04/13/24 11:39 81 mg ONCE ONE Administration Iohexol 70 ml 04/13/24 10:49 04/13/24 10:50 Iohexol 350 Mg/Ml 75 Ml Infus..Btl IV 04/13/24 10:50 70 ml ONCE ONE Administration Medical Decision Making Medical Decision Making [facility] Narrative: 83-year-old male with pertinent history of CVA, BPH, hypertension, hypothyroidism, chronic kidney disease, coronary artery disease status post LAD stent, thoracic aortic aneurysm status post repair, high cholesterol, spinal stenosis with bilateral lower extremity weakness who presents to the emergency department for evaluation of right-sided numbness with symptoms initially starting at 05:00 hours in his right hand then progressing to involve his right arm, right face and tongue. Patient's physical examination was unremarkable in his NIH stroke scale was 0 but he does have persistent numbness Differential diagnosis: ?Includes but is not limited to TIA, stroke, electrolyte abnormalities, anemia Course: 10:15 CT scan of the brain revealed no acute stroke or bleed. The radiologist did note ?Patchy periventricular and deep white matter hypoattenuation is consistent with moderate to severe small vessel ischemic changes ?. Patient was neurologic exam was unremarkable with a an NIH stroke scale of 0. Laboratory evaluation was also unremarkable. Patient was NIH stroke scale was 0 and the patient presented outside of the TNK therapeutic window therefore TNK was not given. 12:45 CT scan of the head and neck did not reveal any high-grade stenosis or retrievable clot. I did discuss this with the patient and his . This time I am concerned that the patient may have had a small stroke versus TIA and I did order an MRI of the brain. I also discuss the patient's presentation over tiger text with the covering hospitalist, nurse practitioner Ashely Edward. Lab Data MDM Lab Attestation statement: I reviewed the patient's lab results. My interpretation patient's laboratory evaluation as follows: CBC was normal. INR was normal at 1.1 BUN was elevated at 22 with normal creatinine of 1.19. LDH was elevated at 113. HDL was low at 34. 04/13/24 10:35 04/13/24 10:35 Labs: Lab Results 04/13/24 04/13/24 Range/Units 10:35 10:37 WBC 7.3 (4.8-10.8) X10*3/uL RBC 5.15 (4.60-5.80) X10*6/uL Hgb 15.5 D (14.0-18.0) g/dl Hct 46.0 (42.0-52.0) % MCV 89.3 (80.0-98.0) fL MCH 30.1 (27.0-33.0) pg MCHC 33.7 (31.0-36.0) g/dl RDW 13.1 (11.0-16.0) % Plt Count 211 (160-400) X10*3/uL MPV 10.0 (9.4-12.4) fL Immature Gran % (Auto) 0.1 (0.0-0.4) % Neut % (Auto) 72.5 (45-73) % Lymph % (Auto) 13.2 L (20-40) % [place] % (Auto) 9.8 (2-11) % Eos % (Auto) 4.4 H (0-4) % Baso % (Auto) 0.0 (0-2) % Lymph # (Auto) 1.0 L (1.2-4.9) X10*3/uL [place] # (Auto) 0.7 (0.1-1.2) X10*3/uL Eos # (Auto) 0.3 (0.0-0.4) X10*3/uL Baso # (Auto) 0.0 (0.0-0.2) X10*3/uL Abs Immat Gran (auto) 0.01 (0.00-0.03) X10*3/uL Absolute Neuts (auto) 5.3 (2.0-8.3) x10*3/uL Absolute Nucleated RBC 0.000 (0.0-0.012) X10*3/uL Nucleated RBC % (auto) 0.0 (0.0-0.2) /100WBC Hold Purple Top SEE NOTE PT 12.1 (10.9-12.4) SEC Whole Blood PT 13.5 (11.1-13.5) sec INR 1.0 (0.9-1.1) Whole Blood INR 1.1 (0.9-1.1) APTT 33.6 (26.0-36.8) SEC Sodium 142 (135-145) mmol/L Potassium 4.4 (3.3-5.1) mmol/L Chloride 106 (96-108) mmol/L Carbon Dioxide 29 (22-29) mmol/L Anion Gap 11 L (12-20) BUN 22 H (9-16) mg/dL Creatinine 1.19 (0.5-1.4) mg/dL Estim Creat Clear Calc 48.3 Estimated GFR 58 POC Glucose 85 (60-115) mg/dL Random Glucose 111 (60-115) mg/dL Calcium 8.8 (8.4-10.2) mg/dL Troponin I High Sens 8.6 (<3.5-35.0) ng/L Triglycerides 112 (<150) mg/dL Cholesterol 169 (<200) mg/dL LDL Cholesterol, Calc 113 H (<100) mg/dL HDL Cholesterol 34 L (>40) mg/dL Radiology Impression Discussion of test interpretation with radiology: I have reviewed the radiologist's reading. Radiologist Impression: EXAMINATION: CT head for STROKE CLINICAL INFORMATION: Right-sided numbness COMPARISON: None. FINDINGS: There is no evidence of acute intracranial hemorrhage or territorial infarction. Hernandez to white matter differentiation is well preserved. No abnormal mass effect or midline shift is seen. No extra-axial fluid collections are identified. No hydrocephalus. Proportional prominence of the ventricles and sulcal spaces is consistent with mild volume loss. Patchy periventricular and deep white matter hypoattenuation is consistent with moderate to severe small vessel ischemic changes. The cerebellar tonsils are well positioned. No acute osseous or soft tissue abnormality. Bilateral lens extraction. The mastoid air cells and visualized portions of the paranasal sinuses are well aerated. IMPRESSION: No acute intracranial hemorrhage or edematous territorial infarction. These results were discussed with Ángel Johnson MD MD by telephone on 04/13/2024 at 10:55 AM and it was ascertained that the content of the report was understood at the time of direct communication. Electronically signed by: Treva Franklin DO 04/13/2024 10:[address] angio head neck STROKE IMPRESSION: Head CT: 1. No acute intracranial hemorrhage or edematous infarction. 2. Severe ischemic microangiopathy and mild generalized volume loss. CTA Head/Neck: No high-grade stenosis or proximal occlusion of the vasculature of the head and neck. Electronically signed by: Treva Franklin DO 04/13/2024 11:50 AM EST NIH Stroke Scale Internal: Initial- Upon Arrival Level of Consciousness: Alert Level of Consciousness Questions: Answers both questions correctly Level of Consciousness Commands: Performs both tasks correctly Best Gaze: Normal Visual: No visual loss Facial Palsy: Normal Motor Arm (Right): No drift Motor Arm (Left): No drift Motor Leg (Right): No drift Motor Leg (Left): No drift Limb Ataxia: Absent Sensory: Normal Best Language: No aphasia Dysarthia: Normal Extinction and Inattention: No abnormality Score: 0 Critical Care Time Critical Care Time Critical Care Time: Yes Total Critical Care Time: 35 Attestation: Critical Care: The patient was critically ill with a high probability of imminent or life threatening deterioration. I spent greater than 30 minutes of discontinuous time evaluating the patient,delivering critical care at the bedside, discussing and evaluating pertinent data with consultants. Critical care time does not include time spent performing separately billable procedures or teaching. Total time spent performing critical care was 35 minutes. Discharge Plan Discharge Clinical Impression: Numbness on right side
[2024-04-13 10:41] LABS: MANUAL DIFF FLAG NO
[2024-04-13 10:43] LABS: Eosinophils Absolute Auto 0.3 X10*3/uL (0.0-0.4); Eosinophils Percent Auto 4.4 % (0-4); Hemoglobin 15.5 g/dl (14.0-18.0); Imm Gran Abs Auto 0.01 X10*3/uL (0.00-0.03); Imm Gran Pct Auto 0.1 % (0.0-0.4); Lymphocytes Percent Auto 13.2 % (20-40); Mean Corpuscular HGB Conc 33.7 g/dl (31.0-36.0); Mean Corpuscular Hemoglobin 30.1 pg (27.0-33.0); Mean Corpuscular Volume 89.3 fL (80.0-98.0); Monocytes Absolute Auto 0.7 X10*3/uL (0.1-1.2); Monocytes Percent Auto 9.8 % (2-11); Neutrophils Absolute Auto 5.3 x10*3/uL (2.0-8.3); Neutrophils Percent Auto 72.5 % (45-73); Platelet Count 211 X10*3/uL (160-400); Red Blood Count 5.15 X10*6/uL (4.60-5.80); Red Cell Distribution Width 13.1 % (11.0-16.0); White Blood Count 7.3 X10*3/uL (4.8-10.8)
[2024-04-13 10:50] LABS: Prothrombin Time 12.1 SEC (10.9-12.4)
[2024-04-13] MEDS: iohexoL 350 MG/ML 75 ML INFUS..BTL 70 ML IV (10:50)
[2024-04-13 10:52] LABS: Partial Thromboplastin Time 33.6 SEC (26.0-36.8)
[2024-04-13 10:53] LABS: Prothrombin Time Whole Bld POC 13.5 sec (11.1-13.5); ~PT, ~INR - Anti Coag Clinic 1.1 (0.9-1.1)
[2024-04-13 10:54] LABS: Stroke Lab Use COMPLETE
[2024-04-13 10:55] LABS: Glucose, Whole Blood 85 mg/dL (60-115)
[2024-04-13 10:59] LABS: Anion Gap 11 (12-20); Blood Urea Nitrogen 22 mg/dL (9-16); Calcium 8.8 mg/dL (8.4-10.2); Carbon Dioxide 29 mmol/L (22-29); Chloride 106 mmol/L (96-108); Cholesterol 169 mg/dL (<200); Creatinine Clr Calc Pharmacy 48.3; Estimated Glomerular Filt Rate 58; Glucose Random 111 mg/dL (60-115); HDL Cholesterol 34 mg/dL (>40); LDL Cholesterol Calculated 113 mg/dL (<100); Potassium 4.4 mmol/L (3.3-5.1); Sodium 142 mmol/L (135-145); Triglycerides 112 mg/dL (<150)
[2024-04-13 11:05] LABS: Troponin-I High Sensitivity 8.6 ng/L (<3.5-35.0)
[2024-04-13 11:09] VITALS: BP 169/65; PULSE 54; RESP 18; TEMP 36.6; O2SAT 94
--- NOTE | 2024-04-13 11:19 | PC.NURSE ---
Patient came from home via triage for stroke s/s. Patient has a hx of prior stroke 10 yrs ago. Per patient and speech is slightly slurred/thick at baseline. Denies any pain, just right sided numbess in face, tongue, forearm and hand. Neuros intact. VSS. Passed swallow eval. Currently comfortable at this time.
[2024-04-13] MEDS: Aspirin 81 MG TAB.CHEW PO (11:49)
--- NOTE | 2024-04-13 13:16 | MHC.STROKE ---
1100 Met with patient while he was in CT scan. Pt awake, alert and oriented x 3. Pt is able to speak to events that led to coming to the ED. Pt reports that he went to bed at approx midnight and felt well before bed. He reports that around approx 0500 he got up to use the bathroom and felt some tingling in his right hand, face, and tongue. He went back to bed and his reports that he got up between [id number]. Pt states that at that time he continued to have the tingling. I thought that maybe I had slept on my arm funny . Denies thinners. Denies headache. Speech to this technical writer seemed a little slow/thick. However patient reports that he feels his speech is at baseline and agrees with this. Stroke Education reviewed with patient and . Education booklet provided. Risk factors reviewed. Plan of care discussed with patient and and both are in agreement with the plan. Will continue to assist as needed.
--- NOTE | 2024-04-13 13:44 | PHA.MEDREC ---
Addendum entered by Braydon Bell 04/13/24 13:52: reviewed Original Note: Pharmacy Consult ? Medication Reconciliation Pharmacy has completed the medication reconciliation. Spoke to patient to confirm med list. Patients was able to confirm all his medication. Patient states he only took Asprin this morning all other medications he took yesterday.
--- NOTE | 2024-04-13 13:47 | P.HPHOSP_ITS ---
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 The patient states that he woke up at 05:00 today and had numbness in his right hand. Initially he thought that maybe he had slept on it, however his symptoms persisted and in fact had evolution of them. His right hand numbness progressed to the right arm, right face and tongue. He became concerned over an acute stroke and hence presented to the emergency room for evaluation. Per the ED providers documentation, family did not notice any changes in his speech. In the emergency room, the patient underwent workup including basic blood work. He has passed his nursing swallow screen. A CT head and a CTA head and neck have been completed which are negative for acute findings but do show severe ischemic microangiopathy and mild generalized volume loss. The patient has been given a dose of aspirin and now will be admitted for further care. Review of Systems 2 Review of Systems: Negative except HPI/interval history. [facility] Medical History (Updated 04/13/24 @ 12:50 by Ángel Johnson MD) Hard of hearing Arthritis Anemia History of kidney stones Hx of orthostatic hypotension Hx of fracture Weakness Difficulty swallowing Cough Habitual snoring SOB (shortness of breath) Preop exam for internal medicine Leg weakness Right wrist pain Carpal tunnel syndrome of right wrist Lumbar spinal stenosis Left acetabular fracture Peripheral arterial disease Hypercholesterolemia History of CVA (cerebrovascular accident) BPH (benign prostatic hyperplasia) Hypothyroid Hypertension Family History Father Medical history unknown Mother Medical history unknown Surgical History (Updated 02/02/24 @ 13:39 by Ricky Titus MD) Hx of carpal tunnel repair Hx of shoulder surgery H/O colonoscopy Hx of aortic aneurysm repair History of cataract surgery S/P CABG x 1 History of prostate surgery History of thyroidectomy Hx of cholecystectomy Social History Household Members: Spouse Housing: House Are you a primary adult daycare coordinator to a significant other at home: No Do you presently have visiting nurse or other home services: No Alcohol intake: current Alcohol intake frequency: holidays/special occasions only Alcohol type: beer and wine Patient Tobacco Use Status: Never used Tobacco Tobacco use type: Cigarette Smoked in Last 30 Days: No e-Cigarette/Vaping Use: Never Used Second Hand Smoke Exposure: No Use of substances other than those prescribed or required for medical reasons: No Advance Directives: Yes Advance Directives on File: Yes Advance Directives Date on File: 01/20/23 Do you have a plan to hurt others: No Plan service: No Current occupational status: retired Current occupation: left hand Cognitive needs: No Hearing needs: Yes Vision needs: Yes Meds Allergies Allergy/AdvReac Type Severity Reaction Status Date / Time lisinopril AdvReac Intermediate cough Verified 04/13/24 10:33 rosuvastatin AdvReac Intermediate myalgia Verified 04/13/24 10:33 simvastatin AdvReac Intermediate myalgia Verified 04/13/24 10:33 Active Medications: Current Medications Acetaminophen (Acetaminophen 325 Mg Tablet) 650 mg PO Q6H PRN PRN Reason: Pain, Mild (Pain Scale 1-3), fever or headache Calcium Carbonate (Calcium Carbonate 750 Mg Tab.Chew) 750 mg PO Q4H PRN PRN Reason: Heartburn Melatonin (Melatonin 3 Mg Tablet) 6 mg PO BEDTIME PRN PRN Reason: Insomnia Sodium Chloride (0.9 % Sodium Chloride Flush 3 Ml Syringe) [facility] Medications ?Medication ?Instructions ?Recorded ?Confirmed ?Last Taken ?Type aspirin 81 mg tablet,delayed 81 mg PO DAILY 08/06/21 04/13/24 04/12/24 History release (Adult Aspirin Regimen) docusate sodium 100 mg capsule 100 mg PO BID 08/15/21 04/13/24 04/12/24 History (Colace) cholecalciferol (vitamin D3) 50 50 mcg PO SUSA 07/18/23 04/13/24 04/11/24 History mcg (2,000 unit) tablet omega-3 fatty acids-fish oil 360 1 cap PO BID 07/18/23 04/13/24 04/12/24 History mg-1,200 mg capsule (Fish Oil) losartan 50 mg tablet 50 mg PO BID 09/03/23 04/13/24 04/12/24 History vitamin A-vitamin C-vit E-min 2 tab PO DAILY 1204/13/24 04/12/24 History tablet Physical Exam 2 Vital Signs and Narrative: Vital Signs: Last Vital Signs Temp 97.9 F 04/13/24 11:09 Pulse 54 04/13/24 11:09 Resp 18 04/13/24 11:09 BP 169/65 H 04/13/24 11:09 Pulse Ox 94 04/13/24 11:09 O2 Del Method Room Air 04/13/24 11:09 BMI result Body Mass Index 23.9 Const: Other: Constitutional - Awake and Alert, No apparent distress Eyes - PERRLA, EOMI Cardiovascular - S1S2, RRR, No edema Respiratory - Normal lung expansion, Normal respiratory effort, No respiratory distress, CTA bilaterally Gastrointestinal - NT / ND; +BS; No rebound or guarding - No CVA tenderness Extremities - no calf tenderness bilaterally, no swelling Musculoskeletal - Normal inspection, normal ROM Skin - Warm/Dry Neurological - Alert & oriented x3, No focal motor deficits; reports some sensory changes of the hand but none in the face Psychological - Appropriate affect Results Labs 04/13/24 10:35 04/13/24 10:35 Labs: Laboratory Results - last 24 hr 04/13/24 04/13/24 10:35 10:37 MCV 89.3 MCH 30.1 MCHC 33.7 RDW 13.1 Plt Count 211 MPV 10.0 Immature Gran % (Auto) 0.1 Neut % (Auto) 72.5 Lymph % (Auto) 13.2 L [place] % (Auto) 9.8 Eos % (Auto) 4.4 H Baso % (Auto) 0.0 Lymph # (Auto) 1.0 L [place] # (Auto) 0.7 Eos # (Auto) 0.3 Baso # (Auto) 0.0 Abs Immat Gran (auto) 0.01 Absolute Neuts (auto) 5.3 Absolute Nucleated RBC 0.000 Nucleated RBC % (auto) 0.0 Hold Purple Top SEE NOTE PT 12.1 Whole Blood PT 13.5 INR 1.0 Whole Blood INR 1.1 APTT 33.6 Anion Gap 11 L Estim Creat Clear Calc 48.3 Estimated GFR 58 POC Glucose 85 Random Glucose 111 Calcium 8.8 Troponin I High Sens 8.6 Triglycerides 112 Cholesterol 169 LDL Cholesterol, Calc 113 H HDL Cholesterol 34 L Imaging Radiologist's Impressions: Impressions Head CT 04/13/24 10:38 IMPRESSION: No acute intracranial hemorrhage or edematous territorial infarction. These results were discussed with Ángel Johnson MD MD by telephone on 04/13/2024 at 10:55 AM and it was ascertained that the content of the report was understood at the time of direct communication. Electronically signed by: Treva Franklin DO 04/13/2024 10:59 AM EST RP Head/Neck CTA 04/13/24 10:43 IMPRESSION: Head CT: 1. No acute intracranial hemorrhage or edematous infarction. 2. Severe ischemic microangiopathy and mild generalized volume loss. CTA Head/Neck: No high-grade stenosis or proximal occlusion of the vasculature of the head and neck. 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 These progressed from his R hand intially, to his R arm and face. Presentation is concerning for acute CVA. 1. Suspected acute CVA reporting sensory deficits CTA head/neck, CT head negative for acute findings Plan for further eval with MRI Neurology consult Will monitor on tele and pursue further work up pending neurology input LDL is elevated -- but documented to have allergy to statin (myalgias). Pt does endorse that his b/l LE weakness/myalgias was deemed secondary to an alternative cause. Consider statin therapy if pt agreeable 2. HTN on losartan/metoprolol at baseline will allow for permissive HTN for the time being and await neuro input on BP mgmt 3. CAD s/p CABG continue baseline meds (minus HTN meds for today) 4. Hypothyroidism synthroid 5. BPH tamsulosin + finasteride DVT pptx, Lovenox Full Code Pt with suspected acute CVA requiring further evaluation with MRI, neurology consult and on going cardiac monitoring therefore expected to require a minimum of 2 midnights in the hospital for management, hence will be admitted as inpt. Quality Stroke Does the patient have a stroke diagnosis?: No VTE Prior VTE?: No VTE Risk Level:: Medical - moderate - high VTE Device Contraindication: N/A - Device Ordered VTE Drug Contraindication: N/A - Med Ordered
[2024-04-13 14:10] VITALS: BP 169/65; PULSE 54; O2SAT 94
[2024-04-13] MEDS: Enoxaparin Sodium 40 MG/0.4 ML SYRINGE SUBCUT (14:18)
--- NOTE | 2024-04-13 14:50 | PC.NURSE ---
Transported to [facility]
[2024-04-13 15:36] VITALS: BP 168/74; PULSE 78; RESP 18; TEMP 36.6; O2SAT 97
[2024-04-13] MEDS: 0.9 % Sodium Chloride Flush 3 ML SYRINGE IVFLUSH ×2 (15:59→23:42)
--- NOTE | 2024-04-13 17:29 | PM.NEUROCN ---
History of Present Illness Data of Consult Service Date: 04/13/24 Primary Care Provider: Unknown Physician HPI Reason for consult: Right sided numbness ? 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 He woke up at 05:00 today and had numbness in his right hand. Initially, he thought that he had slept on it, however, his symptoms persisted and in fact progressed to the right arm, right face and tongue. He became concerned over an acute stroke and hence presented to the emergency room for evaluation. Per the ED providers documentation, family did not notice any changes in his speech.Her symptoms have improved in his face and done which had gone numb on the right side. He still has some persistent numbness in the right hand. He has no weakness. In the emergency room, the patient underwent workup including basic blood work. He has passed his nursing swallow screen. A CT head and a CTA head and neck have been completed which are negative for acute findings but do show severe ischemic microangiopathy and mild generalized volume loss. The patient has been given a dose of aspirin and admitted for further care.His MRI of the brain was reviewed and shows extensive periventricular microvascular white matter disease and a smaller acute left thalamic lacunar infarct. 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 [facility] Past Medical History Medical History Hard of hearing Arthritis Anemia History of kidney stones Hx of orthostatic hypotension Hx of fracture Weakness Difficulty swallowing Cough Habitual snoring SOB (shortness of breath) Preop exam for internal medicine Leg weakness Right wrist pain Carpal tunnel syndrome of right wrist Lumbar spinal stenosis Left acetabular fracture Peripheral arterial disease Hypercholesterolemia History of CVA (cerebrovascular accident) BPH (benign prostatic hyperplasia) Hypothyroid Hypertension Family History Family History Father Medical history unknown Mother Medical history unknown Surgical History Surgical History Hx of carpal tunnel repair Hx of shoulder surgery H/O colonoscopy Hx of aortic aneurysm repair History of cataract surgery S/P CABG x 1 History of prostate surgery History of thyroidectomy Hx of cholecystectomy Social History Social History Household Members: Spouse Housing: House Are you a primary manager critical care unit to a significant other at home: No Do you presently have visiting nurse or other home services: No Alcohol intake: current Alcohol intake frequency: holidays/special occasions only Alcohol type: beer and wine Patient Tobacco Use Status: Never used Tobacco Tobacco use type: Cigarette e-Cigarette/Vaping Use: Never Used Second Hand Smoke Exposure: No Advance Directives Date on File: 01/20/23 service: No Current occupational status: retired Current occupation: left hand Cognitive needs: No Hearing needs: Yes Vision needs: Yes Meds Allergies Allergy/AdvReac Type Severity Reaction Status Date / Time lisinopril AdvReac Intermediate cough Verified 04/13/24 10:33 rosuvastatin AdvReac Intermediate myalgia Verified 04/13/24 10:33 simvastatin AdvReac Intermediate myalgia Verified 04/13/24 10:33 Active Medications: Current Medications Acetaminophen (Acetaminophen 325 Mg Tablet) 650 mg PO Q6H PRN PRN Reason: Pain, Mild (Pain Scale 1-3), fever or headache Aspirin (Aspirin Enteric Coated 81 Mg Tablet.Dr) 81 mg PO DAILY SAMANTHA Calcium Carbonate (Calcium Carbonate 750 Mg Tab.Chew) 750 mg PO Q4H PRN PRN Reason: Heartburn Docusate Sodium (Docusate Sodium 100 Mg Capsule) 100 mg PO BID [facility] Ezetimibe (Ezetimibe 10 Mg Tablet) 10 mg PO BEDTIME SAMANTHA Enoxaparin Sodium (Enoxaparin Sodium 40 Mg/0.4 Ml Syringe) 40 mg SUBCUT Q24H [facility] Last Admin: 04/13/24 14:18 Dose: 40 mg Finasteride (Finasteride 5 Mg Tablet) 5 mg PO DAILY SAMANTHA Last Admin: 04/13/24 14:19 Dose: Not Given Influenza Virus Vaccine (Flu Vacc [id number](6mos Up)/Pf 0.5 Ml Syringe) 0.5 ml IM .ONCE ONE Stop: 04/15/24 15:56 Levothyroxine Sodium (Levothyroxine Sodium 100 Mcg Tablet) 100 mcg PO DAILY@0600 [facility] Magnesium Hydroxide (Milk Of Magnesia 30 Ml Oral.Susp) 30 ml PO DAILY PRN PRN Reason: Constipation Melatonin (Melatonin 3 Mg Tablet) 6 mg PO BEDTIME PRN PRN Reason: Insomnia Sodium Chloride (0.9 % Sodium Chloride Flush 3 Ml Syringe) 3 ml IVFLUSH QSHIFT [facility] Last Admin: 04/13/24 15:59 Dose: 3 ml Tamsulosin HCl (Tamsulosin Hcl 0.4 Mg Capsule) 0.4 mg PO BEDTIME [facility] Vitamin D (Cholecalciferol (Vitamin D3) 25 Mcg Tablet) 50 mcg PO SUSA [facility] Home Medications ?Medication ?Instructions ?Recorded ?Confirmed ?Last Taken ?Type aspirin 81 mg tablet,delayed 81 mg PO DAILY 08/06/21 04/13/24 04/12/24 History release (Adult Aspirin Regimen) docusate sodium 100 mg capsule 100 mg PO BID 08/15/21 04/13/24 04/12/24 History (Colace) cholecalciferol (vitamin D3) 50 50 mcg PO SUSA 07/18/23 04/13/24 04/11/24 History mcg (2,000 unit) tablet omega-3 fatty acids-fish oil 360 1 cap PO BID 07/18/23 04/13/24 04/12/24 History mg-1,200 mg capsule (Fish Oil) losartan 50 mg tablet 50 mg PO BID 09/03/23 04/13/24 04/12/24 History vitamin A-vitamin C-vit E-min 2 tab PO DAILY 04/13/24 04/13/24 04/12/24 History tablet Physical Exam Vital Signs: Vital Signs: Last Vital Signs Temp 97.8 F 04/13/24 15:36 Pulse 78 04/13/24 15:36 Resp 18 04/13/24 15:36 BP 168/74 H 04/13/24 15:36 Pulse Ox 97 04/13/24 15:36 O2 Del Method Room Air 04/13/24 15:36 BMI result Body Mass Index 23.9 Neuro: Other: He is alert and oriented x3. He has the mild dysarthria and slight flattening of the left nasolabial fold decrease in palatal movement, which appears to be chronic from the old stroke 12 years ago that led to his dysphagia. He does not feel that his speech has changed with this event. His other cranial nerves are normal. Muscle tone and strength are normal in all 4 extremities. He has decrease sensation in the right hand and slightly in the right face. Plantar response are flexor. Results Labs 04/13/24 10:35 04/13/24 10:35 Labs: Short CBC 04/13/24 Range/Units 10:35 WBC 7.3 (4.8-10.8) X10*3/uL Hgb 15.5 D (14.0-18.0) g/dl Hct 46.0 (42.0-52.0) % Plt Count 211 (160-400) X10*3/uL BMP 04/13/24 10:35 Sodium 142 Potassium 4.4 Chloride 106 Carbon Dioxide 29 BUN 22 H Creatinine 1.19 Calcium 8.8 Assessment and Plan (1) Numbness on right side: Status: Acute Small lacunar infarct in the left thalamus accounting for right-sided numbness. Symptoms are improving. He has extensive microvascular white matter disease particularly in the deep white matter in a periventricular distribution as well as an old stroke in the mid pontine tegmentum that occurred about 12 years ago and left him with slight dysarthria and dysphagia. His blood pressure is slightly elevated. Recommendations: PT/OT. Control of blood pressure. Continue aspirin 81 mg and Plavix 75 mg. Consider adding atorvastatin 40 mg a day. He was previously on statins but stopped it because of his leg weakness which may have been due to spinal stenosis rather than the statins. Procedures Date of Service Date of Service: 04/13/24
[2024-04-13 19:56] VITALS: BP 138/61; PULSE 52; RESP 18; TEMP 36.5; O2SAT 95
[2024-04-13] MEDS: Tamsulosin HCL 0.4 MG CAPSULE PO (20:50)
[2024-04-13] MEDS: Docusate Sodium 100 MG CAPSULE PO (20:50)
[2024-04-13] MEDS: Ezetimibe 10 MG TABLET PO (20:50)
[2024-04-13 23:39] VITALS: BP 157/73; PULSE 60; RESP 19; TEMP 36.3; O2SAT 97
[2024-04-14 04:00] VITALS: BP 143/68; PULSE 59; RESP 18; TEMP 36.4; O2SAT 97
[2024-04-14] MEDS: Levothyroxine Sodium 100 MCG TABLET PO (05:45)
[2024-04-14 07:09] VITALS: BP 153/67; PULSE 54; RESP 17; TEMP 36.4; O2SAT 99
[2024-04-14] MEDS: Aspirin Enteric Coated 81 MG TABLET.DR PO (07:53)
[2024-04-14] MEDS: 0.9 % Sodium Chloride Flush 3 ML SYRINGE IVFLUSH (07:53)
[2024-04-14] MEDS: Docusate Sodium 100 MG CAPSULE PO (07:53)
[2024-04-14 08:47] VITALS: BP 153/67; PULSE 54; O2SAT 99
--- NOTE | 2024-04-14 10:52 | MHC.CM.PN ---
IMM 04/14/24, Pt lives with his , she is HCP and form is on file. PCP is confirmed: Dr. Mazariegos. Pt is independent, no home health services or DME. to transport home at DC. DCP: home, self care. CM to follow for DC needs.
[2024-04-14 11:05] VITALS: BP 155/66; PULSE 61; RESP 16; TEMP 36.3; O2SAT 100
--- NOTE | 2024-04-14 11:10 | PM.DS ---
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 The patient states that he woke up at 05:00 today and had numbness in his right hand. Initially he thought that maybe he had slept on it, however his symptoms persisted and in fact had evolution of them. His right hand numbness progressed to the right arm, right face and tongue. He became concerned over an acute stroke and hence presented to the emergency room for evaluation. Per the ED providers documentation, family did not notice any changes in his speech. In the emergency room, the patient underwent workup including basic blood work. He has passed his nursing swallow screen. A CT head and a CTA head and neck have been completed which are negative for acute findings but do show severe ischemic microangiopathy and mild generalized volume loss. The patient has been given a dose of aspirin and now will be admitted for further care. hospital course: He presented with numbness in the hand, face, and tongue. Workup with MRI revealed a small acute left thalamic infarct. Fortunately, his symptoms have resolved. Neurology saw him and recommends aspirin and Plavix. Unfortunately, he is unable to take a statin due to prior intolerance from myalgia. PT/OT assessed him and recommends home with family support. Time Attestation Discharge Coordination Time (in mins): 45 Quality: Safe Use of Opioids Does Pt have an Active Cancer Diagnosis on the Problem List?: No Quality: Stroke Does the patient have a stroke diagnosis?: No Physical Exam Vital Signs: Vital Signs: Last Vital Signs Temp 97.4 F 04/14/24 11:05 Pulse 61 04/14/24 11:05 Resp 16 04/14/24 11:05 BP 155/66 H 04/14/24 11:05 Pulse Ox 100 04/14/24 11:05 O2 Del Method Room Air 04/14/24 11:05 BMI result Body Mass Index 23.9 Const: Other: General: AO X 3, no acute distress Resp: CTA bilateral CVS: S1,S2,RRR GI: +BS, NT, no distention Skin: No rash Neuro: motor grossly intact Psych: appropriate affect DS: Data Data Completed and Pending Completed studies during hospitalization [Text1]: Procedures Dilation of Left Ureter with Intraluminal Device, Via Natural or Artificial Opening Endoscopic (09/03/23) Fluoroscopy of Left Kidney, Ureter and Bladder (09/03/23) Discharge Plan Discharge Anticipated Discharge Date/Time: 04/14/24 11:07 Patient Disposition: Home, Self-Care Discharge Diagnosis: CVA Referrals: Po,Ami Alcantara MD [Primary Care Provider] - 1 Week Discharge Medications: Continued tamsulosin [Flomax] 0.4 mg capsule 0.4 mg PO BEDTIME Qty: 90 3RF metoprolol succinate 100 mg tablet extended release 24 hr 100 mg PO BEDTIME Qty: 90 3RF finasteride 5 mg tablet 5 mg PO DAILY 90 Days Qty: 90 1RF levothyroxine 100 mcg tablet 100 mcg PO DAILY@0600 Qty: 90 3RF ibuprofen 800 mg tablet 800 mg PO Q8H PRN (Reason: pain) Qty: 20 0RF vitamin A-vitamin C-vit E-min Tablet 2 tab PO DAILY omega-3 fatty acids-fish oil [Fish Oil] 360-1,200 mg Capsule 1 cap PO BID cholecalciferol (vitamin D3) 50 mcg (2,000 unit) Tablet 50 mcg PO SUSA losartan 50 mg tablet 50 mg PO BID docusate sodium [Colace] 100 mg capsule 100 mg PO BID aspirin [Adult Aspirin Regimen] 81 mg tablet,delayed release (DR/EC) 81 mg PO DAILY No Action ezetimibe [Zetia] 10 mg tablet 10 mg PO BEDTIME Qty: 90 3RF Discharge Orders: Discharge Order (Routine); Ordered 04/14/24 Ordered By: Poncho Son Diet: Advance to usual diet Activity on Discharge: As tolerated Stand Alone Forms: Patient Portal Discharge page Print Language: [place]an Care Plan Goals: recovery from stroke Health Concerns: stroke high blood pressure Plan of Treatment: take Plavix and Aspirin continue taking your blood pressure medications as before follow up with your doctor in a week Assessment: see above Discharge Date/Time: 04/14/24 13:43
== END 2024-04-14 13:43 | disposition home or self-care (01) | DRG 66 ==
LOC: HO.ED 10:38 → HO.EDOVER 13:49 → HO.IMC 14:51
PROVIDERS: Admitting Provider Family Medicine; Emergency Provider Emergency Medicine Emergency Medical Services; PCP Internal Medicine; Visit Provider Family Medicine
DX: I63.81 Other cerebral infarction due to occlusion or stenosis of small artery (principal); E03.9 Hypothyroidism, unspecified; I25.10 Atherosclerotic heart disease of native coronary artery without angina pectoris; R29.700 NIHSS score 0; N40.0 Benign prostatic hyperplasia without lower urinary tract symptoms; Z95.5 Presence of coronary angioplasty implant and graft; Z79.890 Hormone replacement therapy; Z79.82 Long term (current) use of aspirin; Z79.899 Other long term (current) drug therapy
CPT/HCPCS: 36415; 70450; 70496; 70498; 70551; 80048; 80061; 82947; 84484; 85025; 85610; 85730; 93005; 97116; 97162; 97165; 99285; J1650; Q9967

== ENCOUNTER → 2024-04-13 10:33 | Outpatient (BNV) | payer MEDICARE, SELFPAY | PROVIDERS: Admitting Provider Family Medicine; Emergency Provider Emergency Medicine Emergency Medical Services; Visit Provider Internal Medicine | DX: R94.31 Abnormal electrocardiogram [ECG] [EKG] (principal) | CPT/HCPCS: 93010 ==

== ENCOUNTER → 2024-04-13 13:44 | Outpatient (BNV) | payer MEDICARE, SELFPAY | PROVIDERS: Admitting Provider Family Medicine; Emergency Provider Emergency Medicine Emergency Medical Services; Visit Provider Family Medicine | DX: I63.9 Cerebral infarction, unspecified (principal); G81.91 Hemiplegia, unspecified affecting right dominant side | CPT/HCPCS: 99222; 99239 ==

== ENCOUNTER → 2024-04-13 13:44 | Outpatient (BNV) | payer MEDICARE, SELFPAY | PROVIDERS: Admitting Provider Family Medicine; Emergency Provider Emergency Medicine Emergency Medical Services; Visit Provider Psychiatry & Neurology Neurology | DX: I63.81 Other cerebral infarction due to occlusion or stenosis of small artery (principal); R20.0 Anesthesia of skin | CPT/HCPCS: 99222 ==

== ENCOUNTER 2024-04-26 13:40 | Outpatient (AMB) | payer MEDICARE, SELFPAY ==
--- NOTE | 2024-04-26 13:47 | MHC.PC.OV ---
Vital Signs 04/26/24 14:00 04/26/24 14:22 Height 5 ft 11 in Weight 217 lb 6 oz BMI 30.3 BP 180/70 H 148/62 H Blood Pressure Location Lt brachial Lt brachial Position Sitting Sitting Pulse 65 Pulse Source Pulse Oximeter Pulse Oximetry (%) 98 Oxygen Delivery Method Room Air Int[place] [facility] [place]roke Intake Note: Per dr. Garcia-Pt need to continue aspirin 81 mg and Plavix 75 mg. Consider adding atorvastatin 40 mg a day. Smoking Tobacco Packer Hand Required: No Accompanied by: Self / Same As Patient Allergies lisinopril Adverse Reaction (Intermediate, Verified 04/26/24 14:01) cough rosuvastatin Adverse Reaction (Intermediate, Verified 04/26/24 14:01) myalgia simvastatin Adverse Reaction (Intermediate, Verified 04/26/24 14:01) myalgia Medication List - Last Reconciled 04/26/24 by Miriam Rosas PA-C aspirin (Adult Aspirin Regimen) 81 mg PO DAILY cholecalciferol (vitamin D3) 50 mcg PO SUSA docusate sodium (Colace) 100 mg PO BID ezetimibe (Zetia) 10 mg PO BEDTIME finasteride 5 mg PO DAILY 90 days ibuprofen 800 mg PO Q8H PRN levothyroxine 100 mcg PO DAILY@0600 losartan 50 mg PO BID metoprolol succinate ER 100 mg PO BEDTIME omega-3 fatty acids-fish oil 360-1,200 mg (Fish Oil) 1 cap PO BID tamsulosin (Flomax) 0.4 mg PO BEDTIME vitamin A-vitamin C-vit E-min 2 tabs PO DAILY Tobacco use date assessed: 09/26/23 Fall risk assessment: No Falls in past year Last assessed Fall Risk: 04/26/24 Dental Screening Dental Screen Date: 09/15/23 HPI [facility] [place] Stroke HPI Details 83-year-old male with past medical history of coronary artery disease, aortic dilation, hypercholesterolemia, hypertension, peripheral vascular disease, CKD last seen by Dr. Mazariegos February 2024 coming in for hospital discharge follow up. In review of the notes, patient was seen in [facility] [place] 04/13/2024 with complaints of acute neurological changes CT of the head and neck show severe ischemic microangiopathy and mild generalized volume loss.?Neurology was consulted and recommended aspirin and Plavix and was evaluated by PT/OT recommended discharge home advised to continue on dual antiplatelet therapy and continue blood pressure medication. Patient states the numbness on the right side of the face and arm has mostly resolved. He states he does continue to have right knee pain which began about a year ago and has been consistent for the last several months. He denies any lower extremity weakness or falls and uses a cane for balance. He is scheduled to have an echocardiogram done in 2 months with [facility]. TCM TCM Information Date of Discharge 04/14/24 Discharged From [facility] Interactive Contact Date (Reference documentation from this date) 04/16/24 [facility] Medical History Hard of hearing Arthritis Anemia History of kidney stones Hx of orthostatic hypotension Hx of fracture Weakness Difficulty swallowing Cough Habitual snoring SOB (shortness of breath) Preop exam for internal medicine Leg weakness Right wrist pain Carpal tunnel syndrome of right wrist Lumbar spinal stenosis Left acetabular fracture Peripheral arterial disease Hypercholesterolemia History of CVA (cerebrovascular accident) BPH (benign prostatic hyperplasia) Hypothyroid Hypertension Surgical History Hx of carpal tunnel repair Hx of shoulder surgery H/O colonoscopy Hx of aortic aneurysm repair History of cataract surgery S/P CABG x 1 History of prostate surgery History of thyroidectomy Hx of cholecystectomy Family History Father Medical history unknown Mother Medical history unknown Social History Household Members: Spouse Housing: House Are you a primary healthcare account manager to a significant other at home: No Do you presently have visiting nurse or other home services: No Alcohol intake: current Alcohol intake frequency: holidays/special occasions only Alcohol type: beer and wine Patient Tobacco Use Status: Never used Tobacco Tobacco use type: Cigarette e-Cigarette/Vaping Use: Never Used Second Hand Smoke Exposure: No Advance Directives Date on File: 01/20/23 service: No Current occupational status: retired Current occupation: left hand Cognitive needs: No Hearing needs: Yes Vision needs: Yes Questionnaire Thrive Questionnaire Date Thrive assessed: 04/14/24 MIKE-7 AMB Questionnaire MIKE-7 Date MIKE - 7 assessed: 05/01/23 Source: Developed by Drs. Bharathi Yi, Evelin Bunrs, Juan Hood and colleagues, with an educational colby from [employer] Review of Systems Const Denies body aches, Denies chills, Denies fever(s), Denies headache(s) and Denies poor appetite Eyes Reports no additional complaints ENT Denies dysphagia, Denies dizziness, Denies headache(s) and Denies odynophagia Card Denies chest pain, Denies syncope, Denies edema, Denies irregular heart rhythm, Denies lightheadedness and Denies dyspnea Resp Denies cough and Denies dyspnea GI Denies abdominal pain, Denies constipation, Denies dysphagia, Denies diarrhea, Denies nausea, Denies odynophagia and Denies vomiting Reports no additional complaints Musc Reports no additional complaints and Denies abnormal gait Skin/Breast Reports system reviewed and no additional complaints, except as documented Neuro Denies abnormal gait, Denies dizziness, Denies syncope and Denies headache(s) Psych Reports no additional complaints Physical exam (Primary Care) Vital Signs: Last Vital Signs Pulse 65 04/26/24 14:00 BP 180/70 H 04/26/24 14:00 Pulse Ox 98 04/26/24 14:00 Oxygen Delivery Method Room Air 04/26/24 14:00 BMI result Body Mass Index 30.3 Tobacco/Smoking Status: Tobacco use Status Tobacco use date assessed 09/26/23 04/26/24 13:47 Patient Tobacco Use Status Never used Tobacco 04/26/24 13:47 Tobacco use type Cigarette 04/26/24 13:47 e-Cigarette/Vaping Use Never Used 04/26/24 13:47 Thrive Assessment: Date of Thrive Assessment Date Thrive assessed 04/14/24 04/26/24 13:47 Const General: cooperative, healthy appearing, comfortable and no acute distress Orientation/consciousness: patient oriented x3 HENMT Head: Yes normocephalic Ears: hearing grossly normal bilaterally General nose exam: Normal external nose present Eyes General: appearance normal, both eyes and all related structures Conjunctivae: conjunctivae normal Pupils: Equal, round and reactive pupils present Neck Neck: Yes full ROM and Yes no lymphadenopathy Resp Effort & Inspection: normal respiratory effort Auscultation: clear to auscultation bilaterally, no crackles, no rales, no rhonchi and no wheezes Cardio Rate: regular rate Rhythm: regular rhythm Skin General skin exam: no rashes or lesions noted Neuro General: patient oriented x3 Cranial nerves: Yes CN's II-XII intact bilaterally, Yes Equal, round and reactive pupils present, Yes Bilaterally intact EOM present, Yes Ability to bilaterally rotate head present and Yes Ability to bilaterally elevate shoulders present Cognition (Neuro): normal cognition Gait exam (Neuro): Normal gait present Extrem General: Yes normal to inspection, Yes full ROM and No edema Psych Affect: normal affect Attitude: cooperative Insight: Good insight present (Psych) Judgement: Good judgement present (Psych) Coding Level of Care Code TCM Mod MDM <= 14 Days Complex EM visit Add On G2211 Diagnoses Essential hypertension I10 Hypertension type: essential hypertension History of CVA (cerebrovascular accident) Z86.73 Hypercholesterolemia E78.00 Coronary artery disease involving [place] coronary artery of [place] heart without angina pectoris I25.10 Coronary Disease-Associated Artery/Lesion type: [place] artery [place] vs. transplanted heart: [place] heart Associated angina: without angina CKD (chronic kidney disease) stage 2, GFR 60-89 ml/min N18.2 Assessment & Plan Assessment & Plan (1) Hypertension: Code(s): I10 - Essential (primary) hypertension Category: Medical Qualifiers: Hypertension type: essential hypertension Qualified Code(s): I10 - Essential (primary) hypertension Plan: Continue on current blood pressure medication. Avoid salt intake and encourage healthy diet and regular exercise. (2) History of CVA (cerebrovascular accident): Comment: August 2005 difficulty swallowing Code(s): Z86.73 - Personal history of transient ischemic attack (TIA), and cerebral infarction without residual deficits Category: Medical Plan: Patient was recently seen by Neurology who advised dual antiplatelet therapy with clopidogrel and aspirin. Clopidogrel sent to pharmacy and referral placed for neurology per discharge notes. (3) Hypercholesterolemia: Comment: Avoid fried foods, chicken skin, eggs, butter margarine, pastries and meat. Be it pork or beef they have a lot of cholesterol LDL goal of less than 70 Code(s): E78.00 - Pure hypercholesterolemia, unspecified Category: Medical Plan: Avoid foods that are high in cholesterol such as red meat, fried foods, eggs and baked goods. Triglyceride goal of less than 150 and LDL goal of less than 70. Continue on Zetia patient has intolerance to statins. (4) Coronary artery disease: Comment: 10/10/2020 coronary artery bypass graft x1 Code(s): I25.10 - Atherosclerotic heart disease of [place] coronary artery without angina pectoris Category: Medical Qualifiers: Coronary Disease-Associated Artery/Lesion type: [place] artery [place] vs. transplanted heart: [place] heart Associated angina: without angina Qualified Code(s): I25.10 - Atherosclerotic heart disease of [place] coronary artery without angina pectoris Plan: Advised good control of blood pressure, blood sugar and cholesterol (5) CKD (chronic kidney disease) stage 2, GFR 60-89 ml/min: Comment: Dr. Ferrari November 2020 Code(s): N18.2 - Chronic kidney disease, stage 2 (mild) Category: Medical Plan: Right patient to stay well hydrated and avoid kidney irritants. Plan This note was constructed using voice recognition software. While every effort has been made to ensure accuracy and catcher helper, still areas may have been included sometimes these areas may affect the content or meeting of the given symptoms. Total time spent caring for the patient today was 30 minutes. This includes time spent before the visit reviewing the chart, time spent during the visit, and time spent after the visit and documentation. Orders: Referrals Neurology Referral I25.10 - Atherosclerotic heart disease of [place] coronary artery without angina pectoris, Z86.73 - Personal history of transient ischemic attack (TIA), and cerebral infarction without residual deficits Medications: New clopidogrel 75 mg PO DAILY 90 tabs 3RF
[2024-04-26 14:00] VITALS: BP 180/70; PULSE 65; O2SAT 98; BMI 30.3
[2024-04-26 14:22] VITALS: BP 148/62
== END 2024-04-26 14:37 | disposition home or self-care (01) ==
PROVIDERS: PCP Internal Medicine
DX: I12.9 Hypertensive chronic kidney disease with stage 1 through stage 4 chronic kidney disease, or unspecified chronic kidney disease (principal); N18.2 Chronic kidney disease, stage 2 (mild); Z86.73 Personal history of transient ischemic attack (TIA), and cerebral infarction without residual deficits; E78.00 Pure hypercholesterolemia, unspecified; I25.10 Atherosclerotic heart disease of native coronary artery without angina pectoris

== ENCOUNTER → 2024-04-26 13:40 | Outpatient (BNVA) | payer MEDICARE, SELFPAY | PROVIDERS: PCP Internal Medicine | DX: I12.9 Hypertensive chronic kidney disease with stage 1 through stage 4 chronic kidney disease, or unspecified chronic kidney disease (principal); N18.2 Chronic kidney disease, stage 2 (mild); I25.10 Atherosclerotic heart disease of native coronary artery without angina pectoris; E78.00 Pure hypercholesterolemia, unspecified; Z86.73 Personal history of transient ischemic attack (TIA), and cerebral infarction without residual deficits | CPT/HCPCS: 99495 ==

== ENCOUNTER 2024-06-29 14:06 | Outpatient (AMB) | payer MEDICARE, SELFPAY ==
--- NOTE | 2024-06-29 14:19 | MHC.PC.OV ---
Vital Signs 06/29/24 14:21 Height 5 ft 11 in Weight 213 lb 8 oz BMI 29.8 BP 118/70 Blood Pressure Location Lt brachial Position Sitting Pulse 54 Pulse Source Pulse Oximeter Temp 97.1 F Temp Source Temporal Artery Scan Pulse Oximetry (%) 98 Oxygen Delivery Method Room Air Intake Visit Reasons: f/u HTN Intake Note: Patient is here to follow up on HTN. Moto Mix Operator Required: No Installation Engineer: Not Required per policy Accompanied by: Self / Same As Patient Allergies lisinopril Adverse Reaction (Intermediate, Verified 06/29/24 14:20) cough rosuvastatin Adverse Reaction (Intermediate, Verified 06/29/24 14:20) myalgia simvastatin Adverse Reaction (Intermediate, Verified 06/29/24 14:20) myalgia Tobacco use date assessed: 06/29/24 Fall risk assessment: No Falls in past year Last assessed Fall Risk: 06/29/24 Dental Screening Dental Screen Date: 06/29/24 Did you have a dental visit in the last 12 months?: Yes Did you have a dental problem in the last 6 months where you did not have access to dental care?: No Was dental information given to patient?: Patient has dentist [facility] Medical History (Updated 06/29/24 @ 14:53 by Ami Mazariegos MD) Hard of hearing Arthritis Anemia History of kidney stones Hx of orthostatic hypotension Hx of fracture Weakness Difficulty swallowing Cough Habitual snoring SOB (shortness of breath) Preop exam for internal medicine Leg weakness Right wrist pain Carpal tunnel syndrome of right wrist Lumbar spinal stenosis Left acetabular fracture Peripheral arterial disease Hypercholesterolemia History of CVA (cerebrovascular accident) BPH (benign prostatic hyperplasia) Hypothyroid Hypertension Surgical History Hx of carpal tunnel repair Hx of shoulder surgery H/O colonoscopy Hx of aortic aneurysm repair History of cataract surgery S/P CABG x 1 History of prostate surgery History of thyroidectomy Hx of cholecystectomy Family History Father Medical history unknown Mother Medical history unknown Social History Household Members: Spouse Housing: House Are you a primary direct care staffer to a significant other at home: No Do you presently have visiting nurse or other home services: No Alcohol intake: current Alcohol intake frequency: holidays/special occasions only Alcohol type: beer and wine Patient Tobacco Use Status: Never used Tobacco Tobacco use type: Cigarette e-Cigarette/Vaping Use: Never Used Second Hand Smoke Exposure: No Advance Directives Date on File: 01/20/23 service: No Current occupational status: retired Current occupation: left hand Cognitive needs: Yes (Cane) Hearing needs: Yes Vision needs: Yes Questionnaire PHQ-9 Over the last 2 weeks, how often have you been bothered by any of the following problems? 1. Little interest or pleasure in doing things: not at all 2. Feeling down, depressed, or hopeless: not at all 3. Trouble falling or staying asleep, or sleeping too much: not at all 4. Feeling tired or having little energy: not at all 5. Poor appetite or overeating: not at all 6. Feeling bad about yourself - or that you are a failure or have let yourself or your family down: not at all 7. Trouble concentrating on things, such as reading the newspaper or watching television: not at all 8. Moving or speaking so slowly that other people could have noticed. Or the opposite - being so fidgety or restless that you have been moving around a lot more than usual: not at all 9. Thoughts that you would be better off or of hurting yourself in some way: not at all Total score: 0 Depression Screening Interpretation: Negative Depression Screening Done: Yes Source: Developed by Drs. Bharathi Yi, Evelin Burns, Juan Hood and colleagues, with an educational colby from [employer]. Thrive Questionnaire Date Thrive assessed: 06/29/24 I am a: Patient What is your living situation today?: I have a steady place to live Within the past 12 months, did the food you bought not last and you didn't have the money to get more?: Never true Within the past 12 months, did you worry whether your food would run out before you got money to buy more?: Never true Do you have trouble paying for medicines?: No Do you have trouble getting transportation to medical appointments?: No Do you have trouble paying your heating and electricity bill?: No Do you have trouble taking care of your child, family member or friend?: No Do you have trouble with day-to-day activities such as bathing, preparing meals, shopping, managing finances, etc.?: No Are you currently unemployed and looking for a job?: No Are you interested in more education?: No Please select the resources that you would like help with: None Currently or been in a relationship where the following occur: No concerns reported THRIVE Score: 0 AUDIT C Alcohol Use Questionnaire (AUDIT-C) 1. How often do you have a drink containing alcohol?: 2-3 times a week 2. How many drinks containing alcohol do you have on a typical day when you are drinking?: 1 or 2 Total Score: 3 MIKE-7 AMB Questionnaire MIKE-7 Date MIKE - 7 assessed: 06/29/24 Feeling nervous, anxious, or on edge: 0 = Not at all Not being able to stop or control worryin = Not at all Worrying too much about different things: 0 = Not at all Trouble relaxin = Not at all Being so restless that it is hard to sit still: 0 = Not at all Becoming easily annoyed or irritable: 0 = Not at all Feeling afraid as if something awful might happen: 0 = Not at all Total MIKE-7 score (0-4 normal; 5-9 mild; 10-14 moderate; 15-21 severe): 0 Source: Developed by Drs. Bharathi Yi, Evelin Burns, Juan Hood and colleagues, with an educational colby from [employer]. Physical exam (Primary Care) Vital Signs: Last Vital Signs Temp 97.1 F 06/29/24 14:21 Pulse 54 06/29/24 14:21 BP 118/70 06/29/24 14:21 Pulse Ox 98 06/29/24 14:21 Oxygen Delivery Method Room Air 06/29/24 14:21 BMI result Body Mass Index 29.8 Tobacco/Smoking Status: Tobacco use Status Tobacco use date assessed 06/29/24 06/29/24 14:29 Patient Tobacco Use Status Never used Tobacco 06/29/24 14:29 Tobacco use type Cigarette 06/29/24 14:29 e-Cigarette/Vaping Use Never Used 06/29/24 14:29 PHQ-9: PHQ-9 Score PHQ-9: Total score 0 06/29/24 14:36 Depression Screening Interpretation: Negative Thrive Assessment: Date of Thrive Assessment Date Thrive assessed 06/29/24 06/29/24 14:29 Currently or been in a relationship where the following occur: No concerns reported Const General: alert; No acute distress HENMT Other: impacted cerumen L ear, R clear Eyes Conjunctivae: conjunctivae normal Resp Auscultation: clear to auscultation bilaterally Cardio Rate: regular rate Rhythm: regular rhythm GI Inspection: Yes normal to inspection Extrem General: Yes normal to inspection and No edema Coding Level of Care Code Est Pt Level 4 (37738) Complex EM visit Add On G2211 Diagnoses History of CVA (cerebrovascular accident) Z86.73 Essential hypertension I10 Hypertension type: essential hypertension Acquired hypothyroidism E03.9 Hypothyroidism type: acquired Hypercholesterolemia E78.00 Coronary artery disease involving [place] coronary artery of [place] heart without angina pectoris I25.10 Associated angina: without angina Coronary Disease-Associated Artery/Lesion type: [place] artery [place] vs. transplanted heart: [place] heart Impacted cerumen of left ear H61.22 Assessment & Plan Assessment & Plan (1) History of CVA (cerebrovascular accident): Comment: August 2005, 03/2024 difficulty swallowing Code(s): Z86.73 - Personal history of transient ischemic attack (TIA), and cerebral infarction without residual deficits Category: Medical Plan: has followed up with Neurology and placed on dual antiplatelet therapy aspirin and Plavix (2) Hypertension: Code(s): I10 - Essential (primary) hypertension Category: Medical Qualifiers: Hypertension type: essential hypertension Qualified Code(s): I10 - Essential (primary) hypertension Plan: Continue with blood pressure medication. Decrease salt intake and exercise on losartan 150 mg twice a day metoprolol 100 mg at bedtime (3) Hypothyroid: Comment: Continue with present medication Code(s): E03.9 - Hypothyroidism, unspecified Category: Medical Qualifiers: Hypothyroidism type: acquired Qualified Code(s): E03.9 - Hypothyroidism, unspecified Plan: Continue with thyroid medication (4) Hypercholesterolemia: Comment: Avoid fried foods, chicken skin, eggs, butter margarine, pastries and meat. Be it pork or beef they have a lot of cholesterol LDL goal of less than 70 Code(s): E78.00 - Pure hypercholesterolemia, unspecified Category: Medical Plan: Avoid fried foods, chicken skin, eggs, butter margarine, pastries and meat. Be it pork or beef they have a lot of cholesterol LDL goal of less than 70 and triglyceride of less than 150 patient on Zetia (5) Coronary artery disease: Comment: 10/10/2020 coronary artery bypass graft x1 Code(s): I25.10 - Atherosclerotic heart disease of [place] coronary artery without angina pectoris Category: Medical Qualifiers: Associated angina: without angina Coronary Disease-Associated Artery/Lesion type: [place] artery [place] vs. transplanted heart: [place] heart Qualified Code(s): I25.10 - Atherosclerotic heart disease of [place] coronary artery without angina pectoris Plan: Control the cholesterol, weight, blood pressure, on aspirin (6) Impacted cerumen of left ear: Code(s): H61.22 - Impacted cerumen, left ear Category: Medical Plan: scoop used TM intact Plan History of Present Illness The patient is an 84-year-old male presenting for a follow-up on hypertension and hypercholesterolemia. His hypertension has been variably controlled, with readings differing significantly across settings and times. Previously documented CVA in 2005 and associated dysphagia have necessitated chronic antiplatelet therapy. Recent physical assessments indicate some weakness in the legs, potentially aggravated by sequelae from prior medication trials for cholesterol management. He currently tolerates Zetia for cholesterol control, targeting an LDL of below 70 mg/dL. Additionally, concerns about nephrolithiasis necessitate continued attention to hydration, balanced with the management of nocturia. Health Maintenance - Antiplatelet therapy continuation with aspirin and Plavix. - Consideration of atorvastatin if tolerability permits. - Monitoring LDL and triglyceride levels with a goal of <70 mg/dL and <150 mg/dL, respectively. - Encourage daytime fluid intake and restrict nighttime intake for nephrolithiasis management. - Routine follow-up for chronic kidney disease and hypertension management plans. Social History - Reports regular exercise on a bicycle almost daily. - Notes increased difficulty with walking due to leg weakness and balance issues. Review of Systems - Cardiovascular: Reports variability in blood pressure readings; denies dizziness, fainting, or headaches. - Musculoskeletal: Reports increased leg weakness and balance difficulty. - Neurological: Denies new onset numbness or sensory changes. Physical Exam - Cardiovascular- Blood pressure recordings indicated variations with 120/60 mmHg documented during this visit. - Musculoskeletal- Varied strength testing; notable leg weakness; no upper extremity numbness currently present. Results - Labs: Blood sugar of 111 mg/dL, LDL 113 mg/dL, normal renal function noted in recent blood work. - Imaging: Head CT demonstrated severe ischemic microangiopathy. Lumbar MRI showed moderate spinal stenosis at L2-L5. Plan We will continue current antihypertensive medications and monitor blood pressure closely to adjust as needed. Zetia will be maintained for hypercholesterolemia management, with consideration of atorvastatin if adverse effects are manageable. We discussed evaluating muscle enzyme levels if atorvastatin therapy commences. Ensuring adequate daytime hydration while limiting nighttime intake will aid chronic kidney disease management. Monitoring and follow-up will be prioritized for ongoing cerebrovascular health and spinal stenosis management. Patient was informed and verbally consented to the use of an ambient scribe for clinic note documentation during this visit. Discussion Notes We discussed the importance of consistent blood pressure management and reviewed his medication regimen. I provided guidance on potentially starting atorvastatin at a low dose, emphasizing monitoring muscle enzymes due to prior challenges with statins. We discussed the implications of his conditions, focusing on appropriate hydration strategies for nephrolithiasis management and sustained adherence to cardiovascular protective measures, including antiplatelet therapy. I advised continued observation of leg weakness symptoms and alignment of physical activity with current capabilities. Patient Instructions - Continue taking your blood pressure medication as prescribed. - Maintain your current cholesterol management strategy with Zetia and consider low-dose atorvastatin if needed. - Monitor blood pressure regularly; try to do this in a consistent setting. - Stay hydrated during the day but reduce fluid intake in the evenings. - Follow up with regular check-ups to monitor chronic conditions. - Engage in daily physical activity like cycling, but be cautious with balance and leg strength. - Reach out if you notice any increased numbness or weakness in your extremities. Orders: Orders Lipid Panel Today E78.00 - Pure hypercholesterolemia, unspecified Comprehensive Met. Panel Today E78.00 - Pure hypercholesterolemia, unspecified Creatine Kinase Total Today E78.00 - Pure hypercholesterolemia, unspecified Lactate Dehydrogenase Today E78.00 - Pure hypercholesterolemia, unspecified Free T4 (Free Thyroxine) Today E78.00 - Pure hypercholesterolemia, unspecified Thyroid Stimulating Hormone Today E78.00 - Pure hypercholesterolemia, unspecified Magnesium Today E78.00 - Pure hypercholesterolemia, unspecified UA w Microscopic Today E78.00 - Pure hypercholesterolemia, unspecified Complete Blood Count Auto Diff Today E78.00 - Pure hypercholesterolemia, unspecified Medications: New atorvastatin 10 mg PO DAILY 90 tabs 1RF E78.00 - Pure hypercholesterolemia, unspecified
[2024-06-29 14:21] VITALS: BP 118/70; PULSE 54; TEMP 36.2; O2SAT 98; BMI 29.8
--- OUTSIDE RECORDS SUMMARY | 2024-06-29 17:47 | XMS_ITS | Clinical Summary ---
Author Organization [facility] Address [address] [facility] [facility] [address] [place] [address] Phone Care Team Providers Care Celery Tier Name Role Phone Ami Mazariegos MD Primary Care Provider [phone] Allergies Active Allergy Reactions Criticality Noted Date Comments Lisinopril 11/08/2020 Medications clopidogrel (PLAVIX) 75 MG tablet Take 75 mg by mouth 1 (one) time each day 10/18/2020 Active levothyroxine (SYNTHROID, LEVOTHROID) 100 MCG tablet 09/11/2020 Active simvastatin (ZOCOR) 20 MG tablet 09/04/2020 Active fexofenadine (CRISTIAN) 180 MG tablet Take 180 mg by mouth 1 (one) time each day Active hydroCHLOROthia zide 25 MG tablet 25 mg 05/07/2021 Active losartan (COZAAR) 50 MG tablet Take 50 mg by mouth 04/18/2021 Active tamsulosin (FLOMAX) 0.4 MG 24 hr capsule 04/05/2021 Activ e metoprolol tartrate (LOPRESSOR) 100 MG tablet Take 100 mg by mouth in the morning and 100 mg in the evening. Active Active Problems Problem Noted Date Diagnosed Date Dyspnea 05/28/2021 Coronary arteriosclerosis 11/08/2020 Abdominal aortic aneurysm without rupture 2020 Hypertension 11/08/2020 Chronic kidney disease, stage 2 (mild) Type 2 diabetes mellitus wit h diabetic chronic kidney disease 11/08/2020 Immunizations Name Administration Dates Next Due Moderna SARS-COV-2 02/25/2021 Tdap 10/11/2015 Typhoid, Unspecified 10/11/2015 Social History Tobacco Use Types Packs/Day Years Used Date Smoking Tobacco: Never Smokeless Tobacco: Never Alcohol Use Standard Drinks/Week Comments Yes 1 (1 standard drink = 0.6 oz pur e alcohol) Sex and Gender Information Value Date Recorded Sex Assigned at Not on file Legal Sex Male 4:52 PM EST Gender Identity Not on file Sexual Orientation Not on file Last Filed Vital Signs Vital Sign Reading Time Taken Comments Blood Pressure 122/60 05/28/2021 1:13 PM EST Pulse 57 05/28/2021 1:13 PM EST Temperature - - Respiratory Rate - - Oxygen Saturation 96% 05/28/2021 1:13 PM EST Inhaled Oxygen Concentration - - Weight 95.5 kg (210 lb 9.6 oz) 05/28/2021 1:13 P M EST Height 180.3 cm (5' 11 ) 05/28/2021 1:13 PM EST Body Mass Index 29.37 05/28/2021 1:13 PM EST Plan of Treatment Health Maintenance Due Date Last Done Comments Pneumococcal Vaccine: 65+ Ye ars (1 of 2 - PCV) 1946 Diabetes: Ophthalmology Exam 11/08/2020 Diabetes: Pedal Pulse Checked 11/08/2020 Diabetes: Sensory Foot Exam 11/08/2020 Diabetes: Visual Foot Exam 11/08/2020 Diabetes: Hemoglobin A1C 02/08/2021 11/08/2020 Influenza Vaccine (#1) 2023 Hepatitis B Vaccine Aged Out No longe r eligible based on patient's age to complete this topic Procedures Procedure Name Priority Date/Time Associated Diagnosis Comments HEMOGLOBIN A1C Routine 11/08/2020 3:58 PM EDT from Last 3 Months or Most Recently Relevant to Health Maintenance Results * Hemoglobin A1c (11/08/2020 3:58 PM EDT) [facility] Hemoglobin A1C 5.2 (4.0-5.6) % [facility] Comment: MONITORING: In known diabetic patients, hemoglobin A1c targets should be discussed with health care provider. DIAGNOSTIC USE: ??The [place] Diabetes Association (ADA) and the World Health Organization (WHO) recommend the use of HbA1c to diagnose diabetes using a threshold of 6.5%. Patients who have an HbA1c between 5.7% and 6.4% are considered at increased risk for developing diabetes in the future. CAUTION: Falsely low HbA1c results may be observed in patients with hemolytic anemia, homozygous forms of abnormal hemoglobin (e.g. SS, CC, SC), , recent blood loss or hemoglobin F greater than 7%. Fructosamine may be used as an alternate test in these cases. REFERENCE: ADA: Standards of Medical Care in Diabetes 2020, The Journal of Clinical and Applied Research and Education Volume 43, Supplement 1 Testing performed or reported by [facility], a Service of [facility], [address] [place] [id number] Norma Williamson MD, Director Of Exhibit Development 11/08/2020 3:58 PM EDT 11/08/2020 3:59 PM EDT Edgar Ferrari MD LAB BLOOD ORDERABLES Final Re sult [facility] from Last 3 Months or Most Recently Relevant to Health Maintenance Insurance MEDICARE [facility] MEDICARE [facility] Care Teams Celery Tier Relationship Specialty Start Date End Date Ami Mazariegos MD [address] [place], [place] PCP - General Internal Medicine 10/31/20
== END 2024-06-29 15:05 | disposition home or self-care (01) ==
PROVIDERS: PCP Internal Medicine; Visit Provider Internal Medicine
DX: Z86.73 Personal history of transient ischemic attack (TIA), and cerebral infarction without residual deficits (principal); I10 Essential (primary) hypertension; E03.9 Hypothyroidism, unspecified; E78.00 Pure hypercholesterolemia, unspecified; I25.10 Atherosclerotic heart disease of native coronary artery without angina pectoris; H61.22 Impacted cerumen, left ear

== ENCOUNTER → 2024-06-29 14:06 | Outpatient (BNVA) | payer MEDICARE, SELFPAY | PROVIDERS: PCP Internal Medicine; Visit Provider Internal Medicine | DX: I10 Essential (primary) hypertension (principal); E03.9 Hypothyroidism, unspecified; E78.00 Pure hypercholesterolemia, unspecified; Z86.73 Personal history of transient ischemic attack (TIA), and cerebral infarction without residual deficits; H61.22 Impacted cerumen, left ear | CPT/HCPCS: 99212 ==

== ENCOUNTER 2024-07-02 08:40 | Outpatient (REF) | payer MEDICARE, SELFPAY ==
--- OUTSIDE RECORDS SUMMARY | 2024-07-02 09:16 | XMS_ITS | Clinical Summary ---
Author Organization [facility] Address [address] [facility] [address] [place] [address] Phone Care Team Providers Care Director It Name Role Phone Ami Mazariegos MD Primary Care Provider [phone] Allergies Active Allergy Reactions Criticality Noted Date [...] * Hemoglobin A1c (11/08/2020 3:58 PM EDT) [facility] Hemoglobin A1C 5.2 (4.0-5.6) % [facility] Comment: MONITORING: In known diabetic patients, hemoglobin A1c targets should be discussed with health care provider. DIAGNOSTIC USE: ??The [place] Diabetes Association (ADA) and the World Health [...] Supplement 1 Testing performed or reported by [facility], a Service of [facility], [address] [place] [id number] Norma Williamson MD, Family Assistant 11/08/2020 3:58 PM EDT 11/08/2020 3:59 PM EDT Edgar Ferrari MD LAB BLOOD ORDERABLES Final Re sult [facility] from Last 3 Months or Most Recently Relevant to Health Maintenance Insurance MEDICARE [facility] MEDICARE [facility] Care Teams Director It Relationship Specialty Start Date End Date Ami Mazariegos MD [address] [place], [place] PCP - General Internal Medicine 10/31/20
[2024-07-02 10:01] LABS: MANUAL DIFF FLAG NO
[2024-07-02 10:03] LABS: Appearance Urine Clear; Color Urine Yellow; Glucose Urine UA Negative (Negative); Leukocyte Esterase Urine Negative (Negative); Nitrite Urine Negative (Negative); Urine Blood Negative (Negative); Urine Ketones Negative (Negative); Urine Protein Trace mg/dL (Neg-Trace)
[2024-07-02 10:09] LABS: Bacteria Urine None Seen (None Seen); Hyaline Casts Urine 0-2 /LPF (0-2); RBC Urine 0-2 /HPF (0-2); Squamous Epithelial Cell Urine 0-2 /HPF (0-2); WBC Urine 0-5 /HPF (0-5)
[2024-07-02 10:22] LABS: Basophils Percent Auto 0.2 % (0-2); Eosinophils Absolute Auto 0.4 X10*3/uL (0.0-0.4); Hematocrit 43.8 % (42.0-52.0); Hemoglobin 14.3 g/dl (14.0-18.0); Imm Gran Abs Auto 0.03 X10*3/uL (0.00-0.03); Imm Gran Pct Auto 0.4 % (0.0-0.4); Lymphocytes Absolute Auto 1.2 X10*3/uL (1.2-4.9); Lymphocytes Percent Auto 14.1 % (20-40); Mean Corpuscular HGB Conc 32.6 g/dl (31.0-36.0); Mean Corpuscular Volume 91.8 fL (80.0-98.0); Mean Platelet Volume 10.9 fL (9.4-12.4); Monocytes Absolute Auto 0.9 X10*3/uL (0.1-1.2); Monocytes Percent Auto 11.2 % (2-11); Neutrophils Absolute Auto 5.6 x10*3/uL (2.0-8.3); Neutrophils Percent Auto 69.1 % (45-73); Platelet Count 233 X10*3/uL (160-400); Red Blood Count 4.77 X10*6/uL (4.60-5.80); Red Cell Distribution Width 13.9 % (11.0-16.0); White Blood Count 8.2 X10*3/uL (4.8-10.8)
[2024-07-02 11:01] LABS: Alanine Aminotransferase 24 U/L (0-40); Albumin Level 3.6 g/dL (3.5-5.0); Alkaline Phosphatase 108 U/L (39-117); Anion Gap 9 (12-20); Aspartate Amino Transferase 45 U/L (5-37); Bilirubin Total 0.4 mg/dL (0.0-1.0); Blood Urea Nitrogen 29 mg/dL (9-16); Calcium 8.5 mg/dL (8.4-10.2); Carbon Dioxide 28 mmol/L (22-29); Chloride 110 mmol/L (96-108); Cholesterol 139 mg/dL (<200); Estimated Glomerular Filt Rate > 60; Free T4 (Free Thyroxine) 1.13 ng/dL (0.71-1.85); Glucose Random 99 mg/dL (60-115); HDL Cholesterol 35 mg/dL (>40); LDL Cholesterol Calculated 90 mg/dL (<100); Magnesium 2.1 mg/dL (1.6-2.6); Potassium 4.1 mmol/L (3.3-5.1); Sodium 143 mmol/L (135-145); Total Protein 6.8 g/dL (6.5-8.0); Triglycerides 74 mg/dL (<150)
[2024-07-02 11:12] LABS: Lactate Dehydrogenase 354 U/L (118-273)
== END 2024-07-02 08:41 | disposition home or self-care (01) ==
LOC: HO.HMGCLDS 08:40
PROVIDERS: PCP Internal Medicine; Visit Provider Internal Medicine
DX: E78.00 Pure hypercholesterolemia, unspecified (principal)
CPT/HCPCS: 36415; 80053; 80061; 81001; 82550; 83615; 83735; 84439; 84443; 85025

== ENCOUNTER 2024-08-05 13:31 | Outpatient (REF) | payer MEDICARE, SELFPAY ==
--- NOTE | ~2024-08-05 | XR_ITS ---
EXAMINATION: XR CHEST CLINICAL INFORMATION: R05.9 - Cough, unspecified COMPARISON: August 21, 2020. TECHNIQUE: 2 views of the chest were obtained. FINDINGS: Mild prominence of the interstitial markings in the perihilar region slightly asymmetric to the right. No consolidation pleural effusion or pneumothorax. Round shape of the cardiac apex. Sternal wires. Mild prominent aortic arch. Multilevel thoracic spondylosis Metallic screw overlapping the inferior medial No lytic right scapula.. XR/XR chest 2V IMPRESSION: Mild interstitial lung edema versus acute small airway inflammatory process. Electronically signed by: Jimbo Nowak MD 08/05/2024 02:03 PM EDT
--- OUTSIDE RECORDS SUMMARY | 2024-08-05 16:19 | XMS_ITS | Clinical Summary ---
Author Organization [facility] Address [address] [facility] [address] [facility] [address] [place] [address] Phone Care Team Providers Care Transplant Case Manager Name Role Phone Ami Mazariegos MD Primary Care Provider [phone] Allergies Active Allergy Reactions Criticality Noted Date [...] h diabetic chronic kidney disease 11/08/2020 Immunizations Immunization Administration Dates Next Due Moderna SARS-COV-2 02/25/2021 [...] Due Date Last Done Comments Pneumococcal Vaccine: 50+ Ye ars (1 of 2 - PCV) 1946 Diabetes: Ophthalmology Exam 11/08/2020 Diabetes: Pedal Pulse Checked 11/08/2020 Diabetes: Sensory Foot Exam 11/08/2020 Diabetes: Visual Foot Exam 11/08/2020 Diabetes: Hemoglobin A1C 02/08/2021 11/08/2020 Influenza Vaccine (Season Ended) 2024 Hepatitis B Vaccine Aged Out No longe r eligible based on patient's age to complete this topic Procedures Procedure Name Priority Date/Time Associated Diagnosis Comments HEMOGLOBIN A1C Routine 11/08/2020 3:58 PM EDT from Last 3 Months or Most Recently Relevant to Health Maintenance Results * Hemoglobin A1c (11/08/2020 3:58 PM EDT) [facility] Hemoglobin A1C 5.2 (4.0-5.6) % [facility] Comment: MONITORING: In known diabetic patients, hemoglobin A1c targets should be discussed with health care provider. DIAGNOSTIC USE: ??The [place] Diabetes Association (ADA) and the World Health [...] Supplement 1 Testing performed or reported by [facility], a Service of [facility], [address] [place] [id number] Norma Williamson MD, Special Machine Operator 11/08/2020 3:58 PM EDT 11/08/2020 3:59 PM EDT Edgar Ferrari MD LAB BLOOD ORDERABLES Final Re sult [facility] from Last 3 Months or Most Recently Relevant to Health Maintenance Insurance Medicare [facility] Medicare [facility] Care Teams Transplant Case Manager Relationship Specialty Start Date End Date Ami Mazariegos MD [address] [place], [place] PCP - General Internal Medicine 10/31/20
== END 2024-08-05 13:32 | disposition home or self-care (01) ==
LOC: HO.HMGCX 13:31
PROVIDERS: PCP Internal Medicine; Visit Provider Internal Medicine
DX: R05.9 Cough, unspecified (principal)
CPT/HCPCS: 71046

== ENCOUNTER → 2024-08-05 13:35 | Outpatient (BNV) | payer MEDICARE, SELFPAY | PROVIDERS: PCP Internal Medicine; Visit Provider Radiology Diagnostic Radiology | DX: R05.9 Cough, unspecified (principal) | CPT/HCPCS: 71046 ==

== ENCOUNTER 2024-08-31 10:44 | Outpatient (REF) | payer MEDICARE, SELFPAY ==
--- NOTE | ~2024-08-31 | XR_ITS ---
EXAMINATION: XR KNEE 3 VIEWS RIGHT HISTORY: M25.569 - Pain in unspecified knee COMPARISON: Comparison is made with the prior examination dated 01/15/2019. FINDINGS: Standing AP views of both knees and additional lateral and sunrise patellar views of the right knee are submitted. Osseous mineralization is normal. There is moderate osteoarthritis of the medial compartment with joint space narrowing. The joint spaces are preserved. There is popliteal arterial calcification. There is no joint effusion. XR/XR knee RT 3V IMPRESSION: Moderate osteoarthritis of the medial compartment. Electronically signed by: Bharathi Licea MD 08/31/2024 03:39 PM EDT
== END 2024-08-31 10:45 | disposition home or self-care (01) ==
LOC: HO.HOSX 10:44
PROVIDERS: Visit Provider Physician Assistant
DX: M17.11 Unilateral primary osteoarthritis, right knee (principal); M25.561 Pain in right knee
CPT/HCPCS: 73562; 99212

== ENCOUNTER 2024-08-31 13:40 | Outpatient (AMB) | payer MEDICARE, SELFPAY ==
[2024-08-31 13:41] VITALS: BMI 29.7
--- NOTE | 2024-08-31 13:41 | MHC.OFFVIS ---
Vital Signs 08/31/24 13:41 Height 5 ft 11 in Weight 213 lb BMI 29.7 Intake Visit Reasons: New Prob - right shoulder pain Intake Note: Edgar is an 84 year old male who presents today for a new problem visit with complaints of right knee pain. Hx of stroke. Patient reports that he has had ongoing right knee pain on and off for many years now. He has no previous therapies for the right knee. 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 He uses a cane for ambulation. He takes Tylenol for his pain occasionally which does offer relief. Allergies lisinopril Adverse Reaction (Intermediate, Verified 08/31/24 13:42) cough rosuvastatin Adverse Reaction (Intermediate, Verified 08/31/24 13:42) myalgia simvastatin Adverse Reaction (Intermediate, Verified 08/31/24 13:42) myalgia HPI HPI New Prob - right shoulder pain: Details: Mr. Roberts is an 84-year-old male who presents to the office today for evaluation of right knee pain. 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 He reports that the right knee waxes and wanes with pain. He is scheduled to go on a trip to [place] in roughly 2 months and is looking to see if there is anything that can be done to optimize his right knee prior to travel. [facility] Medical History Hard of hearing Arthritis Anemia History of kidney stones Hx of orthostatic hypotension Hx of fracture Weakness Difficulty swallowing Cough Habitual snoring SOB (shortness of breath) Preop exam for internal medicine Leg weakness Right wrist pain Carpal tunnel syndrome of right wrist Lumbar spinal stenosis Left acetabular fracture Peripheral arterial disease Hypercholesterolemia History of CVA (cerebrovascular accident) BPH (benign prostatic hyperplasia) Hypothyroid Hypertension Surgical History Hx of carpal tunnel repair Hx of shoulder surgery H/O colonoscopy Hx of aortic aneurysm repair History of cataract surgery S/P CABG x 1 History of prostate surgery History of thyroidectomy Hx of cholecystectomy Family History Father Medical history unknown Mother Medical history unknown Social History Household Members: Spouse Housing: House Are you a primary sub acute care nurse to a significant other at home: No Do you presently have visiting nurse or other home services: No Alcohol intake: current Alcohol intake frequency: holidays/special occasions only Alcohol type: beer and wine Patient Tobacco Use Status: Never used Tobacco Tobacco use type: Cigarette e-Cigarette/Vaping Use: Never Used Second Hand Smoke Exposure: No Advance Directives Date on File: 01/20/23 service: No Current occupational status: retired Current occupation: left hand Cognitive needs: Yes (Cane) Hearing needs: Yes Vision needs: Yes Review of Systems Const All systems reviewed & are unremarkable except as noted in HPI and below Physical Exam Vital Signs: BMI result Body Mass Index 29.7 Const General: cooperative, healthy appearing and no acute distress Resp Effort & Inspection: normal respiratory effort and able to speak in complete sentences Extrem Other: Right knee no obvious deformity. Ambulates without antalgic gait. NVI. Telehealth Telehealth Patient informed of any privacy concerns related to visit: Yes Assessment & Plan Assessment & Plan (1) Osteoarthritis of right knee: Code(s): M17.11 - Unilateral primary osteoarthritis, right knee Category: Medical Plan Mr. Roberts is an 84-year-old male who presents to the office today for evaluation of right knee pain. 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 He reports that the right knee waxes and wanes with pain. He is scheduled to go on a trip to [place] in roughly 2 months and is looking to see if there is anything that can be done to optimize his right knee prior to travel. While in the office today, we discussed the role of cortisone injection and knee bracing. Patient will schedule a cortisone injection 2 weeks prior to his departure for his trip. If his right knee is feeling well he will cancel the appointment. I also provided the patient with a reaction knee brace off the shelf. He will wear this during activities. He will follow up PRN, sooner if needed. X-rays of the right knee which were obtained while in the office today and were reviewed by me, Alda Rivas PA-C, revealed osteoarthritis Orders: Orders XR shoulder RT min 2V Today M25.519 - Pain in unspecified shoulder Coding Level of Care Code New Pt Level 3 (18829) Diagnoses Osteoarthritis of right knee M17.11
--- OUTSIDE RECORDS SUMMARY | 2024-08-31 14:58 | XMS_ITS | Clinical Summary ---
Author Organization [facility] Address [address] [facility] [address] [place] [address] Phone Care Team Providers Care Normalizer Name Role Phone Ami Mazariegos MD Primary Care Provider [phone] Allergies Active Allergy Reactions Criticality Noted Date [...] Ye ars (1 of 2 - PCV) 1959 Diabetes: Ophthalmology Exam 11/08/2020 Diabetes: Pedal Pulse [...] * Hemoglobin A1c (11/08/2020 3:58 PM EDT) [facility] Hemoglobin A1C 5.2 (4.0-5.6) % [facility] Comment: MONITORING: In known diabetic patients, hemoglobin A1c targets should be discussed with health care provider. DIAGNOSTIC USE: ??The [place] Diabetes Association (ADA) and the World Health [...] Supplement 1 Testing performed or reported by [facility], a Service of [facility], [address] [place] [address] Norma Williamson MD, Army Manager 11/08/2020 3:58 PM EDT 11/08/2020 3:59 PM EDT Edgar Ferrari MD LAB BLOOD ORDERABLES Final Re sult [facility] from Last 3 Months or Most Recently Relevant to Health Maintenance Insurance Medicare [facility] Medicare [facility] Care Teams Normalizer Relationship Specialty Start Date End Date Ami Mazariegos MD [address] [place], [place] PCP - General Internal Medicine 10/31/20
== END 2024-08-31 14:52 | disposition home or self-care (01) ==
PROVIDERS: PCP Internal Medicine; Visit Provider Physician Assistant
DX: M17.11 Unilateral primary osteoarthritis, right knee (principal)
CPT/HCPCS: 99213

== ENCOUNTER → 2024-08-31 13:47 | Outpatient (BNV) | payer MEDICARE, SELFPAY | PROVIDERS: Visit Provider Radiology Diagnostic Radiology | DX: M17.11 Unilateral primary osteoarthritis, right knee (principal) | CPT/HCPCS: 73562 ==

== ENCOUNTER 2024-09-09 09:13 | Outpatient (REF) | payer MEDICARE, SELFPAY ==
--- OUTSIDE RECORDS SUMMARY | 2024-09-09 09:48 | XMS_ITS | Clinical Summary ---
Author Organization [facility] Address [address] [facility] [address] [place] [address] Phone Care Team Providers Care Tank Furnace Operator Name Role Phone Ami Mazariegos MD Primary Care Provider [phone] Allergies Active Allergy Reactions Criticality Noted Date [...] * Hemoglobin A1c (11/08/2020 3:58 PM EDT) [facility] Hemoglobin A1C 5.2 (4.0-5.6) % [facility] Comment: MONITORING: In known diabetic patients, hemoglobin A1c targets should be discussed with health care provider. DIAGNOSTIC USE: ??The [place] Diabetes Association (ADA) and the World Health [...] Supplement 1 Testing performed or reported by [facility], a Service of [facility], [address] [place] [address] Norma Williamson MD, Car Seat Maker 11/08/2020 3:58 PM EDT 11/08/2020 3:59 PM EDT Edgar Ferrari MD LAB BLOOD ORDERABLES Final Re sult [facility] from Last 3 Months or Most Recently Relevant to Health Maintenance Insurance Medicare [facility] Medicare [facility] Care Teams Tank Furnace Operator Relationship Specialty Start Date End Date Ami Mazariegos MD [address] [place], [place] PCP - General Internal Medicine 10/31/20
[2024-09-09 11:41] LABS: Alanine Aminotransferase 14 U/L (0-40); Albumin Level 3.5 g/dL (3.5-5.0); Alkaline Phosphatase 88 U/L (39-117); Anion Gap 9 (12-20); Aspartate Amino Transferase 32 U/L (5-37); Bilirubin Total 0.6 mg/dL (0.0-1.0); Blood Urea Nitrogen 30 mg/dL (9-16); Calcium 8.5 mg/dL (8.4-10.2); Carbon Dioxide 30 mmol/L (22-29); Chloride 107 mmol/L (96-108); Estimated Glomerular Filt Rate 55; Glucose Random 86 mg/dL (60-115); Potassium 4.1 mmol/L (3.3-5.1); Sodium 142 mmol/L (135-145); Total Protein 6.1 g/dL (6.5-8.0)
[2024-09-09 11:59] LABS: Free T4 (Free Thyroxine) 1.07 ng/dL (0.71-1.85); Thyroid Stimulating Hormone 4.41 uIU/mL (0.32-4.0)
[2024-09-09 12:10] LABS: Folate 13.2 ng/mL (> or = 4.0); Vitamin B12 526 pg/mL (200-900)
== END 2024-09-09 09:14 | disposition home or self-care (01) ==
LOC: HO.HMGCLDS 09:13
PROVIDERS: PCP Internal Medicine; Visit Provider Internal Medicine
DX: E03.9 Hypothyroidism, unspecified (principal); E78.00 Pure hypercholesterolemia, unspecified
CPT/HCPCS: 36415; 80053; 82607; 82746; 84439; 84443

== ENCOUNTER 2024-09-09 12:09 | Outpatient (REF) | payer MEDICARE, SELFPAY ==
--- OUTSIDE RECORDS SUMMARY | 2024-09-13 12:40 | XMS_ITS | Clinical Summary ---
Author Organization [facility] Address [address] [facility] [address] [place] [address] Phone Care Team Providers Care Alcohol Law Enforcement Agent Name Role Phone Ami Mazariegos MD Primary Care Provider [phone] Allergies Active Allergy Reactions Criticality Noted Date [...] * Hemoglobin A1c (11/08/2020 3:58 PM EDT) [facility] Hemoglobin A1C 5.2 (4.0-5.6) % [facility] Comment: MONITORING: In known diabetic patients, hemoglobin A1c targets should be discussed with health care provider. DIAGNOSTIC USE: ??The [place] Diabetes Association (ADA) and the World Health [...] Supplement 1 Testing performed or reported by [facility], a Service of [facility], [address] [place] [address] Norma Williamson MD, Remote Medical Coder 11/08/2020 3:58 PM EDT 11/08/2020 3:59 PM EDT Edgar Ferrari MD LAB BLOOD ORDERABLES Final Re sult [facility] from Last 3 Months or Most Recently Relevant to Health Maintenance Insurance Medicare [facility] Medicare [facility] Care Teams Alcohol Law Enforcement Agent Relationship Specialty Start Date End Date Ami Mazariegos MD [address] [place], [place] PCP - General Internal Medicine 10/31/20
== END 2024-09-09 12:10 | disposition home or self-care (01) ==
LOC: HO.HOSX 12:09
PROVIDERS: Visit Provider Physician Assistant
DX: Z13.89 Encounter for screening for other disorder (principal)

== ENCOUNTER 2024-09-15 10:52 | Outpatient (AMB) | payer MEDICARE, SELFPAY ==
[2024-09-15 10:59] VITALS: BP 144/62; PULSE 67; O2SAT 97; BMI 30.9
--- NOTE | 2024-09-15 10:59 | A.OFFPC_ITS ---
Vital Signs 09/15/24 10:59 09/15/24 11:35 Height 5 ft 9 in Weight 209 lb BMI 30.9 BP 144/62 H 126/60 Blood Pressure Location Lt brachial Lt brachial Position Sitting Sitting Pulse 67 Pulse Source Pulse Oximeter Pulse Oximetry (%) 97 Oxygen Delivery Method Room Air Intake Visit Reasons: Hypertension Allergies lisinopril Adverse Reaction (Intermediate, Verified 09/15/24 11:00) cough rosuvastatin Adverse Reaction (Intermediate, Verified 09/15/24 11:00) myalgia simvastatin Adverse Reaction (Intermediate, Verified 09/15/24 11:00) myalgia Medication List - Last Reconciled 09/15/24 by Ami Mazariegos MD aspirin (Adult Aspirin Regimen) 81 mg PO DAILY atorvastatin 20 mg PO DAILY cholecalciferol (vitamin D3) 50 mcg PO SUSA clopidogrel 75 mg PO DAILY docusate sodium (Colace) 100 mg PO BID hydrochlorothiazide 12.5 mg PO DAILY levothyroxine 100 mcg PO DAILY@0600 losartan 50 mg PO BID metoprolol succinate ER 100 mg PO BEDTIME omega-3 fatty acids-fish oil 360-1,200 mg (Fish Oil) 1 cap PO BID tamsulosin (Flomax) 0.4 mg PO BEDTIME vitamin A-vitamin C-vit E-min 2 tabs PO DAILY Tobacco use date assessed: 06/29/24 Fall risk assessment: No Falls in past year Last assessed Fall Risk: 09/15/24 Dental Screening Dental Screen Date: 09/15/24 Did you have a dental visit in the last 12 months?: Yes Did you have a dental problem in the last 6 months where you did not have access to dental care?: No Was dental information given to patient?: Patient has dentist HPI Hypertension HPI Details brace knee given. R shoulder is better. planning [facility] mid October. trip- no fall PFSH Medical History Hard of hearing Arthritis Anemia History of kidney stones Hx of orthostatic hypotension Hx of fracture Weakness Difficulty swallowing Cough Habitual snoring SOB (shortness of breath) Preop exam for internal medicine Leg weakness Right wrist pain Carpal tunnel syndrome of right wrist Lumbar spinal stenosis Left acetabular fracture Peripheral arterial disease Hypercholesterolemia History of CVA (cerebrovascular accident) BPH (benign prostatic hyperplasia) Hypothyroid Hypertension Surgical History Hx of carpal tunnel repair Hx of shoulder surgery H/O colonoscopy Hx of aortic aneurysm repair History of cataract surgery S/P CABG x 1 History of prostate surgery History of thyroidectomy Hx of cholecystectomy Family History Father Medical history unknown Mother Medical history unknown Social History Household Members: Spouse Housing: House Are you a primary lpn care manager to a significant other at home: No Do you presently have visiting nurse or other home services: No Alcohol intake: current Alcohol intake frequency: holidays/special occasions only Alcohol type: beer and wine Patient Tobacco Use Status: Never used Tobacco Tobacco use type: Cigarette e-Cigarette/Vaping Use: Never Used Second Hand Smoke Exposure: No Advance Directives Date on File: 01/20/23 service: No Current occupational status: retired Current occupation: left hand Cognitive needs: Yes (Cane) Hearing needs: Yes Vision needs: Yes Questionnaire Thrive Questionnaire Date Thrive assessed: 09/14/24 I am a: Patient What is your living situation today?: I have a steady place to live Within the past 12 months, did the food you bought not last and you didn't have the money to get more?: Never true Within the past 12 months, did you worry whether your food would run out before you got money to buy more?: Never true Do you have trouble paying for medicines?: No Do you have trouble getting transportation to medical appointments?: No Do you have trouble paying your heating and electricity bill?: No Do you have trouble taking care of your child, family member or friend?: No Do you have trouble with day-to-day activities such as bathing, preparing meals, shopping, managing finances, etc.?: No Are you currently unemployed and looking for a job?: No Are you interested in more education?: Yes Please select the resources that you would like help with: None Currently or been in a relationship where the following occur: No concerns reported THRIVE Score: 0 AUDIT C Alcohol Use Questionnaire (AUDIT-C) 1. How often do you have a drink containing alcohol?: 2-4 times a month 2. How many drinks containing alcohol do you have on a typical day when you are drinking?: 1 or 2 3. How often do you have six or more drinks on one occasion?: Never Total Score: 2 MIKE-7 AMB Questionnaire MIKE-7 Date MIKE - 7 assessed: 06/29/24 Source: Developed by Drs. Bharathi Yi, Evelin Burns, Juan Hood and colleagues, with an educational colby from [employer]. Physical exam (Primary Care) Vital Signs: Last Vital Signs Pulse 67 09/15/24 10:59 BP 126/60 09/15/24 11:35 Pulse Ox 97 09/15/24 10:59 Oxygen Delivery Method Room Air 09/15/24 10:59 BMI result Body Mass Index 30.9 Tobacco/Smoking Status: Tobacco use Status Tobacco use date assessed 06/29/24 09/15/24 11:07 Patient Tobacco Use Status Never used Tobacco 09/15/24 11:07 Tobacco use type Cigarette 09/15/24 11:07 e-Cigarette/Vaping Use Never Used 09/15/24 11:07 Thrive Assessment: Date of Thrive Assessment Date Thrive assessed 09/14/24 09/15/24 11:07 Currently or been in a relationship where the following occur: No concerns reported Const General: alert; No acute distress HENMT Other: impacted cerumen R ear Eyes Conjunctivae: conjunctivae normal Resp Auscultation: clear to auscultation bilaterally Cardio Rate: regular rate Rhythm: regular rhythm GI Inspection: Yes normal to inspection Extrem General: Yes normal to inspection and No edema Office Procedures Cerumen Removal From which ear canal was the cerumen removed: right Removal: otoscope w/curette and cerumen loop/spoon Notes: patient tolerated procedure well, no complications and ear canal clear [id number] Wax Removal by Spoon/Curette Coding Level of Care Code Est Pt Level 4 (11435) Complex EM visit Add On G2211 Diagnoses Osteoarthritis of right knee M17.11 CKD (chronic kidney disease) stage 2, GFR 60-89 ml/min N18.2 Coronary artery disease involving [place] coronary artery of [place] heart without angina pectoris I25.10 Associated angina: without angina Coronary Disease-Associated Artery/Lesion type: [place] artery [place] vs. transplanted heart: [place] heart Hypercholesterolemia E78.00 Acquired hypothyroidism E03.9 Hypothyroidism type: acquired Essential hypertension I10 Hypertension type: essential hypertension Benign prostatic hyperplasia with urinary frequency N40.1; R35.0 Lower urinary tract symptom detail: urinary frequency Lower urinary tract symptom presence: symptoms present Impacted cerumen of right ear H61.21 CPT Codes Office Procedure - CPT: 16476-[id number] Wax Removal by Spoon/Curette ([id number]) Assessment & Plan Assessment & Plan (1) Osteoarthritis of right knee: Code(s): M17.11 - Unilateral primary osteoarthritis, right knee Category: Medical Plan: And has met with Orthopedics and planned cortisone injection (2) CKD (chronic kidney disease) stage 2, GFR 60-89 ml/min: Comment: Dr. Ferrari November 2020 Code(s): N18.2 - Chronic kidney disease, stage 2 (mild) Category: Medical Plan: Keep well hydrated avoid NSAIDs (3) Coronary artery disease: Comment: 10/10/2020 coronary artery bypass graft x1 Code(s): I25.10 - Atherosclerotic heart disease of [place] coronary artery without angina pectoris Category: Medical Qualifiers: Associated angina: without angina Coronary Disease-Associated Artery/Lesion type: [place] artery [place] vs. transplanted heart: [place] heart Qualified Code(s): I25.10 - Atherosclerotic heart disease of [place] coronary artery without angina pectoris Plan: Control the cholesterol, weight, blood pressure patient is on aspirin (4) Hypercholesterolemia: Comment: Avoid fried foods, chicken skin, eggs, butter margarine, pastries and meat. Be it pork or beef they have a lot of cholesterol LDL goal of less than 70 Code(s): E78.00 - Pure hypercholesterolemia, unspecified Category: Medical Plan: Avoid fried foods, chicken skin, eggs, butter margarine, pastries and meat. Be it pork or beef they have a lot of cholesterol on atorvastatin 10 mg once a day. Higher doses intolerant LDL goal of less than 70 and triglyceride of less than 150 (5) Hypothyroid: Comment: Continue with present medication Code(s): E03.9 - Hypothyroidism, unspecified Category: Medical Qualifiers: Hypothyroidism type: acquired Qualified Code(s): E03.9 - Hypothyroidism, unspecified Plan: Continue with thyroid medication (6) Hypertension: Code(s): I10 - Essential (primary) hypertension Category: Medical Qualifiers: Hypertension type: essential hypertension Qualified Code(s): I10 - Essential (primary) hypertension Plan: Continue with blood pressure medication. Decrease salt intake and exercise on hydrochlorothiazide 12.5 mg once a day losartan 50 mg twice a day metoprolol 100 mg once a day (7) BPH (benign prostatic hyperplasia): Code(s): N40.0 - Benign prostatic hyperplasia without lower urinary tract symptoms Category: Medical Qualifiers: Lower urinary tract symptom detail: urinary frequency Lower urinary tract symptom presence: symptoms present Qualified Code(s): N40.1 - Benign prostatic hyperplasia with lower urinary tract symptoms; R35.0 - Frequency of micturition Plan: Continue with tamsulosin (8) Impacted cerumen of right ear: Code(s): H61.21 - Impacted cerumen, right ear Category: Medical Plan: scoop no irrigation TM intact Plan History of Present Illness The patient is an 84-year-old male presenting with hypertension, hypercholesterolemia, osteoarthritis, and chronic kidney disease. His chronic osteoarthritis causes significant knee pain and functional limitations, confirmed by imaging as morbid osteoarthritis. Recently, his renal function markers reflect slight elevations, with creatinine at 1.24 and BUN at 30. His cardiovascular risk is moderated through aspirin and statin therapy, though intolerance exists at higher atorvastatin doses. A complex medical history, including peripheral arterial disease and past aortic valve replacement, adds to the complexity of management. Regular monitoring shows controlled hypertension, hypercholesterolemia with LDL at 90, and triglycerides at 74. A chest X-ray indicated possible pulmonary involvement with mild interstitial edema or airway inflammation. The patient achieves partial symptom control via a knee brace utilized intermittently due to activity interference, particularly driving. Health Maintenance - Regular monitoring of blood pressure and cholesterol levels. - Encouraged hydration for kidney function maintenance. - Management of cholesterol with atorvastatin with consideration of dose adjustments due to intolerance. - Thyroid function assessment with TSH levels checked at 4.41. - Discussion of physical activity and use of knee brace to manage osteoarthritis. - Advised regular cardiovascular assessments post-aortic valve replacement. Social History - Engages in travel and has trips planned; travels influence medication management. - Intermittent physical activity; limited by osteoarthritis. Review of Systems - Cardiovascular: Denies recent chest pain or dyspnea. - Respiratory: Reports cough with recent imaging indicating mild interstitial findings. - Musculoskeletal: Reports right knee pain due to osteoarthritis, improved by brace use. - General: Denies significant falls since the last visit. Physical Exam - Vitals- Blood pressure recorded at 126/60. - Musculoskeletal- Observed right knee possibly affected by osteoarthritis. Results - Labs: Serum creatinine at 1.24, BUN at 30, normal blood count and electrolytes. - Imaging: Chest X-ray noted mild interstitial lung edema versus acute small airway inflammation. Plan The overall management encompasses continuing hypertension treatment with hydrochlorothiazide and metoprolol and managing hypercholesterolemia with atorvastatin, albeit with potential dose adjustments due to intolerance. Chronic kidney disease care emphasizes maintaining hydration and monitoring lab values. Control of osteoarthritis symptoms involves using a knee brace and considering further interventional pain management if necessary. Recent chest imaging results will be followed up to monitor any evolving pulmonary concerns. Patient was informed and verbally consented to the use of an ambient scribe for clinic note documentation during this visit. Discussion Notes I discussed with the patient the management of hypertension and hypercholesterolemia, highlighting the need for dose adjustments with atorvastatin given his sensitivity to statins. I advised on consistent fluid intake to mitigate renal function decline and discussed the intermittent use of knee support for osteoarthritis management. We reviewed the benefits and risks of all ongoing interventions and considered lifestyle adaptations to accommodate travel and remain active within the limits imposed by his knee condition. Follow-up was planned for continuous monitoring of cardiovascular and renal health. Patient Instructions - Take your blood pressure medications as prescribed. - Continue atorvastatin unless side effects occur; we might change the dosage. - Drink plenty of water each day to help kidney function. - Use your knee brace for support during activities. - Follow up for further evaluation if knee pain or swelling persists. - Monitor blood pressure regularly and record readings. - Report any significant changes in health or symptoms soon. Orders: Orders Complete Blood Count Auto Diff 3 Months N18.2 - Chronic kidney disease, stage 2 (mild) Thyroid Stimulating Hormone 3 Months N18.2 - Chronic kidney disease, stage 2 (mild) Comprehensive Met. Panel 3 Months N18.2 - Chronic kidney disease, stage 2 (mild) Lipid Panel 3 Months E78.00 - Pure hypercholesterolemia, unspecified, N18.2 - Chronic kidney disease, stage 2 (mild) Free T4 (Free Thyroxine) 3 Months N18.2 - Chronic kidney disease, stage 2 (mild) Medications: Changed From atorvastatin 10 mg PO DAILY 90 tabs 1RF E78.00 - Pure hypercholesterolemia, unspecified To atorvastatin 20 mg PO DAILY 90 tabs 1RF E78.00 - Pure hypercholesterolemia, unspecified Discontinued ezetimibe (Zetia) Discontinued Reason: Patient Completed Course 10 mg PO BEDTIME 90 tabs 3RF
[2024-09-15 11:35] VITALS: BP 126/60
--- OUTSIDE RECORDS SUMMARY | 2024-09-15 12:20 | XMS_ITS | Clinical Summary ---
Author Organization [facility] Address [address] [facility] [address] [place] [address] Phone Care Team Providers Care Technology Lab Teacher Name Role Phone Ami Mazariegos MD Primary Care Provider [phone] Allergies Active Allergy Reactions Criticality Noted Date [...] * Hemoglobin A1c (11/08/2020 3:58 PM EDT) [facility] Hemoglobin A1C 5.2 (4.0-5.6) % [facility] Comment: MONITORING: In known diabetic patients, hemoglobin A1c targets should be discussed with health care provider. DIAGNOSTIC USE: ??The [place] [employer] (ADA) and the World Health [...] Supplement 1 Testing performed or reported by [facility], a Service of [facility], [address] [place] [id number] Norma Williamson MD, Collar Fuser 11/08/2020 3:58 PM EDT 11/08/2020 3:59 PM EDT Edgar Ferrari MD LAB BLOOD ORDERABLES Final Re sult [facility] from Last 3 Months or Most Recently Relevant to Health Maintenance Insurance Medicare [facility] Medicare [facility] Care Teams Technology Lab Teacher Relationship Specialty Start Date End Date Ami Mazariegos MD [id number] [place], [place] PCP - General Internal Medicine 10/31/20
== END 2024-09-15 11:48 | disposition home or self-care (01) ==
LOC: HO.HMCH 10:53
PROVIDERS: PCP Internal Medicine; Visit Provider Internal Medicine
DX: I12.9 Hypertensive chronic kidney disease with stage 1 through stage 4 chronic kidney disease, or unspecified chronic kidney disease (principal); N18.2 Chronic kidney disease, stage 2 (mild); M17.11 Unilateral primary osteoarthritis, right knee; I25.10 Atherosclerotic heart disease of native coronary artery without angina pectoris; H61.21 Impacted cerumen, right ear; E78.00 Pure hypercholesterolemia, unspecified; E03.9 Hypothyroidism, unspecified; N40.1 Benign prostatic hyperplasia with lower urinary tract symptoms; R35.0 Frequency of micturition

== ENCOUNTER → 2024-09-15 10:52 | Outpatient (BNVA) | payer MEDICARE, SELFPAY | PROVIDERS: PCP Internal Medicine; Visit Provider Internal Medicine | DX: M17.11 Unilateral primary osteoarthritis, right knee (principal); I12.9 Hypertensive chronic kidney disease with stage 1 through stage 4 chronic kidney disease, or unspecified chronic kidney disease; N18.2 Chronic kidney disease, stage 2 (mild); I25.10 Atherosclerotic heart disease of native coronary artery without angina pectoris; E78.00 Pure hypercholesterolemia, unspecified; E03.9 Hypothyroidism, unspecified; N40.1 Benign prostatic hyperplasia with lower urinary tract symptoms; R35.0 Frequency of micturition; H61.21 Impacted cerumen, right ear | CPT/HCPCS: 69210; 99212 ==

== ENCOUNTER 2024-10-07 10:26 | Outpatient (AMB) | payer MEDICARE, SELFPAY ==
[2024-10-07 10:37] VITALS: BP 94/48; PULSE 63; TEMP 36.1; O2SAT 93; BMI 30.9
--- NOTE | 2024-10-07 10:37 | A.OFFPC_ITS ---
Vital Signs 10/07/24 10:37 Height 5 ft 9 in Weight 209 lb BMI 30.9 BP 94/48 L Blood Pressure Location Lt brachial Position Sitting Pulse 63 Pulse Source Pulse Oximeter Temp 97.0 F Temp Source Temporal Artery Scan Pulse Oximetry (%) 93 Oxygen Delivery Method Room Air Intake Visit Reasons: cholesterol, hx of cva Bridge Saw Operator Required: No Accompanied by: Self / Same As Patient Allergies lisinopril Adverse Reaction (Intermediate, Verified 10/07/24 10:40) cough rosuvastatin Adverse Reaction (Intermediate, Verified 10/07/24 10:40) myalgia simvastatin Adverse Reaction (Intermediate, Verified 10/07/24 10:40) myalgia Medication List - Last Reconciled 10/07/24 by Ami Mazariegos MD aspirin (Adult Aspirin Regimen) 81 mg PO DAILY atorvastatin 20 mg PO DAILY cholecalciferol (vitamin D3) 50 mcg PO SUSA clopidogrel 75 mg PO DAILY docusate sodium (Colace) 100 mg PO BID levothyroxine 100 mcg PO DAILY@0600 losartan 50 mg PO BID metoprolol succinate ER 100 mg PO BEDTIME omega-3 fatty acids-fish oil 360-1,200 mg (Fish Oil) 1 cap PO BID tamsulosin (Flomax) 0.4 mg PO BEDTIME vitamin A-vitamin C-vit E-min 2 tabs PO DAILY Tobacco use date assessed: 06/29/24 Fall risk assessment: No Falls in past year Last assessed Fall Risk: 10/07/24 Dental Screening Dental Screen Date: 09/15/24 [facility] Medical History Hard of hearing Arthritis Anemia History of kidney stones Hx of orthostatic hypotension Hx of fracture Weakness Difficulty swallowing Cough Habitual snoring SOB (shortness of breath) Preop exam for internal medicine Leg weakness Right wrist pain Carpal tunnel syndrome of right wrist Lumbar spinal stenosis Left acetabular fracture Peripheral arterial disease Hypercholesterolemia History of CVA (cerebrovascular accident) BPH (benign prostatic hyperplasia) Hypothyroid Hypertension Surgical History Hx of carpal tunnel repair Hx of shoulder surgery H/O colonoscopy Hx of aortic aneurysm repair History of cataract surgery S/P CABG x 1 History of prostate surgery History of thyroidectomy Hx of cholecystectomy Family History Father Medical history unknown Mother Medical history unknown Social History Household Members: Spouse Housing: House Are you a primary care professional to a significant other at home: No Do you presently have visiting nurse or other home services: No Alcohol intake: current Alcohol intake frequency: holidays/special occasions only Alcohol type: beer and wine Patient Tobacco Use Status: Never used Tobacco Tobacco use type: Cigarette e-Cigarette/Vaping Use: Never Used Second Hand Smoke Exposure: No Advance Directives Date on File: 01/20/23 service: No Current occupational status: retired Current occupation: left hand Cognitive needs: Yes (Cane) Hearing needs: Yes Vision needs: Yes Questionnaire PHQ-9 Over the last 2 weeks, how often have you been bothered by any of the following problems? 1. Little interest or pleasure in doing things: not at all 2. Feeling down, depressed, or hopeless: not at all 3. Trouble falling or staying asleep, or sleeping too much: not at all 4. Feeling tired or having little energy: not at all 5. Poor appetite or overeating: not at all 6. Feeling bad about yourself - or that you are a failure or have let yourself or your family down: not at all 7. Trouble concentrating on things, such as reading the newspaper or watching television: not at all 8. Moving or speaking so slowly that other people could have noticed. Or the opposite - being so fidgety or restless that you have been moving around a lot more than usual: not at all 9. Thoughts that you would be better off or of hurting yourself in some way: not at all Total score: 0 Source: Developed by Drs. Bharathi Yi, Evelin Burns, Juan Hood and colleagues, with an educational colby from [employer]. Thrive Questionnaire Date Thrive assessed: 09/14/24 I am a: Patient What is your living situation today?: I have a steady place to live Within the past 12 months, did the food you bought not last and you didn't have the money to get more?: Never true Within the past 12 months, did you worry whether your food would run out before you got money to buy more?: Never true Do you have trouble paying for medicines?: No Do you have trouble getting transportation to medical appointments?: No Do you have trouble paying your heating and electricity bill?: No Do you have trouble taking care of your child, family member or friend?: No Do you have trouble with day-to-day activities such as bathing, preparing meals, shopping, managing finances, etc.?: No Are you currently unemployed and looking for a job?: No Are you interested in more education?: Yes Please select the resources that you would like help with: None Currently or been in a relationship where the following occur: No concerns reported THRIVE Score: 0 MIKE-7 AMB Questionnaire MIKE-7 Date MIKE - 7 assessed: 06/29/24 Feeling nervous, anxious, or on edge: 0 = Not at all Not being able to stop or control worryin = Not at all Worrying too much about different things: 0 = Not at all Trouble relaxin = Not at all Being so restless that it is hard to sit still: 0 = Not at all Becoming easily annoyed or irritable: 0 = Not at all Feeling afraid as if something awful might happen: 0 = Not at all Total MIKE-7 score (0-4 normal; 5-9 mild; 10-14 moderate; 15-21 severe): 0 Source: Developed by Drs. Bharathi Yi, Evelin Burns, Juan Hood and colleagues, with an educational colby from [employer]. Physical exam (Primary Care) Vital Signs: Last Vital Signs Temp 97.0 F 10/07/24 10:37 Pulse 63 10/07/24 10:37 BP 94/48 L 10/07/24 10:37 Pulse Ox 93 10/07/24 10:37 Oxygen Delivery Method Room Air 10/07/24 10:37 BMI result Body Mass Index 30.9 Tobacco/Smoking Status: Tobacco use Status Tobacco use date assessed 06/29/24 10/07/24 10:37 Patient Tobacco Use Status Never used Tobacco 10/07/24 10:37 Tobacco use type Cigarette 10/07/24 10:37 e-Cigarette/Vaping Use Never Used 10/07/24 10:37 PHQ-9: PHQ-9 Score PHQ-9: Total score 0 10/07/24 10:46 Thrive Assessment: Date of Thrive Assessment Date Thrive assessed 09/14/24 10/07/24 10:37 Currently or been in a relationship where the following occur: No concerns re ported Const Other: impacted cerumen L , R TM intact General: alert; No acute distress Eyes Conjunctivae: conjunctivae normal Resp Auscultation: clear to auscultation bilaterally Cardio Rate: regular rate Rhythm: regular rhythm GI Inspection: Yes normal to inspection Extrem General: Yes normal to inspection and No edema Office Procedures Cerumen Removal From which ear canal was the cerumen removed: left Removal: irrigation, otoscope w/curette, cerumen loop/spoon and other Notes: patient tolerated procedure well, no complications and ear canal clear [id number] Irrigation/Lavage Coding Level of Care Code Est Pt Level 4 (37578) Complex EM visit Add On G2211 Diagnoses Osteoarthritis of right knee M17.11 Scalp lesion L98.9 Coronary artery disease involving [place] coronary artery of [place] heart without angina pectoris I25.10 Associated angina: without angina Coronary Disease-Associated Artery/Lesion type: [place] artery [place] vs. transplanted heart: [place] heart CKD (chronic kidney disease) stage 2, GFR 60-89 ml/min N18.2 Hypercholesterolemia E78.00 Acquired hypothyroidism E03.9 Hypothyroidism type: acquired Essential hypertension I10 Hypertension type: essential hypertension History of CVA (cerebrovascular accident) Z86.73 Impacted cerumen of left ear H61.22 CPT Codes Office Procedure - CPT: 24554-[id number] Irrigation/Lavage ([id number]) Assessment & Plan Assessment & Plan (1) Osteoarthritis of right knee: Code(s): M17.11 - Unilateral primary osteoarthritis, right knee Category: Medical Plan: Patient follows up with orthopedics [place] [id number] with the pain (2) Scalp lesion: Code(s): L98.9 - Disorder of the skin and subcutaneous tissue, unspecified Category: Medical Plan: Patient has a schedule with the surgeon in October (3) Coronary artery disease: Comment: 10/10/2020 coronary artery bypass graft x1 Code(s): I25.10 - Atherosclerotic heart disease of [place] coronary artery without angina pectoris Category: Medical Qualifiers: Associated angina: without angina Coronary Disease-Associated Artery/Lesion type: [place] artery [place] vs. transplanted heart: [place] heart Qualified Code(s): I25.10 - Atherosclerotic heart disease of [place] coronary artery without angina pectoris Plan: Control the cholesterol, weight, blood pressure, continuing with aspirin and clopidogrel (4) CKD (chronic kidney disease) stage 2, GFR 60-89 ml/min: Comment: Dr. Ferrari November 2020 Code(s): N18.2 - Chronic kidney disease, stage 2 (mild) Category: Medical Plan: Keep well hydrated avoid NSAIDs (5) Hypercholesterolemia: Comment: Avoid fried foods, chicken skin, eggs, butter margarine, pastries and meat. Be it pork or beef they have a lot of cholesterol LDL goal of less than 70 Code(s): E78.00 - Pure hypercholesterolemia, unspecified Category: Medical Plan: Avoid fried foods, chicken skin, eggs, butter margarine, pastries and meat. Be it pork or beef they have a lot of cholesterol LDL goal of less than 70 and triglyceride of less than 150. Patient has statin intolerance but trial of atorvastatin being done still (6) Hypothyroid: Comment: Continue with present medication Code(s): E03.9 - Hypothyroidism, unspecified Category: Medical Qualifiers: Hypothyroidism type: acquired Qualified Code(s): E03.9 - Hypothyroidism, unspecified Plan: Continue with thyroid medication (7) Hypertension: Code(s): I10 - Essential (primary) hypertension Category: Medical Qualifiers: Hypertension type: essential hypertension Qualified Code(s): I10 - Essential (primary) hypertension Plan: Continue with blood pressure medication. Decrease salt intake and exercise on metoprolol 100 mg once a day losartan 50 mg twice a day hydrochlorothiazide 12.5 mg once a day (8) History of CVA (cerebrovascular accident): Comment: August 2005, 03/2024 difficulty swallowing Code(s): Z86.73 - Personal history of transient ischemic attack (TIA), and cerebral infarction without residual deficits Category: Medical Plan: Control the cholesterol, weight, blood pressure, (9) Impacted cerumen of left ear: Code(s): H61.22 - Impacted cerumen, left ear Category: Medical Plan: scoop and irrigation done TM intact Plan History of Present Illness The patient is an 84-year-old male presenting for a follow-up visit. The patient has a history of cerebrovascular accidents in 2005 and 2023, along with hypertension, hypothyroidism, and hypercholesterolemia. He also has peripheral arterial disease and a history of ascending aortic dilatation, monitored by Dr. Aguilar, with the last CT scan in June 2023. The patient has coronary artery disease and chronic kidney disease, with a history of nephrolithiasis. He was last seen on September 15, 2024, for a follow-up. Recent blood work on July 02 showed normal blood count, and on September 09, electrolytes and renal function were stable, with mild dehydration noted. Liver function and blood sugar levels were normal, with B12 and folic acid levels adequate. Thyroid-stimulating hormone (TSH) was mildly elevated but improved. An x-ray of the right knee revealed moderate osteoarthritis of the medial compartment. Health Maintenance Social History - Travel: Patient plans to travel to [place] and has previously traveled to various international destinations. - Diet: Patient has a liking for [place] foods, which may contain high salt content. Review of Systems - Cardiovascular: Denies dizziness or syncope. - Musculoskeletal: Reports moderate osteoarthritis in the right knee. Physical Exam Results - Labs: Blood work on July 02 showed normal blood count; September 09 showed normal electrolytes and stable renal function with mild dehydration. - Imaging: X-ray of the right knee showed moderate osteoarthritis of the medial compartment. Plan The patient will continue with aspirin and clopidogrel for coronary artery disease management, emphasizing hydration and avoiding NSAIDs to prevent exacerbation of chronic kidney disease. For hypercholesterolemia, the LDL goal is set at less than 70 mg/dL and triglycerides at less than 150 mg/dL, with a trial of atorvastatin despite a history of statin intolerance. Thyroid medication will be continued for hypothyroidism management. Blood pressure management includes metoprolol, losartan, and discontinuation of hydr ochlorothiazide due to low blood pressure readings. The patient is advised to monitor blood pressure regularly and follow up in three months to reassess the management plan. Patient was informed and verbally consented to the use of an ambient scribe for clinic note documentation during this visit. Discussion Notes I discussed with the patient the importance of continuing aspirin and clopidogr el for coronary artery disease and emphasized the need for adequate hydration while avoiding NSAIDs to protect kidney function. We reviewed the cholesterol management goals, including the LDL target of less than 70 mg/dL and triglycerides under 150 mg/dL, and the trial of atorvastatin despite previous intolerance. I advised the patient to continue thyroid medication and discussed the adjustment of blood pressure medications, specifically discontinuing hydrochlorothiazide due to low blood pressure. The patient was instructed to monitor blood pressure and return for follow-up in three months to evaluate the effectiveness of the current management plan. Patient Instructions - Continue taking aspirin and clopidogrel as prescribed. - Stay well-hydrated and avoid NSAIDs. - Monitor your blood pressure regularly. - Follow up in three months for reassessment. Medications: Discontinued hydrochlorothiazide Discontinued Reason: Doctor's Order 12.5 mg PO DAILY 90 tabs 0RF
--- OUTSIDE RECORDS SUMMARY | 2024-10-07 12:08 | XMS_ITS | Clinical Summary ---
Author Organization [facility] Address [address] [facility] [address] [place] [address] Phone Care Team Providers Care Software Support Specialist Name Role Phone Ami Mazariegos MD Primary Care Provider [phone] Allergies Active Allergy Reactions Criticality Noted Date [...] * Hemoglobin A1c (11/08/2020 3:58 PM EDT) [facility] Hemoglobin A1C 5.2 (4.0-5.6) % [facility] Comment: MONITORING: In known diabetic patients, hemoglobin A1c targets should be discussed with health care provider. DIAGNOSTIC USE: ??The [place] Diabetes Association (ADA) and the World Health [...] Supplement 1 Testing performed or reported by [facility], a Service of [facility], [address] [place] [id number] Norma Williamson MD, Fitter Welder 11/08/2020 3:58 PM EDT 11/08/2020 3:59 PM EDT Edgar Ferrari MD LAB BLOOD ORDERABLES Final Re sult [facility] from Last 3 Months or Most Recently Relevant to Health Maintenance Insurance Medicare [facility] Medicare [facility] Care Teams Software Support Specialist Relationship Specialty Start Date End Date Ami Mazariegos MD [id number] [place], [place] PCP - General Internal Medicine 10/31/20
== END 2024-10-07 11:05 | disposition home or self-care (01) ==
LOC: HO.HMCH 10:27
PROVIDERS: PCP Internal Medicine; Visit Provider Internal Medicine
DX: I12.9 Hypertensive chronic kidney disease with stage 1 through stage 4 chronic kidney disease, or unspecified chronic kidney disease (principal); N18.2 Chronic kidney disease, stage 2 (mild); M17.11 Unilateral primary osteoarthritis, right knee; L98.9 Disorder of the skin and subcutaneous tissue, unspecified; I25.10 Atherosclerotic heart disease of native coronary artery without angina pectoris; E78.00 Pure hypercholesterolemia, unspecified; E03.9 Hypothyroidism, unspecified; Z86.73 Personal history of transient ischemic attack (TIA), and cerebral infarction without residual deficits; H61.22 Impacted cerumen, left ear

== ENCOUNTER → 2024-10-07 10:26 | Outpatient (BNVA) | payer MEDICARE, SELFPAY | PROVIDERS: PCP Internal Medicine; Visit Provider Internal Medicine | DX: M17.11 Unilateral primary osteoarthritis, right knee (principal); I25.10 Atherosclerotic heart disease of native coronary artery without angina pectoris; I12.9 Hypertensive chronic kidney disease with stage 1 through stage 4 chronic kidney disease, or unspecified chronic kidney disease; N18.2 Chronic kidney disease, stage 2 (mild); E78.00 Pure hypercholesterolemia, unspecified; E03.9 Hypothyroidism, unspecified; H61.22 Impacted cerumen, left ear; Z86.73 Personal history of transient ischemic attack (TIA), and cerebral infarction without residual deficits | CPT/HCPCS: 69210; 99212 ==

== ENCOUNTER 2024-11-01 10:57 | Outpatient (AMB) | payer MEDICARE, SELFPAY ==
--- OUTSIDE RECORDS SUMMARY | 2024-09-07 07:15 | XMS_ITS ---
Author Organization [facility] Address [address] [place] [address] Care Team Providers Care Senior Safety Management Consultant Name Role Phone Ami Mazariegos Primary Care Provider UnavailMarcelo Colvin Unavailable [phone] Talita Charles [phone] Encounters Encounter Location Date Provider Diagnosis [address] [address] 09/07/2024 Talita Charles Plan Of Treatment Next Appt Details Provider Name:Talita godoy, 01/14/2025 12:00:00 PM, [address] [place] [address], [address], Progress Notes * Edgar ROBERTS ADOB: [birth year] (84 yo M)Acc No.[id number]:09/07/2024 Progress Note Patient: Jeanne Edgar ZABALA Provider: Manju Charles DPM :1940 A ge:84 Y S ex:Male Date:09/07/2024 Address:[address] [place] [address] [facility] [place] [id number] Pcp:Ami Mazariegos Subjective: * Chief Complaints: * [...] 09/07/2024 Generated for Ana katz/Norma/Murtaza on: 0 11/01/2024 11:58 AM EDT
--- NOTE | 2024-11-01 11:22 | A.OFFVIS_ITS ---
Vital Signs 11/01/24 11:30 Height 5 ft 9 in Weight 214 lb BMI 31.6 BP 160/71 H Blood Pressure Location Lt brachial Position Sitting Intake Visit Reasons: Disorder of the skin and subcutaneous tissue Intake Note: Patient is seen in office for evaluation and treatment of a lesion of the scalp. Pt c/o: lesion on scalp for about a year, denies infection, discharge, admits to minimal increase Microeconomics Professor Required: No Accompanied by: Self / Same As Patient Allergies lisinopril Adverse Reaction (Intermediate, Verified 11/01/24 11:28) cough rosuvastatin Adverse Reaction (Intermediate, Verified 11/01/24 11:28) myalgia simvastatin Adverse Reaction (Intermediate, Verified 11/01/24 11:28) myalgia Medication List - Last Reconciled 11/01/24 by Bean Huff MD aspirin (Adult Aspirin Regimen) 81 mg PO DAILY atorvastatin 20 mg PO DAILY cholecalciferol (vitamin D3) 50 mcg PO SUSA clopidogrel 75 mg PO DAILY docusate sodium (Colace) 100 mg PO BID levothyroxine 100 mcg PO DAILY@0600 losartan 50 mg PO BID metoprolol succinate ER 100 mg PO BEDTIME omega-3 fatty acids-fish oil 360-1,200 mg (Fish Oil) 1 cap PO BID tamsulosin (Flomax) 0.4 mg PO BEDTIME vitamin A-vitamin C-vit E-min 2 tabs PO DAILY HPI HPI Disorder of the skin and subcutaneous tissue: Details: 84-year-old male here because of the scalp lesion. He says that he has noticed this lesion on the mid parietal area of his scalp for about 3-4 months. He says that this has bothering him wants this removed. He is on Plavix because of a history of thoracic aorta repair in 2019. He says he has been doing well since that time. [facility] Medical History Hard of hearing Arthritis Anemia History of kidney stones Hx of orthostatic hypotension Hx of fracture Weakness Difficulty swallowing Cough Habitual snoring SOB (shortness of breath) Preop exam for internal medicine Leg weakness Right wrist pain Carpal tunnel syndrome of right wrist Lumbar spinal stenosis Left acetabular fracture Peripheral arterial disease Hypercholesterolemia History of CVA (cerebrovascular accident) BPH (benign prostatic hyperplasia) Hypothyroid Hypertension Surgical History Hx of carpal tunnel repair Hx of shoulder surgery H/O colonoscopy Hx of aortic aneurysm repair History of cataract surgery S/P CABG x 1 History of prostate surgery History of thyroidectomy Hx of cholecystectomy Family History Father Medical history unknown Mother Medical history unknown Social History Household Members: Spouse Housing: House Are you a primary hemodialysis patient care specialist to a significant other at home: No Do you presently have visiting nurse or other home services: No Alcohol intake: current Alcohol intake frequency: holidays/special occasions only Alcohol type: beer and wine Patient Tobacco Use Status: Never used Tobacco Tobacco use type: Cigarette e-Cigarette/Vaping Use: Never Used Second Hand Smoke Exposure: No Advance Directives Date on File: 01/20/23 service: No Current occupational status: retired Current occupation: left hand Cognitive needs: Yes (Cane) Hearing needs: Yes Vision needs: Yes Review of Systems Const Denies chills and Denies fever(s) Card Denies chest pain GI Denies abdominal pain Denies difficulty urinating Musc Reports abnormal gait, Reports arthralgias and Reports muscle weakness Neuro Reports abnormal gait Physical Exam Vital Signs: Last Vital Signs BP 160/71 H 11/01/24 11:30 BMI result Body Mass Index 31.6 Const Other: Walks with a cane General: comfortable and no acute distress HEENT Other: On mid parietal area is note of a 0.7 cm flat lesion, with dry scaly skin has a seborrheic keratosis Resp Effort & Inspection: normal respiratory effort Auscultation: clear to auscultation bilaterally Cardio Rate: regular rate GI Palpation (GI): Soft to palpation and nontender Assessment & Plan Assessment & Plan (1) Scalp lesion: Code(s): L98.9 - Disorder of the skin and subcutaneous tissue, unspecified Category: Medical Plan: He has this scalp lesion as described above. He wants this removed. I explai shannon the technique of excision under local anesthesia. I reviewed the risks including but not limited to bleeding and infections, as well as the benefits and alternatives. He wants to proceed. This will be done in the office on his next visit He does not need to stop his Plavix. Coding Level of Care Code Est Pt Level 3 (13518) Diagnoses Scalp lesion L98.9
[2024-11-01 11:30] VITALS: BP 160/71; BMI 31.6
--- OUTSIDE RECORDS SUMMARY | 2024-11-01 11:58 | XMS_ITS | Patient Health Record ---
Author Organization [facility] Address [address] [place] [address] Care Team Providers Care Certified Industrial Hygienist Name Role Phone Flex Mckenzie MD Primary Care Provider Bharathi Burden [phone] Reason For Referral No Information Medications Medication SIG (Take, Route, Frequency, Duration) Notes Start Date End Date Status Vitamin D Active Zocor Active Fish Oil Active Thyroid Active Losartan Potassium 50 MG 1 tablet Orally twice a day Active Plavix 75 MG 1 tablet Orally Once a day Active Plan Of Treatment Future Test Test Name Order Date COLONOSCOPY 10/05/2013 Insurance Providers Payer Name Payer Address Payer Phone Subscriber Number Group Number Insured Name Patient Relationship to Insured Coverage Start Date Coverage End Date MEDICARE OF [place] [address] [place] [address] [id number] ROBBIE JIMENEZ Self - patient is the insured [employer] ATT[employer] CLAIMS [address] [place] [address] [id number] ROBBIE JIMENEZ Self - patient is the insured Medical (General) History Medical History History ICD Code one small tubular adenoma re moved in 2000, and subsequent negative colonoscopies in 2003 and in 05/2008 hyperlipidemia Denies DE,DM,Lung disease,renal disease CVA 2008--no residual deficits Hypothyroidism Surgical History Surgery Date(Month/Year) right shoulder surgery cholecystectomy thyroidectomy
--- OUTSIDE RECORDS SUMMARY | 2024-11-01 11:58 | XMS_ITS | Clinical Summary ---
Author Organization [facility] Address [address] [facility] [address] [place] [address] Phone Care Team Providers Care Water Systems Engineer Name Role Phone Ami Mazariegos MD Primary Care Provider [phone] Allergies Active Allergy Reactions Criticality Noted Date [...] Hemoglobin A1C 02/08/2021 11/08/2020 Influenza Vaccine (#1) 2024 Hepatitis B Vaccine Aged Out No longe r eligible based on patient's age to complete this topic Procedures Procedure Name Priority Date/Time Associated Diagnosis Comments HEMOGLOBIN A1C Routine 11/08/2020 3:58 PM EDT from Last 3 Months or Most Recently Relevant to Health Maintenance Results * Hemoglobin A1c (11/08/2020 3:58 PM EDT) [facility] [facility] Hemoglobin A1C 5.2 (4.0-5.6) % [facility] Comment: MONITORING: In known diabetic patients, hemoglobin A1c targets should be discussed with health care provider. DIAGNOSTIC USE: The [place] Diabetes Association (ADA) and the World Health [...] Supplement 1 Testing performed or reported by [facility], a Service of [facility], [address] [place] [id number] Norma Williamson MD, Baked And Graphite Inspector 11/08/2020 3:58 PM EDT 11/08/2020 3:59 PM EDT us Edgar Ferrari MD LAB BLOOD ORDERABLES Final Re sult [facility] from Last 3 Months or Most Recently Relevant to Health Maintenance Insurance Medicare [facility] Medicare [facility] Care Teams Water Systems Engineer Relationship Specialty Start Date End Date Ami Mazariegos MD [address] [place] MD PCP - General Internal Medicine 10/31/20
== END 2024-11-01 11:49 | disposition home or self-care (01) ==
LOC: HO.HGS 10:58
PROVIDERS: PCP Internal Medicine; Visit Provider Surgery
DX: L98.9 Disorder of the skin and subcutaneous tissue, unspecified (principal)
CPT/HCPCS: 99213

== ENCOUNTER → 2024-11-01 10:57 | Outpatient (BNVA) | payer MEDICARE, SELFPAY | PROVIDERS: PCP Internal Medicine; Visit Provider Surgery | DX: L98.8 Other specified disorders of the skin and subcutaneous tissue (principal) | CPT/HCPCS: 99212 ==

== ENCOUNTER 2024-11-04 08:51 | Outpatient (AMB) | payer MEDICARE, SELFPAY ==
--- OUTSIDE RECORDS SUMMARY | 2024-09-07 07:15 | XMS_ITS ---
Author Organization [facility] Address [address] [place] [address] Care Team Providers Care Hair Assistant Name Role Phone Ami Mazariegos Primary Care Provider UnavailMarcelo Colvin Unavailable [phone] Talita Charles [phone] Encounters Encounter Location Date Provider Diagnosis [address] [address] 09/07/2024 Talita Charles Plan Of Treatment Next Appt Details Provider Name:Talita godoy, 01/14/2025 12:00:00 PM, [address] [place] [address], [address], Progress Notes * Edgar ROBERTS ADOB: [birth year] (84 yo M)Acc No.[id number]:09/07/2024 Progress Note Patient: Jeanne Edgar ZABALA Provider: Manju Charles DPM :1940 A ge:84 Y S ex:Male Date:09/07/2024 Address:[address] [place] [address] [facility] [id number] Pcp:Ami Mazariegos Subjective: * Chief Complaints: * [...] 0 09/07/2024 Generated for Ana katz/Norma/Murtaza on: 0 11/04/2024 09:09 AM EDT
--- NOTE | 2024-11-04 08:54 | MHC.OFFVIS ---
Intake Visit Reasons: OV - right knee OA, possible injection? Intake Note: Edgar is a 84 year old male who presents today for a follow up of his right knee OA. At his last visit he was fitted for a reaction knee brace only to wear during activities. He states that the knee brace works well when he is wearing it. Patient mentions that he is interested in the cortisone injection today. Allergies lisinopril Adverse Reaction (Intermediate, Verified 11/04/24 08:56) cough rosuvastatin Adverse Reaction (Intermediate, Verified 11/04/24 08:56) myalgia simvastatin Adverse Reaction (Intermediate, Verified 11/04/24 08:56) myalgia HPI HPI OV - right knee OA, possible injection?: Details: Mr. Roberts is an 84-year-old male who presents to the office today for follow-up of right knee osteoarthritis pending a trip to [place]. He was last seen in the office on 08/31/2024 where we discussed the role of cortisone injections as well as knee bracing. He was provided with a reaction knee brace at that time. He has been using this brace during activity and reports that it has been helpful. Additionally he uses a cane to assist with ambulation. He is able to take acetaminophen only due to taking aspirin and clopidogrel daily. He would like to discuss the risks versus benefits of administering a cortisone shot today. He is leaving for his trip to [place] on 11/09/2024. [facility] Medical History Hard of hearing Arthritis Anemia History of kidney stones Hx of orthostatic hypotension Hx of fracture Weakness Difficulty swallowing Cough Habitual snoring SOB (shortness of breath) Preop exam for internal medicine Leg weakness Right wrist pain Carpal tunnel syndrome of right wrist Lumbar spinal stenosis Left acetabular fracture Peripheral arterial disease Hypercholesterolemia History of CVA (cerebrovascular accident) BPH (benign prostatic hyperplasia) Hypothyroid Hypertension Surgical History Hx of carpal tunnel repair Hx of shoulder surgery H/O colonoscopy Hx of aortic aneurysm repair History of cataract surgery S/P CABG x 1 History of prostate surgery History of thyroidectomy Hx of cholecystectomy Family History Father Medical history unknown Mother Medical history unknown Social History Household Members: Spouse Housing: House Are you a primary residential care facility manager to a significant other at home: No Do you presently have visiting nurse or other home services: No Alcohol intake: current Alcohol intake frequency: holidays/special occasions only Alcohol type: beer and wine Patient Tobacco Use Status: Never used Tobacco Tobacco use type: Cigarette e-Cigarette/Vaping Use: Never Used Second Hand Smoke Exposure: No Advance Directives Date on File: 01/20/23 service: No Current occupational status: retired Current occupation: left hand Cognitive needs: Yes (Cane) Hearing needs: Yes Vision needs: Yes Review of Systems Const All systems reviewed & are unremarkable except as noted in HPI and below Physical Exam Const General: cooperative, healthy appearing and no acute distress Resp Effort & Inspection: normal respiratory effort and able to speak in complete sentences Extrem Other: Right knee no obvious deformity. Ambulates without antalgic gait. NVI. Assessment & Plan Assessment & Plan (1) Osteoarthritis of right knee: Code(s): M17.11 - Unilateral primary osteoarthritis, right knee Category: Medical Plan Mr. Roberts is an 84-year-old male who presents to the office today for follow-up of right knee osteoarthritis pending a trip to [place]. He was last seen in the office on 08/31/2024 where we discussed the role of cortisone injections as well as knee bracing. He was provided with a reaction knee brace at that time. He has been using this brace during activity and reports that it has been helpful. Additionally he uses a cane to assist with ambulation. He is able to take acetaminophen only due to taking aspirin and clopidogrel daily. He would like to discuss the risks versus benefits of administering a cortisone shot today. He is leaving for his trip to [place] on 11/09/2024. While in the office today, we discussed the risks versus benefit of administering a right knee cortisone injection prior to his trip in which he is leaving for on Friday. I did explain to the patient that risk factors include but are not limited to an increase in pain, infection, bleeding or bruising since he is on blood thinners, temporary increase in glucose levels, skin changes and rarely joint or tendon damage. Patient has decided at this time to hold off on the injection. He will use the knee brace, walking poles, canes is and oral acetaminophen if needed while on his trip. After his trip I instructed him to contact me to let me know how he is doing, he is going to request to send a message to me directly to let me know. If he has an increase in pain and would like to proceed with a cortisone injection I would be happy to accommodate him as soon as possible. He will follow up PRN, sooner if needed. Coding Level of Care Code Est Pt Level 3 (19390) Diagnoses Osteoarthritis of right knee M17.11
--- OUTSIDE RECORDS SUMMARY | 2024-11-04 09:09 | XMS_ITS | Clinical Summary ---
Author Organization [facility] Address [address] [facility] [address] [place] [address] Phone Care Team Providers Care Manager Council Name Role Phone Ami Mazariegos MD Primary Care Provider [phone] Allergies Active Allergy Reactions Criticality Noted Date [...] PM EDT) [facility] Hemoglobin A1C 5.2 (4.0-5.6) % [facility] Comment: MONITORING: In known diabetic patients, hemoglobin A1c targets should be discussed with health care provider. DIAGNOSTIC USE: The [place] Diabetes Association (ADA) and the World Health [...] Supplement 1 Testing performed or reported by [facility], a Service of [facility], [address] [place] [address] Norma Williamson MD, Paper Gluing Operator 11/08/2020 3:58 PM EDT 11/08/2020 3:59 PM EDT us Edgar Ferrari MD LAB BLOOD ORDERABLES Final Re sult [facility] from Last 3 Months or Most Recently Relevant to Health Maintenance Insurance Medicare [facility] Medicare [facility] Care Teams Manager Council Relationship Specialty Start Date End Date Ami Mazariegos MD [address] [place] PCP - General Internal Medicine 10/31/20
--- OUTSIDE RECORDS SUMMARY | 2024-11-04 09:10 | XMS_ITS | Patient Health Record ---
Author Organization [facility] Address [address] [place] [address] Care Team Providers Care Bin Piler Name Role Phone Flex Mckenzie MD Primary Care Provider Bharathi Burden [phone] Reason For Referral No Information Medications Medication [...] MEDICARE OF [place] [address] [facility] [place] [address] [id number] ROBBIE JIMENEZ Self - patient is the insured [employer] ATT[employer] CLAIMS [address] [place] [address] [id number] ROBBIE JIMENEZ Self - patient is the insured Medical (General) History Medical History History ICD Code one small tubular adenoma re moved in 2000, and subsequent negative colonoscopies in 2003 and in 05/2008 hyperlipidemia Denies MS,DM,Lung disease,renal disease CVA 2008--no residual deficits Hypothyroidism Surgical History Surgery Date(Month/Year) right shoulder surgery cholecystectomy thyroidectomy
== END 2024-11-04 09:38 | disposition home or self-care (01) ==
LOC: HO.HOS 08:51
PROVIDERS: PCP Internal Medicine; Visit Provider Physician Assistant
DX: M17.11 Unilateral primary osteoarthritis, right knee (principal)
CPT/HCPCS: 99213

== ENCOUNTER → 2024-11-04 08:51 | Outpatient (BNVA) | payer MEDICARE, SELFPAY | PROVIDERS: PCP Internal Medicine; Visit Provider Physician Assistant | DX: M17.11 Unilateral primary osteoarthritis, right knee (principal) | CPT/HCPCS: 99212 ==

== ENCOUNTER 2024-12-16 10:10 | Outpatient (AMB) | payer MEDICARE, SELFPAY ==
--- OUTSIDE RECORDS SUMMARY | 2024-09-07 07:15 | XMS_ITS ---
Author Organization [facility] Address [address] [place] [address] Care Team Providers Care Asphalt Tamping Machine Operator Name Role Phone Ami Mazariegos Primary Care Provider UnavailMarcelo Colvin Unavailable [phone] Talita Charles [phone] Encounters Encounter Location Date Provider Diagnosis [address] [address] 09/07/2024 Talita Charles Plan Of Treatment Next Appt Details Provider Name:Talita godoy, 01/14/2025 12:00:00 PM, [address] [place] [address], [address], Progress Notes * Edgar ROBERTS ADOB: [birth year] (84 yo M)Acc No.[id number]:09/07/2024 Progress Note Patient: Jeanne Edgar ZABALA Provider: Manju Charles DPM :1940 A ge:84 Y S ex:Male Date:09/07/2024 Address:[address] [place] [address] [facility] [id number] Pcp:Ami Mazariegos Subjective: * Chief Complaints: * [...] 09/07/2024 Generated for Ana katz/Norma/Murtaza on: 0 12/16/2024 11:38 AM EDT
--- NOTE | 2024-12-16 10:12 | A.OFFVIS_ITS ---
Vital Signs 12/16/24 10:13 Height 5 ft 9 in Weight 217 lb 2 oz BMI 32.1 BP 122/68 Blood Pressure Location Rt brachial Position Sitting Pulse 61 Pulse Source Pulse Oximeter Pulse Oximetry (%) 97 Oxygen Delivery Method Room Air Intake Visit Reasons: INP-TIA Intake Note: TIA Computer Customer Support Specialist Required: No Accompanied by: Self / Same As Patient Allergies lisinopril Adverse Reaction (Intermediate, Verified 12/16/24 10:12) cough rosuvastatin Adverse Reaction (Intermediate, Verified 12/16/24 10:12) myalgia simvastatin Adverse Reaction (Intermediate, Verified 12/16/24 10:12) myalgia Medication List - Last Reconciled 12/16/24 by Farida Randle MD aspirin (Adult Aspirin Regimen) 81 mg PO DAILY atorvastatin 20 mg PO DAILY cholecalciferol (vitamin D3) 50 mcg PO SUSA clopidogrel 75 mg PO DAILY docusate sodium (Colace) 100 mg PO BID levothyroxine 100 mcg PO DAILY@0600 losartan 50 mg PO BID metoprolol succinate ER 100 mg PO BEDTIME omega-3 fatty acids-fish oil 360-1,200 mg (Fish Oil) 1 cap PO BID tamsulosin (Flomax) 0.4 mg PO BEDTIME vitamin A-vitamin C-vit E-min 2 tabs PO DAILY HPI Comments Details: 84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 He has a mild residual numbness in right hand and right cheek Had a stroke about 12 years ago that has left him with some slight speech impediment and difficulty swallowing, so that he has to be careful so he does not aspirate. He woke up at 05:00 AM on 04/13 2024 and had numbness in his right hand. Initially, he thought that he had slept on it, however, his symptoms persisted and in fact progressed to the right arm, right face and tongue. He became concerned over an acute stroke and hence presented to the emergency room for evaluation. Per the ED providers documentation, family did not notice any changes in his speech.Her symptoms have improved in his face and done which had gone numb on the right side. He has no weakness.He is currently on aspirin 81mg qd, Plavix 75mg qd and he restarted atorvostatin 40mg qd. A CT head and a CTA head and neck have been completed which are negative for acute findings but do show severe ischemic microangiopathy and mild generalized volume loss. His MRI of the brain was reviewed and shows extensive periventricular microvascular white matter disease and a smaller acute left thalamic lacunar infarct. He has an old mid pontine infarct.Small lacunar infarct in the left thalamus accounting for right-sided numbness. He has some snoring and hypersomnia. [facility] Medical History Hard of hearing Arthritis Anemia History of kidney stones Hx of orthostatic hypotension Hx of fracture Weakness Difficulty swallowing Cough Habitual snoring SOB (shortness of breath) Preop exam for internal medicine Leg weakness Right wrist pain Carpal tunnel syndrome of right wrist Lumbar spinal stenosis Left acetabular fracture Peripheral arterial disease Hypercholesterolemia History of CVA (cerebrovascular accident) BPH (benign prostatic hyperplasia) Hypothyroid Hypertension Surgical History Hx of carpal tunnel repair Hx of shoulder surgery H/O colonoscopy Hx of aortic aneurysm repair History of cataract surgery S/P CABG x 1 History of prostate surgery History of thyroidectomy Hx of cholecystectomy Family History Father Medical history unknown Mother Medical history unknown Social History Household Members: Spouse Housing: House Are you a primary career discovery teacher to a significant other at home: No Do you presently have visiting nurse or other home services: No Alcohol intake: current Alcohol intake frequency: holidays/special occasions only Alcohol type: beer and wine Patient Tobacco Use Status: Never used Tobacco Tobacco use type: Cigarette e-Cigarette/Vaping Use: Never Used Second Hand Smoke Exposure: No Advance Directives Date on File: 01/20/23 service: No Current occupational status: retired Current occupation: left hand Cognitive needs: Yes (Cane) Hearing needs: Yes Vision needs: Yes Physical Exam Vital Signs: Last Vital Signs Pulse 61 12/16/24 10:13 BP 122/68 12/16/24 10:13 Pulse Ox 97 12/16/24 10:13 Oxygen Delivery Method Room Air 12/16/24 10:13 BMI result Body Mass Index 32.1 Const General: cooperative, healthy appearing, comfortable and no acute distress Nutritional Appearance: average body habitus Orientation/consciousness: patient oriented x3 Eyes Pupils: Equal, round and reactive pupils present Neuro Other: left facial weakness Dysarthria Gait- antalgic gait General: patient oriented x3, tone normal, moves all extremities and no focal motor deficits Cranial nerves: Yes Facial sensation intact/muscles of mastication intact, Yes Equal, round and reactive pupils present, Yes Bilaterally intact EOM present, Yes Nystagmus not present and Yes Midline tongue present Cognition (Neuro): normal cognition Gait exam (Neuro): Antalgic gait present Deep tendon reflexes (DTR's): Right triceps reflex intensity grade: 2+, Left triceps reflex intensity grade: 2+, Rt Biceps (C5, C6): 2+, Left biceps reflex intensity grade: 2+, Right brachioradialis reflex intensity grade: 2+, Left brachioradialis reflex intensity grade: 2+, Right patellar reflex intensity grade: 3+ and Left patellar reflex intensity grade: 3+ Coordination: [id number] test normal Results Reviewed Results Reviewed: MRI BRAIN 03/2024 Small acute left thalamic infarct. 2. Global cerebral atrophy and chronic microangiopathy. CTA HEAD AND NECK 04/20 No acute intracranial hemorrhage or edematous infarction. 2. Severe ischemic microangiopathy and mild generalized volume loss. CTA Head/Neck: No high-grade stenosis or proximal occlusion of the vasculature of the head and neck. Assessment & Plan Assessment & Plan (1) History of CVA (cerebrovascular accident): Comment: August 2005, 03/2024 difficulty swallowing- mild residual numbness Code(s): Z86.73 - Personal history of transient ischemic attack (TIA), and cerebral infarction without residual deficits Category: Medical Plan Continue aspirin 81mg qd Plavix 75 mg qd Atorvostatin 20mg qd Suggested Home sleep test- patient declined Coding Level of Care Code New Pt Level 4 (31143) Diagnoses History of CVA (cerebrovascular accident) Z86.73
[2024-12-16 10:13] VITALS: BP 122/68; PULSE 61; O2SAT 97; BMI 32.1
--- OUTSIDE RECORDS SUMMARY | 2024-12-16 11:38 | XMS_ITS | Patient Health Record ---
Author Organization [facility] Address [address] [place] [address] Care Team Providers Care Command Center Officer Name Role Phone Flex Mckenzie MD Primary Care Provider Bharathi Burden [phone] Reason For Referral No Information Medications Medication [...] MEDICARE OF [place] [address] [place] [address] [id number] ROBBIE JIMENEZ Self - patient is the insured [employer] ATT[employer] CLAIMS [address] [place] [address] [id number] ROBBIE JIMENEZ Self - patient is the insured Medical (General) History Medical History History ICD Code one small tubular adenoma re moved in 2000, and subsequent negative colonoscopies in 2003 and in 05/2008 hyperlipidemia Denies RI,DM,Lung disease,renal disease CVA 2008--no residual deficits Hypothyroidism Surgical History Surgery Date(Month/Year) right shoulder surgery cholecystectomy thyroidectomy
--- OUTSIDE RECORDS SUMMARY | 2024-12-16 11:38 | XMS_ITS | Clinical Summary ---
Author Organization [facility] Address [address] [facility] [address] [place] [address] Phone Care Team Providers Care Snuff Grinder Name Role Phone Ami Mazariegos MD Primary Care Provider [phone] Allergies Active Allergy Reactions Criticality Noted Date [...] * Hemoglobin A1c (11/08/2020 3:58 PM EDT) [facility] Hemoglobin A1C 5.2 (4.0-5.6) % [facility] Comment: MONITORING: In known diabetic patients, hemoglobin A1c targets should be discussed with health care provider. DIAGNOSTIC USE: The [place] Diabetes Association (ADA) and the World Health [...] Supplement 1 Testing performed or reported by [facility], a Service of [facility], [address] [place] [address] Norma Williamson MD, Electro Mechanical Assembler 11/08/2020 3:58 PM EDT 11/08/2020 3:59 PM EDT us Edgar Ferrari MD LAB BLOOD ORDERABLES Final Re sult [facility] from Last 3 Months or Most Recently Relevant to Health Maintenance Insurance Medicare [facility] Medicare [facility] Care Teams Snuff Grinder Relationship Specialty Start Date End Date Ami Mazariegos MD [address] [place] PCP - General Internal Medicine 10/31/20
== END 2024-12-16 10:56 | disposition home or self-care (01) ==
LOC: HO.HSMS 10:11
PROVIDERS: PCP Internal Medicine; Visit Provider Psychiatry & Neurology Neurology
DX: Z86.73 Personal history of transient ischemic attack (TIA), and cerebral infarction without residual deficits (principal)
CPT/HCPCS: 99204

== ENCOUNTER 2024-12-16 13:22 | Outpatient (REF) | payer MEDICARE, SELFPAY ==
--- NOTE | ~2024-12-16 | US_ITS ---
CLINICAL HISTORY: N13.30 - Unspecified hydronephrosis US Renal Comparison: US/SR - US KIDNEY BILATERAL - 12/11/23 11:13 EDT Findings: Right kidney normal size and echotexture, 10.0 cm length. Left kidney normal size and echotexture, 10.0 cm length. 0.5 cm and 1.0 cm anechoic left renal cysts are present. 6 mm calcification is seen in the left lower kidney with twinkle artifact. No collecting system dilatation of either kidney. IMPRESSION: 1. 6 mm nonobstructive left lower renal stone. 2. 1.0 cm and 0.5 cm simple left renal cysts. 3. Normal sonographic appearance of the right kidney. This document has been electronically signed by: Estrella Aguirre on 12/17/2024 11:44:41
== END 2024-12-16 13:23 | disposition home or self-care (01) ==
LOC: HO.US 13:22
PROVIDERS: PCP Internal Medicine; Visit Provider Urology
DX: N13.30 Unspecified hydronephrosis (principal); Z86.73 Personal history of transient ischemic attack (TIA), and cerebral infarction without residual deficits; Z79.82 Long term (current) use of aspirin; Z79.02 Long term (current) use of antithrombotics/antiplatelets
CPT/HCPCS: 76775; 99202

== ENCOUNTER → 2024-12-16 13:24 | Outpatient (BNV) | payer MEDICARE, SELFPAY | PROVIDERS: PCP Internal Medicine; Visit Provider Radiology Vascular & Interventional Radiology | DX: N20.0 Calculus of kidney (principal); N28.1 Cyst of kidney, acquired | CPT/HCPCS: 76775 ==

== ENCOUNTER 2024-12-20 13:47 | Outpatient (AMB) | payer MEDICARE, SELFPAY ==
--- OUTSIDE RECORDS SUMMARY | 2024-09-07 07:15 | XMS_ITS ---
Author Organization [facility] Address [address] [place] [address] Care Team Providers Care Parking Station Attendant Name Role Phone Ami Mazariegos Primary Care Provider UnavailMarcelo Colvin Unavailable [phone] Talita Charles [phone] Encounters Encounter Location Date Provider Diagnosis [address] [address] 09/07/2024 Talita Charles Plan Of Treatment Next Appt Details Provider Name:Talita godoy, 01/14/2025 12:00:00 PM, [address] [place] [address], [phone], Progress Notes * Edgar ROBERTS ADOB: [birth year] (84 yo M)Acc No.[id number]:09/07/2024 Progress Note Patient: Jeanne Edgar ZABALA Provider: Manju Charles DPM :1940 A ge:84 Y S ex:Male Date:09/07/2024 Address:[address] [place] [address] [facility] [id number] Pcp:Ami Mazariegos Subjective: * Chief Complaints: * [...] 09/07/2024 Generated for Ana katz/Norma/Murtaza on: 0 12/20/2024 03:05 PM EDT
--- NOTE | 2024-12-20 14:53 | AM.OFFWIN_ITS ---
Intake Vital Signs 3 12/20/24 14:55 Height 5 ft 9 in Weight 218 lb BMI 32.2 BP 140/72 H Blood Pressure Location Lt brachial Position Sitting Pulse 57 Pulse Source Pulse Oximeter Temp 97.5 F Temp Source Oral Pulse Oximetry (%) 97 Oxygen Delivery Method Room Air Intake Visit Reasons: EP Skin infection Intake Note: pt presents with irritated, painful and swollen lesion on abdomen for a little over a week- originally thought it was a bug bite Patient Tobacco Use Status: Never used Tobacco Allergies lisinopril Adverse Reaction (Intermediate, Verified 12/20/24 14:56) cough rosuvastatin Adverse Reaction (Intermediate, Verified 12/20/24 14:56) myalgia simvastatin Adverse Reaction (Intermediate, Verified 12/20/24 14:56) myalgia Do you need a note to return to daycare/school/sports/work: No HPI HPI Comments 2 History of Present Illness0 Details 84 y/o Male patient who presents to the walk in clinic with c/o Small Abscess on his Abdomen. Reports 3-4 days ago when he was at his Pool, felt sting on the center of his Abdomen. He noticed some redness a day later. Denies Systemic symptoms. Denies drainage at the area. [facility] Medical History Hard of hearing Arthritis Anemia History of kidney stones Hx of orthostatic hypotension Hx of fracture Weakness Difficulty swallowing Cough Habitual snoring SOB (shortness of breath) Preop exam for internal medicine Leg weakness Right wrist pain Carpal tunnel syndrome of right wrist Lumbar spinal stenosis Left acetabular fracture Peripheral arterial disease Hypercholesterolemia History of CVA (cerebrovascular accident) BPH (benign prostatic hyperplasia) Hypothyroid Hypertension Surgical History Hx of carpal tunnel repair Hx of shoulder surgery H/O colonoscopy Hx of aortic aneurysm repair History of cataract surgery S/P CABG x 1 History of prostate surgery History of thyroidectomy Hx of cholecystectomy Family History Father Medical history unknown Mother Medical history unknown Social History Household Members: Spouse Housing: House Are you a primary care professionals to a significant other at home: No Do you presently have visiting nurse or other home services: No Alcohol intake: current Alcohol intake frequency: holidays/special occasions only Alcohol type: beer and wine Patient Tobacco Use Status: Never used Tobacco Tobacco use type: Cigarette e-Cigarette/Vaping Use: Never Used Second Hand Smoke Exposure: No Advance Directives Date on File: 01/20/23 service: No Current occupational status: retired Current occupation: left hand Cognitive needs: Yes (Cane) Hearing needs: Yes Vision needs: Yes Review of Systems Const All systems reviewed & are unremarkable except as noted in HPI and below Physical Exam Vital Signs: Last Vital Signs Temp 97.5 F 12/20/24 14:55 Pulse 57 12/20/24 14:55 BP 140/72 H 12/20/24 14:55 Pulse Ox 97 12/20/24 14:55 Oxygen Delivery Method Room Air 12/20/24 14:55 BMI result Body Mass Index 32.2 Const General: no acute distress Nutritional Appearance: overweight Orientation/consciousness: patient oriented x3 Limitations: ambulation with cane GI Inspection: Yes obesity Palpation (GI): Soft to palpation, not firm, Tenderness to palpation present (GI) periumbilically (At the Abscess site), no guarding, not rigid and No hepatosplenomegaly present Abdomen image: 2 1. Small abscess, dry erythematous skin no drainage TTP. Neuro General: patient oriented x3 and moves all extremities Psych Speech and movement: Normal speech and movement present Assessment & Plan Assessment & Plan (1) Cellulitis: Code(s): L03.90 - Cellulitis, unspecified Qualifiers: Site of cellulitis: trunk Site of cellulitis of trunk: abdominal wall Qualified Code(s): L03.311 - Cellulitis of abdominal wall Plan: Ordered Keflex for 7 days. Advise Warm compress to promote drainage. RTC if not better. Medications: New 2 cephalexin 500 mg PO BID 14 caps 0RF 7 days L03.311 - Cellulitis of abdominal wall Coding Level of Care Code Est Pt Level 4 (28922) Diagnoses Cellulitis of abdominal wall L03.311 Site of cellulitis: trunk Site of cellulitis of trunk: abdominal wall Time Spent (min) 20
[2024-12-20 14:55] VITALS: BP 140/72; PULSE 57; TEMP 36.4; O2SAT 97; BMI 32.2
--- OUTSIDE RECORDS SUMMARY | 2024-12-20 15:05 | XMS_ITS | Clinical Summary ---
Author Organization [facility] Address [address] [facility] [address] [place] [address] Phone Care Team Providers Care Horse Show Manager Name Role Phone Ami Mazariegos MD Primary Care Provider [phone] Allergies Active Allergy Reactions Criticality Noted [...] * Hemoglobin A1c (11/08/2020 3:58 PM EDT) [facility] Hemoglobin A1C 5.2 (4.0-5.6) % [facility] Comment: MONITORING: In known diabetic patients, hemoglobin A1c targets should be discussed with health care provider. DIAGNOSTIC USE: The [place] Diabetes Association (ADA) and the World Health [...] Supplement 1 Testing performed or reported by [facility], a Service of [facility], [address] [place] [address] Norma Williamson MD, Experimental Welder 11/08/2020 3:58 PM EDT 11/08/2020 3:59 PM EDT us Edgar Ferrari MD LAB BLOOD ORDERABLES Final Re sult [facility] from Last 3 Months or Most Recently Relevant to Health Maintenance Insurance Medicare [facility] Medicare [facility] Care Teams Horse Show Manager Relationship Specialty Start Date End Date Ami Mazariegos MD [address] [place] PCP - General Internal Medicine 10/31/20
--- OUTSIDE RECORDS SUMMARY | 2024-12-20 15:05 | XMS_ITS | Patient Health Record ---
Author Organization [facility] [address] [place] Address [address] [place] [address] Care Team Providers Care Leather Dresser Name Role Phone Ami Mazariegos Primary Care Provider Marcelo Hardy Unavailable [phone] Talita Charles Unavailable [phone] Allergies No Known Allergies Results Component Value Reference Range Notes HEMOGLOBIN A1C (GLYCOHEMOGLO BIN) Reviewed date:10/15/2024 01:47:01 PM Interpretation: Performing Lab: Notes/Report: HEMOGLOBIN A1C % (HH) 6.6 Reason For Referral No Information Medications Medication SIG (Take, Route, Frequency, Duration) Notes Start Date End Date Status Flomax Active Clopidogrel Bisulfate 75 MG 1 tablet Ora lly Once a day Not-Taking Atorvastatin Calcium Active Amiodarone HCl Not-T aking Levothyroxine Sodium Active Ciclopirox Olamine 0.77 % 1 application Externally Twice a day; Duration: 30 days Not-Taking hydroCHLOROthiazide 12.5 MG 1 tablet in the morning Orally Once a day Not-Taking Vitamin D Not-Taking Potassium Not-Taking Plavix Not-Taking Metoprolol Succinate 100 MG 1 capsule Or ally Once a day; Duration: 30 day(s) Active Lasix Not-Taking Losartan Potassium 50 MG 1 tablet Orally Once a day Active Tamsulosin HCl 0.4 MG 1 capsule Orally Once a day; Duration: 30 day(s) Not-Taking Aspirin Active Fish Oil Not-Taking Simvastatin 20 MG 1 tablet in the evening Orally Once a day Active Cephalexin 500 MG 1 tablet Orally Twice a day; Duration: 5 days Not-Taking Metoprolol & Diet Manage Prod 25 Not-Taking Immunizations Vaccine Route Administration Date Status Comme nts COVID-19 Moderna Vaccine Unknown 02/25/2021 Administered First Dose:06/26/2020 Second Dose: 07/17/20 Influenza Unknown 02/27/2024 Administered Social History Tobacco Use: Social History Observation Description Date Details (start date - stop date) Never Smoker NA - NA Alcohol Screen Question Answer Notes Did you have a drink contain ing alcohol in the past year? Yes How often did you have a dri nk containing alcohol in the past year? 2 to 4 times a month (2 points) Points 2 Interpretation Negative Tobacco use other than smoking: Question Answer Notes Are you an other tobacco user? No Tobacco Control (Standard) Question Answer Notes Tobacco use: Nonsmoker Additional Findings: Tobacco non-user Ex-cigaret te smoker Problems Problem Type SNOMED Code ICD Code Onset Dates Problem Status W/U Status Risk Notes Problem Acquired hammer toe of left foot (1277085921162315) Hammertoe of left foot (M20.42) Active confirmed Problem Acquired hammer toe of right foot (5105576750191145) Hammertoe of right foot (M20.41) Active confirmed Problem Bilateral atherosclerosis of arteries of lower limbs (disorder) (73582544731032202 ) Atherosclerosis of [place] artery of both lower extremities, with unspecified presence of clinical manifestation (I70.203) Active confirmed Vital Signs Blood pressure diastolic 80 mm Hg 10/15/2024 Height 5 ft 11 in in 10/15/2024 Blood pressure systolic 130 mm Hg 10/15/2024 Weight 207 lbs 10/15/2024 BMI 28.87 kg/m2 10/15/2024 Encounters Encounter Location Date Provider Diagnosis [facility] [address] [address] 03/09/2024 Talita Perica Tinea pedis of both feet B35.3 ; Onychomycosis B35.1 ; Atherosclerosis of [place] artery of both lower extremities, with unspecified presence of clinical manifestation I70.203 ; Pain of toe of right foot M79.674 and Pain of toe of left foot M79.675 [facility] [address] 06/08/2024 Talita Perica Onychomycosis B35.1 ; Contusion of left great toe without damage to nail, initial encounter S90.112A ; Atherosclerosis of [place] artery of both lower extremities, with unspecified presence of clinical manifestation I70.203 ; Pain of toe of right foot M79.674 ; Pain of toe of left foot M79.675 ; Xerosis of skin L85.3 ; Hammertoe of right foot M20.41 and Hammertoe of left foot M20.42 [facility] [address] 10/15/2024 Talita Charles Onychomycosis B35.1 ; Atherosclerosis of [place] artery of both lower extremities, with unspecified presence of clinical manifestation I70.203 ; Pain of toe of right foot M79.674 and Pain of toe of left foot M79.[address] [address] 09/06/2024 Marcelo Simpson Assessments Encounter Date Diagnosis (ICD Code) Assessment Notes Treatment Notes Treatment Clinical Notes Section Notes 03/09/2024 Onychomycosis (ICD-10 - B35.1) 03/09/2024 Tinea pedis of both feet (ICD-10 - B35.3) 06/08/2024 Contusion of left great toe without damage to nail, initial encounter (ICD-10 - S90.112A) 06/08/2024 Onychomycosis (ICD-10 - B35.1) 10/15/2024 Onychomycosis (ICD-10 - B35.1) 10/15/2024 Atherosclerosis of [place] artery of both lower extremities, with unspecified presence of clinical manifestation (ICD-10 - I70.203) 10/15/2024 Pain of toe of right foot (ICD-10 - M79.674) 06/08/2024 Atherosclerosis of [place] artery of both lower extremities, with unspecified presence of clinical manifestation (ICD-10 - I70.203) 03/09/2024 Atherosclerosis of [place] artery of both lower extremities, with unspecified presence of clinical manifestation (ICD-10 - I70.203) 06/08/2024 Pain of toe of right foot (ICD-10 - M79.674) 10/15/2024 Pain of toe of left foot (ICD-10 - M79.675) 03/09/2024 Pain of toe of right foot (ICD-10 - M79.674) 06/08/2024 Pain of toe of left foot (ICD-10 - M79.675) 03/09/2024 Pain of toe of left foot (ICD-10 - M79.675) 06/08/2024 Xerosis of skin (ICD-10 - L85.3) 06/08/2024 Hammertoe of right foot (ICD-10 - M20.41) 06/08/2024 Hammertoe of left foot (ICD-10 - M20.42) Plan Of Treatment Pending Test Test Name Order Date [id number] NAIL, 6 OR MORE 12/17/2022 [id number] NAIL, 6 OR MORE 03/04/2023 [id number] NAIL, 6 OR MORE 05/20/2023 [id number] NAIL, 1-5 07/04/2014 [id number] SKIN LESIONS, 2 TO 4 05/20/19 24 [id number] SKIN LESIONS, 2 TO 4 03/04/20 [id number] SKIN LESIONS, 2 TO 4 12/18/19 Next Appt Details Provider Name:Talita godoy, 01/14/2025 12:00:00 PM, [address] [facility], [place], [address], Insurance Providers Payer Name Payer Address Payer Phone Subscriber Number Group Number Insured Name Patient Relationship to Insured Coverage Start Date Coverage End Date Medicare National [employer]t [employer] [address] [facility] [place] [address] [id number] Edgar Roberts Self - patient is the insured [employer] [address] [place] [address] [phone] [id number] Edgar Roberts Self - patient is the insured Medical (General) History Medical History History ICD Code Broken bones Cholesterol High blood pressure Stroke Thyroid disorder Chicken pox Measles Mumps Joint implants/screws CVA Fx left foot 5th metatarsal - years ago Arthritis Back,Hip,and Knee pain Gall bladder problems Venous insufficiency aortic aneurysm Kidney stones Surgical History Surgery Date(Month/Year) Right shoulder 1974 Cholecystectomy 2005 Hemithyroidectomy 2005 Bypass Surgery 10/10/20 Stent Surgery- kidney stones 09/03/23 Hospitalization History Reason Date(Month/Year) [facility]- Kidney stone 03/21 [facility]- Kidney stone 08/2023 [facility]- Coronary Bypass 10/10/20 fractured hip- rehab 2 weeks 07/14
--- OUTSIDE RECORDS SUMMARY | 2024-12-20 15:06 | XMS_ITS | Patient Health Record ---
Author Organization [facility] Address [address] [place] [address] Care Team Providers Care Collar Baster Name Role Phone Flex Mckenzie MD Primary Care Provider Bharathi Burden [phone] Reason For Referral No Information Medications Medication [...] Date MEDICARE OF [place] [address] [place] [address] [id number] ROBBIE JIMENEZ Self - patient is the insured [employer] ATT[employer] CLAIMS [address] [place] [address] [phone] [id number] ROBBIE JIMENEZ Self - patient is the insured Medical (General) History Medical History History ICD Code one small tubular adenoma re moved in 2000, and subsequent negative colonoscopies in 2003 and in 05/2008 hyperlipidemia Denies ID,DM,Lung disease,renal disease CVA 2008--no residual deficits Hypothyroidism Surgical History Surgery Date(Month/Year) right shoulder surgery cholecystectomy thyroidectomy
== END 2024-12-20 15:10 | disposition home or self-care (01) ==
PROVIDERS: PCP Internal Medicine; Visit Provider Nurse Practitioner Family
DX: L03.311 Cellulitis of abdominal wall (principal)

== ENCOUNTER → 2024-12-20 13:47 | Outpatient (BNVA) | payer MEDICARE, SELFPAY | PROVIDERS: PCP Internal Medicine; Visit Provider Nurse Practitioner Family | DX: L03.311 Cellulitis of abdominal wall (principal) | CPT/HCPCS: 99212 ==

== ENCOUNTER 2024-12-22 11:44 | Emergency (ER) | payer MEDICARE, SELFPAY ==
--- OUTSIDE RECORDS SUMMARY | 2024-09-07 07:15 | XMS_ITS ---
Author Organization [facility] Address [address] [place] [address] Care Team Providers Care Carton Stenciler Name Role Phone Ami Mazariegos Primary Care Provider UnavailMarcelo Colvin Unavailable [phone] Talita Charles [phone] Encounters Encounter Location Date Provider Diagnosis [address] [address] 09/07/2024 Talita Charles Plan Of Treatment Next Appt Details Provider Name:Talita godoy, 01/14/2025 12:00:00 PM, [address] [place] [address], [address], Progress Notes * Edgar ROBERTS ADOB: [birth year] (84 yo M)Acc No.[id number]:09/07/2024 Progress Note Patient: Jeanne Edgar ZABALA Provider: Manju Charles DPM :1940 A ge:84 Y S ex:Male Date:09/07/2024 Address:[address] [place] [address] [facility] [id number] Pcp:Ami Mazariegos Subjective: * Chief Complaints: * [...] 09/07/2024 Generated for Ana katz/Norma/Murtaza on: 0 12/22/2024 01:40 PM EDT
[2024-12-22 12:09] VITALS: BP 150/70; PULSE 60; RESP 18; TEMP 36.8; O2SAT 95; BMI 29.9
--- NOTE | 2024-12-22 12:09 | ED.SKABFB ---
HPI - Skin/Abscess/Foreign Bdy General Chief complaint: General Medical Stated complaint: Skin Rash Time Seen by Provider: 12/22/24 13:05 Source: patient, RN notes reviewed and old records reviewed Mode of arrival: ambulatory Limitations: no limitations History of Present Illness ED Provider: Elizabeth Sarah PA-C HPI narrative: 84-year-old male with medical history of CVA, BPH, HTN, hypothyroidism, CKD, CAD s/p LAD stent, thoracic aortic aneurysm s/p repair, HLD, spinal stenosis with B/L lower extremity weakness presents to ED due to 2 weeks of abdominal abscess. Patient states approximately 2 weeks ago while vacationing in the [facility] he noticed a small reddened lump on the left side of his lower abdomen that he thought was a bug bite. Patient states he was seen 3 days ago at [facility] walk-in clinic and was started on Keflex antibiotics. Patient states he woke up this morning and noticed some clear brown drainage with increased redness around the lesion. Denies fevers, chills, arthralgia, chest pain, shortness of breath, abdominal pain, nausea, vomiting Related Data Home Medications ?Medication ?Instructions ?Recorded ?Confirmed aspirin 81 mg tablet,delayed 81 mg PO DAILY 08/06/21 12/16/24 release (Adult Aspirin Regimen) docusate sodium 100 mg capsule 100 mg PO BID 08/15/21 12/16/24 (Colace) cholecalciferol (vitamin D3) 50 50 mcg PO SUSA 07/18/23 12/16/24 mcg (2,000 unit) tablet omega-3 fatty acids-fish oil 360 1 cap PO BID 07/18/23 12/16/24 mg-1,200 mg capsule (Fish Oil) Previous Rx's ?Medication ?Instructions ?Recorded levothyroxine 100 mcg tablet 100 mcg PO DAILY@0600 #90 tabs 04/12/24 tamsulosin 0.4 mg capsule (Flomax) 0.4 mg PO BEDTIME #90 caps 06/24/24 clopidogrel 75 mg tablet 75 mg PO DAILY #90 tabs 07/12/24 losartan 50 mg tablet 50 mg PO BID #180 tabs 07/12/24 metoprolol succinate 100 mg 100 mg PO BEDTIME #90 tabs 07/19/24 tablet,extended release 24 hr atorvastatin 20 mg tablet 20 mg PO DAILY #90 tabs 09/15/24 cephalexin 500 mg capsule 500 mg PO BID 7 days #14 caps 12/20/24 doxycycline hyclate 100 mg capsule 100 mg PO BID 7 days #14 caps 12/22/24 Allergies Allergy/AdvReac Type Severity Reaction Status Date / Time lisinopril AdvReac Intermediate cough Verified 12/22/24 12:12 rosuvastatin AdvReac Intermediate myalgia Verified 12/22/24 12:12 simvastatin AdvReac Intermediate myalgia Verified 12/22/24 12:12 Review of Systems Review of Systems: CONST: Negative for fever, body aches and chills. HENT: Negative for neck pain/stiffness, headache, congestion, sore throat, swelling. EYES: Negative for discharge/pain or vision changes. RESP: Negative for cough/hemoptysis and shortness of breath. CV: Negative chest pain, difficulty breathing, palpitations. ABD: Negative pain, nausea, vomiting. : Negative increase frequency, dysuria, blood in urine or stool. MUSC: Negative for muscle aches, edema. SKIN: Negative rash, lesions/sores. POS abscess of L lower abdomen with redness NEURO: Negative headache, dizziness, weakness. [facility] Past Medical History Attestation statement: The following information was validated with the patient. Source: old records reviewed and nursing notes reviewed Medical History Hard of hearing Arthritis Anemia History of kidney stones Hx of orthostatic hypotension Hx of fracture Weakness Difficulty swallowing Cough Habitual snoring SOB (shortness of breath) Preop exam for internal medicine Leg weakness Right wrist pain Carpal tunnel syndrome of right wrist Lumbar spinal stenosis Left acetabular fracture Peripheral arterial disease Hypercholesterolemia History of CVA (cerebrovascular accident) BPH (benign prostatic hyperplasia) Hypothyroid Hypertension Surgical History Hx of carpal tunnel repair Hx of shoulder surgery H/O colonoscopy Hx of aortic aneurysm repair History of cataract surgery S/P CABG x 1 History of prostate surgery History of thyroidectomy Hx of cholecystectomy Family History Family History Father Medical history unknown Mother Medical history unknown Social History Social History Household Members: Spouse Housing: House Are you a primary home care provider to a significant other at home: No Do you presently have visiting nurse or other home services: No Alcohol intake: current Alcohol intake frequency: holidays/special occasions only Alcohol type: beer and wine Patient Tobacco Use Status: Never used Tobacco Tobacco use type: Cigarette e-Cigarette/Vaping Use: Never Used Second Hand Smoke Exposure: No Advance Directives Date on File: 01/20/23 service: No Current occupational status: retired Current occupation: left hand Cognitive needs: Yes (Cane) Hearing needs: Yes Vision needs: Yes Physical Exam Vital Signs: Vital Signs: Last Vital Signs Temp 98.3 F 12/22/24 12:09 Pulse 60 12/22/24 12:09 Resp 18 12/22/24 12:09 BP 150/70 H 12/22/24 12:09 Pulse Ox 95 12/22/24 12:09 O2 Del Method Room Air 12/22/24 12:09 BMI result Body Mass Index 29.9 GENERAL APPEARANCE: ?AxOx4, generally well-appearing, no acute distress. HEENT: ?NC, AT. MMM. EOMI, clear conjunctiva, oropharynx clear. NECK: ?Supple without lymphadenopathy.? No stiffness or restricted ROM. HEART:? Normal rate and regular rhythm, normal S1/S1, no m/r/g LUNGS:? CTAB, moving air well. No crackles or wheezes are heard. ABDOMEN: ?Soft, nontender, nondistended with good bowel sounds heard. BACK: No CVAT, no obvious deformity. EXTREMITIES: ?Without cyanosis, clubbing or edema. NEUROLOGICAL: ?Grossly nonfocal. Alert and oriented, moving all 4 extremities. Observed to ambulate with normal gait. Skin: ?Warm and dry without any rash. approx 3cm lesion with surrounding erythema and central area of scabbing, no fluctuance noted, not actively draining. See photos Course Course Course Narrative: This is an RME: Additional HPI, ROS, PE not included below will be deferred to primary provider. RME assessment and note performed by: Maye Banerjee PA-C This is a 49-wdwc-iwy-male, with a hx of arthritis, anemia, PAD, hypercholesterolemia, CVA, BPH, hypothyroid, hypertension, who presents to the ER with complaints of skin infection on abdominal wall. Thought it was a bug bite 2 weeks ago, seen at [facility] two days ago and was started on keflex which he has been taking without relief. Reporting increased redness, swelling, tenderness and reporting it was draining this AM. No fevers. 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 Medical Decision Making Medical Decision Making [facility] Narrative: 84-year-old male with medical history of CVA, BPH, HTN, hypothyroidism, CKD, CAD s/p LAD stent, thoracic aortic aneurysm s/p repair, HLD, spinal stenosis with B/L lower extremity weakness presents to ED due to 2 weeks of abdominal abscess. Patient states approximately 2 weeks ago while vacationing in the [facility] he noticed a small reddened lump on the left side of his lower abdomen that he thought was a bug bite. Patient states he was seen 3 days ago at [facility] walk-in clinic and was started on Keflex antibiotics. Patient states he woke up this morning and noticed some clear brown drainage with increased redness around the lesion. VS on initial observation-BP 150/70, pulse rate of 60, respiratory rate of 18, afebrile with oral temp of 98.3?, O2 saturation 95% on room air. On physical exam patient is well-appearing, nontoxic appearing, no acute distress, on physical exam there is an approximate 3 cm lesion on the left lower abdomen wall without fluctuance, there is a small central area of scabbing, no active draining, mild erythema surrounding the lesion, without warmth, no crepitus palpated. Labs without leukocytosis/leukopenia, H&H stable, CRP WNL at 0.10. I preformed POCUS at the bedside with my attending Dr. Pandey which revealed a very small amount of fluid under the lesion that does not require I&D at this time. Patient has been on Keflex ABX therapy. I am concerned for MRSA, will add on 7 day course of doxycycline for coverage. I counseled patient to follow up with his primary care doctor to ensure his improvement, along with strict return precautions to the ED. I added on the tick panel since patient was vacationing in [facility] to ensure no tick borne illness. I counseled the patient that we will call him with results if positive. Differential Diagnosis Differential Diagnoses: The differential diagnosis associated with the presentation includes Cellulitis Abscess Necrotizing fasciitis Carbuncle Furuncle Admission/Observation Consideration of admission/observation: Escalation of care including admission/observation considered Lab Data MDM Lab Attestation statement: I reviewed the patient's lab results. External Record Review External record reviewed: Inpatient record, Office record and Outpatient record Chronic Conditions Patient?s care impacted by: Hypertension and Other (CVA, BPH, hypothyroidism, chronic kidney disease, coronary artery disease status post LAD stent, thoracic aortic aneurysm status post repair, high cholesterol, spinal stenosis with bilateral lower extremity weakness) Discharge Plan Discharge Clinical Impression: Abscess Patient Disposition: Home, Self-Care Instructions: Abscess (ED) Additional Instructions: You were evaluated in the ED today due to a lesion on your abdomen. Your CBC did not show any evidence of leukocytosis/leukopenia, no electrolyte imbalance. We are awaiting results for tick panel, we will call you if these are positive. Bedside ultrasound showed that there was a very small collection of fluid underneath this lesion however does not need to be drained at this time. You are being prescribed a 7 day course of doxycycline to cover for potential MRSA infection. Please finish a course of Keflex antibiotic as well. I recommend that you follow up with your primary care doctor to ensure improvement. Please return to the emergency department if you develop fevers over 100.4?, chills, abdominal pain, nausea, vomiting, worsening redness/pain/drainage of the lesion on the abdomen or any other new/worsening/concerning symptoms. Prescriptions: New doxycycline hyclate 100 mg capsule 100 mg PO BID 7 Days Qty: 14 0RF No Action levothyroxine 100 mcg tablet 100 mcg PO DAILY@0600 Qty: 90 3RF tamsulosin [Flomax] 0.4 mg capsule 0.4 mg PO BEDTIME Qty: 90 3RF clopidogrel 75 mg tablet 75 mg PO DAILY Qty: 90 3RF losartan 50 mg tablet 50 mg PO BID Qty: 180 3RF metoprolol succinate 100 mg tablet extended release 24 hr 100 mg PO BEDTIME Qty: 90 3RF omega-3 fatty acids-fish oil [Fish Oil] 360-1,200 mg Capsule 1 cap PO BID cholecalciferol (vitamin D3) 50 mcg (2,000 unit) Tablet 50 mcg PO SUSA docusate sodium [Colace] 100 mg capsule 100 mg PO BID aspirin [Adult Aspirin Regimen] 81 mg tablet,delayed release (DR/EC) 81 mg PO DAILY cephalexin 500 mg capsule 500 mg PO BID 7 Days Qty: 14 0RF atorvastatin 20 mg tablet 20 mg PO DAILY Qty: 90 1RF Print Language: Belarusian
[2024-12-22 13:11] LABS: MANUAL DIFF FLAG NO
[2024-12-22 13:12] LABS: Hematocrit 42.8 % (42.0-52.0); Hemoglobin 14.2 g/dl (14.0-18.0); Imm Gran Abs Auto 0.04 X10*3/uL (0.00-0.03); Imm Gran Pct Auto 0.5 % (0.0-0.4); Lymphocytes Absolute Auto 1.1 X10*3/uL (1.2-4.9); Mean Corpuscular HGB Conc 33.2 g/dl (31.0-36.0); Mean Corpuscular Hemoglobin 30.0 pg (27.0-33.0); Mean Corpuscular Volume 90.5 fL (80.0-98.0); NRBC Abs Auto 0.000 X10*3/uL (0.0-0.012); NRBC Pct Auto 0.0 /100WBC (0.0-0.2); Platelet Count 191 X10*3/uL (160-400); Red Blood Count 4.73 X10*6/uL (4.60-5.80); White Blood Count 7.9 X10*3/uL (4.8-10.8)
[2024-12-22 13:34] LABS: Alanine Aminotransferase 11 U/L (0-40); Albumin Level 3.7 g/dL (3.5-5.0); Alkaline Phosphatase 96 U/L (39-117); Anion Gap 10 (12-20); Aspartate Amino Transferase 28 U/L (5-37); Blood Urea Nitrogen 28 mg/dL (9-16); Calcium 8.4 mg/dL (8.4-10.2); Carbon Dioxide 26 mmol/L (22-29); Chloride 109 mmol/L (96-108); Creatinine Clr Calc Pharmacy 51.2; Estimated Glomerular Filt Rate 56; Potassium 4.3 mmol/L (3.3-5.1); Sodium 141 mmol/L (135-145); Total Protein 6.0 g/dL (6.5-8.0)
--- OUTSIDE RECORDS SUMMARY | 2024-12-22 13:40 | XMS_ITS | Clinical Summary ---
Author Organization [facility] Address [address] [facility] [facility] [address] [place] [address] Phone Care Team Providers Care Clinical Support Manager Name Role Phone Ami Mazariegos MD Primary Care Provider [phone] Allergies Active Allergy Reactions Criticality Noted Date [...] * Hemoglobin A1c (11/08/2020 3:58 PM EDT) [facility] Hemoglobin A1C 5.2 (4.0-5.6) % [facility] Comment: MONITORING: In known diabetic patients, hemoglobin A1c targets should be discussed with health care provider. DIAGNOSTIC USE: The [place] Diabetes Association (ADA) and the World Health [...] Supplement 1 Testing performed or reported by [facility], a Service of [facility], [address] [place] [id number] Norma Williamson MD, Stack Supervisor 11/08/2020 3:58 PM EDT 11/08/2020 3:59 PM EDT us Edgar Ferrari MD LAB BLOOD ORDERABLES Final Re sult [facility] from Last 3 Months or Most Recently Relevant to Health Maintenance Insurance Medicare [facility] Medicare [facility] Care Teams Clinical Support Manager Relationship Specialty Start Date End Date Ami Mazariegos MD [address] [place] PCP - General Internal Medicine 10/31/20
--- OUTSIDE RECORDS SUMMARY | 2024-12-22 13:40 | XMS_ITS | Patient Health Record ---
Author Organization [facility] Klaus anton Jean Paul Address [address] [place] [address] Care Team Providers Care Forestry Conservation Worker Name Role Phone Ami Mazariegos Primary Care Provider Marcelo Hardy Unavailable [phone] Talita Charles Unavailable [phone] Allergies No Known Allergies Results Component Value [...] Vaccine Route Administration Date Status Comme nts Influenza Unknown 02/27/2024 Administered COVID-19 Moderna Vaccine Unknown 02/25/2021 Administered First Dose:06/26/2020 Second Dose: 07/17/20 Social History Tobacco Use: Social History Observation [...] Problem Acquired hammer toe of left foot (2909144100228073) Hammertoe of left foot (M20.42) Active confirmed Problem Acquired hammer toe of right foot (5016006124904932) Hammertoe of right foot (M20.41) Active confirmed Problem Bilateral atherosclerosis of arteries of lower limbs (disorder) (47408549642552951 ) Atherosclerosis of [place] artery of both lower extremities, with unspecified presence of clinical manifestation (I70.203) Active confirmed Vital Signs Blood pressure diastolic 80 mm Hg 10/15/2024 Height 5 ft 11 in in 10/15/2024 Blood pressure systolic 130 mm Hg 10/15/2024 Weight 207 lbs 10/15/2024 BMI 28.87 kg/m2 10/15/2024 Encounters Encounter Location Date Provider Diagnosis [facility] [address] [address] 03/09/2024 Talita Elliotta Tinea pedis of both feet B35.3 ; Onychomycosis B35.1 ; Atherosclerosis of [place] artery of both lower extremities, with unspecified presence of clinical manifestation I70.203 ; Pain of toe of right foot M79.674 and Pain of toe of left foot M79.[address] [facility] [address] 06/08/2024 Talita Perica Onychomycosis B35.1 ; Contusion of left great toe without damage to nail, initial encounter S90.112A ; Atherosclerosis of [place] artery of both lower extremities, with unspecified presence of clinical manifestation I70.203 ; Pain of toe of right foot M79.674 ; Pain of toe of left foot M79.675 ; Xerosis of skin L85.3 ; Hammertoe of right foot M20.41 and Hammertoe of left foot M20.[address] [facility] [address] 10/15/2024 Talita Charles Onychomycosis B35.1 ; Atherosclerosis of [place] artery of both lower extremities, with unspecified presence of clinical manifestation I70.203 ; Pain of toe of right foot M79.674 and Pain of toe of left foot M79.[address] [address] 09/06/2024 Marcelo Simpson Assessments Encounter Date Diagnosis (ICD Code) Assessment Notes Treatment Notes Treatment Clinical Notes Section Notes 03/09/2024 Onychomycosis (ICD-10 - B35.1) 03/09/2024 Tinea pedis of both feet (ICD-10 - B35.3) 06/08/2024 Contusion of left great toe without damage to nail, initial encounter (ICD-10 - S90.112A) 06/08/2024 Onychomycosis (ICD-10 - B35.1) 10/15/2024 Onychomycosis (ICD-10 - B35.1) 10/15/2024 Atherosclerosis of [place] artery of both lower extremities, with unspecified presence of clinical manifestation (ICD-10 - I70.203) 10/15/2024 Pain of toe of right foot (ICD-10 - M79.674) 06/08/2024 Atherosclerosis of [place] artery of both lower extremities, with unspecified presence of clinical manifestation (ICD-10 - I70.203) 03/09/2024 Atherosclerosis of [place] artery of both lower extremities, with unspecified presence of clinical manifestation (ICD-10 - I70.203) 03/09/2024 Pain of toe of right foot (ICD-10 - M79.674) 10/15/2024 Pain of toe of left foot (ICD-10 - M79.675) 06/08/2024 Pain of toe of right foot (ICD-10 - M79.674) 06/08/2024 Pain of toe of left foot (ICD-10 - M79.675) 03/09/2024 Pain of toe of left foot (ICD-10 - M79.675) 06/08/2024 Xerosis of skin (ICD-10 - L85.3) 06/08/2024 Hammertoe of right foot (ICD-10 - M20.41) 06/08/2024 Hammertoe of left foot (ICD-10 - M20.42) Plan Of Treatment Pending Test Test Name Order Date 67585-TOATASM NAIL, 6 OR MORE 12/17/2022 02174-[id number] NAIL, 6 OR MORE 03/04/2023 16038-MCUSIHW NAIL, 6 OR MORE 05/20/2023 81796-[id number] NAIL, 1-5 07/04/2014 81532-SEHX SKIN LESIONS, 2 TO 4 05/20/19 24 70673-YWKO SKIN LESIONS, 2 TO 4 03/04/20 64960-FMYA SKIN LESIONS, 2 TO 4 12/18/19 Next Appt Details Provider Name:Talita godoy, 01/14/2025 12:00:00 PM, [address] [facility], [place], [address], Insurance Providers Payer Name Payer Address Payer Phone Subscriber Number Group Number Insured Name Patient Relationship to Insured Coverage Start Date Coverage End Date Medicare National Govt Svcs Inc [address] [facility] [place] [address] [id number] Edgar Roberts Self - patient is the insured [employer] Blue Shield [address] [place] [address] [id number] Edgar Roberts Self - patient is the [...] kidney stones 09/03/23 Hospitalization History Reason Date(Month/Year) [facility] [place] [facility] [place] 08/2023 [facility] Coronary Bypass 10/10/20 fractured hip- rehab 2 weeks 07/14
--- OUTSIDE RECORDS SUMMARY | 2024-12-22 13:41 | XMS_ITS | Patient Health Record ---
Author Organization [facility] Address [address] [place] [address] Care Team Providers Care Print Room Worker Name Role Phone Flex Mckenzie MD Primary Care Provider Bharathi Burden [phone] Reason For Referral No Information Medications Medication [...] Date MEDICARE OF [place] [address] [facility] [place] [address] [id number] ROBBIE JIMENEZ Self - patient is the insured MEDEX ATTN CLAIMS [address] [place] [address] [id number] ROBBIE JIMENEZ Self - patient is the insured Medical (General) History Medical History History ICD Code one small tubular adenoma re moved in 2000, and subsequent negative colonoscopies in 2003 and in 05/2008 hyperlipidemia Denies [place],DM,Lung disease,renal disease CVA 2008--no residual deficits Hypothyroidism Surgical History Surgery Date(Month/Year) right shoulder surgery cholecystectomy thyroidectomy
[2024-12-22 14:22] VITALS: BP 150/70; PULSE 60; RESP 18; TEMP 36.8; O2SAT 95
[2024-12-23 21:48] LABS: A. Phagocytphilium DNA,RT-PCR NOT DETECTED (NOT DETECTED); Babesia Microti DNA, RT-PCR NOT DETECTED (NOT DETECTED); Borrelia Miyamotoi,DNA RT-PCR NOT DETECTED (NOT DETECTED); E.Chaffeensis DNA RT-PCR NOT DETECTED (NOT DETECTED); Lyme(Borrelia ssp)DNA RT-PCR NOT DETECTED (NOT DETECTED)
== END 2024-12-22 14:22 | disposition home or self-care (01) ==
PROVIDERS: Physician Assistant Medical; Emergency Provider Emergency Medicine; PCP Internal Medicine
DX: L02.211 Cutaneous abscess of abdominal wall (principal); I10 Essential (primary) hypertension; E78.00 Pure hypercholesterolemia, unspecified
CPT/HCPCS: 36415; 80053; 85025; 85652; 86140; 87468; 87469; 87478; 87484; 87798; 99282; 99283

== ENCOUNTER 2024-12-23 10:19 | Outpatient (AMB) | payer MEDICARE, SELFPAY ==
--- OUTSIDE RECORDS SUMMARY | 2024-09-07 07:15 | XMS_ITS ---
Author Organization [facility] Address [address] [place] [address] Care Team Providers Care Nutrition Counselor Name Role Phone Ami Mazariegos Primary Care Provider UnavailMarcelo Colvin Unavailable [phone] Talita Charles [phone] Encounters Encounter Location Date Provider Diagnosis [address] [address] 09/07/2024 Talita Charles Plan Of Treatment Next Appt Details Provider Name:Talita godoy, 01/14/2025 12:00:00 PM, [address] [place] [address], [phone], Progress Notes * Edgar ROBERTS ADOB: [birth year] (84 yo M)Acc No.[id number]:09/07/2024 Progress Note Patient: Jeanne Edgar ZABALA Provider: Manju Charles DPM :1940 A ge:84 Y S ex:Male Date:09/07/2024 Address:[address] [place] [address] [facility] [id number] Pcp:Ami Mazariegos Subjective: * Chief Complaints: * [...] 09/07/2024 Generated for Ana katz/Norma/Murtaza on: 0 12/23/2024 11:38 AM EDT
--- NOTE | 2024-12-23 10:32 | MHC.OFFVIS ---
Intake Visit Reasons: 1y/US Intake Note: Patient is Present for Follow Up Ultrasound Urology Medication: Tamsulosin Antibiotic Allergies: None Blood Thinners:Aspirin ,clopidogrel Imaging: Ultrasound done 12/16/2024 Software Systems Architect Required: No Accompanied by: Self / Same As Patient Allergies lisinopril Adverse Reaction (Intermediate, Verified 12/23/24 10:33) cough rosuvastatin Adverse Reaction (Intermediate, Verified 12/23/24 10:33) myalgia simvastatin Adverse Reaction (Intermediate, Verified 12/23/24 10:33) myalgia HPI Comments Details: Edgar is a pleasant male. He is a patient of Dr. Mazariegos. He is seen for the following urologic conditions. - nephrolithiasis Yearly follow-up Imaging stable Talked about his recent trip to [facility] with a tour up to [facility] Currently being treated for skin infected cyst on abdomen Encouraged lemon water for stones Nephrolithiasis Presentation through emergency room - acute kidney insult - presenting creatinine 1.6 down to 1.2 after stent placement Imaging - 08/19 Mild left-sided hydroureteronephrosis with asymmetric perinephric fat stranding/free fluid and two very subtle punctate calculi in the distal left ureter at approximately 0.5 cm from the ureterovesical junction - 12/19 renal ultrasound - left small stone 6 mm - 12/20 renal ultrasound small stone left side Intervention - 09/18 left ureteroscopy - [facility] History Hard of hearing Arthritis Anemia History of kidney stones Hx of orthostatic hypotension Hx of fracture Weakness Difficulty swallowing Cough Habitual snoring SOB (shortness of breath) Preop exam for internal medicine Leg weakness Right wrist pain Carpal tunnel syndrome of right wrist Lumbar spinal stenosis Left acetabular fracture Peripheral arterial disease Hypercholesterolemia History of CVA (cerebrovascular accident) BPH (benign prostatic hyperplasia) Hypothyroid Hypertension Surgical History Hx of carpal tunnel repair Hx of shoulder surgery H/O colonoscopy Hx of aortic aneurysm repair History of cataract surgery S/P CABG x 1 History of prostate surgery History of thyroidectomy Hx of cholecystectomy Family History Father Medical history unknown Mother Medical history unknown Social History Household Members: Spouse Housing: House Are you a primary hospice home care coordinator to a significant other at home: No Do you presently have visiting nurse or other home services: No Alcohol intake: current Alcohol intake frequency: holidays/special occasions only Alcohol type: beer and wine Patient Tobacco Use Status: Never used Tobacco Tobacco use type: Cigarette e-Cigarette/Vaping Use: Never Used Second Hand Smoke Exposure: No Advance Directives Date on File: 01/20/23 service: No Current occupational status: retired Current occupation: left hand Cognitive needs: Yes (Cane) Hearing needs: Yes Vision needs: Yes Review of Systems Const Denies chills and Denies fever(s) Card Reports no additional complaints and Denies syncope Resp Denies cough GI Denies abdominal pain and Denies heartburn Reports as per HPI and Denies change in libido Neuro Denies syncope Psych Denies change in libido Endo Denies change in libido Physical Exam Const General: cooperative, healthy appearing, comfortable and no acute distress Orientation/consciousness: patient oriented x3 HEENT Face and sinus: Yes normal facial exam Mouth: moist mucous membranes Neck Neck: Yes normal visual inspection, Yes full ROM and Yes trachea midline Chest Chest palpation & inspection: normal inspection of the chest Resp Effort & Inspection: normal respiratory effort, able to speak in complete sentences and no respiratory distress GI Inspection: Yes normal to inspection Back/Spine/Pelvis Cervical Spine: normal cervical lordosis Thoracic/Lumbar Spine: thoracic and lumbar spine normal to inspection Skin General skin exam: no rashes or lesions noted Neuro General: patient oriented x3, gait normal, tone normal and moves all extremities Extrem General: Yes normal to inspection and Yes capillary refill normal Assessment & Plan Assessment & Plan (1) Left renal stone: Comment: June 2023 Code(s): N20.0 - Calculus of kidney Category: Medical (2) BPH (benign prostatic hyperplasia): Code(s): N40.0 - Benign prostatic hyperplasia without lower urinary tract symptoms Category: Medical Qualifiers: Lower urinary tract symptom presence: symptoms present Lower urinary tract symptom detail: urinary frequency Qualified Code(s): N40.1 - Benign prostatic hyperplasia with lower urinary tract symptoms; R35.0 - Frequency of micturition Plan 12 month follow-up imaging Orders: Orders US renal BI 12 Months N20.0 - Calculus of kidney Patient Instructions: This note is constructed using voice recognition software. While every effort has been made to ensure accuracy sleeve turner errors may have been included. Imaging studies, laboratory and physical exam results were discussed and reviewed in detail. No major barriers to patient understanding were identified. An opportunity to ask questions regarding the treatment plan was provided. All questions were answered. The patient expressed understanding and agreement with the above treatment plan. The patient is aware they should contact our office by phone for worsening of their current condition or the appearance of new urologic symptoms. Compliance is encouraged with any medications and followup testing that is ordered. It is a privilege to participate in the urologic care of your patient. If you have any questions or concerns regarding treatment for the above conditions, or other urologic issues, please do not hesitate to contact me. The office telephone contact is [phone]. Sincerely, Dr Riley Cabrera MD, [place] [facility] - Urology Compassionate Specialist Care for the Genitourinary System Coding Level of Care Code Est Pt Level 4 (21277) Complex EM visit Add On G2211 Diagnoses Left renal stone N20.0 Benign prostatic hyperplasia with urinary frequency N40.1; R35.0 Lower urinary tract symptom presence: symptoms present Lower urinary tract symptom detail: urinary frequency
--- OUTSIDE RECORDS SUMMARY | 2024-12-23 11:38 | XMS_ITS | Clinical Summary ---
Author Organization [facility] Address [address] [facility] [address] [place] [address] Phone Care Team Providers Care Medium Cycle Salesperson Name Role Phone Ami Mazariegos MD Primary Care Provider [phone] Allergies Active Allergy Reactions Criticality Noted Date [...] * Hemoglobin A1c (11/08/2020 3:58 PM EDT) [facility] Hemoglobin A1C 5.2 (4.0-5.6) % [facility] Comment: MONITORING: In known diabetic patients, hemoglobin A1c targets should be discussed with health care provider. DIAGNOSTIC USE: The [place] Diabetes Association (ADA) and the World Health [...] Supplement 1 Testing performed or reported by [facility], a Service of [facility], [address] [place] [address] Norma Williamson MD, Airline Reservation Agent 11/08/2020 3:58 PM EDT 11/08/2020 3:59 PM EDT us Edgar Ferrari MD LAB BLOOD ORDERABLES Final Re sult [facility] from Last 3 Months or Most Recently Relevant to Health Maintenance Insurance Medicare [facility] Medicare [facility] Care Teams Medium Cycle Salesperson Relationship Specialty Start Date End Date Ami Mazariegos MD [address] [place] PCP - General Internal Medicine 10/31/20
--- OUTSIDE RECORDS SUMMARY | 2024-12-23 11:38 | XMS_ITS | Patient Health Record ---
Author Organization [facility] Address [address] [place] [address] Care Team Providers Care Machine Quilt Stuffer Name Role Phone Flex Mckenzie MD Primary Care Provider Bharathi Burden [phone] Reason For Referral No Information Medications Medication [...] Date MEDICARE OF [place] [address] [place] [address] [phone] [id number] ROBBIE JIMENEZ Self - patient is the insured MED[employer] ATTN CLAIMS [address] [place] [address] [id number] ROBBIE JIMENEZ Self - patient is the insured Medical (General) History Medical History History ICD Code one small tubular adenoma re moved in 2000, and subsequent negative colonoscopies in 2003 and in 05/2008 hyperlipidemia Denies [place],DM,Lung disease,renal disease CVA 2008--no residual deficits Hypothyroidism Surgical History Surgery Date(Month/Year) right shoulder surgery cholecystectomy thyroidectomy
--- OUTSIDE RECORDS SUMMARY | 2024-12-23 11:38 | XMS_ITS | Patient Health Record ---
Author Organization [facility] Klaus anton Jean Paul Address [address] [place] [address] Care Team Providers Care Fermentation Engineer Name Role Phone Ami Mazariegos Primary Care Provider Marcelo Hardy Unavailable [phone] Talita Charles Unavailable [phone] Allergies No Known Allergies Results Component Value [...] Problem Acquired hammer toe of left foot (7492444058281232) Hammertoe of left foot (M20.42) Active confirmed Problem Acquired hammer toe of right foot (4378320400934734) Hammertoe of right foot (M20.41) Active confirmed Problem Bilateral atherosclerosis of arteries of lower limbs (disorder) (82609090464732020 ) Atherosclerosis of [place] artery of both lower extremities, with unspecified presence of clinical manifestation (I70.203) Active confirmed Vital Signs Blood pressure diastolic 80 mm Hg 10/15/2024 Height 5 ft 11 in in 10/15/2024 Blood pressure systolic 130 mm Hg 10/15/2024 Weight 207 lbs 10/15/2024 BMI 28.87 kg/m2 10/15/2024 Encounters Encounter Location Date Provider Diagnosis [facility] [address] [address] 03/09/2024 Talita Elliotta Tinea pedis of both feet B35.3 ; Onychomycosis B35.1 ; Atherosclerosis of [place] artery of both lower extremities, with unspecified presence of clinical manifestation I70.203 ; Pain of toe of right foot M79.674 and Pain of toe of left foot M79.[address] [facility] [address] 06/08/2024 Talita Perica Onychomycosis B35.1 ; Contusion of left great toe without damage to nail, initial encounter S90.112A ; Atherosclerosis of [place] artery of both lower extremities, with unspecified presence of clinical manifestation I70.203 ; Pain of toe of right foot M79.674 ; Pain of toe of left foot M79.675 ; Xerosis of skin L85.3 ; Hammertoe of right foot M20.41 and Hammertoe of left foot M20.42 [facility] [address] 10/15/2024 Talita Charles Onychomycosis B35.1 ; Atherosclerosis of [place] artery of both lower extremities, with unspecified presence of clinical manifestation I70.203 ; Pain of toe of right foot M79.674 and Pain of toe of left foot M79.[address] [address] 09/06/2024 Marcelo Simpson Assessments Encounter Date Diagnosis (ICD Code) Assessment Notes Treatment Notes Treatment Clinical Notes Section Notes 03/09/2024 Onychomycosis (ICD-10 - B35.1) 03/09/2024 Tinea pedis of both feet (ICD-10 - B35.3) 06/08/2024 Contusion of left great toe without damage to nail, initial encounter (ICD-10 - S90.112A) 06/08/2024 Onychomycosis (ICD-10 - B35.1) 10/15/2024 Onychomycosis (ICD-10 - B35.1) 10/15/2024 Atherosclerosis of [place] artery of both lower extremities, with unspecified presence of clinical manifestation (ICD-10 - I70.203) 10/15/2024 Pain of toe of right foot (ICD-10 - M79.674) 06/08/2024 Atherosclerosis of [place] artery of both lower extremities, with unspecified presence of clinical manifestation (ICD-10 - I70.203) 03/09/2024 Atherosclerosis of [place] artery of both lower extremities, with unspecified [...] Treatment Pending Test Test Name Order Date [id number] NAIL, 6 OR MORE 12/17/2022 [id number] NAIL, 6 OR MORE 03/04/2023 56420-UEPLIVD NAIL, 6 OR MORE 05/20/2023 77046-LVTMFXA NAIL, 1-5 07/04/2014 65274-VQZH SKIN LESIONS, 2 TO 4 05/20/19 24 06291-BBOF SKIN LESIONS, 2 TO 4 03/04/20 05904-DAIN SKIN LESIONS, 2 TO 4 12/18/19 Next Appt Details Provider Name:Talita godoy, 01/14/2025 12:00:00 PM, [address] [facility], [place], [address], Insurance Providers Payer Name Payer Address Payer Phone Subscriber Number Group Number Insured Name Patient Relationship to Insured Coverage Start Date Coverage End Date Medicare National Govt Svcs Inc [address] [place] [address] [id number] Edgar Roberts Self - patient is the insured [employer] Blue Shield [address] [place] [address] [phone] [id number] Edgar Roberts Self - patient is the [...] kidney stones 09/03/23 Hospitalization History Reason Date(Month/Year) [facility] [place] 03[place] [facility] [place] 08/2023 [facility] [place] Coronary Bypass 10/10/20 fractured hip- rehab 2 weeks 07/14
== END 2024-12-23 10:59 | disposition home or self-care (01) ==
LOC: HO.HUSH 10:20
PROVIDERS: PCP Internal Medicine; Visit Provider Urology
DX: N20.0 Calculus of kidney (principal); N40.1 Benign prostatic hyperplasia with lower urinary tract symptoms; R35.0 Frequency of micturition
CPT/HCPCS: 99214; G2211

== ENCOUNTER → 2024-12-23 10:19 | Outpatient (BNVA) | payer MEDICARE, SELFPAY | PROVIDERS: PCP Internal Medicine; Visit Provider Urology | DX: N40.1 Benign prostatic hyperplasia with lower urinary tract symptoms (principal); R35.0 Frequency of micturition; N20.0 Calculus of kidney | CPT/HCPCS: 99212 ==

== ENCOUNTER 2025-01-03 09:24 | Outpatient (AMB) | payer MEDICARE, SELFPAY ==
--- OUTSIDE RECORDS SUMMARY | 2024-09-07 07:15 | XMS_ITS ---
Author Organization [facility] Address [address] [place] [address] Care Team Providers Care Retread Operator Name Role Phone Ami Mazariegos Primary Care Provider UnavailMarcelo Colvin Unavailable [phone] Talita Charles [phone] Encounters Encounter Location Date Provider Diagnosis [address] [address] 09/07/2024 Talita Charles Plan Of Treatment Next Appt Details Provider Name:Talita godoy, 01/14/2025 12:00:00 PM, [address] [place] [address], [address], Progress Notes * Edgar ROBERTS ADOB: [birth year] (84 yo M)Acc No.[id number]:09/07/2024 Progress Note Patient: Jeanne Edgar ZABALA Provider: Manju Charles DPM :1940 A ge:84 Y S ex:Male Date:09/07/2024 Address:[address] [place] [address] [facility] [id number] Pcp:Ami Mazariegos Subjective: * Chief Complaints: * [...] 09/07/2024 Generated for Ana katz/Norma/Murtaza on: 0 01/03/2025 10:35 AM EDT
--- NOTE | 2025-01-03 09:26 | A.OFFVIS_ITS ---
Vital Signs 01/03/25 09:33 Height 5 ft 11 in Weight 215 lb BMI 30.0 BP 139/60 Blood Pressure Location Rt brachial Position Sitting Pulse 61 Intake Visit Reasons: excision scalp lesion Intake Note: Patient here for excision of cyst on scalp. Head Stock Operator Required: No Accompanied by: Self / Same As Patient Allergies lisinopril Adverse Reaction (Intermediate, Verified 01/03/25 09:34) cough rosuvastatin Adverse Reaction (Intermediate, Verified 01/03/25 09:34) myalgia simvastatin Adverse Reaction (Intermediate, Verified 01/03/25 09:34) myalgia HPI HPI excision scalp lesion: Details: He is here for excision of a scalp lesion. [facility] Medical History Hard of hearing Arthritis Anemia History of kidney stones Hx of orthostatic hypotension Hx of fracture Weakness Difficulty swallowing Cough Habitual snoring SOB (shortness of breath) Preop exam for internal medicine Leg weakness Right wrist pain Carpal tunnel syndrome of right wrist Lumbar spinal stenosis Left acetabular fracture Peripheral arterial disease Hypercholesterolemia History of CVA (cerebrovascular accident) BPH (benign prostatic hyperplasia) Hypothyroid Hypertension Surgical History Hx of carpal tunnel repair Hx of shoulder surgery H/O colonoscopy Hx of aortic aneurysm repair History of cataract surgery S/P CABG x 1 History of prostate surgery History of thyroidectomy Hx of cholecystectomy Family History Father Medical history unknown Mother Medical history unknown Social History Household Members: Spouse Housing: House Are you a primary medicare compliance auditor to a significant other at home: No Do you presently have visiting nurse or other home services: No Alcohol intake: current Alcohol intake frequency: holidays/special occasions only Alcohol type: beer and wine Patient Tobacco Use Status: Never used Tobacco Tobacco use type: Cigarette e-Cigarette/Vaping Use: Never Used Second Hand Smoke Exposure: No Advance Directives Date on File: 01/20/23 service: No Current occupational status: retired Current occupation: left hand Cognitive needs: Yes (Cane) Hearing needs: Yes Vision needs: Yes Physical Exam Vital Signs: Last Vital Signs Pulse 61 01/03/25 09:33 BP 139/60 01/03/25 09:33 BMI result Body Mass Index 30.0 Office Procedures Excision Details: He was in reclining position. The area of the scalp lesion was prepped and draped. Lidocaine 1% was used for local anesthesia. I made an elliptical incision of the skin surrounding this lesion with grossly looking margins of skin. The area excised was about 1.3 cm in diameter. I was able to close the incision with full-thickness nylon 3-0 simple interrupted sutures. A Band-Aid was applied. He tolerated procedure well. There were no immediate complications. There was minimal blood loss. 66545-Opjdfwkr scalp/neck/hands/feet/genitalia 1.1cm-2cm Procedure code (CPT) selection complete Assessment & Plan Assessment & Plan (1) Scalp lesion: Code(s): L98.9 - Disorder of the skin and subcutaneous tissue, unspecified Category: Medical Plan: He was given wound care instructions after excision of the lesion. I will see him in the office in about 2 weeks for removal of sutures Coding Level of Care Code Procedure Only Diagnoses Scalp lesion L98.9 CPT Codes Scalp/Neck/Hands/Feet/Genetalia - CPT: 83161-Valdsuep scalp/neck/hands/feet/genitalia 1.1cm-2cm ([id number])
[2025-01-03 09:33] VITALS: BP 139/60; PULSE 61
--- OUTSIDE RECORDS SUMMARY | 2025-01-03 10:36 | XMS_ITS | Patient Health Record ---
Author Organization [facility] Address [address] [place] [address] Care Team Providers Care Solutions Developer Name Role Phone Flex Mckenzie MD Primary Care Provider Bharathi Burden [phone] Reason For Referral No Information Medications Medication [...] Date MEDICARE OF [place] [address] [facility] [place] [address] [id number] ROBBIE JIMENEZ Self - patient is the insured [employer] ATTN CLAIMS [address] [place] [address] [phone] [id number] ROBBIE JIMENEZ Self - patient is the insured Medical (General) History Medical History History ICD Code one small tubular adenoma re moved in 2000, and subsequent negative colonoscopies in 2003 and in 05/2008 hyperlipidemia Denies [place],DM,Lung disease,renal disease CVA 2008--no residual deficits Hypothyroidism Surgical History Surgery Date(Month/Year) right shoulder surgery cholecystectomy thyroidectomy
--- OUTSIDE RECORDS SUMMARY | 2025-01-03 10:36 | XMS_ITS | Patient Health Record ---
Author Organization [facility] [place] Address [address] [place] [address] Care Team Providers Care Sensitizer Name Role Phone Ami Mazariegos Primary Care Provider Marcelo Hardy Unavailable [phone] Talita Charles Unavailable [phone] Allergies No Known Allergies Results Component Value [...] Problem Acquired hammer toe of left foot ([id number]) Hammertoe of left foot (M20.42) Active confirmed Problem Acquired hammer toe of right foot ([id number]) Hammertoe of right foot (M20.41) Active confirmed Problem Bilateral atherosclerosis of arteries of lower limbs (disorder) (70737591867983032 ) Atherosclerosis of nikolski artery of both lower extremities, with unspecified presence of clinical manifestation (I70.203) Active confirmed Vital Signs Blood pressure diastolic 80 mm Hg 10/15/2024 Height 5 ft 11 in in 10/15/2024 Blood pressure systolic 130 mm Hg 10/15/2024 Weight 207 lbs 10/15/2024 BMI 28.87 kg/m2 10/15/2024 Encounters Encounter Location Date Provider Diagnosis [facility] [address] [address] 03/09/2024 Talita Elliotta Tinea pedis of both feet B35.3 ; Onychomycosis B35.1 ; Atherosclerosis of nikolski artery of both lower extremities, with unspecified presence of clinical manifestation I70.203 ; Pain of toe of right foot M79.674 and Pain of toe of left foot M79.[address] [facility] [address] 06/08/2024 Talita Perica Onychomycosis B35.1 ; Contusion of left great toe without damage to nail, initial encounter S90.112A ; Atherosclerosis of nikolski artery of both lower extremities, with unspecified presence of clinical manifestation I70.203 ; Pain of toe of right foot M79.674 ; Pain of toe of left foot M79.675 ; Xerosis of skin L85.3 ; Hammertoe of right foot M20.41 and Hammertoe of left foot M20.[address] [facility] [address] 10/15/2024 Talita Charles Onychomycosis B35.1 ; Atherosclerosis of nikolski artery of both lower extremities, with unspecified presence of clinical manifestation I70.203 ; Pain of toe of right foot M79.674 and Pain of toe of left foot M79.[address] [address] 09/06/2024 Marcelo Simpson Assessments Encounter Date Diagnosis (ICD Code) Assessment Notes Treatment Notes Treatment Clinical Notes Section Notes 03/09/2024 Onychomycosis (ICD-10 - B35.1) 03/09/2024 Tinea pedis of both feet (ICD-10 - B35.3) 06/08/2024 Contusion of left great toe without damage to nail, initial encounter (ICD-10 - S90.112A) 06/08/2024 Onychomycosis (ICD-10 - B35.1) 10/15/2024 Onychomycosis (ICD-10 - B35.1) 10/15/2024 Atherosclerosis of nikolski artery of both lower extremities, with unspecified presence of clinical manifestation (ICD-10 - I70.203) 10/15/2024 Pain of toe of right foot (ICD-10 - M79.674) 06/08/2024 Atherosclerosis of nikolski artery of both lower extremities, with unspecified presence of clinical manifestation (ICD-10 - I70.203) 03/09/2024 Atherosclerosis of nikolski artery of both lower extremities, with unspecified [...] Treatment Pending Test Test Name Order Date [id number] NAIL, 6 OR MORE 12/17/2022 [id number] NAIL, 6 OR MORE 03/04/2023 [id number] NAIL, 6 OR MORE 05/20/2023 [id number] NAIL, 1-5 07/04/2014 [id number] SKIN LESIONS, 2 TO 4 05/20/19 24 [id number]-[id number] SKIN LESIONS, 2 TO 4 03/04/20 [id number] SKIN LESIONS, 2 TO 4 12/18/19 Next Appt Details Provider Name:Talita godoy, 01/14/2025 12:00:00 PM, [address] [facility], [place], [address], Insurance Providers Payer Name Payer Address Payer Phone Subscriber Number Group Number Insured Name Patient Relationship to Insured Coverage Start Date Coverage End Date Medicare National [employer]t [employer] [address] [place] [address] [id number] Edgar Roberts Self - patient is the insured [employer] [address] [place] [address] [phone] [id number] Edgar Roberts Self - patient is the [...] kidney stones 09/03/23 Hospitalization History Reason Date(Month/Year) [facility] Kid[place] 03/21 [facility]- Kidney stone 08[place]2023 [facility] [place]10[place]20 fractured hip- rehab 2 weeks 07/14
--- OUTSIDE RECORDS SUMMARY | 2025-01-03 10:36 | XMS_ITS | Clinical Summary ---
Author Organization [facility] Address [address] [facility] [address] [place] [address] Phone Care Team Providers Care Rehabilitation Aide/Scheduler Name Role Phone Ami Mazariegos MD Primary Care Provider [phone] Allergies Active Allergy Reactions Criticality Noted Date [...] * Hemoglobin A1c (11/08/2020 3:58 PM EDT) [facility] Hemoglobin A1C 5.2 (4.0-5.6) % [facility] Comment: MONITORING: In known diabetic patients, hemoglobin A1c targets should be discussed with health care provider. DIAGNOSTIC USE: The [place] Diabetes Association (ADA) and the World Health [...] Supplement 1 Testing performed or reported by [facility], a Service of [facility], [address] [place] [id number] Norma Williamson MD, Channel Machine Operator 11/08/2020 3:58 PM EDT 11/08/2020 3:59 PM EDT us Edgar Ferrari MD LAB BLOOD ORDERABLES Final Re sult [facility] from Last 3 Months or Most Recently Relevant to Health Maintenance Insurance Medicare [facility] Medicare [facility] Care Teams Rehabilitation Aide/Scheduler Relationship Specialty Start Date End Date Ami Mazariegos MD [address] [place] PCP - General Internal Medicine 10/31/20
== END 2025-01-03 09:58 | disposition home or self-care (01) ==
LOC: HO.HGS 09:25
PROVIDERS: PCP Internal Medicine; Visit Provider Surgery
DX: C44.42 Squamous cell carcinoma of skin of scalp and neck (principal)
CPT/HCPCS: 11622

== ENCOUNTER 2025-01-03 09:24 | Outpatient (REF) | payer MEDICARE, SELFPAY | END 2025-01-03 09:25 | disposition home or self-care (01) | LOC: HO.LNP 09:24 | PROVIDERS: PCP Internal Medicine; Visit Provider Surgery | DX: C44.42 Squamous cell carcinoma of skin of scalp and neck (principal); H61.23 Impacted cerumen, bilateral; I25.10 Atherosclerotic heart disease of native coronary artery without angina pectoris; E78.00 Pure hypercholesterolemia, unspecified; E03.9 Hypothyroidism, unspecified; I12.9 Hypertensive chronic kidney disease with stage 1 through stage 4 chronic kidney disease, or unspecified chronic kidney disease; N18.2 Chronic kidney disease, stage 2 (mild); N20.1 Calculus of ureter; N40.1 Benign prostatic hyperplasia with lower urinary tract symptoms; R35.0 Frequency of micturition; Z86.73 Personal history of transient ischemic attack (TIA), and cerebral infarction without residual deficits; Z79.899 Other long term (current) drug therapy; Z95.1 Presence of aortocoronary bypass graft | CPT/HCPCS: 11422; 11622; 69210; 88304; 88305; 99212 ==

== ENCOUNTER 2025-01-03 13:01 | Outpatient (AMB) | payer MEDICARE, SELFPAY ==
[2025-01-03 13:07] VITALS: BP 124/62; PULSE 50; O2SAT 98; BMI 30.6
--- NOTE | 2025-01-03 13:07 | MHC.PC.OV ---
Vital Signs 01/03/25 13:07 Height 5 ft 10 in Weight 213 lb BMI 30.6 BP 124/62 Blood Pressure Location Lt brachial Position Sitting Pulse 50 Pulse Source Pulse Oximeter Pulse Oximetry (%) 98 Oxygen Delivery Method Room Air Intake Visit Reasons: 3 mo cholesterol Allergies lisinopril Adverse Reaction (Intermediate, Verified 01/03/25 13:07) cough rosuvastatin Adverse Reaction (Intermediate, Verified 01/03/25 13:07) myalgia simvastatin Adverse Reaction (Intermediate, Verified 01/03/25 13:07) myalgia Tobacco use date assessed: 06/29/24 Fall risk assessment: No Falls in past year Last assessed Fall Risk: 01/03/25 Dental Screening Dental Screen Date: 09/15/24 [facility] Medical History Hard of hearing Arthritis Anemia History of kidney stones Hx of orthostatic hypotension Hx of fracture Weakness Difficulty swallowing Cough Habitual snoring SOB (shortness of breath) Preop exam for internal medicine Leg weakness Right wrist pain Carpal tunnel syndrome of right wrist Lumbar spinal stenosis Left acetabular fracture Peripheral arterial disease Hypercholesterolemia History of CVA (cerebrovascular accident) BPH (benign prostatic hyperplasia) Hypothyroid Hypertension Surgical History Hx of carpal tunnel repair Hx of shoulder surgery H/O colonoscopy Hx of aortic aneurysm repair History of cataract surgery S/P CABG x 1 History of prostate surgery History of thyroidectomy Hx of cholecystectomy Family History Father Medical history unknown Mother Medical history unknown Social History Household Members: Spouse Housing: House Are you a primary district manager primary care sales to a significant other at home: No Do you presently have visiting nurse or other home services: No Alcohol intake: current Alcohol intake frequency: holidays/special occasions only Alcohol type: beer and wine Patient Tobacco Use Status: Never used Tobacco Tobacco use type: Cigarette e-Cigarette/Vaping Use: Never Used Second Hand Smoke Exposure: No Advance Directives Date on File: 01/20/23 service: No Current occupational status: retired Current occupation: left hand Cognitive needs: Yes (Cane) Hearing needs: Yes Vision needs: Yes Questionnaire PHQ-9 Over the last 2 weeks, how often have you been bothered by any of the following problems? 1. Little interest or pleasure in doing things: not at all 2. Feeling down, depressed, or hopeless: not at all 3. Trouble falling or staying asleep, or sleeping too much: not at all 4. Feeling tired or having little energy: not at all 5. Poor appetite or overeating: not at all 6. Feeling bad about yourself - or that you are a failure or have let yourself or your family down: not at all 7. Trouble concentrating on things, such as reading the newspaper or watching television: not at all 8. Moving or speaking so slowly that other people could have noticed. Or the opposite - being so fidgety or restless that you have been moving around a lot more than usual: not at all 9. Thoughts that you would be better off or of hurting yourself in some way: not at all Total score: 0 Depression Screening Interpretation: Negative Depression Screening Done: Yes Source: Developed by Drs. Bharathi Yi, Evelin Burns, Juan Hood and colleagues, with an educational colby from [employer]. Thrive Questionnaire Date Thrive assessed: 09/14/24 I am a: Patient What is your living situation today?: I have a steady place to live Within the past 12 months, did the food you bought not last and you didn't have the money to get more?: Never true Within the past 12 months, did you worry whether your food would run out before you got money to buy more?: Never true Do you have trouble paying for medicines?: No Do you have trouble getting transportation to medical appointments?: No Do you have trouble paying your heating and electricity bill?: No Do you have trouble taking care of your child, family member or friend?: No Do you have trouble with day-to-day activities such as bathing, preparing meals, shopping, managing finances, etc.?: No Are you currently unemployed and looking for a job?: No Are you interested in more education?: Yes Please select the resources that you would like help with: None Currently or been in a relationship where the following occur: No concerns reported THRIVE Score: 0 AUDIT C Alcohol Use Questionnaire (AUDIT-C) 1. How often do you have a drink containing alcohol?: 2-4 times a month 2. How many drinks containing alcohol do you have on a typical day when you are drinking?: 1 or 2 3. How often do you have six or more drinks on one occasion?: Never Total Score: 2 MIKE-7 AMB Questionnaire MIKE-7 Date MIKE - 7 assessed: 06/29/24 Source: Developed by Drs. Bharathi Yi, Evelin Burns, Juan Hood and colleagues, with an educational colby from [employer]. Physical exam (Primary Care) Vital Signs: Last Vital Signs Pulse 50 01/03/25 13:07 BP 124/62 01/03/25 13:07 Pulse Ox 98 01/03/25 13:07 Oxygen Delivery Method Room Air 01/03/25 13:07 BMI result Body Mass Index 30.6 Tobacco/Smoking Status: Tobacco use Status Tobacco use date assessed 06/29/24 01/03/25 13:08 Patient Tobacco Use Status Never used Tobacco 01/03/25 13:08 Tobacco use type Cigarette 01/03/25 13:08 e-Cigarette/Vaping Use Never Used 01/03/25 13:08 PHQ-9: PHQ-9 Score PHQ-9: Total score 0 01/03/25 13:45 Depression Screening Interpretation: Negative Thrive Assessment: Date of Thrive Assessment Date Thrive assessed 09/14/24 01/03/25 13:08 Currently or been in a relationship where the following occur: No concerns reported Const Other: impacted cerumen bilateral General: alert; No acute distress Eyes Conjunctivae: conjunctivae normal Resp Auscultation: clear to auscultation bilaterally Cardio Rate: regular rate Rhythm: regular rhythm GI Inspection: Yes normal to inspection Extrem General: Yes normal to inspection and No edema Coding Level of Care Code Est Pt Level 4 (78589) Complex EM visit Add On G2211 Diagnoses Coronary artery disease involving little traverse coronary artery of little traverse heart without angina pectoris I25.10 Associated angina: without angina Coronary Disease-Associated Artery/Lesion type: little traverse artery [place] vs. transplanted heart: little traverse heart Essential hypertension I10 Hypertension type: essential hypertension Hypercholesterolemia E78.00 Acquired hypothyroidism E03.9 Hypothyroidism type: acquired CKD (chronic kidney disease) stage 2, GFR 60-89 ml/min N18.2 Ureterolithiasis N20.1 Benign prostatic hyperplasia with urinary frequency N40.1; R35.0 Lower urinary tract symptom detail: urinary frequency Lower urinary tract symptom presence: symptoms present History of CVA (cerebrovascular accident) Z86.73 Impacted cerumen of both ears H61.23 Assessment & Plan Assessment & Plan (1) Coronary artery disease: Comment: 10/10/2020 coronary artery bypass graft x1 Code(s): I25.10 - Atherosclerotic heart disease of little traverse coronary artery without angina pectoris Category: Medical Qualifiers: Associated angina: without angina Coronary Disease-Associated Artery/Lesion type: [place] artery [place] vs. transplanted heart: [place] heart Qualified Code(s): I25.10 - Atherosclerotic heart disease of [place] coronary artery without angina pectoris Plan: Control the cholesterol, weight, blood pressure, continue with aspirin and clopidogrel (2) Hypertension: Code(s): I10 - Essential (primary) hypertension Category: Medical Qualifiers: Hypertension type: essential hypertension Qualified Code(s): I10 - Essential (primary) hypertension Plan: Continue with blood pressure medication. Decrease salt intake and exercise on losartan 50 mg twice a day metoprolol 100 mg once a day (3) Hypercholesterolemia: Comment: Avoid fried foods, chicken skin, eggs, butter margarine, pastries and meat. Be it pork or beef they have a lot of cholesterol LDL goal of less than 70 Code(s): E78.00 - Pure hypercholesterolemia, unspecified Category: Medical Plan: Avoid fried foods, chicken skin, eggs, butter margarine, pastries and meat. Be it pork or beef they have a lot of cholesterol atorvastatin 20 mg once a day LDL goal of less than 70 and triglyceride of less than 150 (4) Hypothyroid: Comment: Continue with present medication Code(s): E03.9 - Hypothyroidism, unspecified Category: Medical Qualifiers: Hypothyroidism type: acquired Qualified Code(s): E03.9 - Hypothyroidism, unspecified Plan: Continue with thyroid medication (5) CKD (chronic kidney disease) stage 2, GFR 60-89 ml/min: Comment: Dr. Ferrari November 2020 Code(s): N18.2 - Chronic kidney disease, stage 2 (mild) Category: Medical Plan: Stable avoid NSAIDs (6) Ureterolithiasis: Code(s): N20.1 - Calculus of ureter Category: Medical Plan: Patient is being followed up by Urology has a 6 mm left renal calculi (7) BPH (benign prostatic hyperplasia): Code(s): N40.0 - Benign prostatic hyperplasia without lower urinary tract symptoms Category: Medical Qualifiers: Lower urinary tract symptom detail: urinary frequency Lower urinary tract symptom presence: symptoms present Qualified Code(s): N40.1 - Benign prostatic hyperplasia with lower urinary tract symptoms; R35.0 - Frequency of micturition Plan: Continue with tamsulosin (8) History of CVA (cerebrovascular accident): Comment: August 2005, 03/2024 difficulty swallowing- mild residual numbness Code(s): Z86.73 - Personal history of transient ischemic attack (TIA), and cerebral infarction without residual deficits Category: Medical Plan: Continue with aspirin and clopidogrel (9) Impacted cerumen of both ears: Code(s): H61.23 - Impacted cerumen, bilateral Category: Medical Plan: scoop used no irrigation TM intact Plan History of Present Illness The patient is an 84-year-old male presenting for a follow-up visit after a recent left hip fracture and management of multiple chronic conditions. The patient has a history of cerebrovascular accident (CVA) with residual numbness and difficulty swallowing. He also has a history of hypertension, hypothyroidism, benign prostatic hyperplasia (BPH), hypercholesterolemia, peripheral arterial disease, coronary artery disease, and chronic kidney disease. In December 2022, the patient sustained a left hip fracture, which is a significant event in his medical history. He has been following up with various specialists, including urology for BPH and renal calculi, and neurology for his cerebrovascular accident and related symptoms. The patient recently noticed a small red bump on his left lower abdomen, initially suspected to be a bug bite, for which he was prescribed Keflex and later switched to doxycycline. He is also applying an antibiotic ointment to the area, which is showing improvement. The patient underwent a CT and MRI of the brain, revealing global cerebral atrophy and chronic microangiopathy, with severe ischemic microangiopathy and mild generalized volume loss. A CTA of the head showed no high-grade stenosis in the neck. He has been advised to continue with aspirin, clopidogrel, and atorvastatin for his cardiovascular conditions. The patient was also advised to undergo a sleep study, which he declined, and to manage his knee pain due to arthritis with knee bracing and injections. Health Maintenance - Vaccination: Tetanus shot administered during the visit - Cardiovascular risk management: Continued use of aspirin, clopidogrel, and atorvastatin - Renal health: Advised to maintain hydration to prevent renal calculi - Sleep health: Advised to undergo a sleep study, which was declined - Knee health: Recommended knee bracing and injections for arthritis management Social History - Travel: Recently returned from a trip to [place], primarily land-based with some short ship excursions Review of Systems - Neurological: Reports numbness and difficulty swallowing - Dermatological: Reports a small red bump on the left lower abdomen, suspected bug bite - Musculoskeletal: Reports knee pain due to arthritis Physical Exam - Respiratory: Patient instructed to breathe in and out, cough, and breathe deeply Results - Labs: Blood work on December 22 showed normal blood count, normal electrolytes, stable renal function at 1.23, normal blood sugar, and good liver function - Imaging: CT and MRI of the brain showed global cerebral atrophy and chronic microangiopathy, with severe ischemic microangiopathy and mild generalized volume loss - Imaging: CTA of the head showed no high-grade stenosis in the neck - Imaging: Ultrasound of the kidney on December 16 showed a 6 mm left lower kidney stone and a left renal cyst Plan Patient was informed and verbally consented to the use of an ambient scribe for clinic note documentation during this visit. 1. Cerebrovascular Accident (Cva) The patient has a history of cerebrovascular accident with residual numbness and difficulty swallowing. He is advised to continue with aspirin and clopidogrel for stroke prevention. 2. Hypertension The patient is on losartan 50 mg twice a day and metoprolol 100 mg once a day for blood pressure management. 3. Hypothyroidism The patient is advised to continue with thyroid medication. 4. Benign Prostatic Hyperplasia (Bph) The patient follows up with urology and is on tamsulosin for BPH management. 5. Hypercholesterolemia The patient is on atorvastatin 20 mg once a day with an LDL goal of less than 70 and triglyceride of less than 150. 6. Peripheral Arterial Disease The patient is advised to continue with aspirin and clopidogrel for vascular health. 7. Coronary Artery Disease The patient is advised to continue with aspirin, clopidogrel, and atorvastatin for coronary artery disease management. 8. Chronic Kidney Disease The patient's renal function is stable, and he is advised to maintain hydration to prevent renal calculi. 9. Left Hip Fracture The patient is recovering from a left hip fracture sustained in December 2022. 10. Scalp Lesion The patient has seen a surgeon for a scalp lesion, which was excised and is suspected to be benign, possibly a basal cell carcinoma. 11. Renal Calculi The patient has a 6 mm left lower kidney stone and is advised to maintain hydration. 12. 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 13. Knee Pain Due To Arthritis The patient is advised to manage knee pain with bracing and injections, and is not ready for knee replacement surgery. 14. Bug Bite On Left Lower Abdomen The patient was initially treated with Keflex and later switched to doxycycline, with improvement noted. Discussion Notes During the visit, I discussed the patient's ongoing management for his multiple chronic conditions, including the continuation of aspirin, clopidogrel, and atorvastatin for cardiovascular health. We reviewed the recent imaging results, which showed global cerebral atrophy and chronic microangiopathy, and discussed the implications of these findings. I advised the patient on the importance of maintaining hydration to prevent further renal calculi and recommended knee bracing and injections for arthritis management. Patient Instructions - Continue taking aspirin, clopidogrel, and atorvastatin as prescribed. - Maintain hydration to help prevent kidney stones. - Use knee bracing and consider injections for arthritis pain management. - Follow up with urology and neurology as scheduled. - Return for a follow-up visit in January.
== END 2025-01-03 14:04 | disposition home or self-care (01) ==
LOC: HO.HMCH 13:02
PROVIDERS: PCP Internal Medicine; Visit Provider Internal Medicine
DX: I12.9 Hypertensive chronic kidney disease with stage 1 through stage 4 chronic kidney disease, or unspecified chronic kidney disease (principal); I25.10 Atherosclerotic heart disease of native coronary artery without angina pectoris; N18.2 Chronic kidney disease, stage 2 (mild); E78.00 Pure hypercholesterolemia, unspecified; E03.9 Hypothyroidism, unspecified; N20.1 Calculus of ureter; N40.1 Benign prostatic hyperplasia with lower urinary tract symptoms; R35.0 Frequency of micturition; Z86.73 Personal history of transient ischemic attack (TIA), and cerebral infarction without residual deficits; H61.23 Impacted cerumen, bilateral

== ENCOUNTER 2025-01-14 10:12 | Outpatient (AMB) | payer MEDICARE, SELFPAY ==
--- NOTE | 2025-01-14 10:14 | MHC.OFFVIS ---
Vital Signs 01/14/25 10:25 Height 5 ft 10 in Weight 214 lb BMI 30.7 BP 140/60 H Blood Pressure Location Rt brachial Position Sitting Pulse 62 Intake Visit Reasons: s/p Cyst exc~sut rem Intake Note: Patient here s/p excision on right posterior scalp/ vertex. Patient c/o: bandaid removed. Three sutures intact. Denies bleeding, tenderness. 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 Denies pain. Initially had some bleeding for the 1st day after the excision. But has not had any bleeding since. Denies fevers or chills at home He does have questions about another lesion on the scalp PFSH Medical History Hard of hearing Arthritis Anemia History of kidney stones Hx of orthostatic hypotension Hx of fracture Weakness Difficulty swallowing Cough Habitual snoring SOB (shortness of breath) Preop exam for internal medicine Leg weakness Right wrist pain Carpal tunnel syndrome of right wrist Lumbar spinal stenosis Left acetabular fracture Peripheral arterial disease Hypercholesterolemia History of CVA (cerebrovascular accident) BPH (benign prostatic hyperplasia) Hypothyroid Hypertension Surgical History Hx of carpal tunnel repair Hx of shoulder surgery H/O colonoscopy Hx of aortic aneurysm repair History of cataract surgery S/P CABG x 1 History of prostate surgery History of thyroidectomy Hx of cholecystectomy Family History Father Medical history unknown Mother Medical history unknown Social History Household Members: Spouse Housing: House Are you a primary career advisor to a significant other at home: No Do you presently have visiting nurse or other home services: No Alcohol intake: current Alcohol intake frequency: holidays/special occasions only Alcohol type: beer and wine Patient Tobacco Use Status: Never used Tobacco Tobacco use type: Cigarette e-Cigarette/Vaping Use: Never Used Second Hand Smoke Exposure: No Advance Directives Date on File: 01/20/23 service: No Current occupational status: retired Current occupation: left hand Cognitive needs: Yes (Cane) Hearing needs: Yes Vision needs: Yes Physical Exam Vital Signs: Last Vital Signs Pulse 62 01/14/25 10:25 BP 140/60 H 01/14/25 10:25 BMI result Body Mass Index 30.7 Const General: comfortable and no acute distress Orientation/consciousness: patient oriented x3 HEENT Other: Scalp excision site: [address] some scabbing on the middle of the incision. No surrounding erythema no discharge, nontender. Appears to be healing well sutures removed excision site remains intact There was an additional 0.5 x 0.5 cm raised irregular, skin color, rough, scaly anterior into the left of the excision site Resp Effort & Inspection: normal respiratory effort and able to speak in complete sentences Neuro General: patient oriented x3 Assessment & Plan Assessment & Plan (1) Squamous cell carcinoma of scalp: Comment: December 2024Well-differentiated squamous cell carcinoma, keratoacanthoma type; margins negative Code(s): C44.42 - Squamous cell carcinoma of skin of scalp and neck Category: Medical (2) Scalp lesion: Code(s): L98.9 - Disorder of the skin and subcutaneous tissue, unspecified Category: Medical Plan 84-year-old male following up in the office following excision of a scalp lesion on 01/03/2025. Overall he is doing well. Initially had some bleeding on the 1st day but this has resolved. Denies pain at the site denies any other drainage. Denies fevers or chills. The excision site appears to be healing well. Three sutures were in place, the incision appeared clean and dry there was some mild scabbing in the center of the incision. I removed 3 sutures in office without complications. Reviewed the pathology reports showing a well-differentiated squamous cell carcinoma, keratoacanthoma type with negative margins. He does not need any additional follow up regarding this given the negative margins. The patient did have additional concern for under the lesion just over the midline on the left side of the scalp. States this is a smaller and appears similar to the previous lesion. On exam there was about a 0.5 x 0.5 cm raised, irregular, scaly lesion. It was nontender. I would like to have him follow up with Dr. Huff for evaluation and possible excision of this lesion as well Coding Level of Care Code Est Pt Level 3 (08779) Diagnoses Squamous cell carcinoma of scalp C44.42 Scalp lesion L98.9
[2025-01-14 10:25] VITALS: BP 140/60; PULSE 62; BMI 30.7
--- OUTSIDE RECORDS SUMMARY | 2025-01-14 10:48 | XMS_ITS | Clinical Summary ---
Author Organization [facility] Address [address] [facility] [address] [place] [address] Phone Care Team Providers Care Survey Party Chief Name Role Phone Ami Mazariegos MD Primary Care Provider [phone] Allergies Active Allergy Reactions Criticality Noted Date [...] * Hemoglobin A1c (11/08/2020 3:58 PM EDT) [facility] Hemoglobin A1C 5.2 (4.0-5.6) % [facility] Comment: MONITORING: In known diabetic patients, hemoglobin A1c targets should be discussed with health care provider. DIAGNOSTIC USE: The [place] [employer] (ADA) and the World Health [...] [facility] a Service of [facility], [address] [place] [id number] Norma Williamson MD, Steerer 11/08/2020 3:58 PM EDT 11/08/2020 3:59 PM EDT us Edgar Ferrari MD LAB BLOOD ORDERABLES Final Re sult [facility] from Last 3 Months or Most Recently Relevant to Health Maintenance Insurance Medicare [facility] Medicare [facility] Care Teams Survey Party Chief Relationship Specialty Start Date End Date Ami Mazariegos MD [address] [place] PCP - General Internal Medicine 10/31/20
== END 2025-01-14 10:35 | disposition home or self-care (01) ==
LOC: HO.HGS 10:13
PROVIDERS: PCP Internal Medicine
DX: C44.42 Squamous cell carcinoma of skin of scalp and neck (principal); L98.9 Disorder of the skin and subcutaneous tissue, unspecified
CPT/HCPCS: 99213

== ENCOUNTER → 2025-01-14 10:12 | Outpatient (BNVA) | payer MEDICARE, SELFPAY | PROVIDERS: PCP Internal Medicine | DX: Z48.3 Aftercare following surgery for neoplasm (principal); C44.42 Squamous cell carcinoma of skin of scalp and neck; Z98.890 Other specified postprocedural states | CPT/HCPCS: 99212 ==

== ENCOUNTER 2025-01-28 11:55 | Inpatient (IN) | payer MEDICARE, SELFPAY ==
--- OUTSIDE RECORDS SUMMARY | 2024-09-07 07:15 | XMS_ITS ---
Author Organization [facility] Address [address] [place] [address] Care Team Providers Care Hot Roll Inspector Name Role Phone Ami Mazariegos Primary Care Provider UnavailMarcelo Colvin Unavailable [phone] Talita Charles [phone] Encounters Encounter Location Date Provider Diagnosis [address] [address] 09/07/2024 Talita Charles Plan Of Treatment Next Appt Details Provider Name:Talita godoy, 03/29/2025 01:30:00 PM, [address] [place] [address], [address], Progress Notes * Edgar ROBERTS ADOB: [birth year] (84 yo M)Acc No.[id number]:09/07/2024 Progress Note Patient: Jeanne Edgar ZABALA Provider: Manju Charles DPM :1940 A ge:84 Y S ex:Male Date:09/07/2024 Address:[address] [place] [address] [facility] [id number] Pcp:Ami Mazariegos Subjective: * Chief Complaints: * [...] 09/07/2024 Generated for Ana katz/Norma/Murtaza on: 1 01:59 PM EDT
--- NOTE | ~2025-01-28 | FL_ITS ---
EXAMINATION: FL GUIDANCE ONLY HISTORY: STONE LEFT COMPARISON: Correlation is made with an unenhanced CT of the abdomen and pelvis dated 01/28/2025. TECHNIQUE: Fluoroscopy time: 49.8 seconds. Cumulative Dose: 17.55 mGy. Images: 7. FINDINGS: Fluoroscopic spot films demonstrate opacification of the left intrarenal collecting system. A filling defect is noted in the renal pelvis consistent with the UPJ calculus noted on CT. The final image demonstrates a stent in place. FL/FL guidance in OR IMPRESSION: Fluoroscopy during procedure. Please see procedure report for additional information. Electronically signed by: Bharathi Licea MD 02/01/2025 07:04 AM EDT
--- NOTE | ~2025-01-28 | CT_ITS ---
EXAMINATION: CT ABDOMEN AND PELVIS WITHOUT CONTRAST CLINICAL INFORMATION: Left flank pain, hematuria COMPARISON: September 18 TECHNIQUE: Multidetector volumetric imaging was performed from the superior aspect of the liver through the pubic symphysis. Sagittal and coronal reformatted images were obtained on the technologist's workstation. This CT examination was performed using dose optimization techniques as appropriate, variously including the following: *Automated exposure control *Adjustment of mA and/or kV according to patient size (this includes techniques or standardized protocols for targeted exams where dose is matched to indication/reason for exam; i.e. extremities or head) *Use of iterative reconstruction technique FINDINGS: LUNG BASES: There is mild atelectasis. There is mild bronchiectasis in the posterior lung bases. LIVER, GALLBLADDER, AND BILIARY TREE: There is a simple hepatic cyst on the surface of the medial hepatic lobe. The gallbladder is surgically absent. There are clips in the gallbladder fossa. There is no biliary ductal dilation. PANCREAS: Unremarkable. SPLEEN: Unremarkable. ADRENAL GLANDS: Unremarkable. KIDNEYS AND URETERS: There is moderate left-sided lordosis related to a 7 mm stone in the proximal left ureter, just distal to the ureteropelvic junction. There is a 2 x 5 mm nonobstructing stone in the lower pole. There is perinephric fat stranding. There are no right-sided stones. BLADDER: Unremarkable. GASTROINTESTINAL TRACT: There are pseudodiverticula in the descending and sigmoid colon. Appendix is thin-walled and partially gas-filled. ABDOMINAL WALL: Small left inguinal hernia contains adipose tissue. There is also increased fat along the spermatic cord. LYMPH NODES: Normal. VASCULAR: Moderate to severe vascular opacifications are present. PELVIC VISCERA: Unremarkable OSSEOUS STRUCTURES: Moderate degenerative changes are present in the lumbar spine Sternotomy wires are visible in the lower portion of the sternum. . CT/CT kidney stone IMPRESSION: Moderate left hydronephrosis related to a 7 mm stone in the proximal left ureter, just distal to the UPJ. Additionally, there is a nonobstructing 2 x 5 mm stone in the lower pole left kidney. Diverticulosis. Moderate lumbar degenerative disc disease and facet osteoarthritis Fleischner guidelines were followed. Electronically signed by: Ulises Staples MD 01/28/2025 04:20 PM EDT
[2025-01-28 12:00] VITALS: BP 199/87; PULSE 61; RESP 16; TEMP 36.4; O2SAT 97; BMI 29.3
--- NOTE | 2025-01-28 12:01 | ED.GENADULT ---
HPI - General Adult General Chief complaint: Abdominal Pain Stated complaint: Recurrent Kidney Stone Pain Time Seen by Provider: 01/28/25 14:07 History of Present Illness ED Provider: Eron Kline MD HPI narrative: [age] male with nausea vomiting left flank pain. Extensive medical history including kidney stones prior questionable lithotripsy? . The patient is afebrile at this time but quite uncomfortable decreased p.o. intake. Related Data Home Medications ?Medication ?Instructions ?Recorded ?Confirmed aspirin 81 mg tablet,delayed 81 mg PO DAILY 08/06/21 02/02/25 release (Adult Aspirin Regimen) Held on 02/01/25. Instructions: Resume on 02/08/25. hold until you see Dr. Cabrera docusate sodium 100 mg capsule 100 mg PO BID 08/15/21 02/02/25 (Colace) cholecalciferol (vitamin D3) 50 50 mcg PO DAILY 07/18/23 02/02/25 mcg (2,000 unit) tablet omega-3 fatty acids-fish oil 360 1 cap PO BID 07/18/23 02/02/25 mg-1,200 mg capsule (Fish Oil) atorvastatin 20 mg tablet 20 mg PO BEDTIME 01/28/25 02/02/25 clopidogrel 75 mg tablet 75 mg PO BEDTIME 01/28/25 02/02/25 Held on 02/01/25. Instructions: Resume on 02/08/25. hold until you see Dr. Cabrera Previous Rx's ?Medication ?Instructions ?Recorded tamsulosin 0.4 mg capsule (Flomax) 0.4 mg PO BEDTIME #90 caps 06/24/24 losartan 50 mg tablet 50 mg PO BID #180 tabs 07/12/24 metoprolol succinate 100 mg 100 mg PO BEDTIME #90 tabs 07/19/24 tablet,extended release 24 hr levothyroxine 100 mcg tablet 100 mcg PO DAILY@0600 #90 tabs 01/30/25 cefuroxime axetil 250 mg tablet 250 mg PO BID #10 tabs 02/01/25 magnesium citrate 200 ml PO DAILY PRN Constipation 02/01/25 #3,000 mL Allergies Allergy/AdvReac Type Severity Reaction Status Date / Time lisinopril AdvReac Intermediate cough Verified 01/28/25 12:03 rosuvastatin AdvReac Intermediate myalgia Verified 01/28/25 12:03 simvastatin AdvReac Intermediate myalgia Verified 01/28/25 12:03 [facility] Past Medical History Medical History Hard of hearing Arthritis Anemia History of kidney stones Hx of orthostatic hypotension Hx of fracture Weakness Difficulty swallowing Cough Habitual snoring SOB (shortness of breath) Preop exam for internal medicine Leg weakness Right wrist pain Carpal tunnel syndrome of right wrist Lumbar spinal stenosis Left acetabular fracture Peripheral arterial disease Hypercholesterolemia History of CVA (cerebrovascular accident) BPH (benign prostatic hyperplasia) Hypothyroid Hypertension Surgical History Hx of carpal tunnel repair Hx of shoulder surgery H/O colonoscopy Hx of aortic aneurysm repair History of cataract surgery S/P CABG x 1 History of prostate surgery History of thyroidectomy Hx of cholecystectomy Family History Family History Father Medical history unknown Mother Medical history unknown Social History Social History Household Members: Spouse Housing: House Are you a primary certified social workers in health care to a significant other at home: No Do you presently have visiting nurse or other home services: No Alcohol intake: current Alcohol intake frequency: holidays/special occasions only Alcohol type: beer and wine Patient Tobacco Use Status: Never used Tobacco Tobacco use type: Cigarette e-Cigarette/Vaping Use: Never Used Second Hand Smoke Exposure: No Advance Directives Date on File: 01/20/23 service: Yes Current occupational status: retired Current occupation: left hand Cognitive needs: Yes (Cane) Hearing needs: Yes Vision needs: Yes Physical Exam ED Exam Exam: EXAM: Gen: Alert, appears mildly ill nauseous unwell but not toxic Head: Atraumatic Eyes: Anicteric, Normal conjunctiva. ENT: Moist mucosa, no pallor. ? Neck: Supple. Skin: ?No observable rash or bruising on exposed or examined skin Respiratory: Breathing comfortably, No distress.Clear to auscultation bilaterally, symmetric chest expansion, No wheeze, rales, ronchi. Cardiovascular: Regular rate and rhythm. No murmurs or rub. Well perfused periphery, warm extremities. No edema. ? Abdominal: No focal tenderness. Soft, no objective distension. No palpable masses or obvious organomegaly. ?No guarding, no rebound tenderness or other peritoneal findings. : Left flank tenderness Neuro: Alert. Gross movement of all extremities intact. ? Psych: Calm. Cooperative. MSK: No grossly visible deformity. Vital signs: See flowsheet Vital Signs: BMI result Body Mass Index 29.3 Course Course Course Narrative: This is a rapid medical exam performed by Nadia Nguyen NP: Additional HPI, ROS, PE not included below will be deferred to primary provider. Patient is an 84y/o M with hx of thoracic AA repair 5 years ago, states also had stenting of LAD at that time, cholecystectomy, CKD stage 2, CVA, BPH, HTN presenting with LLQ pain, nausea and vomiting since this am. Had normal BM this am. Does not feel febrile but didn't check. Denies any gross hematuria but states it feels similar to prior obstructing stones. Plan: Labs, UA Medications Administered Discontinued Medications Generic Name Dose Route Start Last Admin Trade Name Freq PRN Reason Stop Dose Admin Acetaminophen 650 mg 01/28/25 17:12 01/29/25 17:58 Acetaminophen 325 Mg Tablet PO 650 mg Q6H PRN Administration Pain, Mild 1-3,fever,headache Amlodipine Besylate 5 mg 01/30/25 06:05 02/01/25 08:09 Amlodipine Besylate 5 Mg Tablet PO 5 mg DAILY SAMANTHA Administration Protocol Aspirin 81 mg 01/29/25 09:00 01/29/25 09:47 Aspirin Enteric Coated 81 Mg Tablet. PO 81 mg DAILY SAMANTHA Administration Atorvastatin Calcium 20 mg 01/28/25 21:00 01/31/25 20:28 Atorvastatin Calcium 20 Mg Tablet PO Not Given BEDTIME SAMANTHA Bisacodyl 10 mg 01/31/25 08:37 01/31/25 17:43 Bisacodyl 10 Mg Supp.Rect MO 01/31/25 08:38 Not Given ONCE ONE Ceftriaxone Sodium 1 gm 01/29/25 09:00 02/01/25 08:08 Ceftriaxone Sodium 1 Gm Vial IVPUSH 1 gm Q24H SAMANTHA Administration Clopidogrel Bisulfate 75 mg 01/28/25 21:00 01/28/25 22:01 Clopidogrel Bisulfate 75 Mg Tablet PO 75 mg BEDTIME SAMANTHA Administration Docusate Sodium 100 mg 01/28/25 21:00 02/01/25 08:08 Docusate Sodium 100 Mg Capsule PO 100 mg BID SAMANTHA Administration Lactated Ringer's 1,000 mls @ 999 mls/hr 01/28/25 15:00 01/28/25 16:21 Lr IV 01/28/25 16:00 Infused .Q1H1M SAMANTHA Infusion Lactated Ringer's 1,000 mls @ 125 mls/hr 01/28/25 17:15 01/29/25 09:54 Lr IVCONT Not Given .Q8H SAMANTHA Lactated Ringer's 1,000 mls @ 75 mls/hr 01/29/25 09:45 01/29/25 10:09 Lr IVCONT Infused .[id number] SAMANTHA Infusion Lactated Ringer's 500 mls @ 50 mls/hr 01/30/25 09:45 01/30/25 20:20 Lr IV 01/30/25 19:44 Infused .Q10H SAMANTHA Infusion Lactated Ringer's 1,000 mls @ 100 mls/hr 01/31/25 07:30 02/01/25 14:35 Lr IVCONT Not Given .Q10H SAMANTHA Influenza Virus Vaccine 0.5 ml 01/28/25 21:34 01/28/25 21:50 Flu Vacc [id number](6mo Up)/Pf 0.5 Ml Syringe IM 01/28/25 21:35 0.5 ml .ONCE ONE Administration Ketorolac Tromethamine 10 mg 01/28/25 15:40 01/28/25 15:56 Ketorolac Tromethamine 15 Mg/Ml Vial IVPUSH 01/28/25 15:41 10 mg ONCE ONE Administration Ketorolac Tromethamine 10 mg 01/29/25 18:14 01/31/25 07:24 Ketorolac Tromethamine 15 Mg/Ml Vial IVPUSH 01/29/25 18:15 Not Given ONCE ONE Levothyroxine Sodium 100 mcg 01/29/25 06:00 02/01/25 05:46 Levothyroxine Sodium 100 Mcg Tablet PO 100 mcg DAILY@0600 SAMANTHA Administration Losartan Potassium 50 mg 01/28/25 21:00 02/01/25 08:08 Losartan Potassium 50 Mg Tablet PO 50 mg BID SAMANTHA Administration Protocol Metoprolol Succinate 100 mg 01/28/25 21:00 01/31/25 20:26 Metoprolol Succinate Er 100 Mg Tab.Er.24h PO 100 mg BEDTIME SAMANTHA Administration Protocol Ondansetron HCl 4 mg 01/28/25 14:55 01/28/25 15:10 Ondansetron Hcl 4 Mg/2 Ml Vial IVPUSH 01/28/25 14:56 4 mg ONCE ONE Administration Ondansetron HCl 4 mg 01/31/25 14:02 01/31/25 17:22 Ondansetron Hcl 4 Mg/2 Ml Vial IVPUSH 01/31/25 20:02 4 mg ONCE PRN Administration Nausea and Vomiting Phenazopyridine HCl 100 mg 01/31/25 16:56 01/31/25 20:26 Phenazopyridine Hcl 100 Mg Tablet PO 01/31/25 16:57 100 mg ONCE ONE Administration Polyethylene Glycol 17 gm 01/30/25 09:34 01/30/25 13:24 Polyethylene Glycol 3350 17 Gm Powd.Pack PO 17 gm DAILY PRN Administration Constipation Sodium Chloride 3 ml 01/29/25 00:00 02/01/25 07:16 0.9 % Sodium Chloride Flush 3 Ml Syringe IVFLUSH Not Given QSHIFT [facility] Tamsulosin HCl 0.4 mg 01/28/25 16:28 01/28/25 16:55 Tamsulosin Hcl 0.4 Mg Capsule PO 01/28/25 16:29 0.4 mg ONCE ONE Administration Tamsulosin HCl 0.4 mg 01/29/25 21:00 01/31/25 20:26 Tamsulosin Hcl 0.4 Mg Capsule PO Not Given BEDTIME [facility] Procedures Procedure Narrative Procedure Narrative: EMERGENCY ULTRASOUND INTERPRETATION-Limited Retroperitoneal (Renal) [This study was ordered, performed, and interpreted by myself. The study reveals: Impression: Mild left hydronephrosis] [Indication: FLANK PAIN Bladder: ANECHOIC URINE Left Kidney: Mild left HYDRONEPHROSIS Performed by: Eron Kline MD Images were stored CPT: 04888] Medical Decision Making Medical Decision Making MDM Narrative: Medical Decision Makin-year-old male with extensive medical history including kidney stones. Came with left flank pain unwell nauseous vomiting. Mild hydronephrosis identified. CT shows obstructing proximal ureteral stone with mild hydronephrosis. Not ill or toxic at this time but certainly given the size of the stone the patient's age and risk factors admission for pain control hydration, antiemetics is reasonable. Patient may need eventual urologic procedure. Case was discussed with on-call Urology given the patient's extensive medical history they will follow and have no immediate plan for operative management but recommend medical admission which is reasonable. I discussed this case subsequently with hospitalist who agrees. Preliminary Favored Differential Diagnosis: Kidney stone, electrolyte derangement, dehydration, back strain or musculoskeletal etiology, among additional considered etiologies Testing Interpreted Independently: ?See below for details Radiology or Lab testing Results Reviewed: ?See below for details Consults: ?See below for details Independent Historians/External Chart Reviews: ?See below for details Social Determinants of Health Impacting MDM/Planning: ?See below for details Consult Healthcare Provider Management of the patient was discussed with: Hospitalist and Reed Man (On-call Urology) Lab Data MDM Lab Attestation statement: I reviewed the patient's lab results. 01/31/25 05:28 02/01/25 05:40 Labs: Lab Results 01/28/25 01/28/25 Range/Units 12:13 14:45 WBC 9.7 (4.8-10.8) X10*3/uL RBC 4.90 (4.60-5.80) X10*6/uL Hgb 14.5 (14.0-18.0) g/dl Hct 43.5 (42.0-52.0) % MCV 88.8 (80.0-98.0) fL MCH 29.6 (27.0-33.0) pg MCHC 33.3 (31.0-36.0) g/dl RDW 13.3 (11.0-16.0) % Plt Count 202 (160-400) X10*3/uL MPV 10.6 (9.4-12.4) fL Immature Gran % (Auto) 0.3 (0.0-0.4) % Neut % (Auto) 78.6 H (45-73) % Lymph % (Auto) 10.0 L (20-40) % [place] % (Auto) 8.4 (2-11) % Eos % (Auto) 2.5 (0-4) % Baso % (Auto) 0.2 (0-2) % Lymph # (Auto) 1.0 L (1.2-4.9) X10*3/uL Fleming # (Auto) 0.8 (0.1-1.2) X10*3/uL Eos # (Auto) 0.2 (0.0-0.4) X10*3/uL Baso # (Auto) 0.0 (0.0-0.2) X10*3/uL Abs Immat Gran (auto) 0.03 (0.00-0.03) X10*3/uL Absolute Neuts (auto) 7.6 (2.0-8.3) x10*3/uL Absolute Nucleated RBC 0.000 (0.0-0.012) X10*3/uL Nucleated RBC % (auto) 0.0 (0.0-0.2) /100WBC PT 12.2 (10.9-12.4) SEC INR 1.1 (0.9-1.1) Sodium 143 (135-145) mmol/L Potassium 4.6 (3.3-5.1) mmol/L Chloride 112 H (96-108) mmol/L Carbon Dioxide 26 (22-29) mmol/L Anion Gap 10 L (12-20) BUN 31 H (9-16) mg/dL Creatinine 1.39 (0.5-1.4) mg/dL Estim Creat Clear Calc 44.9 Estimated GFR 48 Random Glucose 123 H (60-115) mg/dL Calcium 8.5 (8.4-10.2) mg/dL Total Bilirubin 0.5 (0.0-1.0) mg/dL AST 33 (5-37) U/L ALT 12 (0-40) U/L Alkaline Phosphatase 106 (39-117) U/L Total Protein 6.6 (6.5-8.0) g/dL Albumin 3.9 (3.5-5.0) g/dL Urine Color Yellow Urine Appearance Cloudy Urine pH 5.0 (5.0-9.0) Ur Specific [place] 1.020 (1.005-1.025) Urine Protein Trace (Neg-Trace) mg/dL Urine Glucose (UA) Negative (Negative) mg/dL Urine Ketones Negative (Negative) mg/dL Urine Blood Moderate (2+) H (Negative) Urine Nitrite Negative (Negative) Ur Leukocyte Esterase Negative (Negative) Urine RBC >20 H (0-2) /HPF Urine WBC 0-5 (0-5) /HPF Ur Squamous Epith Cells 0-2 (0-2) /HPF Urine Bacteria None Seen (None Seen) Hyaline Casts 0-2 (0-2) /LPF Discharge Plan Discharge Clinical Impression: Hydronephrosis Patient Disposition: Admitted As Inpatient Interventions: Admission Worksheet (ED) Last Done: 01/28/25 20:26 Discharge Date/Time: 01/28/25 21:42
[2025-01-28 12:17] LABS: MANUAL DIFF FLAG NO
[2025-01-28 12:20] LABS: Hematocrit 43.5 % (42.0-52.0); Hemoglobin 14.5 g/dl (14.0-18.0); Imm Gran Abs Auto 0.03 X10*3/uL (0.00-0.03); Imm Gran Pct Auto 0.3 % (0.0-0.4); Lymphocytes Absolute Auto 1.0 X10*3/uL (1.2-4.9); Mean Corpuscular HGB Conc 33.3 g/dl (31.0-36.0); Mean Corpuscular Hemoglobin 29.6 pg (27.0-33.0); Mean Corpuscular Volume 88.8 fL (80.0-98.0); NRBC Abs Auto 0.000 X10*3/uL (0.0-0.012); NRBC Pct Auto 0.0 /100WBC (0.0-0.2); Platelet Count 202 X10*3/uL (160-400); Red Blood Count 4.90 X10*6/uL (4.60-5.80); White Blood Count 9.7 X10*3/uL (4.8-10.8)
[2025-01-28 12:25] LABS: INTERNATIONAL NORM RATIO 1.1 (0.9-1.1); Prothrombin Time 12.2 SEC (10.9-12.4)
[2025-01-28 12:34] LABS: Alanine Aminotransferase 12 U/L (0-40); Albumin Level 3.9 g/dL (3.5-5.0); Alkaline Phosphatase 106 U/L (39-117); Anion Gap 10 (12-20); Aspartate Amino Transferase 33 U/L (5-37); Blood Urea Nitrogen 31 mg/dL (9-16); Calcium 8.5 mg/dL (8.4-10.2); Carbon Dioxide 26 mmol/L (22-29); Chloride 112 mmol/L (96-108); Creatinine Clr Calc Pharmacy 44.9; Estimated Glomerular Filt Rate 48; Potassium 4.6 mmol/L (3.3-5.1); Sodium 143 mmol/L (135-145); Total Protein 6.6 g/dL (6.5-8.0)
--- OUTSIDE RECORDS SUMMARY | 2025-01-28 14:00 | XMS_ITS | Patient Health Record ---
Author Organization [facility] [address] Address [address] [place] [address] Care Team Providers Care Automatic Drill Operator Name Role Phone Ami Mazariegos Primary Care Provider Marcelo Hardy Unavailable [phone] Talita Chalres Unavailable [phone] Allergies No Known Allergies Results Component Value Reference Range Notes HEMOGLOBIN A1C (GLYCOHEMOGLO BIN) Reviewed date:10/15/2024 01:47:01 PM Interpretation: Performing Lab: Notes/Report: HEMOGLOBIN A1C % (HH) 6.6 Reason For Referral No Information Medications Medication SIG (Take, Route, Frequency, Duration) Notes Start Date End Date Status Flomax Active Atorvastatin Calcium Active Losartan Potassium 50 MG 1 tablet Orally Once a day Active Levothyroxine Sodium Active Simvastatin 20 MG 1 tablet in the evening Orally Once a day Active Metoprolol Succinate 100 MG 1 capsule Or ally Once a day; Duration: 30 day(s) Active hydroCHLOROthiazide 12.5 MG 1 tablet in the morning Orally Once a day Not-Taking Vitamin D Not-Taking Aspirin Active Plavix Not-Taking Ciclopirox Olamine 0.77 % 1 application Externally Twice a day; Duration: 30 days Not-Taking Amiodarone HCl Not-T aking Potassium Not-Taking Metoprolol & Diet Manage Prod 25 Not-Taking Clopidogrel Bisulfate 75 MG 1 tablet Ora lly Once a day Not-Taking Lasix Not-Taking Tamsulosin HCl 0.4 MG 1 capsule Orally Once a day; Duration: 30 day(s) Not-Taking Fish Oil Not-Taking Cephalexin 500 MG 1 tablet Orally Twice a day; Duration: 5 days Not-Taking Immunizations Vaccine Route Administration Date Status [...] Tobacco use: Nonsmoker Additional Findings: Tobacco non-user Current no nsmoker AUDIT-C (Standard) Question Answer Notes Did you have a drink contain ing alcohol in the past year? Yes How often did you have a dri nk containing alcohol in the past year? 2 to 4 times a month (2 points) How many drinks did you have on a typical day when you were drinking in the past year? 1 or 2 drinks (0 point) How often did you have six o r more drinks on one occasion in the past year? Never (0 point) Points 2 Interpretation Negative Problems Problem Type SNOMED Code ICD Code Onset Dates Problem Status W/U Status Risk Notes Problem Acquired hammer toe of left foot (2079701323232928) Hammertoe of left foot (M20.42) Active confirmed Problem Acquired hammer toe of right foot (3629718905749198) Hammertoe of right foot (M20.41) Active confirmed Problem Bilateral atherosclerosis of arteries of lower limbs (disorder) (58963915817982239 ) Atherosclerosis of [place] artery of both lower extremities, with unspecified presence of clinical manifestation (I70.203) Active confirmed Vital Signs Blood pressure diastolic 70 mm Hg 01/14/2025 Height 5 ft 11 in in 01/14/2025 Blood pressure systolic 140 mm Hg 01/14/2025 Weight 210 lbs 01/14/2025 BMI 29.29 kg/m2 01/14/2025 Encounters Encounter Location Date Provider [facility] [address] [place] [address] 03/09/2024 Talita Charles Tinea pedis of both feet B35.3 ; Onychomycosis B35.1 ; Atherosclerosis of [place] artery of both lower extremities, with unspecified presence of clinical manifestation I70.203 ; Pain of toe of right foot M79.674 and Pain of toe of left foot M79.[address] [address] 06/08/2024 Talita Perica Onychomycosis B35.1 ; Contusion of left great toe without damage to nail, initial encounter S90.112A ; Atherosclerosis of [place] artery of both lower extremities, with unspecified presence of clinical manifestation I70.203 ; Pain of toe of right foot M79.674 ; Pain of toe of left foot M79.675 ; Xerosis of skin L85.3 ; Hammertoe of right foot M20.41 and Hammertoe of left foot M20.[address] [address] 10/15/2024 Talita Perica Onychomycosis B35.1 ; Atherosclerosis of [place] artery of both lower extremities, with unspecified presence of clinical manifestation I70.203 ; Pain of toe of right foot M79.674 and Pain of toe of left foot M79.[address] [address] 01/14/2025 Talita Perica Onychomycosis B35.1 ; Atherosclerosis of [place] artery of both lower extremities, with unspecified presence of clinical manifestation I70.203 ; Pain of toe of right foot M79.674 and Pain of toe of left foot M79.[address] [address] 09/06/2024 Marcelo Simpson Assessments Encounter Date Diagnosis (ICD Code) Assessment Notes Treatment Notes Treatment Clinical Notes Section Notes 03/09/2024 Onychomycosis (ICD-10 - B35.1) 03/09/2024 Tinea pedis of both feet (ICD-10 - B35.3) 06/08/2024 Contusion of left great toe without damage to nail, initial encounter (ICD-10 - S90.112A) 06/08/2024 Onychomycosis (ICD-10 - B35.1) 10/15/2024 Onychomycosis (ICD-10 - B35.1) 10/15/2024 Atherosclerosis of [place] artery of both lower extremities, with unspecified presence of clinical manifestation (ICD-10 - I70.203) 01/14/2025 Onychomycosis (ICD-10 - B35.1) 01/14/2025 Atherosclerosis of [place] artery of both lower extremities, with unspecified presence of clinical manifestation (ICD-10 - I70.203) 10/15/2024 Pain of toe of right foot (ICD-10 - M79.674) 06/08/2024 Atherosclerosis of [place] artery of both lower extremities, with unspecified presence of clinical manifestation (ICD-10 - I70.203) 03/09/2024 Atherosclerosis of [place] artery of both lower extremities, with unspecified presence of clinical manifestation (ICD-10 - I70.203) 03/09/2024 Pain of toe of right foot (ICD-10 - M79.674) 10/15/2024 Pain of toe of left foot (ICD-10 - M79.675) 06/08/2024 Pain of toe of right foot (ICD-10 - M79.674) 01/14/2025 Pain of toe of right foot (ICD-10 - M79.674) 01/14/2025 Pain of toe of left foot (ICD-10 - M79.675) 06/08/2024 Pain of toe of left foot (ICD-10 - M79.675) 03/09/2024 Pain of toe of left foot (ICD-10 - M79.675) 06/08/2024 Xerosis of skin (ICD-10 - L85.3) 06/08/2024 Hammertoe of right foot (ICD-10 - M20.41) 06/08/2024 Hammertoe of left foot (ICD-10 - M20.42) Plan Of Treatment Pending Test Test Name Order Date [id number] NAIL, 6 OR MORE 12/17/2022 [id number] NAIL, 6 OR MORE 03/04/2023 [id number] NAIL, 6 OR MORE 05/20/2023 [id number] NAIL, 1-5 07/04/2014 34488-ORHV SKIN LESIONS, 2 TO 4 05/20/19 [id number] SKIN LESIONS, 2 TO 4 03/04/20 [id number]-[id number] SKIN LESIONS, 2 TO 4 12/18/19 Next Appt Details Provider Name:Talita Alberta godoy, 03/29/2025 01:30:00 PM, [address] [place], [address], Insurance Providers Payer Name Payer Address Payer Phone Subscriber Number Group Number Insured Name Patient Relationship to Insured Coverage Start Date Coverage End Date Medicare [facility] [facility] [address] [place] [address] [id number] Edgar Roberts Self - patient is the insured [employer] [address] [place] [address] [phone] [id number] Edgar Roberts Self - patient is the [...] Surgery 10/10/20 Stent Surgery- kidney stones 09/03/23 skin lesion on scalp 12/2024 Hospitalization History Reason Date(Month/Year) [facility]- Kidney stone 03/21 [facility]- Kidney stone 08/2023 [facility]- Coronary Bypass 10/10/20 fractured hip- rehab 2 weeks 07/14
--- OUTSIDE RECORDS SUMMARY | 2025-01-28 14:00 | XMS_ITS | Clinical Summary ---
Author Organization [facility] Address [address] [facility] [address] [place] [address] Phone Care Team Providers Care Water Rights Specialist Name Role Phone Ami Mazariegos MD Primary Care Provider [phone] Allergies Active Allergy Reactions Criticality Noted Date [...] At [place] Hemoglobin A1C 5.2 (4.0-5.6) % [facility] Comment: MONITORING: In known diabetic patients, hemoglobin A1c targets should be discussed with health care provider. DIAGNOSTIC USE: The [place] Diabetes Association (ADA) and the World Health [...] Supplement 1 Testing performed or reported by [facility], a Service of [facility], [address] [place] [id number] Norma Williamson MD, Team Driver 11/08/2020 3:58 PM EDT 11/08/2020 3:59 PM EDT us Edgar Ferrari MD LAB BLOOD ORDERABLES Final Re sult [facility] from Last 3 Months or Most Recently Relevant to Health Maintenance Insurance Medicare [facility] Medicare [facility] Care Teams Water Rights Specialist Relationship Specialty Start Date End Date Ami Mazariegos MD [id number] [place] PCP - General Internal Medicine 10/31/20
[2025-01-28 14:26] VITALS: BP 172/71; PULSE 58; RESP 16; TEMP 36.8; O2SAT 96
[2025-01-28 14:58] LABS: Appearance Urine Cloudy; Glucose Urine UA Negative (Negative); PH 5.0 (5.0-9.0); Specific Gravity - Urine 1.020 (1.005-1.025); UMIC TRIGGER UACC YES
[2025-01-28] MEDS: Lactated Ringers 1,000 ML 999 ML IV (15:10)
[2025-01-28 16:57] VITALS: BP 123/73; PULSE 65; RESP 16; O2SAT 97
--- NOTE | 2025-01-28 17:15 | PM.IMHP ---
History of Present Illness Date of Service: 01/28/25 Chief Complaint: Left flank pain 84-year-old male with a history of CAD, CKD, CVA, BPH and HTN presents with a proximally 24-36 hours of worsening left flank pain accompanied by nausea without vomiting. He states he has had similar presentations in past that required stenting in past. Patient follows with Dr. Cabrera as an outpatient. Workup in the emergency room consistent with a 7 mm stone at the UPJ . Review of Systems Review of Systems: Denies chest pain Denies shortness of breath Denies nausea vomiting diarrhea Denies fever chills PMFSH Medical History Hard of hearing Arthritis Anemia History of kidney stones Hx of orthostatic hypotension Hx of fracture Weakness Difficulty swallowing Cough Habitual snoring SOB (shortness of breath) Preop exam for internal medicine Leg weakness Right wrist pain Carpal tunnel syndrome of right wrist Lumbar spinal stenosis Left acetabular fracture Peripheral arterial disease Hypercholesterolemia History of CVA (cerebrovascular accident) BPH (benign prostatic hyperplasia) Hypothyroid Hypertension Family History Father Medical history unknown Mother Medical history unknown Surgical History Hx of carpal tunnel repair Hx of shoulder surgery H/O colonoscopy Hx of aortic aneurysm repair History of cataract surgery S/P CABG x 1 History of prostate surgery History of thyroidectomy Hx of cholecystectomy Social History Household Members: Spouse Housing: House Are you a primary hospice care transitions coordinator to a significant other at home: No Do you presently have visiting nurse or other home services: No Alcohol intake: current Alcohol intake frequency: holidays/special occasions only Alcohol type: beer and wine Patient Tobacco Use Status: Never used Tobacco Tobacco use type: Cigarette Smoked in Last 30 Days: No e-Cigarette/Vaping Use: Never Used Second Hand Smoke Exposure: No Use of substances other than those prescribed or required for medical reasons: No Advance Directives: Yes Advance Directives on File: Yes Advance Directives Date on File: 01/20/23 service: No Current occupational status: retired Current occupation: left hand Cognitive needs: Yes (Cane) Hearing needs: Yes Vision needs: Yes Meds Allergies Allergy/AdvReac Type Severity Reaction Status Date / Time lisinopril AdvReac Intermediate cough Verified 01/28/25 12:03 rosuvastatin AdvReac Intermediate myalgia Verified 01/28/25 12:03 simvastatin AdvReac Intermediate myalgia Verified 01/28/25 12:03 Active Medications: Current Medications Acetaminophen (Acetaminophen 325 Mg Tablet) 650 mg PO Q6H PRN PRN Reason: Pain, Mild 1-3,fever,headache Calcium Carbonate (Calcium Carbonate 750 Mg Tab.Chew) 750 mg PO Q4H PRN PRN Reason: Heartburn Lactated Ringer's (Lr) 1,000 mls @ 125 mls/hr IVCONT .Q8H SAMANTHA Magnesium Hydroxide (Milk Of Magnesia 30 Ml Oral.Susp) 30 ml PO DAILY PRN PRN Reason: Constipation Melatonin (Melatonin 3 Mg Tablet) 6 mg PO BEDTIME PRN PRN Reason: Insomnia Ondansetron HCl (Ondansetron Hcl 4 Mg/2 Ml Vial) 4 mg IVPUSH Q8H PRN PRN Reason: Nausea and Vomiting Oxycodone HCl (Oxycodone Hcl Immed Release 5 Mg Tablet) 5 mg PO Q6H PRN PRN Reason: Pain, Severe (Pain Scale 7-10) Sodium Chloride (0.9 % Sodium Chloride Flush 3 Ml Syringe) 3 ml IVFLUSH QSHIFT [facility] Home Medications ?Medication ?Instructions ?Recorded ?Confirmed ?Last Taken ?Type aspirin 81 mg tablet,delayed 81 mg PO DAILY 08/06/21 12/16/24 04/12/24 History release (Adult Aspirin Regimen) docusate sodium 100 mg capsule 100 mg PO BID 08/15/21 12/16/24 04/12/24 History (Colace) cholecalciferol (vitamin D3) 50 50 mcg PO SUSA 07/18/23 12/16/24 04/11/24 History mcg (2,000 unit) tablet omega-3 fatty acids-fish oil 360 1 cap PO BID 07/18/23 12/16/24 04/12/24 History mg-1,200 mg capsule (Fish Oil) Physical Exam Vital Signs and Narrative: Vital Signs: Last Vital Signs Temp 98.2 F 01/28/25 14:26 Pulse 65 01/28/25 16:57 Resp 16 01/28/25 16:57 BP 123/73 01/28/25 16:57 Pulse Ox 97 01/28/25 16:57 O2 Del Method Room Air 01/28/25 16:57 BMI result Body Mass Index 29.3 Const: Other: Awake alert no acute distress Resp: Other: Clear to auscultation bilaterally no rales rhonchi or wheezes Cardio: Other: No S4; positive S1-S2; no S3 murmurs rubs or gallops GI: Other: Soft nontender nondistended normoactive bowel sounds Extrem: Other: No edema bilaterally Results Labs 01/28/25 12:13 01/28/25 12:13 Labs: Laboratory Results - last 24 hr 01/28/25 01/28/25 12:13 14:45 MCV 88.8 MCH 29.6 MCHC 33.3 RDW 13.3 Plt Count 202 MPV 10.6 Immature Gran % (Auto) 0.3 Neut % (Auto) 78.6 H Lymph % (Auto) 10.0 L [place] % (Auto) 8.4 Eos % (Auto) 2.5 Baso % (Auto) 0.2 Lymph # (Auto) 1.0 L [place] # (Auto) 0.8 Eos # (Auto) 0.2 Baso # (Auto) 0.0 Abs Immat Gran (auto) 0.03 Absolute Neuts (auto) 7.6 Absolute Nucleated RBC 0.000 Nucleated RBC % (auto) 0.0 PT 12.2 INR 1.1 Anion Gap 10 L Estim Creat Clear Calc 44.9 Estimated GFR 48 Random Glucose 123 H Calcium 8.5 Total Bilirubin 0.5 AST 33 ALT 12 Alkaline Phosphatase 106 Total Protein 6.6 Albumin 3.9 Urine Color Yellow Urine Appearance Cloudy Urine pH 5.0 Ur Specific [place] 1.020 Urine Protein Trace Urine Glucose (UA) Negative Urine Ketones Negative Urine Blood Moderate (2+) H Urine Nitrite Negative Ur Leukocyte Esterase Negative Urine RBC >20 H Urine WBC 0-5 Ur Squamous Epith Cells 0-2 Urine Bacteria None Seen Hyaline Casts 0-2 Imaging Radiologist's Impressions: Impressions Abdomen/Pelvis CT 01/28/25 15:45 IMPRESSION: Moderate left hydronephrosis related to a 7 mm stone in the proximal left ureter, just distal to the UPJ. Additionally, there is a nonobstructing 2 x 5 mm stone in the lower pole left kidney. Diverticulosis. Moderate lumbar degenerative disc disease and facet osteoarthritis Fleischner guidelines were followed. Electronically signed by: Ulises Staples MD 01/28/2025 04:20 PM EDT RP Assessment and Plan (1) Hydronephrosis: Qualifiers: Hydronephrosis type: with ureteropelvic junction obstruction Qualified Code(s): Q62.11 - Congenital occlusion of ureteropelvic junction Status: Acute (2) CKD (chronic kidney disease) stage 2, GFR 60-89 ml/min: Status: Acute (3) Hypertension: Qualifiers: Hypertension type: essential hypertension Qualified Code(s): I10 - Essential (primary) hypertension Status: Acute (4) History of CVA (cerebrovascular accident): Status: Acute Plan 84-year-old male with a history of renal calculi presents with left flank pain nausea and vomiting in the absence of fever and chill that has been going on for the last 36 hours. He states his presentation is similar to the last episode for which he required stenting. He denies fever chills chest pain or shortness of breath 1. Left hydronephrosis/7 mm UPJ stone -lactated Ringer's 125/hour -Flomax -pain management with Tylenol/oxycodone only per patient request -Urology consult 2. CKD 2 -appears at baseline -follow renals/divalent 3. Hypertension -mildly elevated on admission; likely secondary to discomfort -continue outpatient therapies -adjust as indicated 4. History of CVA -stable and well compensated -continue outpatient therapies Pneumatics Full code Patient will require at least 2 midnights going forward of inpatient stay to treat hydronephrosis with obstructing stone with volume and we will she is specialty consultation. This can not be achieved a lesser acute setting Quality Stroke Does the patient have a stroke diagnosis?: No VTE Prior VTE?: No VTE Risk Level:: Medical - moderate - high VTE Device Contraindication: N/A - Device Ordered VTE Drug Contraindication: Treatment Not Indicated
[2025-01-28] MEDS: Lactated Ringers 1,000 ML 125 ML IVCONT (17:52)
--- NOTE | 2025-01-28 18:08 | PC.NURSE ---
pt walks well with cane. standby assist for safety.
--- NOTE | 2025-01-28 18:41 | PHA.MEDREC ---
Addendum entered by Enio Alfaro RPh 01/28/25 18:47: Reviewed by [facility] Original Note: Pharmacy Consult ? Medication Reconciliation Pharmacy has completed the medication reconciliation. Patient was able to name all of his medications. Patient had all his morning medications today.
[2025-01-28 20:00] VITALS: BP 120/51; PULSE 61; RESP 20; TEMP 37.1; O2SAT 96
[2025-01-28 21:23] VITALS: BMI 31.5
[2025-01-28 21:27] VITALS: BP 142/65; PULSE 57; RESP 16; TEMP 36.8; O2SAT 96
[2025-01-28] MEDS: Flu Vacc TS2025-26(6mo up)/PF 0.5 ML SYRINGE IM (21:50)
[2025-01-28 21:53] VITALS: BP 142/53; BP 142/65; PULSE 62
[2025-01-28] MEDS: Metoprolol Succinate ER 100 MG TAB.ER.24H PO (21:53)
[2025-01-29] MEDS: Lactated Ringers 1,000 ML 125 ML IVCONT (02:11)
[2025-01-29 03:46] VITALS: BP 138/63; PULSE 50; RESP 18; TEMP 36.9; O2SAT 97
[2025-01-29 06:04] LABS: MANUAL DIFF FLAG NO
[2025-01-29 06:16] LABS: Hematocrit 38.3 % (42.0-52.0); Hemoglobin 12.9 g/dl (14.0-18.0); Imm Gran Abs Auto 0.05 X10*3/uL (0.00-0.03); Imm Gran Pct Auto 0.4 % (0.0-0.4); Lymphocytes Absolute Auto 1.0 X10*3/uL (1.2-4.9); Mean Corpuscular HGB Conc 33.7 g/dl (31.0-36.0); Mean Corpuscular Hemoglobin 30.1 pg (27.0-33.0); Mean Corpuscular Volume 89.3 fL (80.0-98.0); NRBC Abs Auto 0.000 X10*3/uL (0.0-0.012); NRBC Pct Auto 0.0 /100WBC (0.0-0.2); Platelet Count 185 X10*3/uL (160-400); Red Blood Count 4.29 X10*6/uL (4.60-5.80); White Blood Count 11.7 X10*3/uL (4.8-10.8)
[2025-01-29 06:30] LABS: Alanine Aminotransferase 8 U/L (0-40); Albumin Level 3.2 g/dL (3.5-5.0); Alkaline Phosphatase 82 U/L (39-117); Anion Gap 10 (12-20); Aspartate Amino Transferase 31 U/L (5-37); Blood Urea Nitrogen 40 mg/dL (9-16); Calcium 8.2 mg/dL (8.4-10.2); Carbon Dioxide 28 mmol/L (22-29); Chloride 111 mmol/L (96-108); Creatinine Clr Calc Pharmacy 37.3; Estimated Glomerular Filt Rate 38; Potassium 4.5 mmol/L (3.3-5.1); Sodium 144 mmol/L (135-145); Total Protein 5.3 g/dL (6.5-8.0)
--- NOTE | 2025-01-29 07:57 | PM.UROCN ---
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 He states he has had similar presentations in past that required stenting in past. Patient follows with [facility]. BUN/creat--40/1.73 CTAP--Moderate left hydronephrosis related to a 7 mm stone in the proximal left ureter, just distal to the UPJ. Additionally, there is a nonobstructing 2 x 5 mm stone in the lower pole left kidney. [facility] Past Medical History Medical History Hard of hearing Arthritis Anemia History of kidney stones Hx of orthostatic hypotension Hx of fracture Weakness Difficulty swallowing Cough Habitual snoring SOB (shortness of breath) Preop exam for internal medicine Leg weakness Right wrist pain Carpal tunnel syndrome of right wrist Lumbar spinal stenosis Left acetabular fracture Peripheral arterial disease Hypercholesterolemia History of CVA (cerebrovascular accident) BPH (benign prostatic hyperplasia) Hypothyroid Hypertension Family History Family History Father Medical history unknown Mother Medical history unknown Surgical History Surgical History Hx of carpal tunnel repair Hx of shoulder surgery H/O colonoscopy Hx of aortic aneurysm repair History of cataract surgery S/P CABG x 1 History of prostate surgery History of thyroidectomy Hx of cholecystectomy Social History Social History Household Members: Spouse Housing: House Are you a primary progressive care manager to a significant other at home: No Do you presently have visiting nurse or other home services: No Alcohol intake: current Alcohol intake frequency: holidays/special occasions only Alcohol type: beer and wine Patient Tobacco Use Status: Never used Tobacco Tobacco use type: Cigarette e-Cigarette/Vaping Use: Never Used Second Hand Smoke Exposure: No Advance Directives Date on File: 01/20/23 service: Yes Current occupational status: retired Current occupation: left hand Cognitive needs: Yes (Cane) Hearing needs: Yes Vision needs: Yes Meds Allergies Allergy/AdvReac Type Severity Reaction Status Date / Time lisinopril AdvReac Intermediate cough Verified 01/28/25 12:03 rosuvastatin AdvReac Intermediate myalgia Verified 01/28/25 12:03 simvastatin AdvReac Intermediate myalgia Verified 01/28/25 12:03 Active Medications: Current Medications Acetaminophen (Acetaminophen 325 Mg Tablet) 650 mg PO Q6H PRN PRN Reason: Pain, Mild 1-3,fever,headache Aspirin (Aspirin Enteric Coated 81 Mg Tablet.Dr) 81 mg PO DAILY [facility] Atorvastatin Calcium (Atorvastatin Calcium 20 Mg Tablet) 20 mg PO BEDTIME [facility] Last Admin: 01/28/25 21:53 Dose: 20 mg Calcium Carbonate (Calcium Carbonate 750 Mg Tab.Chew) 750 mg PO Q4H PRN PRN Reason: Heartburn Clopidogrel Bisulfate (Clopidogrel Bisulfate 75 Mg Tablet) 75 mg PO BEDTIME [facility] Last Admin: 01/28/25 22:01 Dose: 75 mg Docusate Sodium (Docusate Sodium 100 Mg Capsule) 100 mg PO BID [facility] Last Admin: 01/28/25 21:53 Dose: 100 mg Lactated Ringer's (Lr) 1,000 mls @ 125 mls/hr IVCONT .Q8H [facility] Last Admin: 01/29/25 02:11 Dose: 125 mls/hr Levothyroxine Sodium (Levothyroxine Sodium 100 Mcg Tablet) 100 mcg PO DAILY@0600 [facility] Last Admin: 01/29/25 05:59 Dose: 100 mcg Losartan Potassium (Losartan Potassium 50 Mg Tablet) 50 mg PO BID [facility]; Protocol Last Admin: 01/28/25 21:53 Dose: 50 mg Magnesium Hydroxide (Milk Of Magnesia 30 Ml Oral.Susp) 30 ml PO DAILY PRN PRN Reason: Constipation Melatonin (Melatonin 3 Mg Tablet) 6 mg PO BEDTIME PRN PRN Reason: Insomnia Metoprolol Succinate (Metoprolol Succinate Er 100 Mg Tab.Er.24h) 100 mg PO BEDTIME [facility]; Protocol Last Admin: 01/28/25 21:53 Dose: 100 mg Ondansetron HCl (Ondansetron Hcl 4 Mg/2 Ml Vial) 4 mg IVPUSH Q8H PRN PRN Reason: Nausea and Vomiting Oxycodone HCl (Oxycodone Hcl Immed Release 5 Mg Tablet) 5 mg PO Q6H PRN PRN Reason: Pain, Severe (Pain Scale 7-10) Sodium Chloride (0.9 % Sodium Chloride Flush 3 Ml Syringe) 3 ml IVFLUSH QSHIFT [facility] Last Admin: 01/28/25 22:26 Dose: Not Given Tamsulosin HCl (Tamsulosin Hcl 0.4 Mg Capsule) 0.4 mg PO BEDTIME [facility] Home Medications ?Medication ?Instructions ?Recorded ?Confirmed ?Last Taken ?Type aspirin 81 mg tablet,delayed 81 mg PO DAILY 08/06/21 01/28/25 01/28/25 History release (Adult Aspirin Regimen) docusate sodium 100 mg capsule 100 mg PO BID 08/15/21 01/28/25 01/28/25 History (Colace) cholecalciferol (vitamin D3) 50 50 mcg PO DAILY 07/18/23 01/28/25 01/28/25 History mcg (2,000 unit) tablet omega-3 fatty acids-fish oil 360 1 cap PO BID 07/18/23 01/28/25 01/28/25 History mg-1,200 mg capsule (Fish Oil) atorvastatin 20 mg tablet 20 mg PO BEDTIME 01/28/25 01/28/25 01/27/25 History clopidogrel 75 mg tablet 75 mg PO BEDTIME 01/28/25 01/28/25 01/27/25 History Physical Exam Vital Signs: Vital Signs: Last Vital Signs Temp 98.4 F 01/29/25 03:46 Pulse 50 01/29/25 03:46 Resp 18 01/29/25 03:46 BP 138/63 01/29/25 03:46 Pulse Ox 97 01/29/25 03:46 O2 Del Method Room Air 01/29/25 03:46 BMI result Body Mass Index 31.5 Const: General: healthy appearing, no acute distress and well developed Orientation/consciousness: patient oriented x3 HEENT: Head: Yes normocephalic and Yes atraumatic Eyes: Conjunctivae: conjunctivae normal Neck: Neck: Yes normal visual inspection Chest: Chest palpation & inspection: normal inspection of the chest Resp: Effort & Inspection: normal respiratory effort GI: Inspection: Yes normal to inspection Neuro: General: patient oriented x3 Psych: Appearance: grossly normal Affect: normal affect Results Labs 01/30/25 06:05 01/30/25 06:05 Labs: Abnormal lab results 01/28/25 01/28/25 01/29/25 Range/Units 12:13 14:45 05:13 WBC 11.7 H (4.8-10.8) X10*3/uL RBC 4.29 L (4.60-5.80) X10*6/uL Hgb 12.9 L (14.0-18.0) g/dl Hct 38.3 L (42.0-52.0) % Neut % (Auto) 78.6 H 79.2 H (45-73) % Lymph % (Auto) 10.0 L 8.8 L (20-40) % Lymph # (Auto) 1.0 L 1.0 L (1.2-4.9) X10*3/uL Abs Immat Gran (auto) 0.05 H (0.00-0.03) X10*3/uL Absolute Neuts (auto) 9.2 H (2.0-8.3) x10*3/uL Chloride 112 H 111 H (96-108) mmol/L Anion Gap 10 L 10 L (12-20) BUN 31 H 40 H (9-16) mg/dL Creatinine 1.73 H (0.5-1.4) mg/dL Random Glucose 123 H (60-115) mg/dL Calcium 8.2 L (8.4-10.2) mg/dL Total Protein 5.3 L (6.5-8.0) g/dL Albumin 3.2 L (3.5-5.0) g/dL Urine Blood Moderate (2+) H (Negative) Urine RBC >20 H (0-2) /HPF Short CBC 01/28/25 01/29/25 Range/Units 12:13 05:13 WBC 9.7 11.7 H (4.8-10.8) X10*3/uL Hgb 14.5 12.9 L (14.0-18.0) g/dl Hct 43.5 38.3 L (42.0-52.0) % Plt Count 202 185 (160-400) X10*3/uL BMP 01/28/25 01/29/25 12:13 05:13 Sodium 143 144 Potassium 4.6 4.5 Chloride 112 H 111 H Carbon Dioxide 26 28 BUN 31 H 40 H Creatinine 1.39 1.73 H Calcium 8.5 8.2 L Liver Function 01/28/25 01/29/25 Range/Units 12:13 05:13 Total Bilirubin 0.5 0.5 (0.0-1.0) mg/dL AST 33 31 (5-37) U/L ALT 12 8 (0-40) U/L Alkaline Phosphatase 106 82 (39-117) U/L Albumin 3.9 3.2 L (3.5-5.0) g/dL Urine 01/28/25 Range/Units 14:45 Urine Color Yellow Urine Appearance Cloudy Urine pH 5.0 (5.0-9.0) Ur Specific [place] 1.020 (1.005-1.025) Urine Protein Trace (Neg-Trace) mg/dL Urine Glucose (UA) Negative (Negative) mg/dL Imaging Abdomen CT scan report/results: report reviewed and image reviewed CT scan - pelvis: report reviewed and image reviewed Additional studies: Date of Service: 01/28/25 EXAMINATION: CT ABDOMEN AND PELVIS WITHOUT CONTRAST CLINICAL INFORMATION: Left flank pain, hematuria COMPARISON: September 18 TECHNIQUE: Multidetector volumetric imaging was performed from the superior aspect of the liver through the pubic symphysis. Sagittal and coronal reformatted images were obtained on the technologist's workstation. This CT examination was performed using dose optimization techniques as appropriate, variously including the following: *Automated exposure control *Adjustment of mA and/or kV according to patient size (this includes techniques or standardized protocols for targeted exams where dose is matched to indication/reason for exam; i.e. extremities or head) *Use of iterative reconstruction technique FINDINGS: LUNG BASES: There is mild atelectasis. There is mild bronchiectasis in the posterior lung bases. LIVER, GALLBLADDER, AND BILIARY TREE: There is a simple hepatic cyst on the surface of the medial hepatic lobe. The gallbladder is surgically absent. There are clips in the gallbladder fossa. There is no biliary ductal dilation. PANCREAS: Unremarkable. SPLEEN: Unremarkable. ADRENAL GLANDS: Unremarkable. KIDNEYS AND URETERS: There is moderate left-sided lordosis related to a 7 mm stone in the proximal left ureter, just distal to the ureteropelvic junction. There is a 2 x 5 mm nonobstructing stone in the lower pole. There is perinephric fat stranding. There are no right-sided stones. BLADDER: Unremarkable. GASTROINTESTINAL TRACT: There are pseudodiverticula in the descending and sigmoid colon. Appendix is thin-walled and partially gas-filled. ABDOMINAL WALL: Small left inguinal hernia contains adipose tissue. There is also increased fat along the spermatic cord. LYMPH NODES: Normal. VASCULAR: Moderate to severe vascular opacifications are present. PELVIC VISCERA: Unremarkable OSSEOUS STRUCTURES: Moderate degenerative changes are present in the lumbar spine Sternotomy wires are visible in the lower portion of the sternum. IMPRESSION: Moderate left hydronephrosis related to a 7 mm stone in the proximal left ureter, just distal to the UPJ. Additionally, there is a nonobstructing 2 x 5 mm stone in the lower pole left kidney. Assessment and Plan (1) Left renal stone: Status: Acute (2) Ureteropelvic junction calculus: Status: Acute (3) Hydronephrosis, left: Status: Acute Plan CKD. gentle hydration Pain management and diet. Will add on the OR on Friday schedule. Procedures Date of Service Date of Service: 01/30/25
[2025-01-29 08:00] VITALS: BP 144/62; PULSE 54; RESP 18; TEMP 37.2; O2SAT 96
[2025-01-29 09:47] VITALS: BP 161/72
[2025-01-29] MEDS: Lactated Ringers 1,000 ML 75 ML IVCONT (09:47)
[2025-01-29] MEDS: Aspirin Enteric Coated 81 MG TABLET.DR PO (09:47)
--- NOTE | 2025-01-29 12:00 | HO.PM.IMPN ---
Subjective Subjective Date of Service: 01/29/25 Interval History: No acute issues overnight. Creatinine up and white count up this a.m.. Remains afebrile Review of Systems Denies chest pain Denies shortness of breath Denies nausea vomiting diarrhea Denies fever chills Physical Exam Vital Signs: Vital Signs: Last Vital Signs Temp 98.9 F 01/29/25 08:00 Pulse 54 01/29/25 08:00 Resp 18 01/29/25 08:00 BP 161/72 H 01/29/25 09:47 Pulse Ox 96 01/29/25 08:00 O2 Del Method Room Air 01/29/25 08:00 BMI result Body Mass Index 31.5 Const: Other: Awake alert no acute distress Resp: Other: Clear to auscultation bilaterally no rales rhonchi or wheezes Cardio: Other: No S4; positive S1-S2; no S3 murmurs rubs or gallops GI: Other: Soft nontender nondistended normoactive bowel sounds Extrem: Other: No edema bilaterally Objective Data Active Medications Acetaminophen (Acetaminophen 325 Mg Tablet) 650 mg PO Q6H PRN PRN Reason: Pain, Mild 1-3,fever,headache Aspirin (Aspirin Enteric Coated 81 Mg Tablet.) 81 mg PO DAILY [facility] Last Admin: 01/29/25 09:47 Dose: 81 mg Documented By: SAGE Atorvastatin Calcium (Atorvastatin Calcium 20 Mg Tablet) 20 mg PO BEDTIME [facility] Last Admin: 01/28/25 21:53 Dose: 20 mg Documented By: EDITH Calcium Carbonate (Calcium Carbonate 750 Mg Tab.Chew) 750 mg PO Q4H PRN PRN Reason: Heartburn Ceftriaxone Sodium (Ceftriaxone Sodium 1 Gm Vial) 1 gm IVPUSH Q24H [facility] Last Admin: 01/29/25 09:48 Dose: 1 gm Documented By: SAGE Clopidogrel Bisulfate (Clopidogrel Bisulfate 75 Mg Tablet) 75 mg PO BEDTIME [facility] Last Admin: 01/28/25 22:01 Dose: 75 mg Documented By: EDITH Docusate Sodium (Docusate Sodium 100 Mg Capsule) 100 mg PO BID [facility] Last Admin: 01/29/25 09:47 Dose: 100 mg Documented By: SAGE Levothyroxine Sodium (Levothyroxine Sodium 100 Mcg Tablet) 100 mcg PO DAILY@0600 [facility] Last Admin: 01/29/25 05:59 Dose: 100 mcg Documented By: EDITH Losartan Potassium (Losartan Potassium 50 Mg Tablet) 50 mg PO BID [facility]; Protocol Last Admin: 01/29/25 09:47 Dose: 50 mg Documented By: SAGE Magnesium Hydroxide (Milk Of Magnesia 30 Ml Oral.Susp) 30 ml PO DAILY PRN PRN Reason: Constipation Melatonin (Melatonin 3 Mg Tablet) 6 mg PO BEDTIME PRN PRN Reason: Insomnia Metoprolol Succinate (Metoprolol Succinate Er 100 Mg Tab.Er.24h) 100 mg PO BEDTIME [facility]; Protocol Last Admin: 01/28/25 21:53 Dose: 100 mg Documented By: EDITH Ondansetron HCl (Ondansetron Hcl 4 Mg/2 Ml Vial) 4 mg IVPUSH Q8H PRN PRN Reason: Nausea and Vomiting Oxycodone HCl (Oxycodone Hcl Immed Release 5 Mg Tablet) 5 mg PO Q6H PRN PRN Reason: Pain, Severe (Pain Scale 7-10) Sodium Chloride (0.9 % Sodium Chloride Flush 3 Ml Syringe) 3 ml IVFLUSH QSHIFT [facility] Last Admin: 01/29/25 09:25 Dose: Not Given Documented By: SAGE Non-Admin Reason: IV Running Tamsulosin HCl (Tamsulosin Hcl 0.4 Mg Capsule) 0.4 mg PO BEDTIME [facility] Labs 01/29/25 05:13 01/29/25 05:13 Labs: Laboratory Results - last 24 hr 01/28/25 01/28/25 01/29/25 12:13 14:45 05:13 MCV 88.8 89.3 MCH 29.6 30.1 MCHC 33.3 33.7 RDW 13.3 13.3 Plt Count 202 185 MPV 10.6 10.9 Immature Gran % (Auto) 0.3 0.4 Neut % (Auto) 78.6 H 79.2 H Lymph % (Auto) 10.0 L 8.8 L [place] % (Auto) 8.4 10.3 Eos % (Auto) 2.5 1.1 Baso % (Auto) 0.2 0.2 Lymph # (Auto) 1.0 L 1.0 L [place] # (Auto) 0.8 1.2 Eos # (Auto) 0.2 0.1 Baso # (Auto) 0.0 0.0 Abs Immat Gran (auto) 0.03 0.05 H Absolute Neuts (auto) 7.6 9.2 H Absolute Nucleated RBC 0.000 0.000 Nucleated RBC % (auto) 0.0 0.0 PT 12.2 INR 1.1 Anion Gap 10 L 10 L Estim Creat Clear Calc 44.9 37.3 Estimated GFR 48 38 Random Glucose 123 H 86 Calcium 8.5 8.2 L Total Bilirubin 0.5 0.5 AST 33 31 ALT 12 8 Alkaline Phosphatase 106 82 Total Protein 6.6 5.3 L Albumin 3.9 3.2 L Urine Color Yellow Urine Appearance Cloudy Urine pH 5.0 Ur Specific [place] 1.020 Urine Protein Trace Urine Glucose (UA) Negative Urine Ketones Negative Urine Blood Moderate (2+) H Urine Nitrite Negative Ur Leukocyte Esterase Negative Urine RBC >20 H Urine WBC 0-5 Ur Squamous Epith Cells 0-2 Urine Bacteria None Seen Hyaline Casts 0-2 Assessment and Plan (1) Ureteropelvic junction calculus: Status: Acute (2) Hydronephrosis, left: Status: Acute (3) Hypertension: Status: Acute Plan 84-year-old male with a history of renal calculi presents with left flank pain nausea and vomiting in the absence of fever and chill that has been going on for the last 36 hours. He states his presentation is similar to the last episode for which he required stenting. He denies fever chills chest pain or shortness of breath. White count now 11.7; creatinine 1.39 on admission 1.73 this a.m. 1. Left hydronephrosis/7 mm UPJ stone -DC fluids as patient requests -given elevation in white count and bump in creatinine we will add ceftriaxone. Discussed with uro on schedule for 01/31 for stent -Flomax -pain management with Tylenol/oxycodone only per patient request 2. CKD 2 -slight elevation likely secondary to obstructing stone -stent 01/31 -follow renals/divalent 3. Hypertension -acceptable control on current therapies -continue outpatient therapies -adjust as indicated 4. History of CVA -stable and well compensated -continue outpatient therapies Pneumatics Full code Requires ongoing hospitalization for empiric antibiotics given obstructive stone and specialty consultation with stent placement 01/31 Quality Stroke Does the patient have a stroke diagnosis?: No VTE Prior VTE?: No VTE Risk Level:: Medical - moderate - high VTE Device Contraindication: N/A - Device Ordered VTE Drug Contraindication: Treatment Not Indicated
[2025-01-29] MEDS: 0.9 % Sodium Chloride Flush 3 ML SYRINGE IVFLUSH ×2 (15:10→19:55)
[2025-01-29 15:16] VITALS: BP 162/73; PULSE 51; RESP 18; TEMP 36.4; O2SAT 95
--- NOTE | 2025-01-29 15:57 | MHC.CM.PN ---
PT REPORTS HE LIVES WITH HIS AND IS INDEPENDENT WITH CARE HE USES [facility] FOR DME AND NO SERVICES HCP ON FILE AND VERIFIED PCP: SRUTHI LEBRON IMM DELIVERED DCP: HOME [facility]
[2025-01-29 19:12] VITALS: BP 147/65; PULSE 57; RESP 17; TEMP 36.2; O2SAT 96
[2025-01-29 19:50] VITALS: PULSE 60
[2025-01-29] MEDS: Metoprolol Succinate ER 100 MG TAB.ER.24H PO (19:50)
[2025-01-30 03:53] VITALS: BP 184/85; PULSE 67; RESP 17; TEMP 36.6; O2SAT 100
[2025-01-30 05:58] VITALS: BP 172/84
[2025-01-30 06:37] LABS: MANUAL DIFF FLAG NO
[2025-01-30 06:47] LABS: Hematocrit 40.3 % (42.0-52.0); Hemoglobin 13.3 g/dl (14.0-18.0); Imm Gran Abs Auto 0.05 X10*3/uL (0.00-0.03); Imm Gran Pct Auto 0.4 % (0.0-0.4); Lymphocytes Absolute Auto 0.7 X10*3/uL (1.2-4.9); Mean Corpuscular HGB Conc 33.0 g/dl (31.0-36.0); Mean Corpuscular Hemoglobin 29.7 pg (27.0-33.0); Mean Corpuscular Volume 90.0 fL (80.0-98.0); NRBC Abs Auto 0.000 X10*3/uL (0.0-0.012); NRBC Pct Auto 0.0 /100WBC (0.0-0.2); Platelet Count 185 X10*3/uL (160-400); Red Blood Count 4.48 X10*6/uL (4.60-5.80); White Blood Count 12.6 X10*3/uL (4.8-10.8)
[2025-01-30 07:00] LABS: Alanine Aminotransferase 6 U/L (0-40); Albumin Level 3.3 g/dL (3.5-5.0); Alkaline Phosphatase 84 U/L (39-117); Anion Gap 11 (12-20); Aspartate Amino Transferase 27 U/L (5-37); Blood Urea Nitrogen 38 mg/dL (9-16); Calcium 8.1 mg/dL (8.4-10.2); Carbon Dioxide 25 mmol/L (22-29); Chloride 108 mmol/L (96-108); Creatinine Clr Calc Pharmacy 32.6; Estimated Glomerular Filt Rate 32; Potassium 4.2 mmol/L (3.3-5.1); Sodium 140 mmol/L (135-145); Total Protein 5.8 g/dL (6.5-8.0)
[2025-01-30 07:48] VITALS: BP 131/66; PULSE 56; RESP 18; TEMP 36.6; O2SAT 97
[2025-01-30] MEDS: 0.9 % Sodium Chloride Flush 3 ML SYRINGE IVFLUSH ×2 (07:57→21:51)
--- NOTE | 2025-01-30 09:15 | HO.PM.IMPN ---
Subjective Subjective Date of Service: 01/30/25 Interval History: No new issues, pain is less than 1 but feels constiated Physical Exam Vital Signs: Vital Signs: Last Vital Signs Temp 97.8 F 01/30/25 07:48 Pulse 56 01/30/25 07:48 Resp 18 01/30/25 07:48 BP 131/66 01/30/25 07:48 Pulse Ox 97 01/30/25 07:48 O2 Del Method Room Air 01/30/25 07:48 BMI result Body Mass Index 31.5 Const: Other: General: AO X 3, no acute distress Resp: CTA bilateral CVS: S1,S2,RRR GI: +BS, NT, no distention Skin: No rash Neuro: motor grossly intact Psych: appropriate affect Objective Data Active Medications Acetaminophen (Acetaminophen 325 Mg Tablet) 650 mg PO Q6H PRN PRN Reason: Pain, Mild 1-3,fever,headache Last Admin: 01/29/25 17:58 Dose: 650 mg Documented By: SAGE Amlodipine Besylate (Amlodipine Besylate 5 Mg Tablet) 5 mg PO DAILY [facility]; Protocol Last Admin: 01/30/25 06:06 Dose: 5 mg Documented By: EDITH Aspirin (Aspirin Enteric Coated 81 Mg Tablet.) 81 mg PO DAILY [facility] On Hold: 01/29/25 18:13 Last Admin: 01/29/25 09:47 Dose: 81 mg Documented By: SAGE Atorvastatin Calcium (Atorvastatin Calcium 20 Mg Tablet) 20 mg PO BEDTIME [facility] Last Admin: 01/29/25 19:49 Dose: 20 mg Documented By: EDITH Calcium Carbonate (Calcium Carbonate 750 Mg Tab.Chew) 750 mg PO Q4H PRN PRN Reason: Heartburn Ceftriaxone Sodium (Ceftriaxone Sodium 1 Gm Vial) 1 gm IVPUSH Q24H [facility] Last Admin: 01/30/25 07:57 Dose: 1 gm Documented By: SAGE Clopidogrel Bisulfate (Clopidogrel Bisulfate 75 Mg Tablet) 75 mg PO BEDTIME [facility] On Hold: 01/29/25 18:13 Last Admin: 01/28/25 22:01 Dose: 75 mg Documented By: EDITH Docusate Sodium (Docusate Sodium 100 Mg Capsule) 100 mg PO BID [facility] Last Admin: 01/30/25 07:57 Dose: 100 mg Documented By: SAGE Levothyroxine Sodium (Levothyroxine Sodium 100 Mcg Tablet) 100 mcg PO DAILY@0600 [facility] Last Admin: 01/30/25 06:07 Dose: 100 mcg Documented By: EDITH Losartan Potassium (Losartan Potassium 50 Mg Tablet) 50 mg PO BID [facility]; Protocol Last Admin: 01/30/25 07:57 Dose: 50 mg Documented By: SAGE Magnesium Hydroxide (Milk Of Magnesia 30 Ml Oral.Susp) 30 ml PO DAILY PRN PRN Reason: Constipation Melatonin (Melatonin 3 Mg Tablet) 6 mg PO BEDTIME PRN PRN Reason: Insomnia Metoprolol Succinate (Metoprolol Succinate Er 100 Mg Tab.Er.24h) 100 mg PO BEDTIME [facility]; Protocol Last Admin: 01/29/25 19:50 Dose: 100 mg Documented By: EDITH Ondansetron HCl (Ondansetron Hcl 4 Mg/2 Ml Vial) 4 mg IVPUSH Q8H PRN PRN Reason: Nausea and Vomiting Oxycodone HCl (Oxycodone Hcl Immed Release 5 Mg Tablet) 5 mg PO Q6H PRN PRN Reason: Pain, Severe (Pain Scale 7-10) Sodium Chloride (0.9 % Sodium Chloride Flush 3 Ml Syringe) 3 ml IVFLUSH QSHIFT [facility] Last Admin: 01/30/25 07:57 Dose: 3 ml Documented By: SAGE Tamsulosin HCl (Tamsulosin Hcl 0.4 Mg Capsule) 0.4 mg PO BEDTIME [facility] Last Admin: 01/29/25 19:54 Dose: 0.4 mg Documented By: EDITH Labs 01/30/25 06:05 01/30/25 06:05 Labs: Laboratory Results - last 24 hr 01/30/25 06:05 MCV 90.0 MCH 29.7 MCHC 33.0 RDW 13.3 Plt Count 185 MPV 10.7 Immature Gran % (Auto) 0.4 Neut % (Auto) 83.2 H Lymph % (Auto) 5.6 L [place] % (Auto) 9.6 Eos % (Auto) 1.0 Baso % (Auto) 0.2 Lymph # (Auto) 0.7 L [place] # (Auto) 1.2 Eos # (Auto) 0.1 Baso # (Auto) 0.0 Abs Immat Gran (auto) 0.05 H Absolute Neuts (auto) 10.5 H Absolute Nucleated RBC 0.000 Nucleated RBC % (auto) 0.0 Anion Gap 11 L Estim Creat Clear Calc 32.6 Estimated GFR 32 Fasting Glucose 105 H Calcium 8.1 L Total Bilirubin 0.7 AST 27 ALT 6 Alkaline Phosphatase 84 Total Protein 5.8 L Albumin 3.3 L Assessment and Plan (1) Ureteropelvic junction calculus: Status: Acute (2) Hydronephrosis, left: Status: Acute (3) Hypertension: Status: Acute Plan 84-year-old male with a history of renal calculi presents with left flank pain nausea and vomiting in the absence of fever and chill that has been going on for the last 36 hours. He states his presentation is similar to the last episode for which he required stenting. He denies fever chills chest pain or shortness of breath. White count now 11.7; creatinine 1.39 on admission 1.73 this a.m. Left hydronephrosis/7 mm UPJ stone , complicated for MOIZ No IVF per pt request for cysto and stent tomorrow CKD 2 with MOIZ, likely from obstructive stone Will suggest IVF again follow renal funct Hypertension Controlled Continue Losartan, Amlodipine, and metoprolol History of CVA No new issues Pneumatics before procedure, out of bed and ambulate Full code Requires ongoing hospitalization for empiric antibiotics given obstructive stone and specialty consultation with stent placement 01/31 Quality Stroke Does the patient have a stroke diagnosis?: No VTE Prior VTE?: No VTE Risk Level:: Medical - moderate - high VTE Device Contraindication: N/A - Device Ordered VTE Drug Contraindication: Treatment Not Indicated
[2025-01-30] MEDS: Lactated Ringers 500 ML 50 ML IV (11:02)
[2025-01-30 15:21] VITALS: BP 143/67; PULSE 60; RESP 15; TEMP 36.8; O2SAT 93
[2025-01-30 20:00] VITALS: BP 134/60; PULSE 59; RESP 18; TEMP 36.3; O2SAT 95
[2025-01-30 21:47] VITALS: BP 181/88; PULSE 67
[2025-01-30] MEDS: Metoprolol Succinate ER 100 MG TAB.ER.24H PO (21:47)
[2025-01-31] VITALS (11 sets, daily range): BP systolic 145–183; BP diastolic 64–86; PULSE 53–68; RESP 16–20; TEMP 36.1–36.9; O2SAT 93–100
[2025-01-31 05:47] LABS: MANUAL DIFF FLAG NO
[2025-01-31 05:55] LABS: Hematocrit 39.0 % (42.0-52.0); Hemoglobin 13.0 g/dl (14.0-18.0); Imm Gran Abs Auto 0.04 X10*3/uL (0.00-0.03); Imm Gran Pct Auto 0.4 % (0.0-0.4); Lymphocytes Absolute Auto 0.9 X10*3/uL (1.2-4.9); Mean Corpuscular HGB Conc 33.3 g/dl (31.0-36.0); Mean Corpuscular Hemoglobin 29.8 pg (27.0-33.0); Mean Corpuscular Volume 89.4 fL (80.0-98.0); NRBC Abs Auto 0.000 X10*3/uL (0.0-0.012); NRBC Pct Auto 0.0 /100WBC (0.0-0.2); Platelet Count 176 X10*3/uL (160-400); Red Blood Count 4.36 X10*6/uL (4.60-5.80); White Blood Count 9.4 X10*3/uL (4.8-10.8)
[2025-01-31 06:23] LABS: Alanine Aminotransferase < 6 U/L (0-40); Albumin Level 3.1 g/dL (3.5-5.0); Alkaline Phosphatase 76 U/L (39-117); Anion Gap 10 (12-20); Aspartate Amino Transferase 25 U/L (5-37); Blood Urea Nitrogen 34 mg/dL (9-16); Calcium 8.0 mg/dL (8.4-10.2); Carbon Dioxide 25 mmol/L (22-29); Chloride 107 mmol/L (96-108); Creatinine Clr Calc Pharmacy 33.4; Estimated Glomerular Filt Rate 33; Potassium 4.1 mmol/L (3.3-5.1); Sodium 138 mmol/L (135-145); Total Protein 5.5 g/dL (6.5-8.0)
[2025-01-31] MEDS: Lactated Ringers 1,000 ML 100 ML IVCONT ×2 (08:21→22:07)
[2025-01-31] MEDS: 0.9 % Sodium Chloride Flush 3 ML SYRINGE IVFLUSH (08:24)
--- NOTE | 2025-01-31 08:35 | HO.PM.IMPN ---
Subjective Subjective Date of Service: 01/31/25 Interval History: No new issues, no pain feels constipated Physical Exam Vital Signs: Vital Signs: Last Vital Signs Temp 98.4 F 01/31/25 08:00 Pulse 53 01/31/25 08:00 Resp 16 01/31/25 08:00 BP 145/64 H 01/31/25 08:00 Pulse Ox 93 01/31/25 08:00 O2 Del Method Room Air 01/31/25 08:00 BMI result Body Mass Index 31.5 Const: Other: General: AO X 3, no acute distress Resp: CTA bilateral CVS: S1,S2,RRR GI: +BS, NT, no distention Skin: No rash Neuro: motor grossly intact Psych: appropriate affect Objective Data Active Medications Acetaminophen (Acetaminophen 325 Mg Tablet) 650 mg PO Q6H PRN PRN Reason: Pain, Mild 1-3,fever,headache Last Admin: 01/29/25 17:58 Dose: 650 mg Documented By: SAGE Amlodipine Besylate (Amlodipine Besylate 5 Mg Tablet) 5 mg PO DAILY [facility]; Protocol Last Admin: 01/30/25 06:06 Dose: 5 mg Documented By: EDITH Aspirin (Aspirin Enteric Coated 81 Mg Tablet.Dr) 81 mg PO DAILY SAMANTHA On Hold: 01/29/25 18:13 Last Admin: 01/29/25 09:47 Dose: 81 mg Documented By: SAGE Atorvastatin Calcium (Atorvastatin Calcium 20 Mg Tablet) 20 mg PO BEDTIME SAMANTHA Last Admin: 01/30/25 21:48 Dose: 20 mg Documented By: NORY Calcium Carbonate (Calcium Carbonate 750 Mg Tab.Chew) 750 mg PO Q4H PRN PRN Reason: Heartburn Ceftriaxone Sodium (Ceftriaxone Sodium 1 Gm Vial) 1 gm IVPUSH Q24H SAMANTHA Last Admin: 01/30/25 07:57 Dose: 1 gm Documented By: SAGE Clopidogrel Bisulfate (Clopidogrel Bisulfate 75 Mg Tablet) 75 mg PO BEDTIME SAMANTHA On Hold: 01/29/25 18:13 Last Admin: 01/28/25 22:01 Dose: 75 mg Documented By: EDITH Docusate Sodium (Docusate Sodium 100 Mg Capsule) 100 mg PO BID SAMANTHA Last Admin: 01/30/25 21:49 Dose: 100 mg Documented By: NORY Lactated Ringer's (Lr) 1,000 mls @ 100 mls/hr IVCONT .Q10H [facility] Levothyroxine Sodium (Levothyroxine Sodium 100 Mcg Tablet) 100 mcg PO DAILY@0600 [facility] Last Admin: 01/31/25 06:08 Dose: 100 mcg Documented By: NORY Losartan Potassium (Losartan Potassium 50 Mg Tablet) 50 mg PO BID [facility]; Protocol Last Admin: 01/30/25 21:49 Dose: 50 mg Documented By: NORY Magnesium Hydroxide (Milk Of Magnesia 30 Ml Oral.Susp) 30 ml PO DAILY PRN PRN Reason: Constipation Magnesium Hydroxide (Milk Of Magnesia 30 Ml Oral.Susp) 30 ml PO DAILY PRN PRN Reason: Constipation Melatonin (Melatonin 3 Mg Tablet) 6 mg PO BEDTIME PRN PRN Reason: Insomnia Metoprolol Succinate (Metoprolol Succinate Er 100 Mg Tab.Er.24h) 100 mg PO BEDTIME [facility]; Protocol Last Admin: 01/30/25 21:47 Dose: 100 mg Documented By: NORY Ondansetron HCl (Ondansetron Hcl 4 Mg/2 Ml Vial) 4 mg IVPUSH Q8H PRN PRN Reason: Nausea and Vomiting Oxycodone HCl (Oxycodone Hcl Immed Release 5 Mg Tablet) 5 mg PO Q6H PRN PRN Reason: Pain, Severe (Pain Scale 7-10) Polyethylene Glycol (Polyethylene Glycol 3350 17 Gm Powd.Pack) 17 gm PO DAILY PRN PRN Reason: Constipation Last Admin: 01/30/25 13:24 Dose: 17 gm Documented By: SAGE Sodium Chloride (0.9 % Sodium Chloride Flush 3 Ml Syringe) 3 ml IVFLUSH QSHIFT [facility] Last Admin: 01/30/25 21:51 Dose: 3 ml Documented By: NORY Tamsulosin HCl (Tamsulosin Hcl 0.4 Mg Capsule) 0.4 mg PO BEDTIME [facility] Last Admin: 01/30/25 21:47 Dose: 0.4 mg Documented By: NORY Labs 01/31/25 05:28 02/01/25 05:40 Labs: Laboratory Results - last 24 hr 01/31/25 05:28 MCV 89.4 MCH 29.8 MCHC 33.3 RDW 13.2 Plt Count 176 MPV 10.7 Immature Gran % (Auto) 0.4 Neut % (Auto) 73.9 H Lymph % (Auto) 9.8 L [place] % (Auto) 13.4 H Eos % (Auto) 2.2 Baso % (Auto) 0.3 Lymph # (Auto) 0.9 L [place] # (Auto) 1.3 H Eos # (Auto) 0.2 Baso # (Auto) 0.0 Abs Immat Gran (auto) 0.04 H Absolute Neuts (auto) 7.0 Absolute Nucleated RBC 0.000 Nucleated RBC % (auto) 0.0 Anion Gap 10 L Estim Creat Clear Calc 33.4 Estimated GFR 33 Fasting Glucose 98 Calcium 8.0 L Total Bilirubin 0.7 AST 25 ALT < 6 Alkaline Phosphatase 76 Total Protein 5.5 L Albumin 3.1 L Assessment and Plan (1) Ureteropelvic junction calculus: Status: Acute (2) Hydronephrosis, left: Status: Acute (3) Hypertension: Status: Acute Plan 84-year-old male with a history of renal calculi presents with left flank pain nausea and vomiting in the absence of fever and chill that has been going on for the last 36 hours. He states his presentation is similar to the last episode for which he required stenting. He denies fever chills chest pain or shortness of breath. White count now 11.7; creatinine 1.39 on admission 1.73 this a.m. Left hydronephrosis/7 mm UPJ stone , complicated by MOIZ IVF for cysto and stent tomorrow CKD 2 with MOIZ, likely from obstructive stone IVF follow renal funct, sightly better tody Hypertension Controlled Continue Losartan, Amlodipine, and metoprolol History of CVA ASA, Plavix, lipitor Pneumatics before procedure, out of bed and ambulate Full code Requires ongoing hospitalization for empiric antibiotics given obstructive stone and specialty consultation with stent placement 01/31 Quality Stroke Does the patient have a stroke diagnosis?: No VTE Prior VTE?: No VTE Risk Level:: Medical - moderate - high VTE Device Contraindication: N/A - Device Ordered VTE Drug Contraindication: Treatment Not Indicated
--- NOTE | 2025-01-31 08:36 | HO.ANESPROP2 ---
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 Rides a stationary bike every day. No CP or SOB. Has chronic dyspnea. Had both cardiac & pulmonary work up for these in past with unremarkable findings per pt. CAD: s/p CABG x1, LAD stent and aortic aneurysm repair 10/10/20; echo update 06/2024 *see below CVA: x2, residual mild difficulty swallowing, speech impediment, right hand numbness; on ASA, plavix; most recent event was 03/2024; follows with [facility] [place], *see imaging below. [facility] Active Problems Active Problems: All Active Problems Hydronephrosis, left (Acute) Ureteropelvic junction calculus (Acute) Hydronephrosis (Acute) Squamous cell carcinoma of scalp (Acute) Scalp lesion (Acute) Osteoarthritis of right knee (Acute) Cough (Acute) Knee pain, right (Acute) Shoulder pain, right (Acute) Impacted cerumen of left ear (Acute) Postop check (Acute) Lipoma (Acute) Sebaceous cyst (Acute) Leg weakness, bilateral (Acute) Hydronephrosis (Acute) MOIZ (acute kidney injury) (Acute) Ureterolithiasis (Acute) Left renal stone (Acute) MOIZ (acute kidney injury) (Acute) Influenza A (Acute) Left upper quadrant pain (Acute) Impacted cerumen of right ear (Acute) Closed left hip fracture (Acute) Peripheral vascular disease (Acute) Wrist pain (Acute) Tinea pedis (Acute) COVID-19 virus infection (Acute) Fungus infection (Acute) Cellulitis (Acute) Impacted cerumen of both ears (Acute) Macular degeneration (Acute) Encounter for subsequent annual wellness visit (AWV) in Medicare patient (Acute) Toe pain, right (Acute) Cellulitis of left thigh (Acute) CKD (chronic kidney disease) stage 2, GFR 60-89 ml/min (Acute) Coronary artery disease (Acute) Ascending aorta dilatation (Acute) Erectile dysfunction (Acute) Hematoma (Acute) Allergic dermatitis (Acute) Peripheral arterial disease (Acute) Hypercholesterolemia (Acute) History of CVA (cerebrovascular accident) (Acute) BPH (benign prostatic hyperplasia) (Acute) Hypothyroid (Acute) Hypertension (Acute) Past Medical History Medical History Hard of hearing Arthritis Anemia History of kidney stones Hx of orthostatic hypotension Hx of fracture Weakness Difficulty swallowing Cough Habitual snoring SOB (shortness of breath) Preop exam for internal medicine Leg weakness Right wrist pain Carpal tunnel syndrome of right wrist Lumbar spinal stenosis Left acetabular fracture Peripheral arterial disease Hypercholesterolemia History of CVA (cerebrovascular accident) BPH (benign prostatic hyperplasia) Hypothyroid Hypertension Functional capacity: uses cane/walker Family History Family History Father Medical history unknown Mother Medical history unknown Family history of problems with anesthesia: No Surgical History Surgical History Hx of carpal tunnel repair Hx of shoulder surgery H/O colonoscopy Hx of aortic aneurysm repair History of cataract surgery S/P CABG x 1 History of prostate surgery History of thyroidectomy Hx of cholecystectomy History of Problems with Anesthesia: No Social History Social History Household Members: Spouse Housing: House Are you a primary medicare sales executive to a significant other at home: No Do you presently have visiting nurse or other home services: No Alcohol intake: current Alcohol intake frequency: holidays/special occasions only Alcohol type: beer and wine Patient Tobacco Use Status: Never used Tobacco Tobacco use type: Cigarette e-Cigarette/Vaping Use: Never Used Second Hand Smoke Exposure: No Advance Directives Date on File: 01/20/23 service: Yes Current occupational status: retired Current occupation: left hand Cognitive needs: Yes (Cane) Hearing needs: Yes Vision needs: Yes Meds Allergies Allergy/AdvReac Type Severity Reaction Status Date / Time lisinopril AdvReac Intermediate cough Verified 01/28/25 12:03 rosuvastatin AdvReac Intermediate myalgia Verified 01/28/25 12:03 simvastatin AdvReac Intermediate myalgia Verified 01/28/25 12:03 Active Medications: Current Medications Acetaminophen (Acetaminophen 325 Mg Tablet) 650 mg PO Q6H PRN PRN Reason: Pain, Mild 1-3,fever,headache Last Admin: 01/29/25 17:58 Dose: 650 mg Amlodipine Besylate (Amlodipine Besylate 5 Mg Tablet) 5 mg PO DAILY [facility]; Protocol Last Admin: 01/30/25 06:06 Dose: 5 mg Aspirin (Aspirin Enteric Coated 81 Mg Tablet.Dr) 81 mg PO DAILY [facility] On Hold: 01/29/25 18:13 Last Admin: 01/29/25 09:47 Dose: 81 mg Atorvastatin Calcium (Atorvastatin Calcium 20 Mg Tablet) 20 mg PO BEDTIME [facility] Last Admin: 01/30/25 21:48 Dose: 20 mg Calcium Carbonate (Calcium Carbonate 750 Mg Tab.Chew) 750 mg PO Q4H PRN PRN Reason: Heartburn Ceftriaxone Sodium (Ceftriaxone Sodium 1 Gm Vial) 1 gm IVPUSH Q24H [facility] Last Admin: 01/30/25 07:57 Dose: 1 gm Clopidogrel Bisulfate (Clopidogrel Bisulfate 75 Mg Tablet) 75 mg PO BEDTIME [facility] On Hold: 01/29/25 18:13 Last Admin: 01/28/25 22:01 Dose: 75 mg Docusate Sodium (Docusate Sodium 100 Mg Capsule) 100 mg PO BID [facility] Last Admin: 01/30/25 21:49 Dose: 100 mg Lactated Ringer's (Lr) 1,000 mls @ 100 mls/hr IVCONT .Q10H [facility] Levothyroxine Sodium (Levothyroxine Sodium 100 Mcg Tablet) 100 mcg PO DAILY@0600 [facility] Last Admin: 01/31/25 06:08 Dose: 100 mcg Losartan Potassium (Losartan Potassium 50 Mg Tablet) 50 mg PO BID [facility]; Protocol Last Admin: 01/30/25 21:49 Dose: 50 mg Magnesium Hydroxide (Milk Of Magnesia 30 Ml Oral.Susp) 30 ml PO DAILY PRN PRN Reason: Constipation Magnesium Hydroxide (Milk Of Magnesia 30 Ml Oral.Susp) 30 ml PO DAILY PRN PRN Reason: Constipation Melatonin (Melatonin 3 Mg Tablet) 6 mg PO BEDTIME PRN PRN Reason: Insomnia Metoprolol Succinate (Metoprolol Succinate Er 100 Mg Tab.Er.24h) 100 mg PO BEDTIME [facility]; Protocol Last Admin: 01/30/25 21:47 Dose: 100 mg Ondansetron HCl (Ondansetron Hcl 4 Mg/2 Ml Vial) 4 mg IVPUSH Q8H PRN PRN Reason: Nausea and Vomiting Oxycodone HCl (Oxycodone Hcl Immed Release 5 Mg Tablet) 5 mg PO Q6H PRN PRN Reason: Pain, Severe (Pain Scale 7-10) Polyethylene Glycol (Polyethylene Glycol 3350 17 Gm Powd.Pack) 17 gm PO DAILY PRN PRN Reason: Constipation Last Admin: 01/30/25 13:24 Dose: 17 gm Sodium Chloride (0.9 % Sodium Chloride Flush 3 Ml Syringe) 3 ml IVFLUSH QSHIFT [facility] Last Admin: 01/30/25 21:51 Dose: 3 ml Tamsulosin HCl (Tamsulosin Hcl 0.4 Mg Capsule) 0.4 mg PO BEDTIME [facility] Last Admin: 01/30/25 21:47 Dose: 0.4 mg Home Medications ?Medication ?Instructions ?Recorded ?Confirmed ?Last Taken ?Type aspirin 81 mg tablet,delayed 81 mg PO DAILY 08/06/21 01/28/25 01/28/25 History release (Adult Aspirin Regimen) docusate sodium 100 mg capsule 100 mg PO BID 08/15/21 01/28/25 01/28/25 History (Colace) cholecalciferol (vitamin D3) 50 50 mcg PO DAILY 07/18/23 01/28/25 01/28/25 History mcg (2,000 unit) tablet omega-3 fatty acids-fish oil 360 1 cap PO BID 07/18/23 01/28/25 01/28/25 History mg-1,200 mg capsule (Fish Oil) atorvastatin 20 mg tablet 20 mg PO BEDTIME 01/28/25 01/28/25 01/27/25 History clopidogrel 75 mg tablet 75 mg PO BEDTIME 01/28/25 01/28/25 01/27/25 History Exam Height,Weight and Vital Signs: Height 5 ft 11 in Weight 102.5 kg Last Vital Signs Temp 98.4 F 01/31/25 08:00 Pulse 53 01/31/25 08:00 Resp 16 01/31/25 08:00 BP 145/64 H 01/31/25 08:00 Pulse Ox 93 01/31/25 08:00 O2 Del Method Room Air 01/31/25 08:00 Pertinent Lab Results Pertinent Lab Results: Laboratory Tests 01/28/25 01/28/25 01/29/25 12:13 14:45 05:13 WBC 9.7 11.7 H RBC 4.90 4.29 L Hgb 14.5 12.9 L Hct 43.5 38.3 L MCV 88.8 89.3 MCH 29.6 30.1 MCHC 33.3 33.7 RDW 13.3 13.3 Plt Count 202 185 MPV 10.6 10.9 Immature Gran % (Auto) 0.3 0.4 Neut % (Auto) 78.6 H 79.2 H Lymph % (Auto) 10.0 L 8.8 L [place] % (Auto) 8.4 10.3 Eos % (Auto) 2.5 1.1 Baso % (Auto) 0.2 0.2 Lymph # (Auto) 1.0 L 1.0 L [place] # (Auto) 0.8 1.2 Eos # (Auto) 0.2 0.1 Baso # (Auto) 0.0 0.0 Abs Immat Gran (auto) 0.03 0.05 H Absolute Neuts (auto) 7.6 9.2 H Absolute Nucleated RBC 0.000 0.000 Nucleated RBC % (auto) 0.0 0.0 PT 12.2 INR 1.1 Sodium 143 144 Potassium 4.6 4.5 Chloride 112 H 111 H Carbon Dioxide 26 28 Anion Gap 10 L 10 L BUN 31 H 40 H Creatinine 1.39 1.73 H Estim Creat Clear Calc 44.9 37.3 Estimated GFR 48 38 Random Glucose 123 H 86 Fasting Glucose Calcium 8.5 8.2 L Total Bilirubin 0.5 0.5 AST 33 31 ALT 12 8 Alkaline Phosphatase 106 82 Total Protein 6.6 5.3 L Albumin 3.9 3.2 L Urine Color Yellow Urine Appearance Cloudy Urine pH 5.0 Ur Specific [place] 1.020 Urine Protein Trace Urine Glucose (UA) Negative Urine Ketones Negative Urine Blood Moderate (2+) H Urine Nitrite Negative Ur Leukocyte Esterase Negative Urine RBC >20 H Urine WBC 0-5 Ur Squamous Epith Cells 0-2 Urine Bacteria None Seen Hyaline Casts 0-2 01/30/25 01/31/25 06:05 05:28 WBC 12.6 H 9.4 RBC 4.48 L 4.36 L Hgb 13.3 L 13.0 L Hct 40.3 L 39.0 L MCV 90.0 89.4 MCH 29.7 29.8 MCHC 33.0 33.3 RDW 13.3 13.2 Plt Count 185 176 MPV 10.7 10.7 Immature Gran % (Auto) 0.4 0.4 Neut % (Auto) 83.2 H 73.9 H Lymph % (Auto) 5.6 L 9.8 L [place] % (Auto) 9.6 13.4 H Eos % (Auto) 1.0 2.2 Baso % (Auto) 0.2 0.3 Lymph # (Auto) 0.7 L 0.9 L [place] # (Auto) 1.2 1.3 H Eos # (Auto) 0.1 0.2 Baso # (Auto) 0.0 0.0 Abs Immat Gran (auto) 0.05 H 0.04 H Absolute Neuts (auto) 10.5 H 7.0 Absolute Nucleated RBC 0.000 0.000 Nucleated RBC % (auto) 0.0 0.0 PT INR Sodium 140 138 Potassium 4.2 4.1 Chloride 108 107 Carbon Dioxide 25 25 Anion Gap 11 L 10 L BUN 38 H 34 H Creatinine 1.98 H 1.93 H Estim Creat Clear Calc 32.6 33.4 Estimated GFR 32 33 Random Glucose Fasting Glucose 105 H 98 Calcium 8.1 L 8.0 L Total Bilirubin 0.7 0.7 AST 27 25 ALT 6 < 6 Alkaline Phosphatase 84 76 Total Protein 5.8 L 5.5 L Albumin 3.3 L 3.1 L Urine Color Urine Appearance Urine pH Ur Specific [place] Urine Protein Urine Glucose (UA) Urine Ketones Urine Blood Urine Nitrite Ur Leukocyte Esterase Urine RBC Urine WBC Ur Squamous Epith Cells Urine Bacteria Hyaline Casts Narrative Narrative: ECHO 06/2024 -Normal left ventricular wall thickness. Moderately increased left ventricular size. Normal left ventricular systolic function. LVEF 54% by biplane Krause's estimation. -No obvious regional wall motion abnormalities. -Grade II moderate diastolic dysfunction with pseudonormal LV filling pattern and increased LA pressure. -Right ventricle is suboptimally visualized but appear normal in function. -The left atrium is mildly dilated. -The pulmonary artery systolic pressure estimation is 30 mmHg plus to CVP or right atrial pressure. -The inferior vena cava size is normal with normal inspiratory collapse consistent with right atrial pressure of approx 3 mmHg. -There is no significant pericardial effusion. - The ascending aorta and aortic root are normal in size. EKG 03/2024 Vent. Rate : 048 BPM Atrial Rate : 048 BPM P-R Int : 202 ms QRS Dur : 090 ms QT Int : 470 ms P-R-T Axes : 040 -01 011 degrees QTc Int : 419 ms Sinus bradycardia Minimal voltage criteria for LVH, may be normal variant ( R in aVL ) Nonspecific ST abnormality Abnormal ECG When compared with ECG of 05-SEP-2023 08:31, No significant change was found MRI BRAIN 03/2024 Small acute left thalamic infarct. 2. Global cerebral atrophy and chronic microangiopathy. CTA HEAD AND NECK 04/20 No acute intracranial hemorrhage or edematous infarction. 2. Severe ischemic microangiopathy and mild generalized volume loss. CTA Head/Neck: No high-grade stenosis or proximal occlusion of the vasculature of the head and neck. Airway Heart: RRR Lungs: CTAB Assessment and Plan Final Anesthetic Review Family History of Problems with Anesthesia: No History of Problems with Anesthesia: No Documented by User: Fabiola Rhodes MD 01/31/25 14:05 [facility] Past Medical History Medical History Hard of hearing Arthritis Anemia History of kidney stones Hx of orthostatic hypotension Hx of fracture Weakness Difficulty swallowing Cough Habitual snoring SOB (shortness of breath) Preop exam for internal medicine Leg weakness Right wrist pain Carpal tunnel syndrome of right wrist Lumbar spinal stenosis Left acetabular fracture Peripheral arterial disease Hypercholesterolemia History of CVA (cerebrovascular accident) BPH (benign prostatic hyperplasia) Hypothyroid Hypertension Family History Family History Father Medical history unknown Mother Medical history unknown Surgical History Surgical History Hx of carpal tunnel repair Hx of shoulder surgery H/O colonoscopy Hx of aortic aneurysm repair History of cataract surgery S/P CABG x 1 History of prostate surgery History of thyroidectomy Hx of cholecystectomy Social History Social History Household Members: Spouse Housing: House Are you a primary medicare sales executive to a significant other at home: No Do you presently have visiting nurse or other home services: No Alcohol intake: current Alcohol intake frequency: holidays/special occasions only Alcohol type: beer and wine Patient Tobacco Use Status: Never used Tobacco Tobacco use type: Cigarette e-Cigarette/Vaping Use: Never Used Second Hand Smoke Exposure: No Advance Directives Date on File: 01/20/23 service: Yes Current occupational status: retired Current occupation: left hand Cognitive needs: Yes (Cane) Hearing needs: Yes Vision needs: Yes Meds Allergies Allergy/AdvReac Type Severity Reaction Status Date / Time lisinopril AdvReac Intermediate cough Verified 01/28/25 12:03 rosuvastatin AdvReac Intermediate myalgia Verified 01/28/25 12:03 simvastatin AdvReac Intermediate myalgia Verified 01/28/25 12:03 Home Medications ?Medication ?Instructions ?Recorded ?Confirmed ?Last Taken ?Type aspirin 81 mg tablet,delayed 81 mg PO DAILY 08/06/21 01/28/25 01/28/25 History release (Adult Aspirin Regimen) docusate sodium 100 mg capsule 100 mg PO BID 08/15/21 01/28/25 01/28/25 History (Colace) cholecalciferol (vitamin D3) 50 50 mcg PO DAILY 07/18/23 01/28/25 01/28/25 History mcg (2,000 unit) tablet omega-3 fatty acids-fish oil 360 1 cap PO BID 07/18/23 01/28/25 01/28/25 History mg-1,200 mg capsule (Fish Oil) atorvastatin 20 mg tablet 20 mg PO BEDTIME 01/28/25 01/28/25 01/27/25 History clopidogrel 75 mg tablet 75 mg PO BEDTIME 01/28/25 01/28/25 01/27/25 History Exam Airway Mallampati Class: II (caps lateral) TM Dist: >3cm Neck ROM: Full Assessment and Plan Assessment Anesthesia Assessment: Anesthesia Plan Discussed and Chart Reviewed Final Anesthetic Review NPO: Yes ASA Class: III Final Preanesthetic Review: No Changes in Pt Med Stat, Meds/Allgs Chart Reviewed and Consent Obtained/Reviewed Patient Risk: Intermediate Procedure Risk: Intermediate Anesthetic Plan Anesthetic Plan: GA Disposition: Standard PACU
--- NOTE | 2025-01-31 15:32 | MHC.SHP ---
Pre-Procedural Eval Section A - 24 Hr Update-Section A only Date of Service: 01/31/25 The patient is an INPATIENT: Yes Changes since office visit: No Cold of Flu in the past 2 weeks, No New Medical Problems, No Changes in Medication and No Patient answered all questions The patient has been examined within 24 hours of the surgical procedure. The History & Physical has been completed within 30 days and I have reviewed it.: Yes Section B - Complete if H&P > 30 days Chief Complaint: Hydronephrosis; left Details of Present Illness: Cystoscopy, left retrograde, left ureteroscopy with laser lithotripsy stent placement Allergies: Allergies Allergy/AdvReac Type Severity Reaction Status Date / Time lisinopril AdvReac Intermediate cough Verified 01/28/25 12:03 rosuvastatin AdvReac Intermediate myalgia Verified 01/28/25 12:03 simvastatin AdvReac Intermediate myalgia Verified 01/28/25 12:03 Plan I have reviewed the history and physical and performed a pertinent physical examination on my patient. No changes have occurred unless specified. Time Spent With Patient Time: Total time managing care of this patient today ____ minutes.
--- NOTE | 2025-01-31 15:46 | MHC.CM.PN ---
per rounds pt will be dc ready tomorrow akhil remains hime
--- NOTE | 2025-01-31 16:56 | W.PM.OPN ---
Operative Note Operative Note Date of Service: 01/31/25 Narrative: PreOperative Diagnosis: Left proximal ureteric stone Post Operative Diagnosis: Left proximal ureteric stone and renal stone Procedure: - cystoscopy, left retrograde - left dilatation of ureteric orifice under fluoroscopy - left ureteroscopy, laser lithotripsy, stone basketing - using steerable vacuum aspiration of the kidney - left stent placement Surgeon: Dr Riley Cabrera Anesthesia: General Indications for procedure: Left proximal ureteric stone and left renal stone on CT scan imaging with hydro nephrosis. Procedure: After informed consent was verified patient was brought to the operating placed in supine position. Anesthesia was administered per protocol. Patient was placed in modified dorsal lithotomy position and prepped and draped in a sterile fashion. Safety pause time-out and side of surgery confirmed. Antibiotics confirmed. A 22 Citizen [place] cystoscope was inserted per urethra. The urethra and bladder were normal in their entirety. Both ureteric orifices were in normal position. The left ureteric orifice was cannulated and a retrograde examination was performed. Obstruction seen in left proximal stone and filling defect in left renal pelvis. A Sensor guidewire was placed up to the level of the renal pelvis under fluoroscopy. The stone was pushed back up into the kidney. The rigid cystoscope was removed and the inner cannula of ureteric access sheath was used under fluoroscopy to dilate the ureteric orifice. The steerable vacuum aspiration ureteric access sheath was placed and the inner cannula with access wire removed. The disposable digital flexible ureteral scope was placed alongside the safety wire which remained throughout the completion of the procedure. The renal pelvis was filled with old clot and blood. This is a presumed secondary to his anticoagulation. Irrigation was used. The flexible ureteral scope was removed. The 4 [place] open-ended catheter was placed. The renal pelvis was irrigated clear. The scope was advanced back of the renal pelvis. Underneath clot the stone was encountered in the renal pelvis. Using a 274 holmium fiber and the quanta 65 watt laser settings were varied between dusting and hammer. This was able to break the stone into small pieces. Using the steerable vacuum aspiration sheath fragments were able to be removed into the sheath and lasered and removed. A 1.9 Citizen [place] ZeroTip basket was used to remove some clot with debris. This will be sent for analysis. The sensor wire was already within the renal pelvis. The ureteric access sheath was removed. The rigid cystoscope was backloaded over the wire and advanced into the bladder. A 6 Citizen [place] by 26 cm double-J stent was placed into the renal pelvis and bladder under a combination of fluoroscopy and direct visualization. Proximal positioning of the stent was confirmed using fluoroscopy. The bladder was emptied. The patient tolerated the procedure well and was extubated in the operating room, and transferred in stable condition to the recovery area. Pathology: Small stone fragments Drains: Stent as above [facility] code C9761 describes cystourethroscopy, with ureteroscopy and/or pyeloscopy, with lithotripsy, and ureteral catheterization for steerable vacuum aspiration of the kidney, collecting system, ureter, bladder, and urethra if applicable (must use a steerable ureteral catheter).
[2025-01-31] MEDS: Metoprolol Succinate ER 100 MG TAB.ER.24H PO (20:26)
[2025-02-01 03:43] VITALS: BP 151/80; PULSE 64; RESP 18; TEMP 36.6; O2SAT 94
[2025-02-01 06:22] LABS: Anion Gap 12 (12-20); Blood Urea Nitrogen 30 mg/dL (9-16); Calcium 8.2 mg/dL (8.4-10.2); Carbon Dioxide 26 mmol/L (22-29); Chloride 105 mmol/L (96-108); Creatinine Clr Calc Pharmacy 35.7; Estimated Glomerular Filt Rate 36; Potassium 4.9 mmol/L (3.3-5.1); Sodium 138 mmol/L (135-145)
[2025-02-01 08:50] VITALS: BP 136/66; PULSE 69; RESP 18; TEMP 36.1; O2SAT 97
--- NOTE | 2025-02-01 09:09 | HO.POSTANES ---
Post Anesthesia Evaluation Post Anesthesia Evaluation Date of Service: 02/01/25 Vital Signs: Vital Signs Temp Pulse Resp BP Pulse Ox O2 Del Method 02/01/25 08:50 97.0 F 69 18 136/66 97 Room Air 02/01/25 03:43 97.8 F 64 18 151/80 H 94 Room Air Anesthesia: General Mental Status: Awake Pain Control: Satisfactory Nausea/Vomiting: None Hydration: Adequate Anesthesia-Related Issues: No Anes. Related Issues
--- NOTE | 2025-02-01 15:36 | P.DS_ITS ---
DS: Providers Provider Date of Service: 02/01/25 Date of admission: 01/28/25 16:31 Date of discharge: 02/01/25 Primary care physician: Ami Mazariegos MD Consults: 01/28/25 17:14 Consult to Urology Routine Consulting Provider: [facility] [place] [facility] Reason for consultation: Hydronephrosis Has provider been notified: No DS: Diagnosis Discharge Diagnosis (1) Ureteropelvic junction calculus: Status: Acute (2) Hydronephrosis, left: Status: Acute (3) Hypertension: Status: Acute DS: Summary Hospital Course Hospital Course: Admission hpi Chief Complaint: Left flank pain 84-year-old male with a history of CAD, CKD, CVA, BPH and HTN presents with a proximally 24-36 hours of worsening left flank pain accompanied by nausea without vomiting. He states he has had similar presentations in past that required stenting in past. Patient follows with Dr. Cabrera as an outpatient. W orkup in the emergency room consistent with a 7 mm stone at the UPJ . Hospital course: 84-year-old male with a history of renal calculi presents with left flank pain nausea and vomiting in the absence of fever and chill that has been going on for the last 36 hours. He states his presentation is similar to the last episode for which he required stenting. He denies fever chills chest pain or shortness of breath. White count now 11.7; creatinine 1.39 on admission 1.73 this a.m. Left hydronephrosis/7 mm UPJ stone , complicated by MOIZ--He was treated with IVF and undwent cystoscopy with stenting on 01/31 and will follow up with Dr. Cabrera for post stent care. Renal function has since been trending down. Empiric antibiotics for 5 more days. To hold Plavix and ASA until tatiana sees Dr. Cabrera in follow up Hypertension resume home meds History of CVA ASA, Plavix--as above lipitor Pneumatics before procedure, out of bed and ambulate Consitpation given bowel regimen and did some bowel movement, will prescribe mag citrate in addition to other stool softner at home Time Attestation Discharge Coordination Time (in mins): 40 Quality: Safe Use of Opioids Does Pt have an Active Cancer Diagnosis on the Problem List?: No Quality: Stroke Does the patient have a stroke diagnosis?: No Physical Exam Vital Signs: Vital Signs: Last Vital Signs Temp 97.0 F 02/01/25 08:50 Pulse 69 02/01/25 08:50 Resp 18 02/01/25 08:50 BP 136/66 02/01/25 08:50 Pulse Ox 97 02/01/25 08:50 O2 Del Method Room Air 02/01/25 08:50 BMI result Body Mass Index 31.5 DS: Data Data Completed and Pending Completed studies during hospitalization [Text1]: Procedures Dilation of Left Ureter with Intraluminal Device, Via Natural or Artificial Opening Endoscopic (09/03/23) Fluoroscopy of Left Kidney, Ureter and Bladder (09/03/23) Pending studies at discharge: Pending at discharge 01/31/25 17:09 Surgical [PTH] Routine Labs on day of discharge: Laboratory Results - last 24 hr 02/01/25 02/01/25 00:00 05:40 Sodium 138 Potassium 4.9 Chloride 105 Carbon Dioxide 26 Anion Gap 12 BUN 30 H Creatinine 1.81 H Estim Creat Clear Calc 35.7 Estimated GFR 36 Random Glucose 138 H Calcium 8.2 L Ref Lab Test Result Cancelled Discharge Plan Discharge Anticipated Discharge Date/Time: 02/01/25 15:26 Patient Disposition: Home, Self-Care Discharge Diagnosis: obstructive kidney stone, hydronephrosis Referrals: Po,Ami Alcantara MD [Primary Care Provider, Internal Medicine] - 1 Week Discharge Medications: New cefuroxime axetil 250 mg tablet 250 mg PO BID Qty: 10 0RF magnesium citrate Solution 200 ml PO DAILY PRN (Reason: Constipation) Qty: 3000 0RF Continued tamsulosin [Flomax] 0.4 mg capsule 0.4 mg PO BEDTIME Qty: 90 3RF losartan 50 mg tablet 50 mg PO BID Qty: 180 3RF metoprolol succinate 100 mg tablet extended release 24 hr 100 mg PO BEDTIME Qty: 90 3RF levothyroxine 100 mcg tablet 100 mcg PO DAILY@0600 Qty: 90 3RF atorvastatin 20 mg tablet 20 mg PO BEDTIME omega-3 fatty acids-fish oil [Fish Oil] 360-1,200 mg Capsule 1 cap PO BID cholecalciferol (vitamin D3) 50 mcg (2,000 unit) Tablet 50 mcg PO DAILY docusate sodium [Colace] 100 mg capsule 100 mg PO BID Held clopidogrel 75 mg tablet 75 mg PO BEDTIME Hold Instructions: Resume on 02/08/25. hold until you see Dr. Cabrera aspirin [Adult Aspirin Regimen] 81 mg tablet,delayed release (DR/EC) 81 mg PO DAILY Hold Instructions: Resume on 02/08/25. hold until you see Dr. Cabrera Discharge Orders: Discharge Order (Routine); Ordered 02/01/25 Ordered By: Poncho Son Diet: Advance to usual diet Activity on Discharge: As tolerated Stand Alone Forms: Patient Portal Discharge page Print Language: Danish Care Plan Goals: recovery from kidney stone, kidney failure and constipation Health Concerns: Kidney stone, kidney failure, constipation Plan of Treatment: take Cefuroxime for urinary tract infection follow up with Dr. Cabrera in 1 to 2 weeks take Mag Citrate for constipation Follow up with your Doctor in a week Assessment: see above
--- NOTE | 2025-02-01 15:46 | MHC.CM.PN ---
pt home self care
== END 2025-02-01 16:32 | disposition home or self-care (01) | DRG 661 ==
LOC: HO.ED 14:11 → HO.EDOVER 16:35 → HO.S3 19:22
PROVIDERS: Registered Nurse Emergency; Urology; Admitting Provider Hospitalist; Emergency Provider Emergency Medicine; PCP Internal Medicine; Visit Provider Internal Medicine
PROC: 0T778DZ Dilation of Left Ureter with Intraluminal Device, Via Natural or Artificial Opening Endoscopic (ICD-10-PCS; principal; 2025-01-31 15:50)
DX: N13.2 Hydronephrosis with renal and ureteral calculous obstruction (principal); E03.9 Hypothyroidism, unspecified; N17.9 Acute kidney failure, unspecified; I25.10 Atherosclerotic heart disease of native coronary artery without angina pectoris; Z95.1 Presence of aortocoronary bypass graft; N40.0 Benign prostatic hyperplasia without lower urinary tract symptoms; K59.00 Constipation, unspecified; I12.9 Hypertensive chronic kidney disease with stage 1 through stage 4 chronic kidney disease, or unspecified chronic kidney disease; N18.2 Chronic kidney disease, stage 2 (mild); Z86.73 Personal history of transient ischemic attack (TIA), and cerebral infarction without residual deficits; Z79.02 Long term (current) use of antithrombotics/antiplatelets; Z79.82 Long term (current) use of aspirin; Z79.899 Other long term (current) drug therapy
CPT/HCPCS: 36415; 74176; 80048; 80053; 81001; 82365; 85025; 85610; 88300; 90656; 99285; C1758; C1769; C1894; C2617; J0696; J1100; J1885; J2003; J2405; J2704; J3010; J7120; Q9967

== ENCOUNTER → 2025-01-28 15:27 | Outpatient (BNV) | payer MEDICARE, SELFPAY | PROVIDERS: Admitting Provider Hospitalist; Emergency Provider Emergency Medicine; PCP Internal Medicine; Visit Provider Radiology Diagnostic Radiology | DX: N13.2 Hydronephrosis with renal and ureteral calculous obstruction (principal); K57.90 Diverticulosis of intestine, part unspecified, without perforation or abscess without bleeding; M51.369 Other intervertebral disc degeneration, lumbar region without mention of lumbar back pain or lower extremity pain | CPT/HCPCS: 74176 ==

== ENCOUNTER → 2025-01-28 16:31 | Outpatient (BNV) | payer MEDICARE, SELFPAY | PROVIDERS: Admitting Provider Hospitalist; Emergency Provider Emergency Medicine; PCP Internal Medicine; Visit Provider Hospitalist | DX: N20.1 Calculus of ureter (principal); N13.30 Unspecified hydronephrosis; I10 Essential (primary) hypertension | CPT/HCPCS: 99223; 99232 ==

== ENCOUNTER → 2025-01-28 16:31 | Outpatient (BNV) | payer MEDICARE, SELFPAY | PROVIDERS: Admitting Provider Hospitalist; Emergency Provider Emergency Medicine; PCP Internal Medicine; Visit Provider Urology | DX: N20.0 Calculus of kidney (principal); N20.1 Calculus of ureter; N13.30 Unspecified hydronephrosis | CPT/HCPCS: 99222 ==

== ENCOUNTER → 2025-02-10 10:40 | Outpatient (BNVA) | payer MEDICARE, SELFPAY | PROVIDERS: PCP Internal Medicine; Visit Provider Physician Assistant Surgical | DX: Z48.817 Encounter for surgical aftercare following surgery on the skin and subcutaneous tissue (principal) | CPT/HCPCS: 99211 ==

== ENCOUNTER 2025-02-17 11:12 | Outpatient (AMB) | payer MEDICARE, SELFPAY ==
--- NOTE | 2025-02-17 12:24 | MHC.OFFVIS ---
Intake Visit Reasons: CYSTOSCOPY STENT REMOVAL Intake Note: Patient is Present for: cystoscopy/ stent removal Urology Medication: Tamsulosin Blood Thinners:Aspirin ,clopidogrel Teacher Of The Sight Impaired Required: No Accompanied by: Self / Same As Patient Allergies lisinopril Adverse Reaction (Intermediate, Verified 02/17/25 12:25) cough rosuvastatin Adverse Reaction (Intermediate, Verified 02/17/25 12:25) myalgia simvastatin Adverse Reaction (Intermediate, Verified 02/17/25 12:25) myalgia HPI Comments Details: Edgar is a pleasant male. He is a patient of Dr. Mazariegos. He is seen for the following urologic conditions. - nephrolithiasis Recurrent stone Left ureteroscopy Here for stent removal Stone composition 80% uric acid, 20% calcium oxalate Discussed use of allopurinol and potassium citrate - he wants to check with his primary care Follow-up ultrasound three-month Nephrolithiasis Presentation through emergency room - acute kidney insult - presenting creatinine 1.6 down to 1.2 after stent placement Imaging - 08/19 Mild left-sided hydroureteronephrosis with asymmetric perinephric fat stranding/free fluid and two very subtle punctate calculi in the distal left ureter at approximately 0.5 cm from the ureterovesical junction - 12/19 renal ultrasound - left small stone 6 mm - 12/20 renal ultrasound small stone left side Intervention - 09/18 left ureteroscopy - debris PFSH Medical History Hard of hearing Arthritis Anemia History of kidney stones Hx of orthostatic hypotension Hx of fracture Weakness Difficulty swallowing Cough Habitual snoring SOB (shortness of breath) Preop exam for internal medicine Leg weakness Right wrist pain Carpal tunnel syndrome of right wrist Lumbar spinal stenosis Left acetabular fracture Peripheral arterial disease Hypercholesterolemia History of CVA (cerebrovascular accident) BPH (benign prostatic hyperplasia) Hypothyroid Hypertension Surgical History Hx of carpal tunnel repair Hx of shoulder surgery H/O colonoscopy Hx of aortic aneurysm repair History of cataract surgery S/P CABG x 1 History of prostate surgery History of thyroidectomy Hx of cholecystectomy Family History Father Medical history unknown Mother Medical history unknown Social History Household Members: Spouse Housing: House Are you a primary intensive care medicine specialist to a significant other at home: No Do you presently have visiting nurse or other home services: No Alcohol intake: current Alcohol intake frequency: holidays/special occasions only Alcohol type: beer and wine Patient Tobacco Use Status: Never used Tobacco Tobacco use type: Cigarette e-Cigarette/Vaping Use: Never Used Second Hand Smoke Exposure: No Advance Directives Date on File: 01/20/23 service: Yes Current occupational status: retired Current occupation: left hand Cognitive needs: Yes (Cane) Hearing needs: Yes Vision needs: Yes Review of Systems Const Denies chills and Denies fever(s) Card Reports no additional complaints and Denies syncope Resp Denies cough GI Denies abdominal pain and Denies heartburn Reports as per HPI and Denies change in libido Neuro Denies syncope Psych Denies change in libido Endo Denies change in libido Physical Exam Const General: cooperative, healthy appearing, comfortable and no acute distress Orientation/consciousness: patient oriented x3 HEENT Face and sinus: Yes normal facial exam Mouth: moist mucous membranes Neck Neck: Yes normal visual inspection, Yes full ROM and Yes trachea midline Chest Chest palpation & inspection: normal inspection of the chest Resp Effort & Inspection: normal respiratory effort, able to speak in complete sentences and no respiratory distress GI Inspection: Yes normal to inspection Back/Spine/Pelvis Cervical Spine: normal cervical lordosis Thoracic/Lumbar Spine: thoracic and lumbar spine normal to inspection Skin General skin exam: no rashes or lesions noted Neuro General: patient oriented x3, gait normal, tone normal and moves all extremities Extrem General: Yes normal to inspection and Yes capillary refill normal Office Procedures Cystoscopy Consent Discussed risk and benefit or proposed procedure with the patient. Information consent for procedure given to the patient. Discussed technical aspects, risks, benefits and alternatives in full. Addressed all of the patient's questions and concerns regarding the procedure. The patient demonstrated knowledge and understanding. They wish to proceed with this procedure. Preparation The patient was prepped in the usual manner. A ditcher operator was present and in the room. Genitalia was prepped with betadine solution in a sterile manner. Lidocaine Jelly 2% was placed into the urethra and 16Fr flexible Olympus cystoscope was inserted into the meatus after adequate lubrication. Procedure A well lubricated 16 Mongolian cystoscope was placed No abnormality noted of urethra during placement Indwelling stent seen within bladder emerging from left ureteric orifices The stent was grasped with a 3 prong grasper and removed without difficulty The patient tolerated the procedure well [id number] with stent removal DISPOSABLE SCOPE URO-G FLEXIBLE SCOPE Procedure code (CPT) selection complete Office Meds lidocaine HCl 2 % mucosal jelly in applicator Performing Provider: Riley Cabrera MD Performing Location: [facility] [place] Administered by: Gerber Yoder LPN on 02/17/25 12:24 Dose Route Admin Location Dispensed Lot Number Expiration Date [place] [employer] 10 mL intra-urethral 10 mL nitrofurantoin monohydrate/macrocrystals 100 mg capsule Performing Provider: Riley Cabrera MD Performing Location: [facility] Administered by: Gerber Yoder LPN on 02/17/25 12:24 Dose Route Admin Location Dispensed Lot Number Expiration Date [place] [employer] 100 mg PO 1 cap naproxen 500 mg tablet Performing Provider: Riley Cabrera MD Performing Location: [facility] Administered by: Gerber Yoder LPN on 02/17/25 12:24 Dose Route Admin Location Dispensed Lot Number Expiration Date [place] [employer] 500 mg PO 1 tab Results AMB Urinalysis, Automated UA Leukoctes 70 Harvinder/uL Last Edit by LILI Shin on 02/17/25 12:26 UA Nitrite Last Edit by LILI Shin on 02/17/25 12:26 UA Urobilinogen 0.2 mg/dL Last Edit by LILI Shin on 02/17/25 12:26 UA Protein 30 mg/dL Last Edit by LILI Shin on 02/17/25 12:26 UA pH 6.0 Last Edit by LILI Shin on 02/17/25 12:26 UA Blood 200 Elias/uL Last Edit by LILI Shin on 02/17/25 12:26 UA Specific [place] 1.015 Last Edit by LILI Shin on 02/17/25 12:26 UA Ketone Last Edit by LILI Shin on 02/17/25 12:26 UA Bilirubin 0 mg/dL Last Edit by LILI Shin on 02/17/25 12:26 UA Glucose 0 mg/dL Last Edit by LILI Shin on 02/17/25 12:26 Results Reviewed Results Reviewed: Laboratory Last Values Urine pH (Auto) 6.0 02/17/25 12:26 Specific [place] (Auto) 1.015 02/17/25 12:26 Urine Protein (Auto) 30 mg/dL 02/17/25 12:26 Glucose (UA)(Auto) 0 mg/dL 02/17/25 12:26 Urine Blood (Auto) 200 Elias/uL 02/17/25 12:26 Urine Bilirubin (Auto) 0 mg/dL 02/17/25 12:26 Urine Urobilinogen (Auto) 0.2 mg/dL 02/17/25 12:26 Leukocyte Esterase (Auto) 70 Harvinder/uL 02/17/25 12:26 Assessment & Plan Assessment & Plan (1) BPH (benign prostatic hyperplasia): Code(s): N40.0 - Benign prostatic hyperplasia without lower urinary tract symptoms Category: Medical Qualifiers: Lower urinary tract symptom presence: symptoms present Lower urinary tract symptom detail: urinary frequency Qualified Code(s): N40.1 - Benign prostatic hyperplasia with lower urinary tract symptoms; R35.0 - Frequency of micturition (2) Ureterolithiasis: Comment: February 01 2025 Code(s): N20.1 - Calculus of ureter Category: Medical Plan Discussed potassium citrate versus allopurinol Three-month follow-up ultrasound Orders: Orders AMB Cystoscopy Today N20.1 - Calculus of ureter US renal BI 3 Months N13.30 - Unspecified hydronephrosis AMB Urinalysis Automated Today Z13.9 - Encounter for screening, unspecified Patient Instructions: This note is constructed using voice recognition software. While every effort has been made to ensure accuracy draw frame operator errors may have been included. Imaging studies, laboratory and physical exam results were discussed and reviewed in detail. No major barriers to patient understanding were identified. An opportunity to ask questions regarding the treatment plan was provided. All questions were answered. The patient expressed understanding and agreement with the above treatment plan. The patient is aware they should contact our office by phone for worsening of their current condition or the appearance of new urologic symptoms. Compliance is encouraged with any medications and followup testing that is ordered. It is a privilege to participate in the urologic care of your patient. If you have any questions or concerns regarding treatment for the above conditions, or other urologic issues, please do not hesitate to contact me. The office telephone contact is [phone]. Sincerely, Dr Riley Cabrera MD, [place] [facility] Compassionate Specialist Care for the Genitourinary System Coding Level of Care Code Est Pt Level 3 (10504) Diagnoses Benign prostatic hyperplasia with urinary frequency N40.1; R35.0 Lower urinary tract symptom presence: symptoms present Lower urinary tract symptom detail: urinary frequency Ureterolithiasis N20.1 CPT Codes Cystoscopy - CPT: 56870-[id number] with stent removal ([id number])
--- OUTSIDE RECORDS SUMMARY | 2025-02-17 14:14 | XMS_ITS | Clinical Summary ---
Author Organization [facility] Address [address] [facility] [address] [place] [address] Phone Care Team Providers Care Cover Stitch Machine Operator Name Role Phone Ami Mazariegos MD Primary Care Provider Allergies Active Allergy Reactions Criticality Noted Date [...] * Hemoglobin A1c (11/08/2020 3:58 PM EDT) [facility] Hemoglobin A1C 5.2 (4.0-5.6) % [facility] Comment: MONITORING: In known diabetic patients, hemoglobin A1c targets should be discussed with health care provider. DIAGNOSTIC USE: The [place] Diabetes Association (ADA) and the World Health [...] Supplement 1 Testing performed or reported by [facility], a Service of [facility], [address] [place] [id number] Norma Williamson MD, [employer] 11/08/2020 3:58 PM EDT 11/08/2020 3:59 PM EDT us Edgar Ferrari MD LAB BLOOD ORDERABLES Final Re sult [facility] from Last 3 Months or Most Recently Relevant to Health Maintenance Insurance Medicare [facility] Medicare [facility] Care Teams Cover Stitch Machine Operator Relationship Specialty Start Date End Date Ami Mazariegos MD [id number] [place] PCP - General Internal Medicine 10/31/20
== END 2025-02-17 12:56 | disposition home or self-care (01) ==
LOC: HO.HUSH 11:13
PROVIDERS: PCP Internal Medicine; Visit Provider Urology
DX: N40.1 Benign prostatic hyperplasia with lower urinary tract symptoms (principal); R35.0 Frequency of micturition; N20.1 Calculus of ureter
CPT/HCPCS: 52310; 99213

== ENCOUNTER → 2025-02-17 11:12 | Outpatient (BNVA) | payer MEDICARE, SELFPAY | PROVIDERS: PCP Internal Medicine; Visit Provider Urology | DX: Z46.6 Encounter for fitting and adjustment of urinary device (principal); N20.1 Calculus of ureter; N40.1 Benign prostatic hyperplasia with lower urinary tract symptoms; R35.0 Frequency of micturition; Z13.9 Encounter for screening, unspecified | CPT/HCPCS: 52310; 81003; 99212 ==

== ENCOUNTER 2025-04-04 08:14 | Outpatient (REF) | payer MEDICARE, SELFPAY | END 2025-04-04 08:15 | disposition home or self-care (01) | LOC: HO.LNP 08:14 | PROVIDERS: PCP Internal Medicine; Visit Provider Surgery | DX: E85.4 Organ-limited amyloidosis (principal); L99 Other disorders of skin and subcutaneous tissue in diseases classified elsewhere; L57.0 Actinic keratosis | CPT/HCPCS: 11421; 88305 ==

== ENCOUNTER 2025-04-04 08:14 | Outpatient (AMB) | payer MEDICARE, SELFPAY ==
--- NOTE | 2025-04-04 08:27 | A.OFFVIS_ITS ---
Intake Visit Reasons: excision x2 scalp lesions Intake Note: Office procedure: Excision x2 scalp lesions Corncob Pipe Supervisor Required: No Accompanied by: Self / Same As Patient Allergies lisinopril Adverse Reaction (Intermediate, Verified 04/04/25 08:47) cough rosuvastatin Adverse Reaction (Intermediate, Verified 04/04/25 08:47) myalgia simvastatin Adverse Reaction (Intermediate, Verified 04/04/25 08:47) myalgia HPI HPI excision x2 scalp lesions: Details: He is here for excision of a scalp lesion. [facility] Medical History Hard of hearing Arthritis Anemia History of kidney stones Hx of orthostatic hypotension Hx of fracture Weakness Difficulty swallowing Cough Habitual snoring SOB (shortness of breath) Preop exam for internal medicine Leg weakness Right wrist pain Carpal tunnel syndrome of right wrist Lumbar spinal stenosis Left acetabular fracture Peripheral arterial disease Hypercholesterolemia History of CVA (cerebrovascular accident) BPH (benign prostatic hyperplasia) Hypothyroid Hypertension Surgical History Hx of carpal tunnel repair Hx of shoulder surgery H/O colonoscopy Hx of aortic aneurysm repair History of cataract surgery S/P CABG x 1 History of prostate surgery History of thyroidectomy Hx of cholecystectomy Family History Father Medical history unknown Mother Medical history unknown Social History Household Members: Spouse Housing: House Are you a primary day care assistant to a significant other at home: No Do you presently have visiting nurse or other home services: No Alcohol intake: current Alcohol intake frequency: holidays/special occasions only Alcohol type: beer and wine Patient Tobacco Use Status: Never used Tobacco Tobacco use type: Cigarette e-Cigarette/Vaping Use: Never Used Second Hand Smoke Exposure: No Advance Directives Date on File: 01/20/23 service: Yes Current occupational status: retired Current occupation: left hand Cognitive needs: Yes (Cane) Hearing needs: Yes Vision needs: Yes Office Procedures Excision Details: He was placed in a left lateral decubitus position. He pointed to the area of the right posterolateral parietal region. There was note of a 1 cm desquamating lesion here. I prepped and draped this area. I infiltrated the area with lidocaine 1%. I made an elliptical incision in the skin surrounding this area with a blade 15. This was carried down through the full-thickness skin and part of subcutaneous layer until this entire lesion was excised. I closed the incision with full-thickness nylon 3-0 simple interrupted sutures. Dressings were applied. The procedure was completed. He tolerated the procedure well. There were no immediate complications. There was minimal blood loss. [id number] scalp/neck/hands/feet/genitalia 0.6cm-1cm Procedure code (CPT) selection complete Assessment & Plan Assessment & Plan (1) Scalp lesion: Code(s): L98.9 - Disorder of the skin and subcutaneous tissue, unspecified Category: Medical Plan: Excision was done in the office. He tolerated procedure well. He was given wound instructions and we will be seen in the office for removal of sutures in about 2 weeks. Coding Level of Care Code Procedure Only Diagnoses Scalp lesion L98.9 CPT Codes Scalp/Neck/Hands/Feet/Genetalia - CPT: 17670-[id number] scalp/neck/hands/feet/genitalia 0.6cm-1cm ([id number])
== END 2025-04-04 08:50 | disposition home or self-care (01) ==
LOC: HO.HGS 08:15
PROVIDERS: PCP Internal Medicine; Visit Provider Surgery
DX: L57.0 Actinic keratosis (principal)
CPT/HCPCS: 11421

== ENCOUNTER 2025-04-13 09:27 | Outpatient (REF) | payer MEDICARE, SELFPAY ==
--- OUTSIDE RECORDS SUMMARY | 2024-09-07 06:15 | XMS_ITS ---
Author Organization [facility] Address [address] [place] [address] Care Team Providers Care Organ Teacher Name Role Phone Ami Mazariegos Primary Care Provider UnavailMarcelo Colvin Unavailable [phone] Talita Charles [phone] Encounters Encounter Location Date Provider Diagnosis [address] [address] 09/07/2024 Talita Charles Plan Of Treatment Next Appt Details Provider Name:Talita godoy, 06/21/2025 02:00:00 PM, [address] [place] [address], [address], Progress Notes * Edgar ROBERTS ADOB: [birth year] (84 yo M)Acc No.[id number]:09/07/2024 Progress Note Patient: Jeanne Edgar ZABALA Provider: Manju Charles DPM :1940 A ge:84 Y S ex:Male Date:09/07/2024 Address:[address] [place] [address] [facility] [id number] Pcp:Ami Mazariegos Subjective: * Chief Complaints: * * Medical History: Objective: * Vitals: Assessment: Plan: * Treatment: * Images: * The named appointment provid er may or may not be the originator of this progress note, and it is not deemed complete until electronically signed by the appointment provider. Sign off status: Pending * Provider: Manju Charles, KEKE Date: 0 09/07/2024 Generated for Ana katz/Norma/Murtaza on: 1 06/14/2024 10:49 AM EST
--- OUTSIDE RECORDS SUMMARY | 2025-04-13 10:49 | XMS_ITS | Patient Health Record ---
Author Organization [facility] Klaus anton Langlois Address [address] [place] [address] Care Team Providers Care Special Forces Weapons Sergeant Name Role Phone Ami Mazariegos Primary Care Provider Marcelo Hardy Unavailable [phone] Talita Charles Unavailable [phone] Allergies No Known Allergies Results Component Value Reference Range Notes HEMOGLOBIN A1C (GLYCOHEMOGLO BIN) Reviewed date:10/15/2024 01:47:01 PM Interpretation: Performing Lab: Notes/Report: HEMOGLOBIN A1C % (HH) 6.6 Reason For Referral No Information Medications Medication SIG (Take, Route, Frequency, Duration) Notes Start Date End Date Status Plavix Not-Taking Flomax Active Clopidogrel Bisulfate 75 MG 1 tablet Ora lly Once a day Not-Taking Levothyroxine Sodium Active Metoprolol & Diet Manage Prod 25 Not-Taking Potassium Not-Taking Atorvastatin Calcium Active Amiodarone HCl Not-T aking Simvastatin 20 MG 1 tablet in the evening Orally Once a day Active Cephalexin 500 MG 1 tablet Orally Twice a day; Duration: 5 days Not-Taking Aspirin Active Fish Oil Not-Taking Losartan Potassium 50 MG 1 tablet Orally Once a day Active Tamsulosin HCl 0.4 MG 1 capsule Orally Once a day; Duration: 30 day(s) Not-Taking Metoprolol Succinate 100 MG 1 capsule Or ally Once a day; Duration: 30 day(s) Active Lasix Not-Taking hydroCHLOROthiazide 12.5 MG 1 tablet in the morning Orally Once a day Not-Taking Vitamin D Not-Taking Ciclopirox Olamine 0.77 % 1 application Externally Twice a day; Duration: 30 days Not-Taking Immunizations Vaccine Route Administration Date Status Comme nts Influenza Unknown 02/27/2024 Administered Influenza Unknown 01/27/2025 Administered COVID-19 Moderna Vaccine Unknown 02/25/2021 Administered [...] Problem Acquired hammer toe of left foot (5306187410118513) Hammertoe of left foot (M20.42) Active confirmed Problem Acquired hammer toe of right foot (3472473775849425) Hammertoe of right foot (M20.41) Active confirmed Problem Bilateral atherosclerosis of arteries of lower limbs (disorder) (40762745346163218 ) Atherosclerosis of [place] artery of both lower extremities, with unspecified presence of clinical manifestation (I70.203) Active confirmed Vital Signs Blood pressure diastolic 80 mm Hg 03/29/2025 Height 5 ft 11 in in 03/29/2025 Blood pressure systolic 137 mm Hg 03/29/2025 Weight 210 lbs 03/29/2025 BMI 29.29 kg/m2 03/29/2025 Encounters Encounter Location Date Provider Diagnosis [facility] [place] [address] [place] [address] 06/08/2024 Talita Perica Onychomycosis B35.1 ; Contusion of left great toe without damage to nail, initial encounter S90.112A ; Atherosclerosis of [place] artery of both lower extremities, with unspecified presence of clinical manifestation I70.203 ; Pain of toe of right foot M79.674 ; Pain of toe of left foot M79.675 ; Xerosis of skin L85.3 ; Hammertoe of right foot M20.41 and Hammertoe of left foot M20.[address] [address] 10/15/2024 Talita Perica Onychomycosis B35.1 ; Atherosclerosis of [place] artery of both lower extremities, with unspecified presence of clinical manifestation I70.203 ; Pain of toe of right foot M79.674 and Pain of toe of left foot M79.[address] [address] 01/14/2025 Talita Perica Onychomycosis B35.1 ; Atherosclerosis of [place] artery of both lower extremities, with unspecified presence of clinical manifestation I70.203 ; Pain of toe of right foot M79.674 and Pain of toe of left foot M79.[address] [address] 03/29/2025 Talita Perica Onychomycosis B35.1 ; Atherosclerosis of [place] artery of both lower extremities, with unspecified presence of clinical manifestation I70.203 ; Pain of toe of right foot M79.674 and Pain of toe of left foot M79.[address] [address] 09/06/2024 Marcelo Simpson Assessments Encounter Date Diagnosis (ICD Code) Assessment Notes Treatment Notes Treatment Clinical Notes Section Notes 06/08/2024 Contusion of left great toe without damage to nail, initial encounter (ICD-10 - S90.112A) 06/08/2024 Onychomycosis (ICD-10 - B35.1) 10/15/2024 Onychomycosis (ICD-10 - B35.1) 10/15/2024 Atherosclerosis of [place] artery of both lower extremities, with unspecified presence of clinical manifestation (ICD-10 - I70.203) 01/14/2025 Onychomycosis (ICD-10 - B35.1) 03/29/2025 Onychomycosis (ICD-10 - B35.1) 03/29/2025 Atherosclerosis of [place] artery of both lower extremities, with unspecified presence of clinical manifestation (ICD-10 - I70.203) 01/14/2025 Atherosclerosis of [place] artery of both lower extremities, with unspecified presence of clinical manifestation (ICD-10 - I70.203) 10/15/2024 Pain of toe of right foot (ICD-10 - M79.674) 06/08/2024 Atherosclerosis of [place] artery of both lower extremities, with unspecified presence of clinical manifestation (ICD-10 - I70.203) 10/15/2024 Pain of toe of left foot (ICD-10 - M79.675) 06/08/2024 Pain of toe of right foot (ICD-10 - M79.674) 01/14/2025 Pain of toe of right foot (ICD-10 - M79.674) 03/29/2025 Pain of toe of right foot (ICD-10 - M79.674) 03/29/2025 Pain of toe of left foot (ICD-10 - M79.675) 01/14/2025 Pain of toe of left foot (ICD-10 - M79.675) 06/08/2024 Pain of toe of left foot (ICD-10 - M79.675) 06/08/2024 Xerosis of skin (ICD-10 - L85.3) 06/08/2024 Hammertoe of right foot (ICD-10 - M20.41) 06/08/2024 Hammertoe of left foot (ICD-10 - M20.42) Plan Of Treatment Pending Test Test Name Order Date [id number]-[id number] NAIL, 6 OR MORE 12/17/2022 29288-EDSOTKG NAIL, 6 OR MORE 03/04/2023 09031-RJJGTXG NAIL, 6 OR MORE 05/20/2023 88225-IBZEWHY NAIL, 1-5 07/04/2014 13452-NULR SKIN LESIONS, 2 TO 4 05/20/19 97159-IFCS SKIN LESIONS, 2 TO 4 11/07/20 23 06429-OGUO SKIN LESIONS, 2 TO 4 12/18/19 23 Next Appt Details Provider Name:Talita Godoy Lexi godoy, 06/21/2025 02:00:00 PM, [address] [facility], [place], [address], Insurance Providers Payer Name Payer Address Payer Phone Subscriber Number Group Number Insured Name Patient Relationship to Insured Coverage Start Date Coverage End Date Medicare National Govt [employer] [address] [place] [address] [id number] Edgar Roberts Self - patient is the insured [employer] Blue Shield [address] [place] [address] [phone] [id number] Edgar Roberts Self - patient is the [...] on scalp 12/2024 Hospitalization History Reason Date(Month/Year) kidney stone 02/19 [facility] Kid[place] 03/21 [facility] Kidney stone 08/2023 [facility] 10/10/20 fractured hip- rehab 2 weeks 07/14
--- OUTSIDE RECORDS SUMMARY | 2025-04-13 10:50 | XMS_ITS | Patient Health Record ---
Author Organization [facility] Address [address] [place] [address] Care Team Providers Care Heat Pump Installer Name Role Phone Flex Mckenzie MD Primary Care Provider Bharathi Burden [phone] Reason For Referral No Information Medications Medication SIG (Take, Route, Frequency, Duration) Notes Start Date End Date Status Vitamin D Active Zocor Active Fish Oil Active Thyroid Active Losartan Potassium 50 MG Tablet 1 tablet Orally twice a day Active Plavix 75 MG Tablet 1 tablet Orally Once a day Active Social History Social History Additional Details Category Social Info Options Details Miscellaneous: Marital status: 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 alcohol Plan Of Treatment Future Test Test Name Order Date COLONOSCOPY 10/05/2013 Insurance Providers Payer Name Payer Address Payer Phone Subscriber Number Group Number Insured Name Patient Relationship to Insured Coverage Start Date Coverage End Date MEDICARE OF [place] [address] [place] [address] [phone] [id number] ROBBIE JIMENEZ Self - patient is the insured MEDEX ATTN CLAIMS [address] [place] [address] [id number] ROBBIE JIMENEZ Self - patient is the insured Medical (General) History Medical History History ICD Code one small tubular adenoma re moved in 2000, and subsequent negative colonoscopies in 2003 and in 05/2008 hyperlipidemia Denies [place],DM,Lung disease,renal disease CVA 2008--no residual deficits Hypothyroidism Surgical History Surgery Date(Month/Year) right shoulder surgery cholecystectomy thyroidectomy
[2025-04-13 14:30] LABS: MANUAL DIFF FLAG NO
[2025-04-13 14:41] LABS: Hematocrit 39.0 % (42.0-52.0); Hemoglobin 12.1 g/dl (14.0-18.0); Imm Gran Abs Auto 0.03 X10*3/uL (0.00-0.03); Imm Gran Pct Auto 0.3 % (0.0-0.4); Lymphocytes Absolute Auto 1.1 X10*3/uL (1.2-4.9); Mean Corpuscular HGB Conc 31.0 g/dl (31.0-36.0); Mean Corpuscular Hemoglobin 28.5 pg (27.0-33.0); Mean Corpuscular Volume 92.0 fL (80.0-98.0); NRBC Abs Auto 0.000 X10*3/uL (0.0-0.012); NRBC Pct Auto 0.0 /100WBC (0.0-0.2); Platelet Count 327 X10*3/uL (160-400); Red Blood Count 4.24 X10*6/uL (4.60-5.80); White Blood Count 8.7 X10*3/uL (4.8-10.8)
[2025-04-13 15:28] LABS: Alanine Aminotransferase 9 U/L (0-40); Albumin Level 3.7 g/dL (3.5-5.0); Alkaline Phosphatase 105 U/L (39-117); Anion Gap 11 (12-20); Aspartate Amino Transferase 48 U/L (5-37); Blood Urea Nitrogen 28 mg/dL (9-16); Calcium 8.7 mg/dL (8.4-10.2); Carbon Dioxide 28 mmol/L (22-29); Chloride 108 mmol/L (96-108); Cholesterol 118 mg/dL (<200); Estimated Glomerular Filt Rate 57; HDL Cholesterol 33 mg/dL (>40); Iron 37 mcg/dL (45-160); Magnesium 2.1 mg/dL (1.6-2.6); Percent Iron Saturation 18 % (15-50); Potassium 4.0 mmol/L (3.3-5.1); Sodium 143 mmol/L (135-145); Total Iron Binding Capacity 201 mcg/dL (228-428); Total Protein 6.7 g/dL (6.5-8.0); Triglycerides 71 mg/dL (<150); Unsaturated Iron Binding 164 ug/dL; Uric Acid 4.3 mg/dL (3.4-7.0)
[2025-04-13 15:51] LABS: Ferritin 125 ng/mL (20-250); Free T4 (Free Thyroxine) 1.08 ng/dL (0.71-1.85); Thyroid Stimulating Hormone 4.45 uIU/mL (0.32-4.0)
[2025-04-13 16:05] LABS: Prostate Specific Antigen 4.07 ng/mL (<0.05-4.0)
[2025-04-13 16:11] LABS: Folate 8.2 ng/mL (> or = 4.0); Vitamin B12 383 pg/mL (200-900)
== END 2025-04-13 09:28 | disposition home or self-care (01) ==
LOC: HO.HMGCLDS 09:27
PROVIDERS: Absent Provider Urology; PCP Internal Medicine; Visit Provider Internal Medicine
DX: N40.1 Benign prostatic hyperplasia with lower urinary tract symptoms (principal); R35.0 Frequency of micturition; N18.2 Chronic kidney disease, stage 2 (mild); E78.00 Pure hypercholesterolemia, unspecified; Z13.0 Encounter for screening for diseases of the blood and blood-forming organs and certain disorders involving the immune mechanism; Z12.5 Encounter for screening for malignant neoplasm of prostate
CPT/HCPCS: 36415; 80053; 80061; 82607; 82728; 82746; 83540; 83735; 84153; 84439; 84443; 84550; 85025

== ENCOUNTER 2025-04-18 08:51 | Outpatient (AMB) | payer MEDICARE, SELFPAY ==
--- OUTSIDE RECORDS SUMMARY | 2024-09-07 06:15 | XMS_ITS ---
Author Organization [facility] Address [address] [place] [address] Care Team Providers Care Pbx Teacher Name Role Phone Ami Mazariegos Primary Care Provider UnavailMarcelo Colvin Unavailable [phone] Talita Charles [phone] Encounters Encounter Location Date Provider Diagnosis [address] [address] 09/07/2024 Talita Charles Plan Of Treatment Next Appt Details Provider Name:Talita godoy, 06/21/2025 02:00:00 PM, [address] [place] [address], [phone], Progress Notes * Edgar ROBERTS ADOB: [birth year] (84 yo M)Acc No.[id number]:09/07/2024 Progress Note Patient: Jeanne Edgar ZABALA Provider: Manju Charles DPM :1940 A ge:84 Y S ex:Male Date:09/07/2024 Address:[address] [place] [address] [facility] [id number] Pcp:Ami Mazariegos Subjective: * Chief Complaints: * [...] 09/07/2024 Generated for Ana katz/Norma/Murtaza on: 1 06/19/2024 09:26 AM EST
[2025-04-18 08:55] VITALS: BP 147/67; PULSE 69
--- NOTE | 2025-04-18 08:55 | MHC.OFFVIS ---
Vital Signs 04/18/25 08:55 Weight 222 lb BP 147/67 H Blood Pressure Location Rt brachial Position Sitting Pulse 69 Intake Visit Reasons: suture removal, s/p excision scalp lesion Intake Note: Patient presents for suture removal status post excision scalp lesions. (04/04/2025) Pt c/o; no concerns. Reports bx site healing well. Denies oozing, pain. Of note: Three sutures from parietal scalp area removed without incident. Jockey Room Custodian Required: No Accompanied by: Self / Same As Patient Allergies lisinopril Adverse Reaction (Intermediate, Verified 04/18/25 09:04) cough rosuvastatin Adverse Reaction (Intermediate, Verified 04/18/25 09:04) myalgia simvastatin Adverse Reaction (Intermediate, Verified 04/18/25 09:04) myalgia HPI HPI suture removal, s/p excision scalp lesion: Details: He is here for a postop visit after excision of a scalp lesion under local anesthesia last April 05. He feels well overall and denies significant complaints. [facility] Medical History Hard of hearing Arthritis Anemia History of kidney stones Hx of orthostatic hypotension Hx of fracture Weakness Difficulty swallowing Cough Habitual snoring SOB (shortness of breath) Preop exam for internal medicine Leg weakness Right wrist pain Carpal tunnel syndrome of right wrist Lumbar spinal stenosis Left acetabular fracture Peripheral arterial disease Hypercholesterolemia History of CVA (cerebrovascular accident) BPH (benign prostatic hyperplasia) Hypothyroid Hypertension Surgical History History of excision of lesion (~04/04/25) Hx of carpal tunnel repair Hx of shoulder surgery H/O colonoscopy Hx of aortic aneurysm repair History of cataract surgery S/P CABG x 1 History of prostate surgery History of thyroidectomy Hx of cholecystectomy Family History Father Medical history unknown Mother Medical history unknown Social History Household Members: Spouse Housing: House Are you a primary healthcare associate to a significant other at home: No Do you presently have visiting nurse or other home services: No Alcohol intake: current Alcohol intake frequency: holidays/special occasions only Alcohol type: beer and wine Patient Tobacco Use Status: Never used Tobacco Tobacco use type: Cigarette e-Cigarette/Vaping Use: Never Used Second Hand Smoke Exposure: No Advance Directives Date on File: 01/20/23 service: Yes Current occupational status: retired Current occupation: left hand Cognitive needs: Yes (Cane) Hearing needs: Yes Vision needs: Yes Review of Systems Const Denies chills and Denies fever(s) Physical Exam Vital Signs: Last Vital Signs Pulse 69 04/18/25 08:55 BP 147/67 H 04/18/25 08:55 Const General: comfortable and no acute distress HEENT Other: Excision site on the scalp clean, dry, no evidence of infection Assessment & Plan Assessment & Plan (1) Scalp lesion: Code(s): L98.9 - Disorder of the skin and subcutaneous tissue, unspecified Category: Medical Plan: Status post excision. His path report shows cutaneous amyloidosis keratosis. He understands the benign nature of this pathology. His sutures were removed. He can follow up on a p.r.n. basis Coding Level of Care Code Global (44488) Diagnoses Scalp lesion L98.9
--- OUTSIDE RECORDS SUMMARY | 2025-04-18 09:27 | XMS_ITS | Clinical Summary ---
Author Organization [facility] Address [address] [facility] [address] [place] [address] Phone Care Team Providers Care Communications Associate Name Role Phone Ami Mazariegos MD Primary Care Provider [phone] Allergies Active Allergy Reactions Criticality Noted Date [...] * Hemoglobin A1c (11/08/2020 3:58 PM EDT) [facility] Hemoglobin A1C 5.2 (4.0-5.6) % [facility] Comment: MONITORING: In known diabetic patients, hemoglobin A1c targets should be discussed with health care provider. DIAGNOSTIC USE: The [place] Diabetes Association (ADA) and the World Health [...] Supplement 1 Testing performed or reported by [facility], a Service of [facility], [address] [place] [address] Norma Williamson MD, Catalyst Concentration Operator 11/08/2020 3:58 PM EDT 11/08/2020 3:59 PM EDT us Edgar Ferrari MD LAB BLOOD ORDERABLES Final Re sult [facility] from Last 3 Months or Most Recently Relevant to Health Maintenance Insurance Medicare [facility] Medicare [facility] Care Teams Communications Associate Relationship Specialty Start Date End Date Ami Mazariegos MD [address] [place] PCP - General Internal Medicine 10/31/20
--- OUTSIDE RECORDS SUMMARY | 2025-04-18 09:27 | XMS_ITS | Patient Health Record ---
Author Organization [facility] Klaus anton Romeo Address [address] [place] [address] Care Team Providers Care Charge Out Clerk Name Role Phone Ami Mazariegos Primary Care Provider Marcelo Hardy Unavailable [phone] Talita Charles Unavailable [phone] Allergies No Known Allergies Results Component Value [...] Problem Acquired hammer toe of left foot (4394449228926267) Hammertoe of left foot (M20.42) Active confirmed Problem Acquired hammer toe of right foot (8221830848435099) Hammertoe of right foot (M20.41) Active confirmed Problem Bilateral atherosclerosis of arteries of lower limbs (disorder) (17320121469952161 ) Atherosclerosis of [place] artery of both lower extremities, with unspecified presence of clinical manifestation (I70.203) Active confirmed Vital Signs Blood pressure diastolic 80 mm Hg 03/29/2025 Height 5 ft 11 in in 03/29/2025 Blood pressure systolic 137 mm Hg 03/29/2025 Weight 210 lbs 03/29/2025 BMI 29.29 kg/m2 03/29/2025 Encounters Encounter Location Date Provider Diagnosis [facility] [place] [address] [place] [address] 06/08/2024 Talita Perica Onychomycosis B35.1 ; Contusion of left great toe without damage to nail, initial encounter S90.112A ; Atherosclerosis of [place] artery of both lower extremities, with unspecified presence of clinical manifestation I70.203 ; Pain of toe of right foot M79.674 ; Pain of toe of left foot M79.675 ; Xerosis of skin L85.3 ; Hammertoe of right foot M20.41 and Hammertoe of left foot M20.[address] [address] 10/15/2024 Talita Perica Onychomycosis B35.1 ; Atherosclerosis of [place] artery of both lower extremities, with unspecified presence of clinical manifestation I70.203 ; Pain of toe of right foot M79.674 and Pain of toe of left foot M79.[address] [address] 01/14/2025 Talita Perica Onychomycosis B35.1 ; Atherosclerosis of [place] artery of both lower extremities, with unspecified presence of clinical manifestation I70.203 ; Pain of toe of right foot M79.674 and Pain of toe of left foot M79.[address] [address] 03/29/2025 Talita Perica Onychomycosis B35.1 ; Atherosclerosis of [place] artery of both lower extremities, with unspecified presence of clinical manifestation I70.203 ; Pain of toe of right foot M79.674 and Pain of toe of left foot M79.[address] [address] 09/06/2024 Marcelo Simpson Assessments Encounter Date Diagnosis (ICD Code) Assessment Notes Treatment Notes Treatment Clinical Notes Section Notes 06/08/2024 Contusion of left great toe without damage to nail, initial encounter (ICD-10 - S90.112A) 06/08/2024 Onychomycosis (ICD-10 - B35.1) 10/15/2024 Onychomycosis (ICD-10 - B35.1) 10/15/2024 Atherosclerosis of [place] artery of both lower extremities, with unspecified presence of clinical manifestation (ICD-10 - I70.203) 01/14/2025 Onychomycosis (ICD-10 - B35.1) 03/29/2025 Onychomycosis (ICD-10 - B35.1) 03/29/2025 Atherosclerosis of [place] artery of both lower extremities, with unspecified presence of clinical manifestation (ICD-10 - I70.203) 01/14/2025 Atherosclerosis of [place] artery of both lower extremities, with unspecified presence of clinical manifestation (ICD-10 - I70.203) 10/15/2024 Pain of toe of right foot (ICD-10 - M79.674) 06/08/2024 Atherosclerosis of [place] artery of both lower extremities, with unspecified [...] Treatment Pending Test Test Name Order Date [id number]-[id number] NAIL, 6 OR MORE 12/17/2022 73011-CUTACUB NAIL, 6 OR MORE 03/04/2023 07569-VLAMRTV NAIL, 6 OR MORE 05/20/2023 47789-SMDFQTY NAIL, 1-5 07/04/2014 18537-IRJT SKIN LESIONS, 2 TO 4 05/20/19 34801-TFTT SKIN LESIONS, 2 TO 4 11/07/20 23 24494-DBSP SKIN LESIONS, 2 TO 4 12/18/19 23 Next Appt Details Provider Name:Talita Godoy Lexi godoy, 06/21/2025 02:00:00 PM, [address] [facility], [place], [address], Insurance Providers Payer Name Payer Address Payer Phone Subscriber Number Group Number Insured Name Patient Relationship to Insured Coverage Start Date Coverage End Date Medicare National Govt [employer] [address] [place] [address] [id number] Edgar Roberts Self - patient is the insured [employer] Blue Shield [address] [place] [address] [phone] [id number] Edgar Roberts Self - patient is the [...] Hospitalization History Reason Date(Month/Year) kidney stone 02/19 [facility] [place] 03[place]21 [facility] 08/2023 [facility] 10/10/20 fractured hip- rehab 2 weeks 07/14
--- OUTSIDE RECORDS SUMMARY | 2025-04-18 09:27 | XMS_ITS | Patient Health Record ---
Author Organization [facility] Address [address] [place] [address] Care Team Providers Care Asbestos Wire Finisher Name Role Phone Flex Mckenzie MD Primary Care Provider Bharathi Burden [phone] Reason For Referral No Information Medications Medication [...] [place] [address] [place] [address] [id number] ROBBIE JIMENEZ Self - patient is the insured MED[employer] ATTN CLAIMS [address] [place] [address] [id number] ROBBIE JIMENEZ Self - patient is the insured Medical (General) History Medical History History ICD Code one small tubular adenoma re moved in 2000, and subsequent negative colonoscopies in 2003 and in 05/2008 hyperlipidemia Denies [place],DM,Lung disease,renal disease CVA 2008--no residual deficits Hypothyroidism Surgical History Surgery Date(Month/Year) right shoulder surgery cholecystectomy thyroidectomy
== END 2025-04-18 09:25 | disposition home or self-care (01) ==
LOC: HO.HGS 08:51
PROVIDERS: PCP Internal Medicine; Visit Provider Surgery
DX: L98.9 Disorder of the skin and subcutaneous tissue, unspecified (principal)
CPT/HCPCS: 99024

== ENCOUNTER → 2025-04-18 08:51 | Outpatient (BNVA) | payer MEDICARE, SELFPAY | PROVIDERS: PCP Internal Medicine; Visit Provider Surgery | DX: Z48.817 Encounter for surgical aftercare following surgery on the skin and subcutaneous tissue (principal); L98.9 Disorder of the skin and subcutaneous tissue, unspecified | CPT/HCPCS: 99212 ==

== ENCOUNTER 2025-04-22 10:41 | Outpatient (AMB) | payer MEDICARE, SELFPAY ==
--- OUTSIDE RECORDS SUMMARY | 2024-09-07 06:15 | XMS_ITS ---
Author Organization [facility] Address [address] [place] [address] Care Team Providers Care Wheat Combine Driver Name Role Phone Ami Mazariegos Primary Care Provider UnavailMarcelo Colvin Unavailable [phone] Talita Charles [phone] Encounters Encounter Location Date Provider Diagnosis [address] [address] 09/07/2024 Talita Charles Plan Of Treatment Next Appt Details Provider Name:Talita godoy, 06/21/2025 02:00:00 PM, [address] [place] [address], [phone], Progress Notes * Edgar ROBERTS ADOB: [birth year] (84 yo M)Acc No.[id number]:09/07/2024 Progress Note Patient: Jeanne Edgar ZABALA Provider: Manju Chalres DPM :1940 A ge:84 Y S ex:Male Date:09/07/2024 Address:[address] [place] [address] [facility] [id number] Pcp:Ami Mazariegos Subjective: * Chief Complaints: * [...] 09/07/2024 Generated for Ana katz/Norma/Murtaza on: 1 06/23/2024 10:44 AM EST
--- OUTSIDE RECORDS SUMMARY | 2025-04-22 10:44 | XMS_ITS | Clinical Summary ---
Author Organization [facility] Address [address] [facility] [address] [place] [address] Phone Care Team Providers Care Qlikview Developer Name Role Phone Ami Mazariegos MD Primary Care Provider [phone] Allergies Active Allergy Reactions Criticality Noted Date [...] 3:58 PM EDT) [facility] Hemoglobin A1C 5.2 (4.0-5.6) % [facility] Comment: MONITORING: In known diabetic patients, hemoglobin A1c targets should be discussed with health care provider. DIAGNOSTIC USE: The [place] Diabetes Association (ADA) and the World Health [...] Supplement 1 Testing performed or reported by [facility], a Service of [facility], [address] [place] [address] Norma Williamson MD, Compressor Repairer 11/08/2020 3:58 PM EDT 11/08/2020 3:59 PM EDT us Edgar Ferrari MD LAB BLOOD ORDERABLES Final Re sult [facility] from Last 3 Months or Most Recently Relevant to Health Maintenance Insurance Medicare [facility] Medicare [facility] Care Teams Qlikview Developer Relationship Specialty Start Date End Date Ami Mazariegos MD [address] [place] PCP - General Internal Medicine 10/31/20
--- OUTSIDE RECORDS SUMMARY | 2025-04-22 10:44 | XMS_ITS | Patient Health Record ---
Author Organization [facility] Address [address] [place] [address] Care Team Providers Care General Merchandise Salesperson Name Role Phone Flex Mckenzie MD Primary Care Provider Bharathi Burden [phone] Reason For Referral No Information Medications Medication [...] [place] [address] [place] [address] [id number] ROBBIE JIMENEZ Self - patient is the insured [employer] ATTN CLAIMS [address] [place] [address] [id number] ROBBIE JIMENEZ Self - patient is the insured Medical (General) History Medical History History ICD Code one small tubular adenoma re moved in 2000, and subsequent negative colonoscopies in 2003 and in 05/2008 hyperlipidemia Denies [place],DM,Lung disease,renal disease CVA 2008--no residual deficits Hypothyroidism Surgical History Surgery Date(Month/Year) right shoulder surgery cholecystectomy thyroidectomy
--- OUTSIDE RECORDS SUMMARY | 2025-04-22 10:45 | XMS_ITS | Patient Health Record ---
Author Organization [facility] [address] Stuart Address [address] [place] [address] Care Team Providers [facility] [employer] [employer] Name Role Phone Ami Mazariegos Primary Care Provider Marcelo Hardy Unavailable [phone] Talita Charles Unavailable [phone] Allergies No Known Allergies Results Component Value [...] Problem Acquired hammer toe of left foot (8533581028623669) Hammertoe of left foot (M20.42) Active confirmed Problem Acquired hammer toe of right foot ([id number]) Hammertoe of right foot (M20.41) Active confirmed Problem Bilateral atherosclerosis of arteries of lower limbs (disorder) (21956179411700108 ) Atherosclerosis of [place] artery of both lower extremities, with unspecified presence of clinical manifestation (I70.203) Active confirmed Vital Signs Blood pressure diastolic 80 mm Hg 03/29/2025 Height 5 ft 11 in in 03/29/2025 Blood pressure systolic 137 mm Hg 03/29/2025 Weight 210 lbs 03/29/2025 BMI 29.29 kg/m2 03/29/2025 Encounters Encounter Location Date Provider Diagnosis [facility] [place] [address] [place] [address] 06/08/2024 Talita Perica Onychomycosis B35.1 ; Contusion of left great toe without damage to nail, initial encounter S90.112A ; Atherosclerosis of [place] artery of both lower extremities, with unspecified presence of clinical manifestation I70.203 ; Pain of toe of right foot M79.674 ; Pain of toe of left foot M79.675 ; Xerosis of skin L85.3 ; Hammertoe of right foot M20.41 and Hammertoe of left foot M20.[address] [address] 10/15/2024 Talita Perica Onychomycosis B35.1 ; Atherosclerosis of [place] artery of both lower extremities, with unspecified presence of clinical manifestation I70.203 ; Pain of toe of right foot M79.674 and Pain of toe of left foot M79.[address] [address] 01/14/2025 Talita Perica Onychomycosis B35.1 ; Atherosclerosis of [place] artery of both lower extremities, with unspecified presence of clinical manifestation I70.203 ; Pain of toe of right foot M79.674 and Pain of toe of left foot M79.[address] [address] 03/29/2025 Talita Perica Onychomycosis B35.1 ; Atherosclerosis of [place] artery of both lower extremities, with unspecified presence of clinical manifestation I70.203 ; Pain of toe of right foot M79.674 and Pain of toe of left foot M79.[address] [address] 09/06/2024 Marcelo Simpson Assessments Encounter Date Diagnosis (ICD Code) Assessment Notes Treatment Notes Treatment Clinical Notes Section Notes 06/08/2024 Contusion of left great toe without damage to nail, initial encounter (ICD-10 - S90.112A) 06/08/2024 Onychomycosis (ICD-10 - B35.1) 10/15/2024 Onychomycosis (ICD-10 - B35.1) 10/15/2024 Atherosclerosis of tang[place]q artery of both lower extremities, with unspecified presence of clinical manifestation (ICD-10 - I70.203) 01/14/2025 Onychomycosis (ICD-10 - B35.1) 03/29/2025 Onychomycosis (ICD-10 - B35.1) 03/29/2025 Atherosclerosis of [place]q artery of both lower extremities, with unspecified presence of clinical manifestation (ICD-10 - I70.203) 01/14/2025 Atherosclerosis of tang[place]naq artery of both lower extremities, with unspecified presence of clinical manifestation (ICD-10 - I70.203) 10/15/2024 Pain of toe of right foot (ICD-10 - M79.674) 06/08/2024 Atherosclerosis of tang[place] artery of both lower extremities, with unspecified [...] Treatment Pending Test Test Name Order Date [id number] NAIL, 6 OR MORE 12/17/2022 [id number] NAIL, 6 OR MORE 03/04/2023 [id number] NAIL, 6 OR MORE 05/20/2023 [id number] NAIL, 1-5 07/04/2014 [id number] SKIN LESIONS, 2 TO 4 05/20/19 [id number]-[id number] SKIN LESIONS, 2 TO 4 11/07/20 23 42730-[id number] SKIN LESIONS, 2 TO 4 12/18/19 23 Next Appt Details Provider Name:Talita Godoy Lexi godoy, 06/21/2025 02:00:00 PM, [address] [facility], [place], [address], Insurance Providers Payer Name Payer Address Payer Phone Subscriber Number Group Number Insured Name Patient Relationship to Insured Coverage Start Date Coverage End Date Medicare National Govt [employer] [address] [place] [address] [id number] Edgar Roberts Self - patient is the insured [employer] [address] [place] [address] [id number] Edgar Roberts Self - patient is the [...] Hospitalization History Reason Date(Month/Year) kidney stone 02/19 [facility] [place]- Kidney stone 03/21 [facility] [place]- Kidney stone 08/2023 [facility]- Coronary Bypass 10/10/20 fractured hip- rehab 2 weeks 07/14
--- NOTE | 2025-04-22 10:48 | MHC.PC.OV ---
Vital Signs 04/22/25 10:49 Height 5 ft 11 in Weight 222 lb 8 oz BMI 31.0 BP 122/70 Blood Pressure Location Lt brachial Position Sitting Respiration 18 Pulse 70 Pulse Source Pulse Oximeter Temp Source Temporal Artery Scan Pulse Oximetry (%) 94 Oxygen Delivery Method Room Air Intake Visit Reasons: cholesterol Warp Coiler Required: No Accompanied by: Self / Same As Patient Allergies lisinopril Adverse Reaction (Intermediate, Verified 04/22/25 10:49) cough rosuvastatin Adverse Reaction (Intermediate, Verified 04/22/25 10:49) myalgia simvastatin Adverse Reaction (Intermediate, Verified 04/22/25 10:49) myalgia Medication List - Last Reconciled 04/22/25 by Ami Mazariegos MD aspirin (Adult Aspirin Regimen) 81 mg PO DAILY Held on 02/01/25. Instructions: Resume on 02/08/25. hold until you see Dr. Cabrera atorvastatin 20 mg PO BEDTIME cholecalciferol (vitamin D3) 50 mcg PO DAILY clopidogrel 75 mg PO BEDTIME Held on 02/01/25. Instructions: Resume on 02/08/25. hold until you see Dr. Cabrera docusate sodium (Colace) 100 mg PO BID levothyroxine 100 mcg PO DAILY@0600 losartan 50 mg PO BID magnesium citrate 200 mL PO DAILY PRN metoprolol succinate ER 100 mg PO BEDTIME omega-3 fatty acids-fish oil 360-1,200 mg (Fish Oil) 1 cap PO BID tamsulosin 0.4 mg PO BEDTIME 90 days Tobacco use date assessed: 04/22/25 Fall risk assessment: 1 Fall in past year Last assessed Fall Risk: 04/22/25 Dental Screening Dental Screen Date: 04/22/25 Did you have a dental visit in the last 12 months?: Yes Did you have a dental problem in the last 6 months where you did not have access to dental care?: No Was dental information given to patient?: Patient has dentist HPI cholesterol HPI Details if cardiology referral needed likes to Larry Rodriguez [phone] ([phone] HPI Comments History of Present Illness Details History of Present Illness The patient is an 84-year-old obese male with multiple medical problems including hypothyroidism, hypercholesterolemia, coronary artery disease, chronic kidney disease, and cutaneous amyloidosis, who presents for a follow-up visit. He reports that a scalp lesion was recently excised on April 04, and while one lesion was benign, pathology reported amyloid, which was confirmed with a [place] red stain. He notes a prior excision for squamous cell carcinoma did not show amyloid. The patient expresses concern about systemic amyloidosis, questioning if it is the cause of his breathlessness via cardiac involvement or if he is developing nephrotic syndrome. He had an echocardiogram about a year ago and inquires about needing another one, as well as a referral to a feeder worker power unit operator. His past medical history is significant for a history of ascending aortic aneurysm with replacement in June 2023 and a closed left hip fracture in December 2022. He has a history of nephrolithiasis, with a CT scan on January 28 showing moderate left hydronephrosis, a 7 mm stone in the proximal left ureter, and a non-obstructive 2.5 mm stone in the left kidney. He underwent a cystoscopy with stent removal in January 2023, and stone analysis revealed an 80% uric acid and 20% calcium oxalate composition. Review of recent labs from April 13 reveals anemia of chronic disease, stable renal function with a creatinine of 1.21 and GFR of 57, an LDL of 71, an elevated liver function test at 48, a mildly elevated TSH of 4.45, and a PSA of 4.07. His uric acid level was 4.3. A urinalysis from January 2023 showed trace protein. He is on aspirin, clopidogrel, atorvastatin 20 mg, thyroid medication, and tamsulosin. Health Maintenance The patient is due for a tetanus vaccination. He agreed to and received a Td vaccine in the office today. Social History - The patient reports attending a [employer] and having a family get-together for the holidays. Results - Labs (April 13): - CBC: Anemia with normal white cell and platelet counts. - Comprehensive Metabolic Panel: Creatinine 1.21, eGFR 57, blood sugar 100, liver function test 48, albumin 3.7. - Lipid Panel: LDL 71. - Other: PSA 4.07, TSH 4.45, Uric acid 4.3. - Urinalysis (January 2023): Trace protein. - Pathology: Excision of scalp lesion (April 04) showed benign findings with amyloid, confirmed by Congo red stain. - Diagnostics: Kidney stone analysis showed 80% uric acid and 20% calcium oxalate. - Imaging (CT Scan, January 28): Moderate left hydronephrosis, 7 mm stone in proximal left ureter, non-obstructive 2.5 mm stone in left kidney, diverticular disease, moderate lumbar degenerative disc disease. [facility] Medical History Hard of hearing Arthritis Anemia History of kidney stones Hx of orthostatic hypotension Hx of fracture Weakness Difficulty swallowing Cough Habitual snoring SOB (shortness of breath) Preop exam for internal medicine Leg weakness Right wrist pain Carpal tunnel syndrome of right wrist Lumbar spinal stenosis Left acetabular fracture Peripheral arterial disease Hypercholesterolemia History of CVA (cerebrovascular accident) BPH (benign prostatic hyperplasia) Hypothyroid Hypertension Surgical History History of excision of lesion (~04/04/25) Hx of carpal tunnel repair Hx of shoulder surgery H/O colonoscopy Hx of aortic aneurysm repair History of cataract surgery S/P CABG x 1 History of prostate surgery History of thyroidectomy Hx of cholecystectomy Family History Father Medical history unknown Mother Medical history unknown Social History Household Members: Spouse Housing: House Are you a primary child care center administrator to a significant other at home: No Do you presently have visiting nurse or other home services: No Alcohol intake: current Alcohol intake frequency: holidays/special occasions only Alcohol type: beer and wine Patient Tobacco Use Status: Never used Tobacco Tobacco use type: Cigarette e-Cigarette/Vaping Use: Never Used Second Hand Smoke Exposure: No Advance Directives Date on File: 01/20/23 service: Yes Current occupational status: retired Current occupation: left hand Cognitive needs: Yes (Cane) Hearing needs: Yes Vision needs: Yes Questionnaire Thrive Questionnaire Date Thrive assessed: 04/22/25 I am a: Patient What is your living situation today?: I have a steady place to live Within the past 12 months, did the food you bought not last and you didn't have the money to get more?: Never true Within the past 12 months, did you worry whether your food would run out before you got money to buy more?: Never true Do you have trouble paying for medicines?: No Do you have trouble getting transportation to medical appointments?: No Do you have trouble paying your heating and electricity bill?: No Do you have trouble taking care of your child, family member or friend?: No Do you have trouble with day-to-day activities such as bathing, preparing meals, shopping, managing finances, etc.?: No Are you currently unemployed and looking for a job?: No Are you interested in more education?: Yes Currently or been in a relationship where the following occur: No concerns reported THRIVE Score: 0 MIKE-7 AMB Questionnaire MIKE-7 Date MIKE - 7 assessed: 06/29/24 Source: Developed by Drs. Bharathi Yi, Evelin Burns, Juan Hood and colleagues, with an educational colby from [employer]. Review of Systems Narrative Review of Systems - Respiratory: Reports breathlessness. - Integumentary: Reports a past minor, itchy rash that resembled shingles. Physical exam (Primary Care) Vital Signs: Last Vital Signs Pulse 70 04/22/25 10:49 Resp 18 04/22/25 10:49 BP 122/70 04/22/25 10:49 Pulse Ox 94 04/22/25 10:49 Oxygen Delivery Method Room Air 04/22/25 10:49 BMI result Body Mass Index 31.0 Tobacco/Smoking Status: Tobacco use Status Tobacco use date assessed 04/22/25 04/22/25 10:56 Patient Tobacco Use Status Never used Tobacco 04/22/25 10:56 Tobacco use type Cigarette 04/22/25 10:56 e-Cigarette/Vaping Use Never Used 04/22/25 10:56 Thrive Assessment: Date of Thrive Assessment Date Thrive assessed 04/22/25 04/22/25 10:56 Currently or been in a relationship where the following occur: No concerns reported Narrative Physical Exam Const General: alert; No acute distress Eyes Conjunctivae: conjunctivae normal Resp Auscultation: clear to auscultation bilaterally Cardio Rate: regular rate Rhythm: regular rhythm GI Inspection: Yes normal to inspection Extrem General: Yes normal to inspection and No edema Immunizations Tenivac (PF) 5 Lf unit-2 Lf unit/0.5 mL intramuscular syringe Performing Provider: Ami Mazariegos MD [facility] Administered by: Leona Munoz CMA on 04/22/25 11:42 Dose Route Admin Location Dispensed Lot Number Expiration Date NDC Lactation Specialist 0.5 mL IM Left Deltoid 0.5 mL [id number] 06/26/26 [id number] [employer] Total Dispensed Waste 0.5 mL 0 % VIS Given Date VIS Provided VIS Publication Date 04/22/25 Single Vaccine 20 Eligibility Eligibility Date Funding Source Not [facility] Eligible 04/22/25 Private Coding Level of Care Code Est Pt Level 4 (04360) Add On Problem Visit Only Diagnoses Coronary artery disease involving [place] coronary artery of [place] heart without angina pectoris I25.10 Associated angina: without angina Coronary Disease-Associated Artery/Lesion type: [place] artery [place] vs. 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 transplanted heart: [place] heart Qualified Code(s): I25.10 - Atherosclerotic heart disease of [place] coronary artery without angina pectoris Plan: Control the cholesterol, weight, blood pressure, on aspirin and clopidogrel (2) Hypercholesterolemia: Comment: Avoid fried foods, chicken skin, eggs, butter margarine, pastries and meat. Be it pork or beef they have a lot of cholesterol LDL goal of less than 70 Code(s): E78.00 - Pure hypercholesterolemia, unspecified Category: Medical Plan: Avoid fried foods, chicken skin, eggs, butter margarine, pastries and meat. Be it pork or beef they have a lot of cholesterol LDL goal of less than 70 and triglyceride of less than 150 on atorvastatin 20 mg once a day (3) Hypothyroid: Comment: Continue with present medication Code(s): E03.9 - Hypothyroidism, unspecified Category: Medical Qualifiers: Hypothyroidism type: acquired Qualified Code(s): E03.9 - Hypothyroidism, unspecified Plan: Continue with thyroid medication (4) CKD (chronic kidney disease) stage 2, GFR 60-89 ml/min: Comment: Dr. Ferrari November 2020 Code(s): N18.2 - Chronic kidney disease, stage 2 (mild) Category: Medical Plan: Keep well hydrated avoid NSAIDs (5) Ureterolithiasis: Comment: February 01 2025 Code(s): N20.1 - Calculus of ureter Category: Medical Plan: Patient is being followed up by Urology and concern about the kidney stone with 80% composition of uric acid (6) BPH (benign prostatic hyperplasia): Code(s): N40.0 - Benign prostatic hyperplasia without lower urinary tract symptoms Category: Medical Qualifiers: Lower urinary tract symptom detail: urinary frequency Lower urinary tract symptom presence: symptoms present Qualified Code(s): N40.1 - Benign prostatic hyperplasia with lower urinary tract symptoms; R35.0 - Frequency of micturition Plan: Continue with tamsulosin (7) Cutaneous amyloidosis: Comment: March 2025 Code(s): E85.4 - Organ-limited amyloidosis; L99 - Other disorders of skin and subcutaneous tissue in diseases classified elsewhere Category: Medical Plan: Reassurance Plan Plan Patient was informed and verbally consented to the use of an ambient scribe for clinic note documentation during this visit. 1. Cutaneous Amyloidosis The new diagnosis of cutaneous amyloidosis was discussed, including the patient's concerns for systemic involvement (cardiac, renal) as a cause for his dyspnea. An echocardiogram, serum protein electrophoresis (SPEP), and urine protein electrophoresis (UPEP) will be ordered to begin the workup. A referral will be placed to Hematology/Oncology for further evaluation and management, with the decision for further testing such as bone marrow biopsy to be deferred to the specialist. 2. Nephrolithiasis The patient has a history of uric acid-predominant kidney stones. His recent serum uric acid level was 4.3, which is within the target range. Given his normal uric acid level, initiation of allopurinol is not indicated at this time. He will continue tamsulosin and was counseled to maintain adequate hydration. He will continue to follow up with Urology. 3. Chronic Kidney Disease His chronic kidney disease is stable, with an eGFR of 57. Past urinalysis showed only trace protein, which is not suggestive of nephrotic syndrome. The patient was advised to continue avoiding NSAIDs. 4. Hypercholesterolemia His LDL is 71, which is near the goal of less than 70. He will continue his current dose of atorvastatin 20 mg daily. 5. Hypothyroidism His TSH is mildly elevated at 4.45. He will continue his current thyroid medication. 6. Coronary Artery Disease He will continue his regimen of aspirin and clopidogrel. Discussion Notes I discussed the new finding of cutaneous amyloidosis from his recent skin biopsy with the patient. I acknowledged his concerns regarding systemic involvement, particularly cardiac given his breathlessness, and the potential for renal disease. I explained that we would initiate a workup, including an echocardiogram, serum protein electrophoresis, and urine protein electrophoresis. I informed him that I will place a referral to a feeder worker power unit operator, who will guide further management and decisions on tests like a bone marrow biopsy. We also reviewed his history of uric acid kidney stones. I explained that because his recent uric acid blood level was normal, starting a medication like allopurinol is not necessary at this time, and we should focus on avoiding adding unnecessary medicines. We reinforced the importance of good hydration. Finally, we reviewed his immunization status and noted that he was due for a tetanus shot. He consented and received the Td vaccine during the visit. Patient Instructions - You will need to go to the lab for blood tests and a urine test to check your protein levels. - Our office will arrange for you to have an echocardiogram, which is an ultrasound of your heart. - We will send a referral for you to see a blood specialist, called a feeder worker power unit operator, to look into the amyloid finding. Their office will contact you to set up an appointment. - Continue taking your current medications as prescribed, including those for cholesterol and thyroid. - It is very important to drink plenty of water throughout the day to help prevent new kidney stones. - Avoid taking NSAID pain relievers like ibuprofen (Advil, Motrin) or naproxen (Aleve), as they can be harmful to your kidneys. - You received a tetanus vaccine today in the office. Orders: Orders Protein Electrophoresis, Serum Today E85.4 - Organ-limited amyloidosis, L99 - Other disorders of skin and subcutaneous tissue in diseases classified elsewhere, R79.89 - Other specified abnormal findings of blood chemistry Protein Electrophoresis 24HrUr Today E85.4 - Organ-limited amyloidosis, L99 - Other disorders of skin and subcutaneous tissue in diseases classified elsewhere UA CC w/rflx Micro + Cult Today E85.4 - Organ-limited amyloidosis, L99 - Other disorders of skin and subcutaneous tissue in diseases classified elsewhere, R30.0 - Dysuria Td Immunization Today Z23 - Encounter for immunization CA echo transthoracic complete Today E85.4 - Organ-limited amyloidosis, L99 - Other disorders of skin and subcutaneous tissue in diseases classified elsewhere Referrals Hematology & Oncology Referral E85.4 - Organ-limited amyloidosis, L99 - Other disorders of skin and subcutaneous tissue in diseases classified elsewhere
[2025-04-22 10:49] VITALS: BP 122/70; PULSE 70; RESP 18; O2SAT 94; BMI 31.0
== END 2025-04-22 11:53 | disposition home or self-care (01) ==
LOC: HO.HMCH 10:42
PROVIDERS: PCP Internal Medicine; Visit Provider Internal Medicine
DX: I25.10 Atherosclerotic heart disease of native coronary artery without angina pectoris (principal); E78.00 Pure hypercholesterolemia, unspecified; E03.9 Hypothyroidism, unspecified; N18.2 Chronic kidney disease, stage 2 (mild); N20.1 Calculus of ureter; N40.1 Benign prostatic hyperplasia with lower urinary tract symptoms; R35.0 Frequency of micturition; E85.4 Organ-limited amyloidosis; L99 Other disorders of skin and subcutaneous tissue in diseases classified elsewhere; Z23 Encounter for immunization

== ENCOUNTER → 2025-04-22 10:41 | Outpatient (BNVA) | payer MEDICARE, SELFPAY | PROVIDERS: PCP Internal Medicine; Visit Provider Internal Medicine | DX: E85.4 Organ-limited amyloidosis (principal); L99 Other disorders of skin and subcutaneous tissue in diseases classified elsewhere; N20.1 Calculus of ureter; I12.9 Hypertensive chronic kidney disease with stage 1 through stage 4 chronic kidney disease, or unspecified chronic kidney disease; D63.1 Anemia in chronic kidney disease; N18.2 Chronic kidney disease, stage 2 (mild); E78.00 Pure hypercholesterolemia, unspecified; E03.9 Hypothyroidism, unspecified; I25.10 Atherosclerotic heart disease of native coronary artery without angina pectoris; N40.1 Benign prostatic hyperplasia with lower urinary tract symptoms; R35.1 Nocturia; R79.89 Other specified abnormal findings of blood chemistry; R30.0 Dysuria; Z23 Encounter for immunization; Z86.79 Personal history of other diseases of the circulatory system; Z86.73 Personal history of transient ischemic attack (TIA), and cerebral infarction without residual deficits; Z79.82 Long term (current) use of aspirin; Z95.1 Presence of aortocoronary bypass graft | CPT/HCPCS: 90471; 90714; 99212 ==